=== PATIENT | male | born 1950 | race Caucasian/White ===

== ENCOUNTER 2018-06-12 17:25 | Inpatient (IN) | payer OTHER, BC ==
[2018-06-12] MEDS ORDERED: SODIUM CHLORIDE 0.9% 500 ML 500 ML IV STA (17:55)
--- NOTE | 2018-06-12 18:08 | ED ---
General Adult HPI - General Chief complaint: Dizziness Stated complaint: Abnormal EKG- sent by Time Seen by Provider: 06/12/18 17:42 - History of Present Illness Initial comments: Dictation was produced using [employer] dictation software. please excuse any grammatical, word or spelling errors. Chief Complaint: 67-year-old male sent in by primary care physician for EKG changes and dizziness. History of Present Illness: 7-year-old male. Patient states she's been having worsening dizziness or last 2-3 days. Patient reports that his dizziness is only with exertion. He states that it's worse with walking or doing any sort of exertional activity. Patient states he went to go see his PCP today who performed an EKG. He was thought to have nonspecific EKG changes. He was instructed To the emergency department for further care. PCP had ordered a echocardiogram and ultrasound of the carotids that was supposed be performed outpatient however was instructed to come to the emergency department instead. Patient has no pain complaints. The ROS documented in this emergency department record has been reviewed and confirmed by me. Those systems with pertinent positive or negative responses have been documented in the HPI. All other systems are other negative and/or noncontributory. PHYSICAL EXAM: General Impression: Alert and oriented x3, not in acute distress HEENT: Normocephalic atraumatic, extra-ocular movements intact, pupils equal and reactive to light bilaterally, mucous membranes moist. Cardiovascular: Heart regular rate and rhythm, S1&S2 audible, no murmurs, rubs or gallops Chest: Lungs clear to auscultation bilaterally, no rhonchi, no wheeze, no rales Abdomen: Bowel sounds present, abdomen soft, non-tender, non-distended, no organomegaly Musculoskeletal: Pulses present and equal in all extremities, no peripheral edema Motor: Power 5/5 bilaterally, no focal deficits noted Neurological: CN II-XII grossly intact, no focal motor or sensory deficits noted , no nystagmus Skin: Intact with no visualized rashes Psych: Normal affect and mood ED course: 67-year-old male presents with nonspecific EKG changes and dizziness. Vital signs upon arrival are within acceptable limits. Patient has borderline low blood pressure 99/56. He is however asymptomatic at this time. Laboratory evaluation obtained. Mild leukocytosis of 11.9 likely secondary to stress. Coag panel unremarkable. Metabolic panel shows elevation of renal markers from his baseline. I believe there is a component of dehydration. Patient given intravenous fluids. Troponin is 0.043. Patient has history of elevated troponin however slightly more elevated today than usual. Given elevated troponin and exertional symptoms patient started on heparin. We will plan to have patient admitted for cardiology consultation. No documentation of congestive heart failure seen in our EMR at this time. Patient given aspirin. Patient and family understandable and agreeable to plan. EKG interpretation: Ventricular rate 59, sinus bradycardia, AZ interval to 18, QS 12, QTc 453. No AZ prolongation, no QTC prolongation, no ST or T-wave changes noted. - Related Data Home Medications Medication Instructions Recorded Confirmed Furosemide [Lasix] 40 mg PO BID 12/23/13 06/12/18 Lisinopril [Zestril] 20 mg PO DAILY 12/23/13 06/12/18 Potassium Chloride ER [K-Dur 20] 20 meq PO DAILY 12/23/13 06/12/18 Albuterol Sulfate [Proair Hfa] 2 puff INHALATION RT-Q6H PRN 07/24/15 06/12/18 Clopidogrel [Plavix] 75 mg PO DAILY 07/24/15 06/12/18 Budesonide/Formoterol Fumarate 2 puff INHALATION RT-BID 06/12/18 06/12/18 [Symbicort 160-4.5 Mcg Inhaler] Ergocalciferol (Vitamin D2) 50,000 unit PO Q7D 06/12/18 06/12/18 [Vitamin D2] Insulin Aspart [NovoLOG Flexpen] See Protocol SQ ACHS 06/12/18 06/12/18 Insulin Glargine,Hum.rec.anlog 100 unit SQ HS 06/12/18 06/12/18 [Lantus Solostar] Isosorbide Mononitrate ER [Imdur] 60 mg PO DAILY 06/12/18 06/12/18 Metoprolol Tartrate [Lopressor] 50 mg PO BID 06/12/18 06/12/18 NIFEdipine [NIFEdipine ER] 60 mg PO DAILY 06/12/18 06/12/18 Spironolactone [Aldactone] 50 mg PO DAILY 06/12/18 06/12/18 Tiotropium 18 Mcg/Puff [Spiriva] 1 cap INHALATION RT-DAILY 06/12/18 06/12/18 metFORMIN HCL 1,000 mg PO BID 06/12/18 06/12/18 Previous Rx's Medication Instructions Recorded Aspirin 325 mg PO DAILY #90 tab 12/24/13 Atorvastatin [Lipitor] 80 mg PO HS #90 tab 12/24/13 Nitroglycerin Sl Tabs [Nitrostat] 0.4 mg SUBLINGUAL Q5M PRN #25 tab 12/24/13 Allergies Allergy/AdvReac Type Severity Reaction Status Date / Time No Known Allergies Allergy Verified 06/12/18 18:48 Review of Systems ROS Statement: Those systems with pertinent positive or pertinent negative responses have been documented in the HPI. ROS Other: All systems not noted in ROS Statement are negative. Past Medical History Past Medical History: Coronary Artery Disease (CAD), COPD, Diabetes Mellitus, Hypertension Additional Past Medical History / Comment(s): On ABX at this time for "cold/ bronchitis", IDDM, lower leg edema, 2014 L leg injury and has ACL1 injury. Last Myocardial Infarction Date:: 12/23/13 History of Any Multi-Drug Resistant Organisms: None Reported Past Surgical History: Coronary Bypass/CABG, Heart Catheterization With Stent Additional Past Surgical History / Comment(s): unknown exact number of stents Past Anesthesia/Blood Transfusion Reactions: No Reported Reaction Date of Last Stent Placement:: 2011 Past Psychological History: No Psychological Hx Reported Additional Psychological History / Comment(s): Pt resides with his spouse. He is independent. He has a cane which he uses minimally. He drives. 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 Smoking Status: Current every day smoker Past Alcohol Use History: Occasional Additional Past Alcohol Use History / Comment(s): Pt started smoking in 1969 and is a 1 ppd smoker. Past Drug Use History: None Reported - Past Family History Father Family Medical History: Myocardial Infarction ([place]) Additional Family Medical History / Comment(s): Father had lung cancer and bladder cancer. He is 82 yrs old. He is an exsmoker. Mother Family Medical History: COPD Additional Family Medical History / Comment(s): cardiac Course Vital Signs 06/12/18 06/12/18 18:07 19:08 Temperature 98.6 F Pulse Rate 57 L Pulse Rate [ 63 Sitting] Pulse Rate [ 60 Standing] Pulse Rate [ 50 L Supine] Respiratory 18 Rate Blood Pressure 99/56 Blood Pressure 89/53 [Left Arm Sitting] Blood Pressure 98/45 [Left Arm Standing] Blood Pressure 99/49 [Left Arm Supine] O2 Sat by Pulse 98 Oximetry Medical Decision Making - Lab Data Result diagrams: 06/12/18 17:59 06/12/18 17:59 Lab Results 06/12/18 06/12/18 06/12/18 Range/Units 17:59 17:59 17:59 WBC 11.9 H (3.8-10.6) k/uL RBC 4.47 (4.30-5.90) m/uL Hgb 11.8 L (13.0-17.5) gm/dL Hct 37.7 L (39.0-53.0) % MCV 84.2 (80.0-100.0) fL MCH 26.4 (25.0-35.0) pg MCHC 31.4 (31.0-37.0) g/dL RDW 14.9 (11.5-15.5) % Plt Count 237 (150-450) k/uL Neutrophils % 71 % Lymphocytes % 16 % Monocytes % 7 % Eosinophils % 3 % Basophils % 1 % Neutrophils # 8.5 H (1.3-7.7) k/uL Lymphocytes # 1.9 (1.0-4.8) k/uL Monocytes # 0.8 (0-1.0) k/uL Eosinophils # 0.4 (0-0.7) k/uL Basophils # 0.1 (0-0.2) k/uL Hypochromasia Slight PT 11.6 (9.0-12.0) sec INR 1.1 (<1.2) Sodium 139 (137-145) mmol/L Potassium 5.0 (3.5-5.1) mmol/L Chloride 105 (98-107) mmol/L Carbon Dioxide 25 (22-30) mmol/L Anion Gap 9 mmol/L BUN 29 H (9-20) mg/dL Creatinine 1.63 H (0.66-1.25) mg/dL Est GFR (CKD-EPI)AfAm 50 (>60 ml/min/1.73 sqM) Est GFR (CKD-EPI)NonAf 44 (>60 ml/min/1.73 sqM) Glucose 105 H (74-99) mg/dL Calcium 9.5 (8.4-10.2) mg/dL Troponin I (0.000-0.034) ng/mL Urine Color Urine Appearance (Clear) Urine pH (5.0-8.0) Ur Specific Muse (1.001-1.035) Urine Protein (Negative) Urine Glucose (UA) (Negative) Urine Ketones (Negative) Urine Blood (Negative) Urine Nitrite (Negative) Urine Bilirubin (Negative) Urine Urobilinogen (<2.0) mg/dL Ur Leukocyte Esterase (Negative) Urine RBC (0-5) /hpf Urine WBC (0-5) /hpf Urine Bacteria (None) /hpf Hyaline Casts (0-2) /lpf Urine Mucus (None) /hpf 06/12/18 06/12/18 Range/Units 17:59 18:59 WBC (3.8-10.6) k/uL RBC (4.30-5.90) m/uL Hgb (13.0-17.5) gm/dL Hct (39.0-53.0) % MCV (80.0-100.0) fL MCH (25.0-35.0) pg MCHC (31.0-37.0) g/dL RDW (11.5-15.5) % Plt Count (150-450) k/uL Neutrophils % % Lymphocytes % % Monocytes % % Eosinophils % % Basophils % % Neutrophils # (1.3-7.7) k/uL Lymphocytes # (1.0-4.8) k/uL Monocytes # (0-1.0) k/uL Eosinophils # (0-0.7) k/uL Basophils # (0-0.2) k/uL Hypochromasia PT (9.0-12.0) sec INR (<1.2) Sodium (137-145) mmol/L Potassium (3.5-5.1) mmol/L Chloride (98-107) mmol/L Carbon Dioxide (22-30) mmol/L Anion Gap mmol/L BUN (9-20) mg/dL Creatinine (0.66-1.25) mg/dL Est GFR (CKD-EPI)AfAm (>60 ml/min/1.73 sqM) Est GFR (CKD-EPI)NonAf (>60 ml/min/1.73 sqM) Glucose (74-99) mg/dL Calcium (8.4-10.2) mg/dL Troponin I 0.043 H* (0.000-0.034) ng/mL Urine Color Yellow Urine Appearance Clear (Clear) Urine pH 5.0 (5.0-8.0) Ur Specific Muse 1.012 (1.001-1.035) Urine Protein 1+ H (Negative) Urine Glucose (UA) Negative (Negative) Urine Ketones Negative (Negative) Urine Blood Negative (Negative) Urine Nitrite Negative (Negative) Urine Bilirubin Negative (Negative) Urine Urobilinogen <2.0 (<2.0) mg/dL Ur Leukocyte Esterase Negative (Negative) Urine RBC <1 (0-5) /hpf Urine WBC 1 (0-5) /hpf Urine Bacteria Rare H (None) /hpf Hyaline Casts 15 H (0-2) /lpf Urine Mucus Rare H (None) /hpf Disposition Clinical Impression: NSTEMI (non-ST elevated myocardial infarction) Disposition: ADMITTED IP TO THIS [facility] Condition: Fair Referrals: Gonzalo Do MD [Primary Care Provider] - 1-2 days Decision Time: 19:27
[2018-06-12 18:17] LABS: Basophils # (A) 0.1 k/uL (0-0.2); Basophils % (A) 1 %; Eosinophils # (A) 0.4 k/uL (0-0.7); Eosinophils % (A) 3 %; HCT 37.7 % (39.0-53.0); HGB 11.8 gm/dL (13.0-17.5); Hypochromasia Slight; Lymphocytes # (A) 1.9 k/uL (1.0-4.8); Lymphocytes % (A) 16 %; MCH 26.4 pg (25.0-35.0); MCHC 31.4 g/dL (31.0-37.0); MCV 84.2 fL (80.0-100.0); Mean Platelet Volume 9.2; Monocytes # (A) 0.8 k/uL (0-1.0); Monocytes % (A) 7 %; Neutrophils # (A) 8.5 k/uL (1.3-7.7); Neutrophils % (A) 71 %; Platelet Count 237 k/uL (150-450); RBC 4.47 m/uL (4.30-5.90); RDW 14.9 % (11.5-15.5); WBC 11.9 k/uL (3.8-10.6)
[2018-06-12 18:28] LABS: INR 1.1 (<1.2); Prothrombin Time 11.6 sec (9.0-12.0)
[2018-06-12 18:37] LABS: Calcium 9.5 mg/dL (8.4-10.2)
[2018-06-12] MEDS ORDERED: HEPARIN SODIUM,PORCINE 5,000 UNIT/ML 1 ML VIAL IV PRN (19:07)
[2018-06-12] MEDS ORDERED: HEPARIN SODIUM,PORCINE 5,000 UNIT/ML 1 ML VIAL IV ONE (19:07)
[2018-06-12 19:17] LABS: Appearance,Urine Clear (Clear); Bacteria,Urine Rare /hpf; Bilirubin,Urine Negative (Negative); Blood,Urine Negative (Negative); Color,Urine Yellow; Glucose,Urine (UA) Negative (Negative); Hyaline Casts,Urine 15 /lpf (0-2); Ketones,Urine Negative (Negative); Leukocyte Esterase,Urine Negative (Negative); Mucus,Urine Rare /hpf; Nitrite,Urine Negative (Negative); Protein,Urine 1+ (Negative); RBC,Urine <1 /hpf (0-5); Specific Gravity,Urine 1.012 (1.001-1.035); Urobilinogen,Urine <2.0 mg/dL (<2.0)
[2018-06-12] MEDS: HEPARIN SOD,PORK IN 0.45% NACL 25,000 UNIT in 0.45% NACL 1 250ML.BAG IV SCH (19:23)
[2018-06-12] MEDS ORDERED: ASPIRIN 81 MG PO STA (19:25)
[2018-06-12] MEDS ORDERED: NITROGLYCERIN SL TABS 0.4 MG TAB SUBLINGUAL PRN (19:27)
--- NOTE | 2018-06-12 19:58 | XR ---
EXAMINATION: XR chest 1V portable DATE AND TIME: 06/12/2018 6:58 PM CLINICAL INDICATION: PHH; dizzy TECHNIQUE: AP upright portable COMPARISON: 07/24/2015 FINDINGS: The lungs are clear. The pleural spaces are negative. The cardiac silhouette is moderately enlarged. The remainder of the mediastinal silhouette is not wel l visualized. Sternal sutures and mediastinal clips are noted. EKG leads. The skeletal structures and soft tissues are negative for acute findings. IMPRESSION: NO ACUTE PROCESS.
[2018-06-12 20:58] LABS: Glucose,Whole Blood 131 mg/dL (75-99)
[2018-06-12] MEDS ORDERED: METOPROLOL TARTRATE 50 MG TAB PO SCH (21:00)
[2018-06-12] MEDS ORDERED: ATORVASTATIN 80 MG TAB PO SCH (21:00)
[2018-06-12] MEDS ORDERED: metFORMIN 500 MG TAB PO SCH (21:00)
[2018-06-12 21:11] VITALS: BMI 28.5
[2018-06-12] MEDS: INSULIN DETEMIR (LEVEMIR) 100 UNIT/ML SYR SQ SCH (21:16)
[2018-06-13] MEDS: metFORMIN 500 MG TAB PO SCH (02:10)
[2018-06-13 06:09] LABS: Glucose,Whole Blood 126 mg/dL (75-99)
[2018-06-13] MEDS: INSULIN ASPART (NovoLOG) 100 UNIT/ML VIAL SQ SCH ×4 (06:20→20:48)
[2018-06-13 06:26] LABS: Calcium 9.2 mg/dL (8.4-10.2); Magnesium 1.9 mg/dL (1.6-2.3); Potassium 4.5 mmol/L (3.5-5.1)
--- NOTE | 2018-06-13 07:38 | P.CRDCN ---
History of Present Illness Consult date: 06/13/18 Requesting physician: Yaz Cheatham Reason for Consult (text): Abnormal troponins Chief complaint: Dizziness, lightheadedness, recent heart failure exacerbation History of present illness: This is a pleasant 67-year-old gentleman who used to follow with Dr. Xiong in the office, he now follows with Dr. Elder at [facility]. He has a known history of coronary artery disease, patient underwent coronary artery bypass grafting surgery in 2000, in 2010 he underwent a cardiac catheterization which at that time revealed a totally occluded [place] vessel with patent [place] to the LAD, patent saphenous vein graft to the obtuse marginal branch and patent saphenous vein graft to the right coronary artery had had severe obstructive coronary artery disease, he underwent stenting of the saphenous vein graft to the right coronary artery at that time. In 2012 patient underwent repeat revascularization by Dr. Crowley. In 2013 the patient presented to the hospital again with symptoms of chest discomfort, he was seen in consultation at that time by Dr. geetha lenz and underwent successful angioplasty and stenting of the saphenous vein graft to the right coronary artery. Patient also has history of nicotine dependence, hypertension, hyperlipidemia, diabetes. According to the patient, since March of last year he states that he had been quite short of breath, he went to see Dr. Berry as an outpatient approximately 2 weeks ago, an x-ray was performed at that time which revealed congestive heart failure and the patient was started on IV Lasix. He states he has significant bilateral lower extremity edema at that time which has now almost completely resolved. He presents to the hospital on this occasion with symptoms of dizziness and lightheadedness with associated weakness. He states that he was [place] the shooting range with his , walked outside and became extremely lightheaded and dizzy and felt as though his arms and legs were extremely weak. He denies having any chest discomfort and overall his breathing since he started the Lasix has been fairly stable. Chest x-ray on this admission did not reveal any acute process. Chest x-ray performed on June 04 revealed bilateral consolidation and small bilateral pleural effusions with congestive heart failure and possible pneumonia. EKG on arrival here showed a sinus bradycardia with T wave changes noted in the lateral leads, similar to prior EKGs. Orthostatic blood pressures were obtained, 98/40 lying 99/48 sitting and 89/53 standing, heart rate in the 60s, 96% on room air. Blood pressure this morning 118/60, heart rate in the 70s, 91% on room air. Laboratory data was reviewed, white blood cell count 11.9, hemoglobin 11.8, platelet count 237. Sodium 139, potassium 5.0, BUN 29 and creatinine 1.6 on admission, sodium this morning 139, potassium 4.5, BUN 26 and creatinine 1.2. Troponins 0.04, 0.03, 0.04. At the time of my examination this morning, patient is resting in bed, denies any weakness dizziness or lightheadedness, breathing is stable, denies any chest discomfort. Past Medical History Past Medical History: Coronary Artery Disease (CAD), Heart Failure, COPD, Diabetes Mellitus, Hypertension Additional Past Medical History / Comment(s): On ABX at this time for "cold/bronchitis", IDDM, lower leg edema, 2013 L leg injury and has ACL1 injury, heart murmur Last Myocardial Infarction Date:: 12/23/13 History of Any Multi-Drug Resistant Organisms: None Reported Past Surgical History: Coronary Bypass/CABG, Heart Catheterization With Stent Additional Past Surgical History / Comment(s): stent to SVG-RCA at [facility]', stent to left carotid , stent x 2 (unk) 2013 at [facility], stent to RCA @ [facility] 13', Stent to RCA, SVG to RCA, SVG to RCA at [facility], gaglion cyst removal Past Anesthesia/Blood Transfusion Reactions: No Reported Reaction Date of Last Stent Placement:: 2011 Past Psychological History: No Psychological Hx Reported Additional Psychological History / Comment(s): Pt resides with his spouse. He is independent. He has a cane which he uses minimally. He drives. 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 Smoking Status: Current every day smoker Past Alcohol Use History: Occasional Additional Past Alcohol Use History / Comment(s): Pt started smoking in 1969 and is a 1 ppd smoker. Past Drug Use History: None Reported - Past Family History Father Family Medical History: Myocardial Infarction ([place]) Additional Family Medical History / Comment(s): Father had lung cancer and bladder cancer. He is 82 yrs old. He is an exsmoker. Mother Family Medical History: COPD Additional Family Medical History / Comment(s): cardiac Medications and Allergies Home Medications Medication Instructions Recorded Confirmed Type Furosemide [Lasix] 40 mg PO BID 12/23/13 06/12/18 History Lisinopril [Zestril] 20 mg PO DAILY 12/23/13 06/12/18 History Potassium Chloride ER [K-Dur 20] 20 meq PO DAILY 12/23/13 06/12/18 History Aspirin 325 mg PO DAILY #90 tab 12/24/13 06/12/18 Rx Atorvastatin [Lipitor] 80 mg PO HS #90 tab 12/24/13 06/12/18 Rx Nitroglycerin Sl Tabs [Nitrostat] 0.4 mg SUBLINGUAL Q5M PRN #25 tab 12/24/13 0 06/12/18 Rx Albuterol Sulfate [Proair Hfa] 2 puff INHALATION RT-Q6H PRN 07/24/15 06/12/18 History Clopidogrel [Plavix] 75 mg PO DAILY 07/24/15 06/12/18 History Budesonide/Formoterol Fumarate 2 puff INHALATION RT-BID 06/12/18 06/12/18 History [Symbicort 160-4.5 Mcg Inhaler] Ergocalciferol (Vitamin D2) 50,000 unit PO Q7D 06/12/18 06/12/18 History [Vitamin D2] Ferrous Sulfate [Feosol] 325 mg PO DAILY 06/12/18 06/12/18 History Insulin Aspart [NovoLOG Flexpen] See Protocol SQ ACHS 06/12/18 06/12/18 History Insulin Glargine,Hum.rec.anlog 100 unit SQ HS 06/12/18 06/12/18 History [Lantus Solostar] Isosorbide Mononitrate ER [Imdur] 60 mg PO DAILY 06/12/18 06/12/18 History Metoprolol Tartrate [Lopressor] 50 mg PO DAILY 06/12/18 06/12/18 History NIFEdipine [NIFEdipine ER] 60 mg PO DAILY 06/12/18 06/12/18 History Spironolactone [Aldactone] 50 mg PO DAILY 06/12/18 06/12/18 History Tiotropium 18 Mcg/Puff [Spiriva] 1 cap INHALATION RT-DAILY 06/12/18 06/12/18 History metFORMIN HCL 1,000 mg PO QAM 06/12/18 06/12/18 History Allergies Allergy/AdvReac Type Severity Reaction Status Date / Time No Known Allergies Allergy Verified 06/12/18 18:48 Physical Exam Vitals: Vital Signs Temp Pulse Pulse Pulse Pulse Resp BP 06/13/18 03:38 98.3 F 73 18 06/12/18 23:09 97.6 F 67 18 06/12/18 20:59 62 16 125/85 06/12/18 20:29 97.5 F L 61 18 06/12/18 19:08 63 60 50 L 06/12/18 18:07 98.6 F 57 L 18 99/56 BP BP BP Pulse Ox 06/13/18 03:38 117/59 91 L 06/12/18 23:09 129/57 96 06/12/18 20:59 98 06/12/18 20:29 128/61 96 06/12/18 19:08 89/53 98/45 99/49 06/12/18 18:07 98 Intake and Output 06/12/18 06/13/18 06/13/18 22:59 06:59 14:59 Intake Total 60 307.513 Output Total 1100 Balance 60 -792.487 Intake: IV 60 240 0.9% NS 20mL/HR 40 160 Heparin Sod,Pork in 0.45% 20 80 NaCl 25,000 unit In 0.45 % NaCl 1 250ml.bag @ 12 UNITS/KG/HR 9.88 mls/hr IV .Q24H [facility] Rx#: [id number] Intake, IV Titration 67.513 Amount Heparin Sod,Pork in 0.45% 67.513 NaCl 25,000 unit In 0.45 % NaCl 1 250ml.bag @ 12 UNITS/KG/HR 9.88 mls/hr IV .Q24H [facility] Rx#: [id number] Output: Urine 1100 Other: Weight 82.372 kg 87.5 kg PHYSICAL EXAMINATION: GENERAL: 67-year-old gentleman in no acute distress at the time of my examination HEENT: Head is atraumatic, normocephalic. Pupils equal, round. Sclera anicteric. Conjunctiva are clear. Mucous membranes of the mouth are moist. Neck is supple. There is no elevated jugular venous pressure. No carotid bruit is heard. HEART EXAMINATION: Heart S1 S2 1 systolic murmur is heard CHEST EXAMINATION: Lungs are clear with mild decrease in air entry to the bases. ABDOMEN: Soft, nontender. Bowel sounds are heard. No organomegaly noted. EXTREMITIES: 2+ peripheral pulses with trace edema noted to the right lower extremity, no edema to the left lower extremity no calf tenderness noted, negative Homans. NEUROLOGIC patient is awake, alert and oriented 3 . . Results 06/12/18 17:59 06/13/18 05:42 Cardiac Enzymes 06/12/18 06/13/18 06/13/18 Range/Units 17:59 01:01 05:42 Troponin I 0.043 H* 0.032 0.045 H* (0.000-0.034) ng/mL Coagulation 06/12/18 06/13/18 Range/Units 17:59 01:01 PT 11.6 (9.0-12.0) sec APTT 37.3 H (22.0-30.0) sec Lipids 06/13/18 Range/Units 05:42 Triglycerides 94 (<150) mg/dL Cholesterol 91 (<200) mg/dL HDL Cholesterol 26 L (40-60) mg/dL CBC 06/12/18 Range/Units 17:59 WBC 11.9 H (3.8-10.6) k/uL RBC 4.47 (4.30-5.90) m/uL Hgb 11.8 L (13.0-17.5) gm/dL Hct 37.7 L (39.0-53.0) % Plt Count 237 (150-450) k/uL Comprehensive Metabolic Panel 06/12/18 06/13/18 Range/Units 17:59 05:42 Sodium 139 139 (137-145) mmol/L Potassium 5.0 4.5 (3.5-5.1) mmol/L Chloride 105 109 H (98-107) mmol/L Carbon Dioxide 25 23 (22-30) mmol/L BUN 29 H 26 H (9-20) mg/dL Creatinine 1.63 H 1.21 (0.66-1.25) mg/dL Glucose 105 H 126 H (74-99) mg/dL Calcium 9.5 9.2 (8.4-10.2) mg/dL Current Medications Generic Name Dose Route Start Last Admin Trade Name Freq PRN Reason Stop Dose Admin Aspirin 325 mg 06/13/18 09:00 Aspirin PO DAILY [facility] Atorvastatin Calcium 80 mg 06/13/18 09:00 Lipitor PO QAM [facility] Clopidogrel Bisulfate 75 mg 06/13/18 09:00 Plavix PO DAILY [facility] Heparin Sodium (Porcine) 0 unit 06/12/18 19:07 06/13/18 02:13 Heparin IV 4,000 unit PER PROTOCOL PRN Administration Low PTT Protocol Heparin Sodium/Sodium Chloride 250 mls @ 9.88 mls/hr 06/12/18 19:15 06/13/18 02:13 25,000 unit/ Sodium Chloride IV 15 units/kg/hr .Q24H [facility] 12.35 mls/hr Titration Protocol 12 UNITS/KG/HR Insulin Aspart 0 unit 06/13/18 07:30 06/13/18 06:20 Novolog SQ Not Given ACHS [facility] Protocol Insulin Detemir 100 unit 06/12/18 21:00 06/12/18 21:16 Levemir SQ Not Given HS [facility] Metformin HCl 1,000 mg 06/13/18 07:30 06/13/18 02:10 Glucophage PO Not Given W/BRKFST [facility] Metoprolol Tartrate 50 mg 06/13/18 09:00 Lopressor PO DAILY [facility] Nitroglycerin 0.4 mg 06/12/18 19:27 Nitrostat SUBLINGUAL Q5M PRN Chest Pain Intake and Output 06/12/18 06/13/18 06/13/18 22:59 06:59 14:59 Intake Total 60 307.513 Output Total 1100 Balance 60 -792.487 Intake: IV 60 240 0.9% NS 20mL/HR 40 160 Heparin Sod,Pork in 0.45% 20 80 NaCl 25,000 unit In 0.45 % NaCl 1 250ml.bag @ 12 UNITS/KG/HR 9.88 mls/hr IV .Q24H [facility] Rx#: [id number] Intake, IV Titration 67.513 Amount Heparin Sod,Pork in 0.45% 67.513 NaCl 25,000 unit In 0.45 % NaCl 1 250ml.bag @ 12 UNITS/KG/HR 9.88 mls/hr IV .Q24H [facility] Rx#: [id number] Output: Urine 1100 Other: Weight 82.372 kg 87.5 kg 06/12/18 17:59 06/13/18 05:42 EKG Interpretations (text) EKG on admission here shows a sinus bradycardia with T wave inversion noted in the lateral leads, similar to prior EKGs. Assessment and Plan Plan: Assessment and plan #1 symptoms of dizziness and lightheadedness with associated bilateral arm and leg weakness, rule out cardiac causes. Likely secondary to dehydration and hypotension. #2 abnormality in troponin, no significant rise and fall pattern to suggest acute coronary syndrome, patient denies having any chest discomfort. EKG shows a sinus bradycardia with T wave changes noted in the lateral leads similar to prior EKGs. #3 recent congestive heart failure exacerbation, treated with Lasix as an outpatient #4 known history of coronary artery disease with prior bypass surgery in 2000, subsequent stenting 3 since his bypass, most recent in 2013 #5 hypertension #6 hyperlipidemia #7 diabetes #8 nicotine dependence #9 systolic murmur, suggestive of mitral regurg #10 mild renal insufficiency on admission, could be secondary to dehydration Plan We will obtain orthostatic blood pressure and heart rate every shift. Obtain echocardiogram with Doppler study. Monitor for any significant tachycardia or bradycardia arrhythmias. We will also obtain a d-dimer. Continue IV heparin at this time along with aspirin which we will decrease to 81 mg daily, Lipitor, we will decrease the metoprolol to 25 mg daily. Patient had also been on Ald actone, potassium, nifedipine, Zestril, Imdur, which have all been placed on hold at this time because of hypotension and abnormal renal function on admission. Further recommendations to follow. DNP note has been reviewed, I agree with a documented findings and plan of care. Patient was seen and examined.
[2018-06-13] MEDS ORDERED: METOPROLOL TARTRATE 50 MG TAB PO SCH (09:00)
[2018-06-13] MEDS ORDERED: ASPIRIN 325 MG TAB PO SCH ×2 (09:00)
[2018-06-13] MEDS: NICOTINE 14MG/24HR PATCH TRANSDERM SCH (09:44)
[2018-06-13] MEDS: ATORVASTATIN 80 MG TAB PO SCH (09:44)
[2018-06-13] MEDS: CLOPIDOGREL 75 MG TAB PO SCH (09:44)
[2018-06-13] MEDS: ASPIRIN 81 MG PO SCH (09:44)
[2018-06-13] MEDS: METOPROLOL TARTRATE 25 MG TAB PO SCH (09:45)
[2018-06-13 11:52] LABS: Glucose,Whole Blood 270 mg/dL (75-99)
[2018-06-13 13:00] LABS: Hemoglobin A1C 9.3 % (4.0-6.0)
--- NOTE | 2018-06-13 13:36 | P.HPIM ---
History of Present Illness H&P Date: 06/13/18 Chief Complaint: Lightheadedness dizziness Very pleasant 67-year-old gentleman past medical history significant for CAD status post CABG comes in with lightheadedness and dizziness. He says that he' s been feeling lightheaded and dizzy when at [employer] and trying to do some shooting. He said he was a lightheaded and dizzy that he could not even pickup is gone and was feeling so weak he did not have any chest pain or racing heart, no cough no shortness of breath. He otherwise does not complain any abdominal pain, nausea and vomiting, or diarrhea constipation, no tingling numbness on his extremities, and additional rest. He said that he felt little bit blacked out during the incident but did not lose vision or did not lose consciousness. He does came into the ER for further evaluation and management. ER course-patient's vitals were stable. Labwork was initial WAC 11.9 hemoglobin 11.8 platelets 237 sodium 139 potassium 5.0 B1 29 creatinine 1.6 troponins were 0.04, 0.03 and 0.04 respectively. Patient was thus admitted to the hospitalist service for further evaluation and management with cardiology on board Review of Systems All systems: negative Past Medical History Past Medical History: Coronary Artery Disease (CAD), Heart Failure, COPD, Diabetes Mellitus, Hypertension Additional Past Medical History / Comment(s): On ABX at this time for "cold/ bronchitis", IDDM, lower leg edema, 2014 L leg injury and has ACL1 injury, heart murmur Last Myocardial Infarction Date:: 12/23/13 History of Any Multi-Drug Resistant Organisms: None Reported Past Surgical History: Coronary Bypass/CABG, Heart Catheterization With Stent Additional Past Surgical History / Comment(s): stent to SVG-RCA at [facility] 08', stent to left carotid , stent x 2 (unk) 2013 at [facility], stent to RCA @ [facility] 13', Stent to RCA, SVG to RCA, SVG to RCA at [facility], gaglion cyst removal Past Anesthesia/Blood Transfusion Reactions: No Reported Reaction Date of Last Stent Placement:: 2011 Past Psychological History: No Psychological Hx Reported Additional Psychological History / Comment(s): Pt resides with his spouse. He is independent. He has a cane which he uses minimally. He drives. 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 Smoking Status: Current every day smoker Past Alcohol Use History: Occasional Additional Past Alcohol Use History / Comment(s): Pt started smoking in 1969 and is a 1 ppd smoker. Past Drug Use History: None Reported - Past Family History Father Family Medical History: Myocardial Infarction (MS) Additional Family Medical History / Comment(s): Father had lung cancer and bladder cancer. He is 82 yrs old. He is an exsmoker. Mother Family Medical History: COPD Additional Family Medical History / Comment(s): cardiac Medications and Allergies Home Medications Medication Instructions Recorded Confirmed Type Furosemide [Lasix] 40 mg PO BID 12/23/13 06/12/18 History Lisinopril [Zestril] 20 mg PO DAILY 12/23/13 06/12/18 History Potassium Chloride ER [K-Dur 20] 20 meq PO DAILY 12/23/13 06/12/18 History Aspirin 325 mg PO DAILY #90 tab 12/24/13 06/12/18 Rx Atorvastatin [Lipitor] 80 mg PO HS #90 tab 12/24/13 06/12/18 Rx Nitroglycerin Sl Tabs [Nitrostat] 0.4 mg SUBLINGUAL Q5M PRN #25 tab 12/24/1308/26 Rx Albuterol Sulfate [Proair Hfa] 2 puff INHALATION RT-Q6H PRN 07/24/15 06/12/18 History Clopidogrel [Plavix] 75 mg PO DAILY 07/24/15 06/12/18 History Budesonide/Formoterol Fumarate 2 puff INHALATION RT-BID 06/12/18 06/12/18 History [Symbicort 160-4.5 Mcg Inhaler] Ergocalciferol (Vitamin D2) 50,000 unit PO Q7D 06/12/18 06/12/18 History [Vitamin D2] Ferrous Sulfate [Feosol] 325 mg PO DAILY 06/12/18 06/12/18 History Insulin Aspart [NovoLOG Flexpen] See Protocol SQ ACHS 06/12/18 06/12/18 History Insulin Glargine,Hum.rec.anlog 100 unit SQ HS 06/12/18 06/12/18 History [Lantus Solostar] Isosorbide Mononitrate ER [Imdur] 60 mg PO DAILY 06/12/18 06/12/18 History Metoprolol Tartrate [Lopressor] 50 mg PO DAILY 06/12/18 06/12/18 History NIFEdipine [NIFEdipine ER] 60 mg PO DAILY 06/12/18 06/12/18 History Spironolactone [Aldactone] 50 mg PO DAILY 06/12/18 06/12/18 History Tiotropium 18 Mcg/Puff [Spiriva] 1 cap INHALATION RT-DAILY 06/12/18 06/12/18 History metFORMIN HCL 1,000 mg PO QAM 06/12/18 06/12/18 History Allergies Allergy/AdvReac Type Severity Reaction Status Date / Time No Known Allergies Allergy Verified 06/12/18 18:48 Physical Exam Vitals: Vital Signs Temp Pulse Pulse Pulse Pulse Resp BP 06/13/18 12:00 98.4 F 80 14 06/13/18 08:00 98.4 F 82 60 81 16 06/13/18 03:38 98.3 F 73 18 06/12/18 23:09 97.6 F 67 18 06/12/18 20:59 62 16 125/85 06/12/18 20:29 97.5 F L 61 18 06/12/18 19:08 63 60 50 L 06/12/18 18:07 98.6 F 57 L 18 99/56 BP BP BP Pulse Ox 06/13/18 12:00 126/68 92 L 06/13/18 08:00 142/68 131/63 92 L 06/13/18 03:38 117/59 91 L 06/12/18 23:09 129/57 96 06/12/18 20:59 98 06/12/18 20:29 128/61 96 06/12/18 19:08 89/53 98/45 99/49 06/12/18 18:07 98 Intake and Output 06/12/18 06/13/18 06/13/18 22:59 06:59 14:59 Intake Total 60 307.513 0 Output Total 1100 Balance 60 -792.487 0 Intake: IV 60 240 0.9% NS 20mL/HR 40 160 Heparin Sod,Pork in 0.45% 20 80 NaCl 25,000 unit In 0.45 % NaCl 1 250ml.bag @ 12 UNITS/KG/HR 9.88 mls/hr IV .Q24H [facility] Rx#: [id number] Intake, IV Titration 67.513 Amount Heparin Sod,Pork in 0.45% 67.513 NaCl 25,000 unit In 0.45 % NaCl 1 250ml.bag @ 12 UNITS/KG/HR 9.88 mls/hr IV .Q24H [facility] Rx#: [id number] Oral 0 Output: Urine 1100 Other: Weight 82.372 kg 87.5 kg 87.5 kg On exam, alert and oriented x3. HEENT: Conjunctivae normal. eyes normal. NECK: No JVD. No thyroid enlargement. No LNs CARDIOVASCULAR: S1-S2 positive RESPIRATION: Breath sounds diminished in the bases. No rhonchi or crackles. No bronchial breathing. ABDOMEN: Soft, nontender . No guarding. no masses palpable. No ascites, No hepatosplenomegaly.Bowel sounds heard. LEGS: Trace pedal edema NERVOUS SYSTEM: Cranial N 2-12 grossly normal. Moves all 4 limbs. No focal deficits. No sensory deficit. No signs of cerebellar dysfucntion. Skin: no ulcer no rash Results CBC & Chem 7: 06/12/18 17:59 06/13/18 05:42 Labs: Abnormal Lab Results - Last 24 Hours (Table) 06/12/18 06/12/18 06/12/18 Range/Units 17:59 17:59 17:59 WBC 11.9 H (3.8-10.6) k/uL Hgb 11.8 L (13.0-17.5) gm/dL Hct 37.7 L (39.0-53.0) % Neutrophils # 8.5 H (1.3-7.7) k/uL APTT (22.0-30.0) sec Chloride (98-107) mmol/L BUN 29 H (9-20) mg/dL Creatinine 1.63 H (0.66-1.25) mg/dL Glucose 105 H (74-99) mg/dL POC Glucose (mg/dL) (75-99) mg/dL Hemoglobin A1c (4.0-6.0) % Troponin I 0.043 H* (0.000-0.034) ng/mL HDL Cholesterol (40-60) mg/dL Urine Protein (Negative) Urine Bacteria (None) /hpf Hyaline Casts (0-2) /lpf Urine Mucus (None) /hpf 06/12/18 06/12/18 06/13/18 Range/Units 18:59 20:57 01:01 WBC (3.8-10.6) k/uL Hgb (13.0-17.5) gm/dL Hct (39.0-53.0) % Neutrophils # (1.3-7.7) k/uL APTT 37.3 H (22.0-30.0) sec Chloride (98-107) mmol/L BUN (9-20) mg/dL Creatinine (0.66-1.25) mg/dL Glucose (74-99) mg/dL POC Glucose (mg/dL) 131 H (75-99) mg/dL Hemoglobin A1c (4.0-6.0) % Troponin I (0.000-0.034) ng/mL HDL Cholesterol (40-60) mg/dL Urine Protein 1+ H (Negative) Urine Bacteria Rare H (None) /hpf Hyaline Casts 15 H (0-2) /lpf Urine Mucus Rare H (None) /hpf 06/13/18 06/13/18 06/13/18 Range/Units 05:42 05:42 05:42 WBC (3.8-10.6) k/uL Hgb (13.0-17.5) gm/dL Hct (39.0-53.0) % Neutrophils # (1.3-7.7) k/uL APTT (22.0-30.0) sec Chloride 109 H (98-107) mmol/L BUN 26 H (9-20) mg/dL Creatinine (0.66-1.25) mg/dL Glucose 126 H (74-99) mg/dL POC Glucose (mg/dL) (75-99) mg/dL Hemoglobin A1c 9.3 H (4.0-6.0) % Troponin I 0.045 H* (0.000-0.034) ng/mL HDL Cholesterol 26 L (40-60) mg/dL Urine Protein (Negative) Urine Bacteria (None) /hpf Hyaline Casts (0-2) /lpf Urine Mucus (None) /hpf 06/13/18 06/13/18 06/13/18 Range/Units 06:08 07:59 11:42 WBC (3.8-10.6) k/uL Hgb (13.0-17.5) gm/dL Hct (39.0-53.0) % Neutrophils # (1.3-7.7) k/uL APTT 57.2 H (22.0-30.0) sec Chloride (98-107) mmol/L BUN (9-20) mg/dL Creatinine (0.66-1.25) mg/dL Glucose (74-99) mg/dL POC Glucose (mg/dL) 126 H 270 H (75-99) mg/dL Hemoglobin A1c (4.0-6.0) % Troponin I (0.000-0.034) ng/mL HDL Cholesterol (40-60) mg/dL Urine Protein (Negative) Urine Bacteria (None) /hpf Hyaline Casts (0-2) /lpf Urine Mucus (None) /hpf Thrombosis Risk Factor Assmnt - Choose All That Apply Any of the Below Risk Factors Present?: Yes Each Factor Represents 1 point: Heart failure (<1month), Obesity (BMI >25) Each Risk Factor Represents 2 Points: Age 61-74 years Thrombosis Risk Factor Assessment Total Risk Factor Score: 4 Thrombosis Risk Factor Assessment Level: Moderate Risk Assessment and Plan Assessment: - Lightheadedness or dizziness need to rule out due to dehydration or due to cardiac cause - Intermediate troponin levels - History of CAD status post CABG - History of hypertension - History of hyperlipidemia - Diabetes Plan - - We'll admit the patient to [facility] with telemetry - We'll hold on her cardiac medications as the patient might be dehydrated. - Cardiology on board - We'll continue rest of the medications - DVT and gi prophylaxis - We'll order for lab work in the morning - Expected length of stay is more than 2 midnights - Patient is full code - Time with Patient: Greater than 30
[2018-06-13 16:45] LABS: Glucose,Whole Blood 247 mg/dL (75-99)
[2018-06-13] MEDS: HEPARIN SOD,PORK IN 0.45% NACL 25,000 UNIT in 0.45% NACL 1 250ML.BAG IV SCH (17:40)
--- NOTE | 2018-06-13 18:33 | ECHOF ---
Referral Reason:assess lvf MEASUREMENTS -------- HEIGHT: 175.3 cm WEIGHT: 87.1 kg BP: IVSd: 1.5 cm (0.6 - 1.1) LVIDd: 5.1 cm (3.9 - 5.3) LVPWd: 1.5 cm (0.6 - 1.1) IVSs: 1.7 cm LVIDs: 4.2 cm LVPWs: 2.0 cm LA Diam: 4.9 cm (2.7 - 3.8) LAESV Index (A-L): 39.07 ml/m Ao Diam: 3.1 cm (2.0 - 3.7) AV Cusp: 1.3 cm (1.5 - 2.6) MV EXCURSION: 22.213 mm (> 18.000) MV EF SLOPE: 83 mm/s (70 - 150) EPSS: 1.2 cm AR PHT: 496 ms RAP: 5.00 mmHg RVSP: 48.51 mmHg FINDINGS -------- Sinus rhythm. This was a techncally difficult study with suboptimal views, , Lumason utilized for enhancement of im ages. The left ventricular size is normal. There is moderate concentric left ventricular hypertrophy. O verall left ventricular systolic function is moderate-severely impaired with, an EF between 30 - 35 % . Inferior Hypokinesis The right ventricle is normal in size. The left atrium is markedly dilated. LA is severely dilated >40 ml/m2 The right atrial size is normal. 5.0mg OF Lumason UTLIZED: 2 OR MORE WALL SEGMENTS NOT VISUALIZED. There is mild aortic valve sclerosis. There is mild aortic regurgitation. Mild mitral annular calcification present. Lxyr-ww-uzmqgbmk mitral regurgitation is present. Ghjv-eg-jwakfjny tricuspid regurgitation present. There is mild pulmonary hypertension. The right ventricular systolic pressure, as measured by Doppler, is 48.51mmHg. Trace/mild (physiologic) pulmonic regurgitation. The aortic root size is normal. There is no pericardial effusion. CONCLUSIONS -------- 1. This was a techncally difficult study with suboptimal views, , Lumason utilized for enhancement of images. 2. The left ventricular size is normal. 3. There is moderate concentric left ventricular hypertrophy. 4. Overall left ventricular systolic function is moderate-severely impaired with, an EF between 30 - 35 %. 5. Inferior Hypokinesis 6. The right ventricle is normal in size. 7. The left atrium is markedly dilated. 8. LA is severely dilated >40 ml/m2 9. The right atrial size is normal. 10. 5.0mg OF Lumason UTLIZED: 2 OR MORE WALL SEGMENTS NOT VISUALIZED. 11. There is mild aortic valve sclerosis. 12. There is mild aortic regurgitation. 13. Mild mitral annular calcification present. 14. Tenj-oh-wlnvizay mitral regurgitation is present. 15. Xxhu-uy-xulcixhf tricuspid regurgitation present. 16. There is mild pulmonary hypertension. 17. The right ventricular systolic pressure, as measured by Doppler, is 48.51mmHg. 18. Trace/mild (physiologic) pulmonic regurgitation. 19. The aortic root size is normal. 20. There is no pericardial effusion. DITTO MACHINE OPERATOR: Rossy Aldridge RDCS
[2018-06-13 20:32] LABS: Glucose,Whole Blood 277 mg/dL (75-99)
[2018-06-13] MEDS: INSULIN DETEMIR (LEVEMIR) 100 UNIT/ML SYR SQ SCH (20:50)
[2018-06-13] MEDS: LISINOPRIL 20 MG TAB PO SCH (22:39)
[2018-06-13] MEDS: ISOSORBIDE MONONITRATE ER 60 MG TAB.ER.24H PO SCH (22:39)
[2018-06-14 06:33] LABS: Glucose,Whole Blood 80 mg/dL (75-99)
[2018-06-14] MEDS: INSULIN ASPART (NovoLOG) 100 UNIT/ML VIAL SQ SCH ×4 (06:35→20:38)
[2018-06-14] MEDS: metFORMIN 500 MG TAB PO SCH (06:35)
[2018-06-14 06:50] LABS: Basophils # (A) 0.1 k/uL (0-0.2); Basophils % (A) 1 %; Eosinophils # (A) 0.3 k/uL (0-0.7); Eosinophils % (A) 3 %; HCT 35.1 % (39.0-53.0); HGB 10.9 gm/dL (13.0-17.5); Hypochromasia Slight; Lymphocytes # (A) 1.9 k/uL (1.0-4.8); Lymphocytes % (A) 23 %; MCH 26.1 pg (25.0-35.0); MCHC 31.1 g/dL (31.0-37.0); MCV 84.1 fL (80.0-100.0); Mean Platelet Volume 9.4; Monocytes # (A) 0.6 k/uL (0-1.0); Monocytes % (A) 7 %; Neutrophils # (A) 5.3 k/uL (1.3-7.7); Neutrophils % (A) 64 %; Platelet Count 173 k/uL (150-450); RBC 4.17 m/uL (4.30-5.90); RDW 14.7 % (11.5-15.5); WBC 8.3 k/uL (3.8-10.6)
[2018-06-14 06:59] LABS: Calcium 9.4 mg/dL (8.4-10.2); Potassium 4.3 mmol/L (3.5-5.1)
[2018-06-14] MEDS: ATORVASTATIN 80 MG TAB PO SCH (08:14)
[2018-06-14] MEDS: LISINOPRIL 20 MG TAB PO SCH (08:14)
[2018-06-14] MEDS: ISOSORBIDE MONONITRATE ER 60 MG TAB.ER.24H PO SCH (08:14)
[2018-06-14] MEDS: CLOPIDOGREL 75 MG TAB PO SCH (08:14)
[2018-06-14] MEDS: NICOTINE 14MG/24HR PATCH TRANSDERM SCH (08:15)
[2018-06-14] MEDS: METOPROLOL TARTRATE 25 MG TAB PO SCH (08:15)
[2018-06-14 11:20] LABS: Glucose,Whole Blood 107 mg/dL (75-99)
--- NOTE | 2018-06-14 13:17 | P.PN ---
Subjective Progress Note Date: 06/14/18 This is a pleasant 67-year-old gentleman who used to follow with Dr. Xiong in the office, he now follows with Dr. Elder at [facility]. He has a known history of coronary artery disease, patient underwent coronary artery bypass grafting surgery in 2000, in 2010 he underwent a cardiac catheterization which at that time revealed a totally occluded tangirnaq vessel with patent [place] to the LAD, patent saphenous vein graft to the obtuse marginal branch and patent saphenous vein graft to the right coronary artery had had severe obstructive coronary artery disease, he underwent stenting of the saphenous vein graft to the right coronary artery at that time. In 2012 patient underwent repeat revascularization by Dr. Crowley. In 2013 the patient presented to the hospital again with symptoms of chest discomfort, he was seen in consultation at that time by Dr. Edwards on and underwent successful angioplasty and stenting of the saphenous vein graft to the right coronary artery. Patient also has history of nicotine dependence, hypertension, hyperlipidemia, diabetes. According to the patient, since March of last year he states that he had been quite short of breath, he went to see Dr. Berry as an outpatient approximately 2 weeks ago, an x-ray was performed at that time which revealed congestive heart failure and the patient was started on IV Lasix. He states he has significant bilateral lower extremity edema at that time which has now almost completely resolved. He presents to the hospital on this occasion with symptoms of dizziness and lightheadedness with associated weakness. He states that he was at the shooting range with his , walked outside and became ex tremely lightheaded and dizzy and felt as though his arms and legs were extremely weak. He denies having any chest discomfort and overall his breathing since he started the Lasix has been fairly stable. Chest x-ray on this admission did not reveal any acute process. Chest x-ray performed on June 04 revealed bilateral consolidation and small bilateral pleural effusions with congestive heart failure and possible pneumonia. EKG on arrival here showed a sinus bradycardia with T wave changes noted in the lateral leads, similar to prior EKGs. Orthostatic blood pressures were obtained, 98/40 lying 99/48 sitting and 89/53 standing, heart rate in the 60s, 96% on room air. Blood pressure this morning 118/60, heart rate in the 70s, 91% on room air. Laboratory data was reviewed, white blood cell count 11.9, hemoglobin 11.8, platelet count 237. Sodium 139, potassium 5.0, BUN 29 and creatinine 1.6 on admission, sodium this morning 139, potassium 4.5, BUN 26 and creatinine 1.2. Troponins 0.04, 0.03, 0.04. At the time of my examination this morning, patient is resting in bed, denies any weakness dizziness or lightheadedness, breathing is stable, denies any chest discomfort. 06/14/2018 Patient seen and examined this morning, no further episodes of dizziness or lightheadedness. Blood pressure through the night last night up into the 170 systolic range. At 1120 this morning 168/67, heart rate in the 70s, 97 sent on room air. Blood cell count 8.3, hemoglobin 11.9, platelet count 173. Sodium 141, potassium 4.3, BUN 21 and creatinine 1.1. An echocardiogram with Doppler study was performed which revealed an ejection fraction of 30-35%, evidence of inferior hypokinesia, LA a severely dilated, mild to moderate MR mild to moderate TR. Patient is currently on aspirin 81 mg daily, Lipitor 80 mg daily, Plavix 75 mg daily, we will resume the patient's lisinopril, and Aldactone, hold nifedipine, hold Imdur for now, continue to monitor blood pressure. Objective - Vital Signs Vital signs: Vital Signs Temp 97.6 F 06/14/18 11:21 Pulse 76 06/14/18 11:21 Resp 16 06/14/18 11:21 BP 168/67 06/14/18 11:21 Pulse Ox 97 06/14/18 11:21 Intake & Output 06/13/18 06/14/18 06/14/18 18:59 06:59 18:59 Intake Total 1618.487 480 165.902 Balance 1618.487 480 165.902 Weight 87.5 kg 86.1 kg Intake: IV 276 480 0.9% NS 20mL/HR 140 320 Heparin Sod,Pork in 0.45% 136 160 NaCl 25,000 unit In 0.45 % NaCl 1 250ml.bag @ 12 UNITS/KG/HR 9.88 mls/hr IV .Q24H [facility] Rx#: [id number] Intake, IV Titration 182.487 165.902 Amount Heparin Sod,Pork in 0.45% 182.487 165.902 NaCl 25,000 unit In 0.45 % NaCl 1 250ml.bag @ 12 UNITS/KG/HR 9.88 mls/hr IV .Q24H [facility] Rx#: [id number] Oral 1160 0 - Exam PHYSICAL EXAMINATION: GENERAL: 67-year-old gentleman in no acute distress at the time of my examination HEENT: Head is atraumatic, normocephalic. Pupils equal, round. Sclera anicteric. Conjunctiva are clear. Mucous membranes of the mouth are moist. Neck is supple. There is no elevated jugular venous pressure. No carotid bruit is heard. HEART EXAMINATION: Heart S1 S2 1 systolic murmur is heard CHEST EXAMINATION: Lungs are clear with mild decrease in air entry to the bases. ABDOMEN: Soft, nontender. Bowel sounds are heard. No organomegaly noted. EXTREMITIES: 2+ peripheral pulses with trace edema noted to the right lower extremity, no edema to the left lower extremity no calf tenderness noted, negative Homans. NEUROLOGIC patient is awake, alert and oriented 3 . . - Labs CBC & Chem 7: 06/14/18 06:23 06/14/18 06:23 Labs: Abnormal Lab Results - Last 24 Hours (Table) 06/13/18 06/13/18 06/14/18 Range/Units 16:40 20:30 06:23 RBC 4.17 L (4.30-5.90) m/uL Hgb 10.9 L (13.0-17.5) gm/dL Hct 35.1 L (39.0-53.0) % APTT (22.0-30.0) sec Chloride (98-107) mmol/L BUN (9-20) mg/dL Glucose (74-99) mg/dL POC Glucose (mg/dL) 247 H 277 H (75-99) mg/dL 06/14/18 06/14/18 06/14/18 Range/Units 06:23 06:23 11:19 RBC (4.30-5.90) m/uL Hgb (13.0-17.5) gm/dL Hct (39.0-53.0) % APTT 33.9 H (22.0-30.0) sec Chloride 109 H (98-107) mmol/L BUN 21 H (9-20) mg/dL Glucose 70 L (74-99) mg/dL POC Glucose (mg/dL) 107 H (75-99) mg/dL Assessment and Plan Plan: Assessment and plan #1 symptoms of dizziness and lightheadedness with associated bilateral arm and leg weakness, rule out cardiac causes. Likely secondary to dehydration and hypotension. #2 abnormality in troponin, no significant rise and fall pattern to suggest acute coronary syndrome, patient denies having any chest discomfort. EKG shows a sinus bradycardia with T wave changes noted in the lateral leads similar to prior EKGs. #3 recent congestive heart failure exacerbation, treated with Lasix as an outpatient #4 known history of coronary artery disease with prior bypass surgery in 2000, subsequent stenting 3 since his bypass, most recent in 2013 #5 hypertension #6 hyperlipidemia #7 diabetes #8 nicotine dependence #9 systolic murmur, suggestive of mitral regurg #10 mild renal insufficiency on admission, could be secondary to dehydration Plan Static blood pressure and heart rate were negative. Echocardiogram with Doppler study showed an ejection fraction of 30-35%. We will continue to monitor blood pressure for another 24 hours, resume the lisinopril, and Aldactone, continue beta malbe. It is very likely that the patient's symptoms are secondary to being on a Lasix as an outpatient. Plan for possible discharge home in 24 hours if stable. DNP note has been reviewed, I agree with a documented findings and plan of care. Patient was seen and examined.
[2018-06-14 16:23] LABS: Glucose,Whole Blood 154 mg/dL (75-99)
[2018-06-14] MEDS: SPIRONOLACTONE 25 MG TAB PO SCH (16:28)
[2018-06-14 20:38] LABS: Glucose,Whole Blood 133 mg/dL (75-99)
[2018-06-14] MEDS: INSULIN DETEMIR (LEVEMIR) 100 UNIT/ML SYR SQ SCH (20:43)
[2018-06-15 05:57] LABS: Glucose,Whole Blood 180 mg/dL (75-99)
[2018-06-15] MEDS: INSULIN ASPART (NovoLOG) 100 UNIT/ML VIAL SQ SCH ×2 (06:05→13:07)
[2018-06-15] MEDS: metFORMIN 500 MG TAB PO SCH (06:06)
[2018-06-15] MEDS: METOPROLOL TARTRATE 25 MG TAB PO SCH (08:28)
[2018-06-15] MEDS: LISINOPRIL 20 MG TAB PO SCH (08:28)
[2018-06-15] MEDS: ASPIRIN 81 MG PO SCH (08:28)
[2018-06-15] MEDS: CLOPIDOGREL 75 MG TAB PO SCH (08:28)
[2018-06-15] MEDS: ATORVASTATIN 80 MG TAB PO SCH (08:28)
[2018-06-15] MEDS: NICOTINE 14MG/24HR PATCH TRANSDERM SCH (08:28)
[2018-06-15] MEDS: SPIRONOLACTONE 25 MG TAB PO SCH (08:28)
[2018-06-15] MEDS ORDERED: FAMOTIDINE 20 MG/2 ML VIAL IV SCH (09:26)
--- NOTE | 2018-06-15 09:30 | P.PN ---
Subjective date of service: 06/14/2018 this is a pleasant 67 yo M with pmh of DM, HTN, CAD , heart failure and COPD who presents with dizziness/lightheadedness and hypotension , on presentation his BP iss 99/49,on presentation pt has elevated troponin, he is on heparin drip he is been followed with cardiology team. his Hb A1c is 9.3% , pt also on aspirin , plavix, his metoprolol dose was reduced by cardiology team , his Nefedipine are on hold while his Lisinopril and spironolactone were restarted, it looks like pt is over medicated with antihypertensive medication as per cardiology suggestion , his systolic BP is better now at 130-140s. pt is with no chest pain of dyspnea, his lightheadedness is significantly improved, and he can walk, cr 1.1, sodium and potassium level within normal limites. his insulin dose was lowered from 100 U of levimir down to 40 U , his sugar is better controlled. c/w nicotine patch. we will check S.cortisol level: Pending Objective - Vital Signs Vital signs: Vital Signs Temp 98 F 06/15/18 03:53 Pulse 82 06/15/18 03:53 Resp 18 06/15/18 03:53 BP 150/71 06/15/18 03:53 Pulse Ox 97 06/15/18 03:53 Intake & Output 06/14/18 06/15/18 06/15/18 18:59 06:59 18:59 Intake Total 165.902 480 240 Balance 165.902 480 240 Weight 86 kg Intake: Intake, IV Titration 165.902 Amount Heparin Sod,Pork in 0.45% 165.902 NaCl 25,000 unit In 0.45 % NaCl 1 250ml.bag @ 12 UNITS/KG/HR 9.88 mls/hr IV .Q24H [facility] Rx#: [id number] Oral 0 480 240 Other: # Voids 0 1 - Exam GENERAL: The patient is alert and oriented x3, not in any acute distress. Well developed, well nourished. HEENT: Pupils are round and equally reacting to light. EOMI. No scleral icterus. No conjunctival pallor. Normocephalic, atraumatic. No pharyngeal erythema. No thyromegaly. CARDIOVASCULAR: S1 and S2 present. No murmurs, rubs, or gallops. PULMONARY: Chest is clear to auscultation, no wheezing or crackles. ABDOMEN: Soft, nontender, nondistended, normoactive bowel sounds. No palpable organomegaly. MUSCULOSKELETAL: No joint swelling or deformity. EXTREMITIES: No cyanosis, clubbing, or pedal edema. NEUROLOGICAL: Gross neurological examination did not reveal any focal deficits. SKIN: No rashes. - Labs CBC & Chem 7: 06/14/18 06:23 06/14/18 06:23 Labs: Abnormal Lab Results - Last 24 Hours (Table) 06/14/18 06/14/18 06/14/18 Range/Units 11:19 16:22 20:37 POC Glucose (mg/dL) 107 H 154 H 133 H (75-99) mg/dL 06/15/18 Range/Units 05:55 POC Glucose (mg/dL) 180 H (75-99) mg/dL Assessment and Plan Assessment: hypotension , his BP is stalizied now adjusting his BP medication elevated troponin, possible cardiac cause , on heparin drip and cardiology team are following the pt DM, needing less insulin dose essential hypertension h/o coronary artery disease h/o CHF h/o COPD , no on acute exacerbation Plan: this is as pleasant 67 M who presetns with hypotension and elevated troponin, cardiology team are following the case and he is currently on anticoagulation , aspirin and plavix, i would suggest to continue with anticoagulation , his BP and DM medicine were adjusted , his BP and Glu are better controlled currently , check cortisol level as well Labs and medication were reviewed.. Continue same treatment. Continue with symptomatic treatment. Resume home medication. Monitor lytes and vitals. DVT and GI prophylaxis. Further recommendations of the clinical course of the patient DVT prophylaxis: heparin GI Prophylaxis: Pepcid PT/OT: Pending Prognosis is guarded
[2018-06-15 11:01] LABS: Calcium 9.9 mg/dL (8.4-10.2); Potassium 4.3 mmol/L (3.5-5.1)
[2018-06-15 11:11] VITALS: RESP 16
[2018-06-15 11:28] LABS: Glucose,Whole Blood 129 mg/dL (75-99)
[2018-06-15] MEDS ORDERED: ISOSORBIDE MONONITRATE ER 60 MG TAB.ER.24H PO SCH (12:45)
--- NOTE | 2018-06-15 12:55 | CDI ---
Documentation Clarification Form Date: 06/15/2018 12:42:36 PM From: Kaitlyn LEISA Hutchinson, CCDS Admit Date: 06/12/2018 7:27:00 PM Patient Name: Vaibhav Gonzalez Visit Number: [id number] Discharge Date: ATTENTION: The Clinical Documentation Specialists (CDI) and [facility] Coding Staff appreciate your assistance in clarifying documentation. Please respond to the clarification below the line at the bottom and electronically sign. The CDI & [facility] Coding staff will review the response and follow-up if needed. Please note: Queries are made part of the Legal Health Record. If you have any questions, please contact the author of this message via ITS. Dr. Shay Pradhan: Per the Cardiology Consult: "...approximately 2 weeks ago, an x-ray was performed at that time which revealed congestive heart failure and the patient was started on IV Lasix. Chest x-ray performed on June 04 revealed bilateral consolidation and small bilateral pleural effusions with congestive heart failure and possible pneumonia. Assessment & Plan: Recent congestive heart failure exacerbation, treated with Lasix as an outpatient " History/Risk Factors: CAD, [place] & recent CABG, COPD, Hypertension, Hyperlipidemia, IDDM, Smoker. Clinical Indicators: Presented with lightheadedness & dizziness with intermediate troponin levels. ACS ruled out, no exacerbation of COPD or CHF. VS: P 57*, BP 99/56; Ortho BP: 89/53, 98/45, 99/49; PO 98 RA BNP: 1210. Troponin: 0.043^^, (0.032), ).045^^. Echocardiogram Results 06/13: Moderate LVH, Systolic function moderate-severely impaired w/EF 30-35%. Mild AR, Mild-mod MR/TR, Mild pulmonary hypertension. Chest X Ray: Cardiac silhouette moderately enlarged. No acute process. Treatment: Telemetry, Orthostatic BPs, IV fl bolus, IV Heparin drip, Nitro sl, po Lasix. In your professional opinion, can you please clarify the acuity and type of CHF if known? Systolic Heart Failure: o Other: Chronic o Other: Unable to Determine Other, please specify (Last Revision: July 2017) MTDD
[2018-06-15 13:02] VITALS: BP 162/62; PULSE 78; TEMP 97
--- NOTE | 2018-06-15 13:07 | CDI ---
CKD stage 2 Documentation Clarification Form Date: 06/15/2018 12:55:39 PM From: Kaitlyn LEISA Hutchinson, CCDS Admit Date: 06/12/2018 7:27:00 PM Patient Name: Vaibhav Gonzalez Visit Number: [id number] Discharge Date: ATTENTION: The Clinical Documentation Specialists (CDI) and [facility] Coding Staff appreciate your assistance in clarifying documentation. Please respond to the clarification below the line at the bottom and electronically sign. The CDI & [facility] Coding staff will review the response and follow-up if needed. Please note: Queries are made part of the Legal Health Record. If you have any questions, please contact the author of this message via ITS. Dr. Luzmaria Frederick: Per the Cardiology consult and subsequent progress note: "mild renal insufficiency on admission, could be secondary to dehydration" is documented. "Plan: Patient had also been on Aldactone, potassium, nifedipine, Zestril, Imdur, which have all been placed on hold at this time because of hypotension and abnormal renal function on admission." Per the ED note: "Metabolic panel shows elevation of renal markers from his baseline." History/Risk Factors: CAD, [place] w/recent CABG, IDDM, COPD, CHF, Hypertension and smoker. Clinical Indicators: Presented with lightheadedness & dizziness possibly secondary to hypotension & dehydration. Current BUN 29, Creatinine 1.63^, GFR 44 - 63 Baseline BUN, Cr & GFR not documented or unknown. Treatment: IV fluid bolus, IV Heparin drip, Nitro sl, Insulin sq, po Lasix. Home meds: Aldactone, Potassium, Nifedipine, Zestril, Imdur held. *Nephrology was not consulted. In order to capture the severity of condition, please clarify if the condition signifies: Acute renal failure o Please specify etiology (if known): Acute on chronic renal failure, please stage the CKD if evident and known, if possible: o CKD Stage 1 GFR >90 o CKD Stage 2 GFR 60-89 o CKD Stage 3 GFR 30-59 o CKD Stage 4 GFR 15-29 o CKD Stage 5 GFR <15 Other, please specify: Unable to determine (Last Revision: July 2017) MTDD
--- NOTE | 2018-06-15 13:44 | P.DS ---
Providers Date of admission: 06/12/18 19:27 Expected date of discharge: 06/15/18 Attending physician: Yaz Cheatham Consults: 06/12/18 19:27 Consult Physician Urgent Consulting Provider: Christo Shane Consult Reason/Comments: nstemi Do you want consulting provider notified?: Yes Primary care physician: [facility] Course: 67-year-old gentleman who used to follow with Dr. Xiong in the office, he now follows with Dr. Elder at [facility]. He has a known history of coronary artery disease, patient underwent coronary artery bypass grafting surgery in 2000, in 2010 he underwent a cardiac catheterization which at that time revealed a totally occluded anvik vessel with patent [place] to the LAD, patent saphenous vein graft to the obtuse marginal branch and patent saphenous vein graft to the right coronary artery had had severe obstructive coronary artery disease, he underwent stenting of the saphenous vein graft to the right coronary artery at that time. In 2012 patient underwent repeat revascularization by Dr. Crowley. In 2013 the patient presented to the hospital again with symptoms of chest discomfort, he was seen in consultation at that time by Dr. Edwards on and underwent successful angioplasty and stenting of the saphenous vein graft to the right coronary artery. Patient also has history of nicotine dependence, hypertension, hyperlipidemia, diabetes. According to the patient, since March of last year he states that he had been quite short of breath, he went to see Dr. Berry as an outpatient approximately 2 weeks ago, an x-ray was performed at that time which revealed congestive heart failure and the patient was started on IV Lasix. He states he has significant bilateral lower extremity edema at that time which has now almost completely resolved. He presents to the hospital on this occasion with symptoms of dizziness and lightheadedness with associated weakness. He states that he was [place] the shooting range with his , walked outside and became extremely lightheaded and dizzy and felt as though his arms and legs were extremely weak. He denies having any chest discomfort and overall his breathing since he started the Lasix has been fairly stable. Chest x-ray on this admission did not reveal any acute process. Chest x-ray performed on June 04 revealed bilateral consolidation and small bilateral pleural effusions with congestive heart failure and possible pneumonia. EKG on arrival here showed a sinus bradycardia with T wave changes noted in the lateral leads, similar to prior EKGs. Orthostatic blood pressures were obtained, 98/40 lying 99/48 sitting and 89/53 standing, heart rate in the 60s, 96% on room air. Blood pressure this morning 118/60, heart rate in the 70s, 91% on room air. Laboratory data was reviewed, white blood cell count 11.9, hemoglobin 11.8, platelet count 237. Sodium 139, potassium 5.0, BUN 29 and creatinine 1.6 on admission, sodium this morning 139, potassium 4.5, BUN 26 and creatinine 1.2. Troponins 0.04, 0.03, 0.04. At the time of my examination this morning, patient is resting in bed, denies any weakness dizziness or lightheadedness, breathing is stable, denies any chest discomfort. 06/14/2018 Patient seen and examined this morning, no further episodes of dizziness or lightheadedness. Blood pressure through the night last night up into the 170 systolic range. At 1120 this morning 168/67, heart rate in the 70s, 97 sent on room air. Blood cell count 8.3, hemoglobin 11.9, platelet count 173. Sodium 141, potassium 4.3, BUN 21 and creatinine 1.1. An echocardiogram with Doppler study was performed which revealed an ejection fraction of 30-35%, evidence of inferior hypokinesia, LA a severely dilated, mild to moderate MR mild to mod erate TR. Patient is currently on aspirin 81 mg daily, Lipitor 80 mg daily, Plavix 75 mg daily, we will resume the patient's lisinopril, and Aldactone, hold nifedipine, hold Imdur for now, continue to monitor blood pressure. Patient Condition at Discharge: Fair Plan - Discharge Summary Discharge Rx Participant: No New Discharge Prescriptions: New Spironolactone [Aldactone] 25 mg PO DAILY #30 tab Furosemide [Lasix] 20 mg PO BID@0900,1600 #30 tab Metoprolol Tartrate [Lopressor] 25 mg PO DAILY #60 tab Continue Lisinopril [Zestril] 20 mg PO DAILY Potassium Chloride ER [K-Dur 20] 20 meq PO DAILY Aspirin 325 mg PO DAILY #90 tab Atorvastatin [Lipitor] 80 mg PO HS #90 tab Nitroglycerin Sl Tabs [Nitrostat] 0.4 mg SUBLINGUAL Q5M PRN #25 tab PRN Reason: Chest Pain Clopidogrel [Plavix] 75 mg PO DAILY Albuterol Sulfate [Proair Hfa] 2 puff INHALATION RT-Q6H PRN PRN Reason: Shortness Of Breath Budesonide/Formoterol Fumarate [Symbicort 160-4.5 Mcg Inhaler] 2 puff INHALATION RT-BID metFORMIN HCL 1,000 mg PO QAM Spironolactone [Aldactone] 50 mg PO DAILY Insulin Glargine,Hum.rec.anlog [Lantus Solostar] 100 unit SQ HS Tiotropium 18 Mcg/Puff [Spiriva] 1 cap INHALATION RT-DAILY Ergocalciferol (Vitamin D2) [Vitamin D2] 50,000 unit PO Q7D Insulin Aspart [NovoLOG Flexpen] See Protocol SQ ACHS Ferrous Sulfate [Feosol] 325 mg PO DAILY Discontinued Furosemide [Lasix] 40 mg PO BID NIFEdipine [NIFEdipine ER] 60 mg PO DAILY Isosorbide Mononitrate ER [Imdur] 60 mg PO DAILY Metoprolol Tartrate [Lopressor] 50 mg PO DAILY Discharge Medication List Lisinopril [Zestril] 20 mg PO DAILY 12/23/13 [History] Potassium Chloride ER [K-Dur 20] 20 meq PO DAILY 12/23/13 [History] Aspirin 325 mg PO DAILY #90 tab 12/24/13 [Rx] Atorvastatin [Lipitor] 80 mg PO HS #90 tab 12/24/13 [Rx] Nitroglycerin Sl Tabs [Nitrostat] 0.4 mg SUBLINGUAL Q5M PRN #25 tab 12/24/13 [Rx] Albuterol Sulfate [Proair Hfa] 2 puff INHALATION RT-Q6H PRN 07/24/15 [History] Clopidogrel [Plavix] 75 mg PO DAILY 07/24/15 [History] Budesonide/Formoterol Fumarate [Symbicort 160-4.5 Mcg Inhaler] 2 puff INHALATION RT-BID 06/12/18 [History] Ergocalciferol (Vitamin D2) [Vitamin D2] 50,000 unit PO Q7D 06/12/18 [History] Ferrous Sulfate [Feosol] 325 mg PO DAILY 06/12/18 [History] Insulin Aspart [NovoLOG Flexpen] See Protocol SQ ACHS 06/12/18 [History] Insulin Glargine,Hum.rec.anlog [Lantus Solostar] 100 unit SQ HS 06/12/18 [History] Spironolactone [Aldactone] 50 mg PO DAILY 06/12/18 [History] Tiotropium 18 Mcg/Puff [Spiriva] 1 cap INHALATION RT-DAILY 06/12/18 [History] metFORMIN HCL 1,000 mg PO QAM 06/12/18 [History] Furosemide [Lasix] 20 mg PO BID@0900,1600 #30 tab 06/15/18 [Rx] Metoprolol Tartrate [Lopressor] 25 mg PO DAILY #60 tab 06/15/18 [Rx] Spironolactone [Aldactone] 25 mg PO DAILY #30 tab 06/15/18 [Rx] Follow up Appointment(s)/Referral(s): oGnzalo Do MD [Primary Care Provider] - 06/20/18 10:20 am Javid Elder DO [REFERRING] - 06/28/18 2:00 pm (Optical Fabrication Technician.) Patient Instructions/Handouts: Dehydration (DC), Acute Kidney Injury (DC), Hypotension (DC) Discharge Disposition: HOME SELF-CARE
--- NOTE | 2018-06-15 15:43 | P.PN ---
Subjective Progress Note Date: 06/15/18 This is a 67-year-old gentleman who was admitted to the hospital with symptoms of dizziness and lightheadedness and weakness. Patient was found to be hypovolemic with dehydration. Most of his medications were held and patient was hydrated. Gradually symptoms improved. We will restart his medication ye sterday. He is feeling much better today. We'll send him home on small dose of Lasix of 20 mg by mouth twice a day along with Aldactone another medication. Patient will have follow-up with his own day camp counselor. Prognosis is guarded Objective - Vital Signs Vital signs: Vital Signs Temp 97 F L 06/15/18 12:00 Pulse 78 06/15/18 12:00 Resp 16 06/15/18 12:00 BP 162/62 06/15/18 12:00 Pulse Ox 98 06/15/18 13:08 Intake & Output 06/14/18 06/15/18 06/15/18 18:59 06:59 18:59 Intake Total 165.902 480 600 Balance 165.902 480 600 Weight 86 kg Intake: Intake, IV Titration 165.902 Amount Heparin Sod,Pork in 0.45% 165.902 NaCl 25,000 unit In 0.45 % NaCl 1 250ml.bag @ 12 UNITS/KG/HR 9.88 mls/hr IV .Q24H FREDRICK Rx#: [id number] Oral 0 480 600 Other: # Voids 0 1 - Exam GENERAL EXAM: Patient is alert and oriented and doesn't appear to be in any acute distress HEENT: Normocephalic. Normal reaction of pupils, equal size, normal range of extraocular motion. No erythema or exudates in the throat. NECK: No masses, no nuchal rigidity. CHEST: No chest wall deformity. LUNGS: Equal air entry with no crackles or wheeze. HEART: S1 and S2 normal with no audible mumurs or gallops. Regular rhythm, f emorals equal on both sides.. ABDOMEN: No hepatosplenomegaly, normal bowel sounds, no guarding or rigidity. SKIN: No rashes CENTRAL NERVOUS SYSTEM: No focal deficits. EXTREMITIES: No cyanosis, clubbing or edema. - Labs CBC & Chem 7: 06/14/18 06:23 06/15/18 10:02 Labs: Abnormal Lab Results - Last 24 Hours (Table) 06/14/18 06/14/18 06/15/18 Range/Units 16:22 20:37 05:55 Glucose (74-99) mg/dL POC Glucose (mg/dL) 154 H 133 H 180 H (75-99) mg/dL 06/15/18 06/15/18 Range/Units 10:02 11:25 Glucose 143 H (74-99) mg/dL POC Glucose (mg/dL) 129 H (75-99) mg/dL Assessment and Plan (1) Hypovolemia Status: Acute Code(s): E86.1 - HYPOVOLEMIA SNOMED Code(s): 64561704 (2) Dehydration Status: Acute Code(s): E86.0 - DEHYDRATION SNOMED Code(s): 25615231 (3) Chronic congestive heart failure Status: Acute Code(s): I50.9 - HEART FAILURE, UNSPECIFIED SNOMED Code(s): 29455959 (4) Chronic coronary artery disease Status: Acute Code(s): I25.10 - ATHSCL HEART DISEASE OF [place] CORONARY ARTERY W/O ANG PCTRS SNOMED Code(s): 52431438 Plan: Patient is feeling better and wants to go home. Patient may go home on reduced dose of diuretics. Follow-up with his own day camp counselor.
[2018-06-15] MEDS ORDERED: FUROSEMIDE 20 MG TAB PO SCH (16:00)
[2018-06-15] MEDS ORDERED: INSULIN DETEMIR (LEVEMIR) 100 UNIT/ML SYR SQ SCH (21:00)
--- NOTE | 2018-06-25 08:21 | CDI ---
Ac renal failure; multifactorial Documentation Clarification Form Date: 06/15/2018 12:55:00 PM From: Kaitlyn OspinaHutchinsonLEISA williamson, CCDS Admit Date: 06/12/2018 7:27:00 PM Patient Name: Vaibhav Gonzalez Visit Number: [id number] Discharge Date: 06/15/2018 2:48:00 PM ATTENTION: The Clinical Documentation Specialists (CDI) and [facility] Coding Staff appreciate your assistance in clarifying documentation. Please respond to the clarification below the line at the bottom and electronically sign. The CDI & [facility] Coding staff will review the response and follow-up if needed. Please note: Queries are made part of the Legal Health Record. If you have any questions, please contact the author of this message via ITS. Dr. Luzmaria Frederick: Per the Cardiology consult and subsequent progress note: "mild renal insufficiency on admission, could be secondary to dehydration" is documented. "Plan: Patient had also been on Aldactone, potassium, nifedipine, Zestril, Imdur, which have all been placed on hold at this time because of hypotension and abnormal renal function on admission." Per the ED note: "Metabolic panel shows elevation of renal markers from his baseline." History/Risk Factors: CAD, [place] w/recent CABG, IDDM, COPD, CHF, Hypertension and smoker. Clinical Indicators: Presented with lightheadedness & dizziness possibly secondary to hypotension & dehydration. Current BUN 29, Creatinine 1.63^, GFR 44 - 63 Baseline BUN, Cr & GFR not documented or unknown. Treatment: IV fluid bolus, IV Heparin drip, Nitro sl, Insulin sq, po Lasix. Home meds: Aldactone, Potassium, Nifedipine, Zestril, Imdur held. Nephrology was not consulted. In order to capture the severity of condition, please clarify if the condition signifies: Acute renal failure Please specify etiology (if known): Acute on chronic renal failure, please stage the CKD if evident and known, if possible: CKD Stage 1 GFR >90 CKD Stage 2 GFR 60-89 CKD Stage 3 GFR 30-59 CKD Stage 4 GFR 15-29 CKD Stage 5 GFR <15 Other, please specify: Unable to determine (Last Revision: July 2017) MTDD
== END 2018-06-15 14:48 | disposition home or self-care (01) | DRG 641 ==
LOC: EC 17:25 → 3SCARD 19:27
PROVIDERS: ADMIT Internal Medicine; ATTEND Internal Medicine
DX: E86.0 Dehydration (principal); I50.22 Chronic systolic (congestive) heart failure; I13.0 Hypertensive heart and chronic kidney disease with heart failure and stage 1 through stage 4 chronic kidney disease, or unspecified chronic kidney disease; I95.9 Hypotension, unspecified; E11.22 Type 2 diabetes mellitus with diabetic chronic kidney disease; I08.1 Rheumatic disorders of both mitral and tricuspid valves; J44.9 Chronic obstructive pulmonary disease, unspecified; R00.1 Bradycardia, unspecified; I25.10 Atherosclerotic heart disease of native coronary artery without angina pectoris; D72.829 Elevated white blood cell count, unspecified; E78.5 Hyperlipidemia, unspecified; E86.1 Hypovolemia; F17.210 Nicotine dependence, cigarettes, uncomplicated; E66.9 Obesity, unspecified; N18.2 Chronic kidney disease, stage 2 (mild); R74.8 Abnormal levels of other serum enzymes; I25.2 Old myocardial infarction; Z79.82 Long term (current) use of aspirin; Z79.899 Other long term (current) drug therapy; Z79.02 Long term (current) use of antithrombotics/antiplatelets; Z79.4 Long term (current) use of insulin; Z79.51 Long term (current) use of inhaled steroids; Z68.28 Body mass index [BMI] 28.0-28.9, adult; Z95.1 Presence of aortocoronary bypass graft; Z95.5 Presence of coronary angioplasty implant and graft; Z80.52 Family history of malignant neoplasm of bladder; Z82.49 Family history of ischemic heart disease and other diseases of the circulatory system; Z80.1 Family history of malignant neoplasm of trachea, bronchus and lung; Z82.5 Family history of asthma and other chronic lower respiratory diseases
CPT/HCPCS: 36415; 71045; 80048; 80061; 81001; 82533; 83036; 83735; 83880; 84484; 85025; 85610; 85730; 93005; 93306; 96361; 96365; 96366; 96376; 99285

== ENCOUNTER → 2020-05-22 | Outpatient (CLI) | payer OTHER ==
--- NOTE | 2020-05-22 09:21 | US ---
EXAMINATION TYPE: US duplex aorta DATE OF EXAM: 05/22/2020 COMPARISON: NONE CLINICAL HISTORY: Z87.891 Personal history of nicotine dependence. EXAM MEASUREMENTS: Abdominal Aorta: Proximal: 2.6 x 2.8 cm Mid: 1.8 x 2.0 cm Distal: 1.6 x 2.0 cm Bifurcation: rt, 1.1 cm lt, 1.1 cm Normal caliber aorta. IMPRESSION: No evidence for abdominal aortic aneurysm.
== END | disposition home or self-care (01) ==
LOC: RADUSWWP 08:55
DX: Z13.6 Encounter for screening for cardiovascular disorders (principal); Z87.891 Personal history of nicotine dependence
CPT/HCPCS: 93979

== ENCOUNTER → 2020-06-01 | Outpatient (CLI) | payer OTHER ==
--- NOTE | 2020-06-01 18:32 | CTL ---
EXAMINATION TYPE: CT Low Dose Lung DATE OF EXAM ORDERED: 06/01/2020 HISTORY: 69-year-old male personal history of tobacco use. Lung cancer screening CT DLP: 143.[address] CTDI: 3.8 mGy Automated exposure control for dose reduction was used. SCREENING VISIT: Baseline COMPARISON: None TECHNIQUE: Low dose computed tomography scan was performed through the chest at 1 mm thick sections a nd reconstructed images in the coronal and sagittal plane. CT DIAGNOSTIC QUALITY: Satisfactory FINDINGS: Median sternotomy wires are present with post-CABG changes. Heart normal size without pericardial effusion. Aorta normal caliber with moderate atherosclerotic arch calcifications and conventional arch vessel b ranching anatomy. Scattered nonenlarged and mildly enlarged mediastinal lymph nodes are present measuring up to 1.5 cm in the precarinal region. Subcarinal lymph node measures up to 1 cm. Borderline to mildly enlarged caliber to the main right and left pulmonary arteries measuring up to 2 .6 cm. Findings may reflect underlying pulmonary arterial hypertension. Mild centrilobular emphysema. Mild diffuse bronchial wall thickening. 4 mm calcified granuloma within the right midlung pulmonary nodule, axial image 127. Some strandy posterior basilar atelectasis. Strandy inferior lingular atelectasis. No consolidation or pleural effusion. Visualized upper abdomen shows no gross abnormality. Bones: Mild anterior endplate spondylosis lower thoracic spine. IMPRESSION: 1. LungRADS 2S - benign. Solitary 4 mm calcified granuloma on the right. No suspicious pulmonary nod ules. 2. Nonspecific enlarged 1.5 cm precarinal lymph node. Probably reactive/post inflammatory. 3. COPD with mild emphysema. Possible underlying pulmonary arterial hypertension. RECOMMENDATION: 1. Six-month follow-up CT to reassess the precarinal lymph node, probably reactive/post inflammatory. 2. Subsequently, continue annual low-dose lung cancer screening CT. 3. Smoking cessation.
== END | disposition home or self-care (01) ==
LOC: RADCTMAIN 14:27
PROVIDERS: ATTEND Family Medicine
DX: Z12.2 Encounter for screening for malignant neoplasm of respiratory organs (principal); J84.10 Pulmonary fibrosis, unspecified; R59.9 Enlarged lymph nodes, unspecified; J44.9 Chronic obstructive pulmonary disease, unspecified; F17.210 Nicotine dependence, cigarettes, uncomplicated
CPT/HCPCS: 71271

== ENCOUNTER → 2021-02-01 | Outpatient (CLI) | payer OTHER ==
--- NOTE | 2021-02-01 17:04 | CT ---
EXAMINATION TYPE: CT chest wo con DATE OF EXAM: 02/01/2021 COMPARISON: 06/01/2020 HISTORY: Abnormal findings on diagnostic imaging CT DLP: 406.1 mGycm, Automated exposure control for dose reduction was used. CONTRAST: None TECHNIQUE: Axial images were obtained at 5 mm thick sections. Reconstructed images are reviewed on [employer] computer in the coronal plane. FINDINGS: Portion of the thyroid visualized is normal. No suspicious lung nodules or focal infiltrates are present. There are scattered enlarged lymph nodes within the pretracheal space and the superior mediastinum. This includes a 1.1 cm lymph node in the superior mediastinum. Series 3 image 13. Pretracheal node me asuring 1.3 cm. Series 3 image 22. A subcarinal lymph node measures 1.4 cm which is somewhat more pro minent than the comparison 1.[address] for additional evaluation. Ascending aorta diameter at the level of the main pulmonary artery is 3.3 cm. The main pulmonary art ly diameter at the bifurcation is 2.9 cm. Coronary artery calcifications present. Limited CT sections are obtained through the upper abdomen. Abdomen is essentially unremarkable. IMPRESSIONS: 1. Persistent enlarged mediastinal adenopathy. Consider PET CT for additional evaluation.
== END | disposition home or self-care (01) ==
LOC: RADCTMAIN 10:41
DX: R59.0 Localized enlarged lymph nodes (principal)
CPT/HCPCS: 71250

== ENCOUNTER → 2021-02-19 | Outpatient (CLI) | payer OTHER ==
--- NOTE | 2021-02-22 06:31 | PE ---
EXAMINATION TYPE: PET CT fusion skull to thigh DATE OF EXAM: 02/19/2021 COMPARISON: Chest CT February 01, [address] June 01, 2020 HISTORY: Solitary pulmonary nodule, abnormal CT TECHNIQUE: Following the intravenous administration of 8.58 mCi of F-18 FDG, whole body images are p erformed from the skull base to the midthigh. Images are reviewed on the computer in the coronal, ax ial, and sagittal planes. Reconstructed rotating images are created on independent workstation and r eviewed on the computer. A localization and attenuation correction CT is performed in conjunction w ith the PET scan. Blood glucose level equals 153 SCAN: Initial Scan FINDINGS: SKULL BASE AND NECK: No abnormal hypermetabolic uptake. CHEST, MEDIASTINUM, AND HILAR REGION: Persistent enlarged mediastinal lymph nodes. For reference ther e is 1.8 x 1.5 cm right tracheobronchial lymph node axial image 98 and 1.8 x 1.5 cm AP window lymph n ode axial image 98. Both are ametabolic. There is stable ametabolic 2.7 x 1.5 cm subcarinal lymph nod e axial image 106. Background mild to moderate underlying emphysematous change without hypermetabolic nodules or masses. ABDOMEN AND PELVIS: Nonspecific bowel uptake. No adrenal masses. No abnormal hypermetabolic uptake. OSSEOUS STRUCTURES: No abnormal hypermetabolic uptake. OTHER CT: Post-CABG changes with mediastinal clips and sternal wires is redemonstrated. Cardiomegaly is again seen. Enlarged prostate consistent with BPH. Mild to moderate calcified plaque of the aorta extending into branch vessels again seen. Lower lumbar facet arthropathy redemonstrated. IMPRESSION: Stable nonspecific mediastinal adenopathy. Differential includes granulomatous disease, i nfectious, and inflammatory etiologies. No abnormal hypermetabolic uptake to suggest lymphoma or othe r aggressive malignancy.
== END | disposition home or self-care (01) ==
LOC: RADPETMAIN 12:34
PROVIDERS: ATTEND Internal Medicine
DX: R59.0 Localized enlarged lymph nodes (principal)
CPT/HCPCS: 78815; A9552

== ENCOUNTER → 2021-11-16 | Outpatient (CLI) | payer OTHER ==
--- NOTE | 2021-11-16 15:17 | US ---
EXAMINATION TYPE: US kidneys/renal and bladder DATE OF EXAM: 11/16/2021 COMPARISON: NONE CLINICAL HISTORY: N18.9 CHRONIC KIDNEY DISEASE, UNSPECIFIED. EXAM MEASUREMENTS: Right Kidney: 9.6 x 5.2 x 5.9 cm Left Kidney: 10.1 x 5.4 x 5.0 cm Right Kidney: wnl Left Kidney: wnl Bladder: wnl Bilateral Jets seen: no There is no evidence for hydronephrosis at this point in time. No nephrolithiasis is seen. No philip s are identified. The urinary bladder is anechoic. Bilateral ureteral jets are seen. IMPRESSION: No discrete abnormality seen.
== END | disposition home or self-care (01) ==
LOC: RADUSWWP 14:56
DX: N18.9 Chronic kidney disease, unspecified (principal)
CPT/HCPCS: 76770

== ENCOUNTER 2021-11-20 19:07 | Inpatient (IN) | payer OTHER, MEDICARE ==
--- NOTE | 2021-11-20 19:17 | ED ---
Chest Pain HPI - General Chief Complaint: Chest Pain Stated Complaint: Stemi Time Seen by Provider: 11/20/21 19:07 Source: patient, RN notes reviewed Mode of arrival: EMS Limitations: no limitations - History of Present Illness Initial Comments: 71-year-old male with a history of COPD and coronary artery disease bypass surgery many years ago hypertension who presents by EMS today due to intermittent episodes of chest pain over last couple days he had another onset about 15 minutes prior to EMS arrival and his home he took 3 nitroglycerin without relief and is found to be in a wide-complex tachycardia was later converted to A. fib RVR with Y complex didn't seem to turn into a bradycardia with A. fib and subsequently a sinus rhythm prior to arrival. He currently is chest pain-free not short of breath no fevers chills nausea vomiting sweats. He states he's been getting less and when he takes his medications it resolves he did not take his medications this evening. Patient states he is on a blood thinner but does not known the name is is bringing his medications to the hospital. MD Complaint: chest pain, other - Related Data Home Medications Medication Instructions Recorded Confirmed Potassium Chloride ER [K-Dur 20] 20 meq PO DAILY 12/23/13 06/12/18 lisinopriL [Zestril] 20 mg PO DAILY 12/23/13 06/12/18 Albuterol Sulfate [Proair Hfa] 2 puff INHALATION RT-Q6H PRN 07/24/15 06/12/18 Clopidogrel [Plavix] 75 mg PO DAILY 07/24/15 06/12/18 Budesonide/Formoterol Fumarate 2 puff INHALATION RT-BID 06/12/18 06/12/18 [Symbicort 160-4.5 Mcg Inhaler] Ergocalciferol (Vitamin D2) 50,000 unit PO Q7D 06/12/18 06/12/18 [Vitamin D2] Ferrous Sulfate [Feosol] 325 mg PO DAILY 06/12/18 06/12/18 Insulin Aspart [NovoLOG Flexpen] See Protocol SQ ACHS 06/12/18 06/12/18 Insulin Glargine,Hum.rec.anlog 100 unit SQ HS 06/12/18 06/12/18 [Lantus Solostar Pen] Spironolactone [Aldactone] 50 mg PO DAILY 06/12/18 06/12/18 Tiotropium 18 Mcg/Puff [Spiriva] 1 cap INHALATION RT-DAILY 06/12/18 06/12/18 metFORMIN HCL [Glucophage] 1,000 mg PO QAM 06/12/18 06/12/18 Previous Rx's Medication Instructions Recorded Aspirin 325 mg PO DAILY #90 tab 12/24/13 Atorvastatin [Lipitor] 80 mg PO HS #90 tab 12/24/13 Nitroglycerin Sl Tabs [Nitrostat] 0.4 mg SUBLINGUAL Q5M PRN #25 tab 12/24/13 Furosemide [Lasix] 20 mg PO BID@0900,1600 #30 tab 06/15/18 Metoprolol Tartrate [Lopressor] 25 mg PO DAILY #60 tab 06/15/18 Spironolactone [Aldactone] 25 mg PO DAILY #30 tab 06/15/18 Allergies Allergy/AdvReac Type Severity Reaction Status Date / Time No Known Allergies Allergy Verified 11/20/21 19:12 Review of Systems ROS Statement: Those systems with pertinent positive or pertinent negative responses have been documented in the HPI. ROS Other: All systems not noted in ROS Statement are negative. EKG Findings - EKG Results: EKG: interpreted by ERMD, sinus rhythm (Sinus bradycardia with first-degree AV block rate 55. Interval 250 to QRS 186 QT since QTC 42/471 left exodeviation, interventricular conduction delay) Past Medical History Past Medical History: Coronary Artery Disease (CAD), Heart Failure, COPD, Diabetes Mellitus, Hypertension Additional Past Medical History / Comment(s): On ABX at this time for "cold/bronchitis", IDDM, lower leg edema, 2013 L leg injury and has ACL1 injury, heart murmur Last Myocardial Infarction Date:: 12/23/13 History of Any Multi-Drug Resistant Organisms: None Reported Past Surgical History: Coronary Bypass/CABG, Heart Catheterization With Stent Additional Past Surgical History / Comment(s): stent to SVG-RCA at [facility]', stent to left carotid , stent x 2 (unk) 2013 at [facility], stent to RCA @ [facility] 13', Stent to RCA, SVG to RCA, SVG to RCA at [facility], gaglion cyst removal Past Anesthesia/Blood Transfusion Reactions: No Reported Reaction Date of Last Stent Placement:: 2011 Past Psychological History: No Psychological Hx Reported Smoking Status: Current every day smoker Past Alcohol Use History: Occasional Past Drug Use History: None Reported - Past Family History Father Family Medical History: Myocardial Infarction ([place]) Additional Family Medical History / Comment(s): Father had lung cancer and bladder cancer. He is 82 yrs old. He is an exsmoker. Mother Family Medical History: COPD Additional Family Medical History / Comment(s): cardiac General Exam - General Exam Comments Initial Comments: This is a well-developed well-nourished awake alert oriented 4 male Limitations: no limitations General appearance: alert, in no apparent distress Head exam: Present: atraumatic, normocephalic, normal inspection Eye exam: Present: normal appearance, PERRL, EOMI. Absent: scleral icterus, con junctival injection, periorbital swelling ENT exam: Present: normal exam, mucous membranes moist Neck exam: Present: normal inspection, full ROM, other (Severity severe.). Absent: tenderness, meningismus, lymphadenopathy Respiratory exam: Present: decreased breath sounds. Absent: respiratory distress, wheezes, rales, rhonchi, stridor Cardiovascular Exam: Present: normal rhythm, bradycardia, normal heart sounds. Absent: systolic murmur, diastolic murmur, rubs, gallop, clicks GI/Abdominal exam: Present: soft, normal bowel sounds. Absent: distended, tenderness, guarding, rebound, rigid Extremities exam: Present: normal inspection, full ROM, normal capillary refill. Absent: tenderness, pedal edema, joint swelling, calf tenderness Back exam: Present: normal inspection Neurological exam: Present: alert, oriented X3, CN II-XII intact Psychiatric exam: Present: normal affect, normal mood Skin exam: Present: warm, dry, intact, normal color. Absent: rash Course Vital Signs 11/20/21 11/20/21 11/20/21 19:08 19:21 19:43 Temperature 97.7 F Pulse Rate 54 L 44 L Respiratory 20 24 Rate Blood Pressure 157/63 O2 Sat by Pulse 100 Oximetry 11/20/21 19:53 Temperature Pulse Rate 42 L Respiratory Rate Blood Pressure O2 Sat by Pulse Oximetry - Reevaluation(s) Reevaluation #1: 11/20/21 20:35 Reevaluation patient finds he remains asymptomatic with a sinus rhythm in the mid 50s. No further chest pain no shortness of breath. Lab work did demonstrate evidence of acute renal failure however with potassium of 7.4 in a nonhemolyzed specimen. Chest Pain MDM - MDM Imaging reviewed no acute findings. Patient did demonstrate evolution from a apparent Y complex tachycardia to A. fib RVR the A. fib to sinus rhythm with first-degree AV block. Patient does have a history of cardiac disease with a first-degree block in the past. Patient does have hyperkalemia which was treated in emergency department. I did discuss the case with for nephrology as well as Dr. Edwards from cardiology and Dr. Cueva from the [facility]. Patient be admitted for further inpatient evaluation and treatment. Patient does have elevated troponin is likely secondary to renal failure however the patient has been heparinized. Critical Care Time Critical Care Time: Yes Total Critical Care Time: 39 Critical Care Time: Critical care time includes initial presentation with history physical labs x- rays discussed with paramedics upon arrival multiple re-evaluations patient discussion with multiple physicians admitting orders documentation above her review of old charting that was available. Disposition Clinical Impression: Acute renal failure, Hyperkalemia, Unstable angina, Elevated troponin, Chest pain Disposition: ADMITTED IP TO THIS HOSP Condition: Fair Referrals: [facility]inic [Primary Care Provider] - 1-2 days Decision Date: 11/20/21 Decision Time: 20:38
[2021-11-20 19:21] LABS: Basophils # (A) 0.1 k/uL (0-0.2); Basophils % (A) 1 %; Eosinophils # (A) 0.5 k/uL (0-0.7); Eosinophils % (A) 5 %; HCT 34.1 % (39.0-53.0); HGB 10.7 gm/dL (13.0-17.5); Hypochromasia Slight; Lymphocytes # (A) 1.4 k/uL (1.0-4.8); Lymphocytes % (A) 12 %; MCH 28.6 pg (25.0-35.0); MCHC 31.4 g/dL (31.0-37.0); MCV 91.2 fL (80.0-100.0); Monocytes # (A) 0.6 k/uL (0-1.0); Monocytes % (A) 5 %; Neutrophils # (A) 8.8 k/uL (1.3-7.7); Neutrophils % (A) 76 %; Platelet Count 204 k/uL (150-450); RBC 3.74 m/uL (4.30-5.90); RDW 13.8 % (11.5-15.5); WBC 11.5 k/uL (3.8-10.6)
[2021-11-20] MEDS ORDERED: ALBUTEROL NEBULIZED 2.5 MG/3 ML INHALATION STA (19:25)
[2021-11-20 19:32] LABS: Calcium 8.8 mg/dL (8.4-10.2); Magnesium 2.2 mg/dL (1.6-2.3); Total Bilirubin 0.8 mg/dL (0.2-1.3); Total Protein 6.7 g/dL (6.3-8.2)
[2021-11-20 19:34] LABS: INR 1.1 (<1.2); Partial Thromboplastin Time 22.8 sec (22.0-30.0); Prothrombin Time 12.1 sec (9.0-12.0)
[2021-11-20 19:40] LABS: Potassium 7.4 mmol/L (3.5-5.1)
[2021-11-20] MEDS ORDERED: HEPARIN SODIUM 1,000 UN/ML (10ML VL) IV ONE (19:51)
--- NOTE | 2021-11-20 19:55 | XR ---
EXAMINATION TYPE: XR chest 2V DATE OF EXAM: 11/20/2021 7:33 PM COMPARISON: CT chest 02/01/2021 TECHNIQUE: XR chest 2V . CLINICAL INDICATION:Male, 71 years old with history of Chest Pain; FINDINGS: Cardiac leads are present external to the chest. Lungs/Pleura: There is no evidence of pleural effusion, focal consolidation, or pneumothorax. Pulmonary vascularity: Unremarkable. Heart/mediastinum: Cardiomediastinal silhouette is unremarkable. Postoperative changes are present i n the mediastinum. Musculoskeletal: No acute osseous pathology. Midline sternotomy wires are noted and stable. IMPRESSION: No acute cardiopulmonary disease/process.
[2021-11-20] MEDS ORDERED: SODIUM POLYSTYRENE SULFONATE 15 GM/60 ML BOTTLE PO STA (19:57)
[2021-11-20] MEDS ORDERED: FUROSEMIDE 10 MG/ML 4 ML VIAL IV STA (19:57)
[2021-11-20] MEDS ORDERED: ALBUTEROL NEBULIZED (CONC) 20 MG, SODIUM CHLORIDE 0.9% NEBULIZ 3 ML INHALATION ONE ×2 (19:57)
[2021-11-20] MEDS ORDERED: CALCIUM CHLORIDE 100 MG/ML 10 ML SYRINGE IVP STA ×2 (19:58→22:23)
[2021-11-20] MEDS ORDERED: DEXTROSE 50% SYRINGE 50 ML IVP STA (19:58)
[2021-11-20] MEDS ORDERED: INSULIN REGULAR 100 UNIT/ML VIAL (IV) IV ONE (19:58)
[2021-11-20] MEDS ORDERED: SODIUM CHLORIDE 0.9% 1,000 ML IV STA (20:00)
[2021-11-20] MEDS: HEPARIN SOD,PORK IN 0.45% NACL 25,000 UNIT in 0.45% NACL 1 250ML.BAG IV SCH (20:26)
[2021-11-20] MEDS ORDERED: NITROGLYCERIN SL TABS 0.4 MG TAB SUBLINGUAL PRN (20:39)
[2021-11-20] MEDS ORDERED: ALBUTEROL NEBULIZED 2.5 MG/3 ML INHALATION PRN ×2 (20:42→21:04)
[2021-11-20] MEDS ORDERED: DEXTROSE 50% SYRINGE 50 ML IVP PRN ×2 (20:46)
[2021-11-20] MEDS: ATORVASTATIN 80 MG TAB PO SCH (20:57)
[2021-11-20] MEDS ORDERED: SODIUM BICARB 8.4% 50 ML SYR (1 MEQ/ML) IV STA (22:21)
[2021-11-20] MEDS ORDERED: DEXTROSE 5% IN WATER 1,000 ML with SODIUM BICARB (1 MEQ/ML) 150 ML IV SCH (22:30)
[2021-11-20 23:26] LABS: Glucose,Whole Blood 152 mg/dL (70-110)
[2021-11-20] MEDS: SODIUM CHLORIDE 0.9% 1,000 ML IV SCH (23:45)
--- NOTE | 2021-11-20 23:55 | P.HPIM ---
History of Present Illness H&P Date: 11/20/21 The patient is a 71-year-old male with a PMH of coronary artery disease status post CABG and multiple stents, chronic kidney disease, COPD, type II DM, hypertension who was brought into the emergency room by EMS for complaints of chest pain. Patient reports that over the past few days he has been e xperiencing intermittent chest discomfort lasting for a few minutes at a time. He reports having another episode of substernal chest discomfort at around 6:30 PM tonight, 8 out of 10 on maximal intensity with associated shortness of breath and nausea. Upon arrival of EMS, the patient was noted to be in wide complex tachycardia and subsequently A. fib with RVR and eventually converted to sinus rhythm. At time of evaluation, the patient was noted to be in sinus bradycardia with rate in the mid to high 30s on the monitor car operator. Reports feeling back at his baseline and denied any active complaints. Reports that his chest discomfort had resolved soon after arrival to the emergency room and had not recurred. He was receiving an albuterol treatment during the interview. Denied experiencing fever, chills, cough, abdominal pain, nausea, vomiting. Laboratory evaluation was remarkable for a potassium of 7.4, creatinine 2.33 (previously 1.03 in 2019), troponin 0.227, proBNP 2800. EKG in the emergency room upon arrival revealed sinus bradycardia with first-degree AV block with left axis deviation and intraventricular conduction delay with peaked T wave at 55 bpm. Subsequent EKG revealed sinus bradycardia with prolonged OK interval, intraventricular conduction delay at 39 bpm. Chest x-ray was unremarkable. Repeat potassium was 6.5 at 2100. Review of systems: Pertinent positives and negatives as discussed in HPI, a complete review of systems was performed and all other systems are negative. Physical examination: General: non toxic, no distress, appears older than stated age, obese Derm: no unusual rashes/lesions, warm Head: atraumatic, normocephalic, symmetric Eyes: EOMI, no lid lag, anicteric sclera, pupils equal round reactive to light ENT: Nose and ears atraumatic Neck: No cervical lymphadenopathy, trachea midline, supple Mouth: no lip lesion, mucus membranes moist Cardiovascular: S1S2 reg, bradycardia, no murmur, positive dorsalis pedis pulse bilateral, 1+ bilateral ankle edema Lungs: CTA bilateral, no rhonchi, no rales, no accessory muscle use Abdominal: soft, nontender to palpation, no guarding Ext: muscle strength 5 out of 5 in all 4 extremities grossly, no gross muscle atrophy, no contractures, Neuro: CN II-XI grossly intact, no gross focal neuro deficits Psych: Alert, oriented, appropriate affect Assessment/plan Severe hyperkalemia in setting of CRAIG inhibitor use and acute kidney injury, multiple arrhythmias -Discussed the case in detail with nephrology implementation technician who recommended emergent hemodialysis the order for which was placed, -Vascular surgery was consulted and dialysis catheter was inserted -Patient given 20 mg of albuterol inhaled, calcium chloride, Lasix IV push, insulin IV push in the emergency room -Sodium bicarbonate IV push and infusion ordered -Status post Kayexalate 15 g -Case subsequently discussed with formstone fitter implementation technician and the patient was accepted the medical ICU -Continue cardiac monitoring Elevated troponin, non-ST elevation NE versus secondary to tachyarrhythmias -Continue with heparin infusion, aspirin, statin -Cardiology consult -Cardiac monitoring -Trend troponin Chronic conditions: COPD, type II DM, hypertension -Continue with home meds -Hold CRAIG inhibitor -Insulin sliding scale and blood glucose monitoring DVT prophylaxis -Heparin infusion The patient is admitted with an anticipated greater than 2 midnight stay for evaluation of arrhythmia. CODE STATUS: Full Code Discussed with: Patient, , daughter Anticipated discharge date: 11/[address]: Home Past Medical History Past Medical History: Coronary Artery Disease (CAD), Heart Failure, COPD, Diabetes Mellitus, Hypertension Additional Past Medical History / Comment(s): On ABX at this time for "cold/bronchitis", IDDM, lower leg edema, 2014 L leg injury and has ACL1 injury, heart murmur Last Myocardial Infarction Date:: 12/23/13 History of Any Multi-Drug Resistant Organisms: None Reported Past Surgical History: Coronary Bypass/CABG, Heart Catheterization With Stent Additional Past Surgical History / Comment(s): stent to SVG-RCA at [facility]', stent to left carotid , stent x 2 (unk) 2013 at [facility], stent to RCA @ [facility]', Stent to RCA, SVG to RCA, SVG to RCA at [facility], gaglion cyst removal Past Anesthesia/Blood Transfusion Reactions: No Reported Reaction Date of Last Stent Placement:: 2011 Past Psychological History: No Psychological Hx Reported Smoking Status: Current every day smoker Past Alcohol Use History: Occasional Past Drug Use History: None Reported - Past Family History Father Family Medical History: Myocardial Infarction ([place]) Additional Family Medical History / Comment(s): Father had lung cancer and bladder cancer. He is 82 yrs old. He is an exsmoker. Mother Family Medical History: COPD Additional Family Medical History / Comment(s): cardiac Medications and Allergies Home Medications Medication Instructions Recorded Confirmed Type Potassium Chloride ER [K-Dur 20] 20 meq PO DAILY 12/23/13 11/20/21 History lisinopriL [Zestril] 20 mg PO DAILY 12/23/13 11/20/21 History Aspirin 325 mg PO DAILY #90 tab 12/24/13 11/20/21 Rx Atorvastatin [Lipitor] 80 mg PO HS #90 tab 12/24/13 11/20/21 Rx Nitroglycerin Sl Tabs [Nitrostat] 0.4 mg SUBLINGUAL Q5M PRN #25 tab 12/24/13 11/20/21 Rx Albuterol Sulfate [Proair Hfa] 2 puff INHALATION RT-Q4H PRN 07/24/15 11/20/21 History Clopidogrel [Plavix] 75 mg PO DAILY 07/24/15 11/20/21 History Ferrous Sulfate [Feosol] 325 mg PO DAILY 06/12/18 11/20/21 History Insulin Aspart [NovoLOG Flexpen] 30 units SQ BID 06/12/18 11/20/21 History Insulin Glargine,Hum.rec.anlog 100 unit SQ HS 06/12/18 11/20/21 History [Lantus Solostar Pen] Tiotropium 18 Mcg/Puff [Spiriva] 1 cap INHALATION RT-DAILY 06/12/18 11/20/21 History metFORMIN HCL [Glucophage] 1,000 mg PO BID 06/12/18 11/20/21 History Furosemide [Lasix] 20 mg PO BID@0900,1600 #30 tab 06/15/18 11/20/21 Rx Spironolactone [Aldactone] 25 mg PO DAILY #30 tab 06/15/18 11/20/21 Rx Albuterol Nebulized [Ventolin 2.5 mg INHALATION RT-TID 11/20/21 11/20/21 History Nebulized] Ascorbic Acid [Vitamin C] 500 mg PO DAILY 11/20/21 11/20/21 History Cholecalciferol [Vitamin D3 (25 25 mcg PO DAILY 11/20/21 11/20/21 History Mcg = 1000 Iu)] Fluticasone Propion/Salmeterol 1 puff INHALATION RT-BID 11/20/21 11/20/21 History [Fluticasone-Salmeterol 250-50] buPROPion HCL [buPROPion HCL SR] 150 mg PO BID 11/20/21 11/20/21 History carvediloL [Coreg] 12.5 mg PO BID-W/MEALS 11/20/21 11/20/21 History Allergies Allergy/AdvReac Type Severity Reaction Status Date / Time No Known Allergies Allergy Verified 11/20/21 19:12 Physical Exam Vitals: Vital Signs Temp Pulse Resp BP Pulse Ox 11/20/21 22:00 38 L 20 155/51 11/20/21 21:48 42 L 22 151/57 97 11/20/21 21:46 38 L 11/20/21 21:28 40 L 11/20/21 21:20 38 L 11/20/21 20:12 75 24 153/91 97 11/20/21 19:53 42 L 11/20/21 19:43 44 L 11/20/21 19:21 24 11/20/21 19:08 97.7 F 54 L 20 157/63 100 Intake and Output 11/20/21 11/20/21 11/20/21 06:59 14:59 22:59 Other: Weight 95.254 kg Results CBC & Chem 7: 11/20/21 19:13 11/20/21 21:48 Labs: Abnormal Lab Results - Last 24 Hours (Table) 11/20/21 11/20/21 11/20/21 Range/Units 19:13 19:13 19:13 WBC 11.5 H (3.8-10.6) k/uL RBC 3.74 L (4.30-5.90) m/uL Hgb 10.7 L (13.0-17.5) gm/dL Hct 34.1 L (39.0-53.0) % Neutrophils # 8.8 H (1.3-7.7) k/uL PT 12.1 H (9.0-12.0) sec Sodium 136 L (137-145) mmol/L Potassium 7.4 H* (3.5-5.1) mmol/L Chloride 110 H (98-107) mmol/L Carbon Dioxide 15 L (22-30) mmol/L BUN 64 H (9-20) mg/dL Creatinine 2.33 H (0.66-1.25) mg/dL Glucose 240 H (74-99) mg/dL Troponin I (0.000-0.034) ng/mL Lipase (23-300) U/L 11/20/21 11/20/21 11/20/21 Range/Units 19:13 19:13 20:56 WBC (3.8-10.6) k/uL RBC (4.30-5.90) m/uL Hgb (13.0-17.5) gm/dL Hct (39.0-53.0) % Neutrophils # (1.3-7.7) k/uL PT (9.0-12.0) sec Sodium (137-145) mmol/L Potassium (3.5-5.1) mmol/L Chloride (98-107) mmol/L Carbon Dioxide (22-30) mmol/L BUN (9-20) mg/dL Creatinine (0.66-1.25) mg/dL Glucose (74-99) mg/dL Troponin I 0.227 H* 0.258 H* (0.000-0.034) ng/mL Lipase 359 H (23-300) U/L 11/20/21 Range/Units 21:48 WBC (3.8-10.6) k/uL RBC (4.30-5.90) m/uL Hgb (13.0-17.5) gm/dL Hct (39.0-53.0) % Neutrophils # (1.3-7.7) k/uL PT (9.0-12.0) sec Sodium (137-145) mmol/L Potassium 6.5 H* (3.5-5.1) mmol/L Chloride (98-107) mmol/L Carbon Dioxide (22-30) mmol/L BUN (9-20) mg/dL Creatinine (0.66-1.25) mg/dL Glucose (74-99) mg/dL Troponin I (0.000-0.034) ng/mL Lipase (23-300) U/L
[2021-11-21 00:15] LABS: Glucose,Whole Blood 151 mg/dL (70-110)
[2021-11-21] MEDS: INSULIN ASPART (NovoLOG) 100 UNIT/ML VIAL SQ SCH ×5 (00:19→21:40)
--- NOTE | 2021-11-21 02:32 | OP ---
OPERATIVE REPORT PREOPERATIVE DIAGNOSIS: [id number] renal failure with potassium of 6.5. POSTOPERATIVE DIAGNOSIS: [id number] renal failure with potassium of 6.5. PROCEDURE: Ultrasound-guided dialysis catheter placement with right femoral approach. DESCRIPTION OF PROCEDURE: The patient was seen in the emergency room. Right groin was prepped and draped in the usual sterile manner. 1% lidocaine was infiltrated. Micropuncture introduced into the right femoral vein. Micropuncture guidewire was passed, and a 4-Mexican dilator was advanced on the top of the guidewire. Then, we passed a regular guidewire, and dilator was advanced on top of the guidewire. Then, we placed triple-lumen dialysis catheter, flushed with heparin saline and hep-locked, secured with 3-0 nylon. The patient tolerated the procedure well. MMODL / TAMARAN: [id number] /
--- NOTE | 2021-11-21 02:36 | CONS ---
CONSULTATION HISTORY OF PRESENT ILLNESS: This is a 71-year-old gentleman, came to the emergency room with shortness of breath and chest pain. The patient was found to have a potassium of 6.5. I was consulted for placement of urgent dialysis catheter. MEDICAL HISTORY: History of coronary artery disease. The patient has a history of CABG done in the past. The patient's medical history also includes diabetes, history of COPD. Personal history of smoking. PHYSICAL EXAMINATION: GENERAL: The patient was seen in the emergency room. NECK: Supple. CHEST: Has crackles bilateral. ABDOMEN: Soft, nontender. EXTREMITIES: Femorals are 1+. DATA: His potassium is 6.5. PLAN: Placement of urgent dialysis catheter. Risks and complications discussed. MMODL / IJN: [id number] /
[2021-11-21 03:21] LABS: INR 1.4 (<1.2); Partial Thromboplastin Time 52.6 sec (22.0-30.0); Prothrombin Time 14.5 sec (9.0-12.0)
[2021-11-21 03:29] LABS: Basophils % (A) 0 %; Eosinophils # (A) 0.2 k/uL (0-0.7); Eosinophils % (A) 3 %; Hypochromasia Moderate; Lymphocytes # (A) 0.8 k/uL (1.0-4.8); Lymphocytes % (A) 14 %; MCH 29.1 pg (25.0-35.0); MCHC 31.2 g/dL (31.0-37.0); MCV 93.1 fL (80.0-100.0); Mean Platelet Volume 10.2; Monocytes # (A) 0.9 k/uL (0-1.0); Monocytes % (A) 15 %; Neutrophils % (A) 66 %; Platelet Count 113 k/uL (150-450); RBC 2.15 m/uL (4.30-5.90); RDW 14.1 % (11.5-15.5)
[2021-11-21 03:37] LABS: African American GFR (CKD) 84 (>60 ml/min/1.73 sqM); Anion Gap 8 mmol/L; Blood Urea Nitrogen 32 mg/dL (9-20); Carbon Dioxide 14 mmol/L (22-30); Chloride 120 mmol/L (98-107); Glucose 74 mg/dL (74-99); Magnesium 1.3 mg/dL (1.6-2.3); Non-African American GFR(CKD) 73 (>60 ml/min/1.73 sqM); Potassium 3.4 mmol/L (3.5-5.1); Sodium 142 mmol/L (137-145)
[2021-11-21 03:40] LABS: HGB 6.3 gm/dL (13.0-17.5)
[2021-11-21 04:01] LABS: Large Platelets Present; Poikilocytosis (M) Present
[2021-11-21 05:23] LABS: Basophils # (A) 0.1 k/uL (0-0.2); Basophils % (A) 1 %; Eosinophils # (A) 0.4 k/uL (0-0.7); Eosinophils % (A) 3 %; HCT 31.5 % (39.0-53.0); Lymphocytes # (A) 1.5 k/uL (1.0-4.8); Lymphocytes % (A) 12 %; MCH 29.5 pg (25.0-35.0); MCV 89.4 fL (80.0-100.0); Monocytes # (A) 0.6 k/uL (0-1.0); Monocytes % (A) 5 %; Neutrophils # (A) 10.4 k/uL (1.3-7.7); Neutrophils % (A) 79 %; RBC 3.53 m/uL (4.30-5.90); RDW 14.1 % (11.5-15.5); WBC 13.1 k/uL (3.8-10.6)
[2021-11-21 05:25] LABS: HGB 10.4 gm/dL (13.0-17.5)
[2021-11-21 05:26] LABS: Platelet Count 174 k/uL (150-450)
[2021-11-21 05:28] LABS: Albumin 3.8 g/dL (3.5-5.0); Calcium 8.5 mg/dL (8.4-10.2); Potassium 4.9 mmol/L (3.5-5.1); Total Protein 6.4 g/dL (6.3-8.2)
[2021-11-21 06:58] LABS: Glucose,Whole Blood 134 mg/dL (70-110)
[2021-11-21] MEDS: HEPARIN SODIUM 1,000 UN/ML (10ML VL) IV PRN (07:15)
[2021-11-21] MEDS: SYMBICORT 160-4.5 MCG INHALER INHALATION SCH ×2 (07:31→20:34)
[2021-11-21] MEDS: IPRATROPIUM 0.5 MG/2.5 ML NEBU INHALATION SCH ×4 (07:31→20:34)
[2021-11-21] MEDS ORDERED: ATROPINE SULFATE 0.1 MG/ML 10ML SYRINGE ONE (07:57)
--- NOTE | 2021-11-21 07:58 | XR ---
EXAMINATION TYPE: XR chest 1V DATE OF EXAM: 11/21/2021 COMPARISON: 11/20/2021 HISTORY: 71 year-old male shortness of breath TECHNIQUE: Single frontal view of the chest is obtained. FINDINGS: Median sternotomy wires with post-CABG clips the mediastinum. Heart upper limits of normal in size. T here is hyperinflation. Mild interstitial density. There may be some subtle Jesus B lines at the carolin g bases. No chun consolidation or pleural effusion. IMPRESSION: COPD. Borderline heart size. Correlate to exclude superimposed mild pulmonary vascular congestion.
[2021-11-21] MEDS: CLOPIDOGREL 75 MG TAB PO SCH (08:12)
[2021-11-21] MEDS: SODIUM CHLORIDE 0.9% 1,000 ML IV SCH (08:16)
[2021-11-21] MEDS ORDERED: METOPROLOL TARTRATE 25 MG TAB PO SCH (09:00)
[2021-11-21] MEDS ORDERED: ASPIRIN 325 MG TAB PO SCH ×2 (09:00)
[2021-11-21] MEDS ORDERED: FUROSEMIDE 20 MG TAB PO SCH (09:00)
--- NOTE | 2021-11-21 09:39 | P.CRDCN ---
History of Present Illness Consult date: 11/21/21 History of present illness: History of Present Illness: The patient is a 71-year-old male with a known history of CAD, status post CABG, history of hypertension, hyperlipidemia and diabetes mellitus as well as chronic tobacco use, status post stenting and carotid stenting who for the last week has not been feeling well, feeling dyspneic with episodes of irregular heartbeat as well as chest discomfort radiating to both arms. Yesterday he felt dizzy and short of breath with the discomfort EMS noted that he was tachycardic with what complex tachycardia, crit present ventricular tachycardia although atrial fibrillation with aberrancy cannot be excluded subsequently he converted back to sinus mechanism with left bundle branch block and bradycardia. He had episode of ventricle arrhythmia. He is in sinus mechanism with episode of sinus bradycardia since admission. He has dyspnea at this time that has been chronic but no symptoms of chest discomfort any further. He has chronic peripheral edema. No PND or orthopnea. He has known history of chronic kidney disease according to him but worse on presentation. He has no clear PND or orthopnea. He is limited in his physical activity because of the dyspnea on exertion. In December 2013 he underwent cardiac catheterization by Dr. Shane the [place] to LAD was patent, SVG to circumflex was patent, SVG to the RCA had critical stenosis proximal to the stented segment in 2010, his [place] arteries he had total occlusion of his LAD and RCA and OM. He underwent stenting of the saphenous vein graft to the RCA using 30 by 26 resolute stent. His echocardiogram in 2018 showed an ejection fraction of 30-35%. He underwent placement of a dialysis catheter yesterday. On presentation yesterday his potassium was 7.4 BUN 64 creatinine 2.3, his troponin 0.227 and into proBNP of 2800. His hemoglobin was 10.7 and subsequent hemoglobin down to 6.3. His risk factors are positive for hypertension, hyperlipidemia, diabetes mellitus and chronic tobacco use Medications: Insulin, Lipitor 80 mg daily, Aldactone 25 mg daily, Glucophage 1 g twice a day, Zestril 20 mg daily, Coreg 12-1/2 mg twice a day, iron, Plavix 75 mg daily, aspirin once a day, Spiriva, Ventolin, pro-air Review of Systems: Respiratory: He has history of chronic dyspnea on exertion and chronic obstructive lung disease GI: No nausea or vomiting . No history of peptic ulcer disease. No recent GI bleed. : No hematuria or dysuria. Nervous System: No stroke or seizure. Physical Examination: 71-year-old male alert, mildly dyspneic appears older than stated age,Blood pressure 146/60, Heart rate 55 Head: Normocephalic. Eyes: Sclerae nonicteric. Neck: Good carotid upstroke, bilateral bruit, no jugular venous distention. Lungs: Decreased breath sounds bilaterally with scattered rhonchi Heart: Regular rate and rhythm, S1-S2, no S3, no rub. Systolic ejection murmur, 2/6. Abdomen: Soft nontender, positive bowel sounds no organomegaly. Extremities: 1+ ankle edema, decrease distal pulses. Labs: Hemoglobin this morning 10.4, white blood cell 13.1, BUN 45, creatinine 1.64. His potassium is down to 4.9 EKG: Sinus mechanism rate of 55 first-degree AV block and left bundle branch block and left axis deviation Impression: 1. Atrial arrhythmia was possible runs of nonsustained VT and atrial fibrillation, probable worsening cause is the hyperkalemia 2. Symptoms of chest discomfort consistent with angina pectoris, resolved after controlling the heart rate 3. Troponin elevation most likely secondary to ischemia, tachycardia and the w orsening renal function 4. Acute renal injury with hyperkalemia 5. Prior history of severe ischemic cardiomyopathy 6. Status post CABG and prior PCI 7. History of peripheral vascular disease and carotid stenting 8. History of hypertension 9. History of diabetes 10. History of hyperlipidemia Plan: 1. Hold CRAIG inhibitor, beta mable and Aldactone 2. Obtain an echocardiogram with Doppler 3. And follow renal functions and potassium 4. We'll obtain records from Dr. Crowley, primary demurrage clerk 5. Depending on his progress further recommendations will be made, the prognosis is guarded. Thank you for this consult we will follow with you Past Medical History Past Medical History: Coronary Artery Disease (CAD), Heart Failure (EF 30-35% (echo 2019)), COPD, Diabetes Mellitus, Hypertension, Vascular Disorder Additional Past Medical History / Comment(s): IDDM, lower leg edema, 2014 L leg injury and has ACL1 injury, heart murmur, mediastinal adenopathy, PVOD, Carotid artery disease (left) Last Myocardial Infarction Date:: 12/23/13 History of Any Multi-Drug Resistant Organisms: None Reported Past Surgical History: Coronary Bypass/CABG, Heart Catheterization With Stent Additional Past Surgical History / Comment(s): stent to SVG-RCA at [facility], stent to left carotid , stent x 2 (unk) 2013 at [facility], stent to RCA @ [facility]', Stent to RCA, SVG to RCA, SVG to RCA at [facility], gaglion cyst removal Past Anesthesia/Blood Transfusion Reactions: No Reported Reaction Date of Last Stent Placement:: 2011 Past Psychological History: No Psychological Hx Reported Additional Psychological History / Comment(s): Pt resides with his spouse. He is independent. He has a cane which he uses minimally. He drives. 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 Smoking Status: Current every day smoker Past Alcohol Use History: Occasional Additional Past Alcohol Use History / Comment(s): Pt started smoking in 1969 and is a 1 ppd smoker. Past Drug Use History: None Reported - Past Family History Father Family Medical History: Myocardial Infarction ([place]) Additional Family Medical History / Comment(s): Father had lung cancer and bladder cancer. He is 82 yrs old. He is an exsmoker. Mother Family Medical History: COPD Additional Family Medical History / Comment(s): cardiac Medications and Allergies Home Medications Medication Instructions Recorded Confirmed Type Potassium Chloride ER [K-Dur 20] 20 meq PO DAILY 12/23/13 11/20/21 History lisinopriL [Zestril] 20 mg PO DAILY 12/23/13 11/20/21 History Aspirin 325 mg PO DAILY #90 tab 12/24/13 11/20/21 Rx Atorvastatin [Lipitor] 80 mg PO HS #90 tab 12/24/13 11/20/21 Rx Nitroglycerin Sl Tabs [Nitrostat] 0.4 mg SUBLINGUAL Q5M PRN #25 tab 12/24/13 11/20/21 Rx Albuterol Sulfate [Proair Hfa] 2 puff INHALATION RT-Q4H PRN 07/24/15 11/20/21 History Clopidogrel [Plavix] 75 mg PO DAILY 07/24/15 11/20/21 History Ferrous Sulfate [Feosol] 325 mg PO DAILY 06/12/18 11/20/21 History Insulin Aspart [NovoLOG Flexpen] 30 units SQ BID 06/12/18 11/20/21 History Insulin Glargine,Hum.rec.anlog 100 unit SQ HS 06/12/18 11/20/21 History [Lantus Solostar Pen] Tiotropium 18 Mcg/Puff [Spiriva] 1 cap INHALATION RT-DAILY 06/12/18 11/20/21 History metFORMIN HCL [Glucophage] 1,000 mg PO BID 06/12/18 11/20/21 History Furosemide [Lasix] 20 mg PO BID@0900,1600 #30 tab 06/15/18 11/20/21 Rx Spironolactone [Aldactone] 25 mg PO DAILY #30 tab 06/15/18 11/20/21 Rx Albuterol Nebulized [Ventolin 2.5 mg INHALATION RT-TID 11/20/21 11/20/21 History Nebulized] Ascorbic Acid [Vitamin C] 500 mg PO DAILY 11/20/21 11/20/21 History Cholecalciferol [Vitamin D3 (25 25 mcg PO DAILY 11/20/21 11/20/21 History Mcg = 1000 Iu)] Fluticasone Propion/Salmeterol 1 puff INHALATION RT-BID 11/20/21 11/20/21 History [Fluticasone-Salmeterol 250-50] buPROPion HCL [buPROPion HCL SR] 150 mg PO BID 11/20/21 11/20/21 History carvediloL [Coreg] 12.5 mg PO BID-W/MEALS 11/20/21 11/20/21 History Allergies Allergy/AdvReac Type Severity Reaction Status Date / Time No Known Allergies Allergy Verified 11/20/21 19:12 Physical Exam Vitals: Vital Signs Temp Pulse Pulse Pulse Resp BP BP 11/21/21 07:41 63 11/21/21 07:34 11/21/21 07:31 60 11/21/21 06:00 110 H 22 144/85 11/21/21 05:30 75 20 163/60 11/21/21 05:00 66 19 162/64 11/21/21 04:30 73 22 148/62 11/21/21 04:00 97.7 F 69 23 154/70 11/21/21 03:30 71 18 161/71 11/21/21 03:00 78 28 H 161/71 11/21/21 02:30 89 28 H 165/86 11/21/21 02:20 97.6 F 91 91 21 178/96 11/21/21 02:00 73 20 158/57 11/21/21 01:57 78 11/21/21 01:51 73 11/21/21 01:30 82 18 159/61 11/21/21 01:00 71 18 132/85 11/21/21 00:30 56 L 21 160/68 11/21/21 00:20 69 25 H 160/68 11/21/21 00:10 40 L 22 154/49 11/21/21 00:00 98.1 F 43 L 22 159/56 11/20/21 23:50 42 L 21 158/50 11/20/21 23:40 37 L 26 H 167/60 11/20/21 23:30 37 L 16 167/60 11/20/21 23:22 17 11/20/21 23:15 39 L 24 155/59 11/20/21 22:00 38 L 20 155/51 11/20/21 21:48 42 L 22 151/57 11/20/21 21:46 38 L 11/20/21 21:28 40 L 11/20/21 21:20 38 L 11/20/21 20:12 75 24 153/91 11/20/21 19:53 42 L 11/20/21 19:43 44 L 11/20/21 19:21 24 11/20/21 19:08 97.7 F 54 L 20 157/63 Pulse Ox 11/21/21 07:41 11/21/21 07:34 96 11/21/21 07:31 11/21/21 06:00 98 11/21/21 05:30 96 11/21/21 05:00 97 11/21/21 04:30 96 11/21/21 04:00 96 11/21/21 03:30 97 11/21/21 03:00 97 11/21/21 02:30 97 11/21/21 02:20 98 11/21/21 02:00 99 11/21/21 01:57 11/21/21 01:51 11/21/21 01:30 97 11/21/21 01:00 96 11/21/21 00:30 99 11/21/21 00:20 96 11/21/21 00:10 99 11/21/21 00:00 98 11/20/21 23:50 99 11/20/21 23:40 98 11/20/21 23:30 97 11/20/21 23:22 11/20/21 23:15 97 11/20/21 22:00 11/20/21 21:48 97 11/20/21 21:46 11/20/21 21:28 11/20/21 21:20 11/20/21 20:12 97 11/20/21 19:53 11/20/21 19:43 11/20/21 19:21 11/20/21 19:08 100 Intake and Output 11/20/21 11/21/21 11/21/21 22:59 06:59 14:59 Intake Total 1503.167 168.167 Output Total 2350 500 Balance -846.833 -331.833 Intake: IV 750 150 Sodium Chloride 0.9% 1, 700 150 000 ml @ 50 mls/hr IV . Q20H [facility] Rx#:[id number] Sodium bicarb 50mEq/50mL 50 Intake, IV Titration 73.167 18.167 Amount Heparin Sod,Pork in 0.45% 73.167 18.167 NaCl 25,000 unit In 0.45 % NaCl 1 250ml.bag @ 10. 498 UNITS/KG/HR 10 mls/hr IV .Q24H [facility] Rx#: [id number] Oral 380 Hemodialysis 300 Output: Urine 2050 500 Hemodialysis 300 Other: Weight 95.254 kg 85.2 kg Results 11/21/21 04:39 11/21/21 04:39 Cardiac Enzymes 11/20/21 11/20/21 11/20/21 Range/Units 19:13 19:13 20:56 AST 22 (17-59) U/L Troponin I 0.227 H* 0.258 H* (0.000-0.034) ng/mL 11/21/21 11/21/21 Range/Units 02:41 04:39 AST 20 (17-59) U/L Troponin I 0.264 H* (0.000-0.034) ng/mL Coagulation 11/20/21 11/21/21 11/21/21 Range/Units 19:13 02:41 06:06 PT 12.1 H 14.5 H (9.0-12.0) sec APTT 22.8 52.6 H 31.4 H (22.0-30.0) sec CBC 11/20/21 11/21/21 11/21/21 Range/Units 19:13 02:41 04:39 WBC 11.5 H 6.0 13.1 H (3.8-10.6) k/uL RBC 3.74 L 2.15 L 3.53 L (4.30-5.90) m/uL Hgb 10.7 L 6.3 L* D 10.4 L D (13.0-17.5) gm/dL Hct 34.1 L 20.0 L 31.5 L (39.0-53.0) % Plt Count 204 113 L 174 D (150-450) k/uL Comprehensive Metabolic Panel 11/20/21 11/20/21 11/21/21 Range/Units 19:13 21:48 02:41 Sodium 136 L 142 (137-145) mmol/L Potassium 7.4 H* 6.5 H* 3.4 L (3.5-5.1) mmol/L Chloride 110 H 120 H (98-107) mmol/L Carbon Dioxide 15 L 14 L (22-30) mmol/L BUN 64 H 32 H (9-20) mg/dL Creatinine 2.33 H 1.05 (0.66-1.25) mg/dL Glucose 240 H 74 (74-99) mg/dL Calcium 8.8 6.0 L* (8.4-10.2) mg/dL AST 22 (17-59) U/L ALT 24 (4-49) U/L Alkaline Phosphatase 114 (38-126) U/L Total Protein 6.7 (6.3-8.2) g/dL Albumin 4.0 (3.5-5.0) g/dL 11/21/21 Range/Units 04:39 Sodium 140 (137-145) mmol/L Potassium 4.9 (3.5-5.1) mmol/L Chloride 108 H (98-107) mmol/L Carbon Dioxide 21 L (22-30) mmol/L BUN 45 H (9-20) mg/dL Creatinine 1.64 H (0.66-1.25) mg/dL Glucose 115 H (74-99) mg/dL Calcium 8.5 (8.4-10.2) mg/dL AST 20 (17-59) U/L ALT 22 (4-49) U/L Alkaline Phosphatase 117 (38-126) U/L Total Protein 6.4 (6.3-8.2) g/dL Albumin 3.8 (3.5-5.0) g/dL Current Medications Generic Name Dose Route Start Last Admin Trade Name Freq PRN Reason Stop Dose Admin Albuterol Sulfate 2.5 mg 11/20/21 21:04 11/21/21 01:49 Albuterol Nebulized 2.5 Mg/3 Ml INHALATION 2.5 mg RT-Q6H PRN Administration Shortness Of Breath Aspirin 325 mg 11/21/21 09:00 11/21/21 08:12 Aspirin 325 Mg Tab PO 325 mg DAILY FREDRICK Administration Atorvastatin Calcium 80 mg 11/20/21 21:00 11/20/21 20:57 Atorvastatin 80 Mg Tab PO 80 mg HS FREDRICK Administration Budesonide/Formoterol Fumarate 2 puff 11/21/21 08:00 11/21/21 07:31 Symbicort 160-4.5 Mcg Inhaler INHALATION 2 puff RT-BID FREDRICK Administration Clopidogrel Bisulfate 75 mg 11/21/21 09:00 11/21/21 08:12 Clopidogrel 75 Mg Tab PO 75 mg DAILY FREDRICK Administration Dextrose/Water 25 ml 11/20/21 20:46 Dextrose 50% Syringe 50 Ml IVP PER PROTOCOL PRN Hypoglycemia Protocol Dextrose/Water 50 ml 11/20/21 20:46 Dextrose 50% Syringe 50 Ml IVP PER PROTOCOL PRN Hypoglycemia Protocol Heparin Sodium (Porcine) 0 unit 11/20/21 19:51 11/21/21 07:15 Heparin Sodium 1,000 Un/Ml (10ml Vl) IV 4,260 unit PER PROTOCOL PRN Administration Low PTT Protocol Heparin Sodium/Sodium Chloride 250 mls @ 10 mls/hr 11/20/21 20:00 11/21/21 07:17 25,000 unit/ Sodium Chloride IV 13.5 units/kg/hr .Q24H FREDRICK 12.859 mls/hr Titration Protocol 10.498 UNITS/KG/HR Sodium Chloride 1,000 mls @ 50 mls/hr 11/20/21 20:45 11/21/21 08:16 Saline 0.9% IV 100 mls/hr .Q20H FREDRICK Administration Insulin Aspart 0 unit 11/20/21 21:00 11/21/21 07:02 Insulin Aspart (Novolog) 100 Unit/Ml Vial SQ Not Given ACHS [facility] Protocol Ipratropium [place] 0.5 mg 11/21/21 08:00 11/21/21 07:31 Ipratropium 0.5 Mg/2.5 Ml Nebu INHALATION 0.5 mg RT-QID [facility] Administration Nitroglycerin 0.4 mg 11/20/21 20:39 Nitroglycerin Sl Tabs 0.4 Mg Tab SUBLINGUAL Q5M PRN Chest Pain Intake and Output 11/20/21 11/21/21 11/21/21 22:59 06:59 14:59 Intake Total 1503.167 168.167 Output Total 2350 500 Balance -846.833 -331.833 Intake: IV 750 150 Sodium Chloride 0.9% 1, 700 150 000 ml @ 50 mls/hr IV . Q20H [facility] Rx#:[id number] Sodium bicarb 50mEq/50mL 50 Intake, IV Titration 73.167 18.167 Amount Heparin Sod,Pork in 0.45% 73.167 18.167 NaCl 25,000 unit In 0.45 % NaCl 1 250ml.bag @ 10. 498 UNITS/KG/HR 10 mls/hr IV .Q24H [facility] Rx#: [id number] Oral 380 Hemodialysis 300 Output: Urine 2050 500 Hemodialysis 300 Other: Weight 95.254 kg 85.2 kg 11/21/21 04:39 11/21/21 04:39
[2021-11-21] MEDS: NITROGLYCERIN OINT 1 INCH/GM PACKET TOPICAL SCH ×2 (10:58→16:57)
[2021-11-21 11:03] LABS: Chol/HDL Ratio 3.69 Ratio; LDL Cholesterol,Calculated 31.4 mg/dL (0.0-131.0)
--- NOTE | 2021-11-21 11:04 | P.CNPUL ---
History of Present Illness Consult date: 11/21/21 Chief complaint: Chest pain History of present illness: 71-year-old male patient, known history of COPD maintained on a combination of Symbicort and Spiriva, history of nonspecific mediastinal lymphadenopathy being followed up through our office, coronary artery disease, previous bypass surgery, previous history of multiple coronary stents and a carotid artery stent in addition to chronic stage II kidney disease, diabetes mellitus, and hype rtension, CHF with chronic systolic heart failure and ejection fraction of 30- 35%. The patient has been having episodes of chest pain for the past few weeks. These are intermittent chest pains, not exacerbated with any activity and the patient has been having radiation to his arms, typically the pain would last for 5 minutes. Yesterday, he was having more pain and he end up coming into the hospital and the intensity of the pain was worse. He was also having some shortness of breath and nausea. EKG showed a wide-complex tachycardia and subsequently went into an A. fib rhythm. He was noted to be in acute kidney injury and the patient was also found to be hypokalemic and potassium level was elevated. Based on that, the patient was given calcium, he was given bicarb pushes, Kayexalate 15 g and ultimately a dialysis catheter was to proceed and the patient was given association of hemodialysis with subsequent improvement in his potassium level. The CRAIG inhibitor was also discontinued. The troponins were mildly elevated and the levels were 0.25 and 0.6 respectively. The rest of the blood work essentially within normal limits. The serum bicarb is up to 21. Creatinine this morning is down to 1.6 with a BUN of 45. The patient is awake and oriented. He is on IV heparin. History of any chest pain. The current cardiac rhythm is bradycardic, still wide-complex with first-degree AV block. The rhythm is sinus for now. The patient has been taken Coreg on outpatient basis. No syncope. No loss of consciousness. Review of Systems Constitutional: Reports fatigue, Reports weakness Eyes: denies as per HPI, denies blurred vision, denies bulging eye, denies decreased vision, denies diplopia, denies discharge, denies dry eye, denies irritation, denies itching, denies pain, denies photophobia, denies loss of pe ripheral vision, denies loss of vision, denies tunnel vision/blind spots Ears: deny: decreased hearing, ear discharge, earache, tinnitus Ears, nose, mouth and throat: Reports as per HPI Breasts: absent: as per HPI, gynecomastia Cardiovascular: Reports chest pain, Reports decreased exercise tolerance, Reports dyspnea on exertion, Reports shortness of breath Respiratory: Reports as per HPI, Reports cough, Reports dyspnea Gastrointestinal: Reports as per HPI Genitourinary: Reports as per HPI Musculoskeletal: Reports as per HPI, Reports arm numbness/tingling Musculoskeletal: bilateral: ankle swelling, absent: ankle pain, ankle stiffness Integumentary: Reports as per HPI Neurological: Reports as per HPI Psychiatric: Reports as per HPI Endocrine: Reports as per HPI, Reports high blood sugars Hematologic/Lymphatic: Reports as per HPI Allergic/Immunologic: Reports as per HPI Past Medical History Past Medical History: Coronary Artery Disease (CAD), Heart Failure (EF 30-35% (echo 2019)), COPD, Diabetes Mellitus, Hypertension, Vascular Disorder Additional Past Medical History / Comment(s): IDDM, lower leg edema, 2013 L leg injury and has ACL1 injury, heart murmur, mediastinal adenopathy, PVOD, Carotid artery disease (left) Last Myocardial Infarction Date:: 12/23/13 History of Any Multi-Drug Resistant Organisms: None Reported Past Surgical History: Coronary Bypass/CABG, Heart Catheterization With Stent Additional Past Surgical History / Comment(s): stent to SVG-RCA at [facility] 08', stent to left carotid , stent x 2 (unk) 2013 at [facility], stent to RCA @ 13', Stent to RCA, SVG to RCA, SVG to RCA at [facility], gaglion cyst removal Past Anesthesia/Blood Transfusion Reactions: No Reported Reaction Date of Last Stent Placement:: 2011 Past Psychological History: No Psychological Hx Reported Additional Psychological History / Comment(s): Pt resides with his spouse. He is independent. He has a cane which he uses minimally. He drives. 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 Smoking Status: Current every day smoker Past Alcohol Use History: Occasional Additional Past Alcohol Use History / Comment(s): Pt started smoking in 1969 and is a 1 ppd smoker. Past Drug Use History: None Reported - Past Family History Father Family Medical History: Myocardial Infarction (MS) Additional Family Medical History / Comment(s): Father had lung cancer and bladder cancer. He is 82 yrs old. He is an exsmoker. Mother Family Medical History: COPD Additional Family Medical History / Comment(s): cardiac Medications and Allergies Home Medications Medication Instructions Recorded Confirmed Type Potassium Chloride ER [K-Dur 20] 20 meq PO DAILY 12/23/13 11/20/21 History lisinopriL [Zestril] 20 mg PO DAILY 12/23/13 11/20/21 History Aspirin 325 mg PO DAILY #90 tab 12/24/13 11/20/21 Rx Atorvastatin [Lipitor] 80 mg PO HS #90 tab 12/24/13 11/20/21 Rx Nitroglycerin Sl Tabs [Nitrostat] 0.4 mg SUBLINGUAL Q5M PRN #25 tab 12/24/13 11/20/21 Rx Albuterol Sulfate [Proair Hfa] 2 puff INHALATION RT-Q4H PRN 07/24/15 11/20/21 History Clopidogrel [Plavix] 75 mg PO DAILY 07/24/15 11/20/21 History Ferrous Sulfate [Feosol] 325 mg PO DAILY 06/12/18 11/20/21 History Insulin Aspart [NovoLOG Flexpen] 30 units SQ BID 06/12/18 11/20/21 History Insulin Glargine,Hum.rec.anlog 100 unit SQ HS 06/12/18 11/20/21 History [Lantus Solostar Pen] Tiotropium 18 Mcg/Puff [Spiriva] 1 cap INHALATION RT-DAILY 06/12/18 11/20/21 History metFORMIN HCL [Glucophage] 1,000 mg PO BID 06/12/18 11/20/21 History Furosemide [Lasix] 20 mg PO BID@0900,1600 #30 tab 06/15/18 11/20/21 Rx Spironolactone [Aldactone] 25 mg PO DAILY #30 tab 06/15/18 11/20/21 Rx Albuterol Nebulized [Ventolin 2.5 mg INHALATION RT-TID 11/20/21 11/20/21 History Nebulized] Ascorbic Acid [Vitamin C] 500 mg PO DAILY 11/20/21 11/20/21 History Cholecalciferol [Vitamin D3 (25 25 mcg PO DAILY 11/20/21 11/20/21 History Mcg = 1000 Iu)] Fluticasone Propion/Salmeterol 1 puff INHALATION RT-BID 11/20/21 11/20/21 History [Fluticasone-Salmeterol 250-50] buPROPion HCL [buPROPion HCL SR] 150 mg PO BID 11/20/21 11/20/21 History carvediloL [Coreg] 12.5 mg PO BID-W/MEALS 11/20/21 11/20/21 History Allergies Allergy/AdvReac Type Severity Reaction Status Date / Time No Known Allergies Allergy Verified 11/20/21 19:12 Physical Exam Vitals: Vital Signs Temp Pulse Pulse Pulse Resp BP BP 11/21/21 07:41 63 11/21/21 07:34 11/21/21 07:31 60 11/21/21 06:00 110 H 22 144/85 11/21/21 05:30 75 20 163/60 11/21/21 05:00 66 19 162/64 11/21/21 04:30 73 22 148/62 11/21/21 04:00 97.7 F 69 23 154/70 11/21/21 03:30 71 18 161/71 11/21/21 03:00 78 28 H 161/71 11/21/21 02:30 89 28 H 165/86 11/21/21 02:20 97.6 F 91 91 21 178/96 11/21/21 02:00 73 20 158/57 11/21/21 01:57 78 11/21/21 01:51 73 11/21/21 01:30 82 18 159/61 11/21/21 01:00 71 18 132/85 11/21/21 00:30 56 L 21 160/68 11/21/21 00:20 69 25 H 160/68 11/21/21 00:10 40 L 22 154/49 11/21/21 00:00 98.1 F 43 L 22 159/56 11/20/21 23:50 42 L 21 158/50 11/20/21 23:40 37 L 26 H 167/60 11/20/21 23:30 37 L 16 167/60 11/20/21 23:22 17 11/20/21 23:15 39 L 24 155/59 11/20/21 22:00 38 L 20 155/51 11/20/21 21:48 42 L 22 151/57 11/20/21 21:46 38 L 11/20/21 21:28 40 L 11/20/21 21:20 38 L 11/20/21 20:12 75 24 153/91 11/20/21 19:53 42 L 11/20/21 19:43 44 L 11/20/21 19:21 24 11/20/21 19:08 97.7 F 54 L 20 157/63 Pulse Ox 11/21/21 07:41 11/21/21 07:34 96 11/21/21 07:31 11/21/21 06:00 98 11/21/21 05:30 96 11/21/21 05:00 97 11/21/21 04:30 96 11/21/21 04:00 96 11/21/21 03:30 97 11/21/21 03:00 97 11/21/21 02:30 97 11/21/21 02:20 98 11/21/21 02:00 99 11/21/21 01:57 11/21/21 01:51 11/21/21 01:30 97 11/21/21 01:00 96 11/21/21 00:30 99 11/21/21 00:20 96 11/21/21 00:10 99 11/21/21 00:00 98 11/20/21 23:50 99 11/20/21 23:40 98 11/20/21 23:30 97 11/20/21 23:22 11/20/21 23:15 97 11/20/21 22:00 11/20/21 21:48 97 11/20/21 21:46 11/20/21 21:28 11/20/21 21:20 11/20/21 20:12 97 11/20/21 19:53 11/20/21 19:43 11/20/21 19:21 11/20/21 19:08 100 Intake and Output 11/20/21 11/21/21 11/21/21 22:59 06:59 14:59 Intake Total 1503.167 18.167 Output Total 2350 Balance -846.833 18.167 Intake: IV 750 Sodium Chloride 0.9% 1, 700 000 ml @ 100 mls/hr IV . Q10H [facility] Rx#:[id number] Sodium bicarb 50mEq/50mL 50 Intake, IV Titration 73.167 18.167 Amount Heparin Sod,Pork in 0.45% 73.167 18.167 NaCl 25,000 unit In 0.45 % NaCl 1 250ml.bag @ 10. 498 UNITS/KG/HR 10 mls/hr IV .Q24H [facility] Rx#: [id number] Oral 380 Hemodialysis 300 Output: Urine 2050 Hemodialysis 300 Other: Weight 95.254 kg 85.2 kg Calm and comfortable no acute distress Head exam was generally normal. There was no scleral icterus or corneal arcus. Mucous membranes were moist. Neck was supple and without jugular venous distension, thyromegaly, or carotid bruits. Carotids were easily palpable bilaterally. There was no adenopathy. Lungs sounds are diminished bilaterally. She is getting expiratory wheezes. Otherwise clear Heart sounds are bradycardic, positive S1-S2, no cervical murmurs appreciated.Cardiac exam revealed the PMI to be normally situated and sized. The rhythm was regular and no extrasystoles were noted during several minutes of auscultation. The first and second heart sounds were normal and physiologic splitting of the second heart sound was noted. There were no murmurs, rubs, clicks, or gallops. Abdominal exam revealed normal bowel sounds. The abdomen was soft, non-tender, and without masses, organomegaly, or appreciable enlargement of the abdominal aorta. Examination of the extremities revealed easily palpable radial, femoral and pedal pulses. There was no cyanosis, clubbing . The patient has edema in the right lower extremity and the right lower extremity is more swollen compared to the left fourth diminished in lower extremity is bilaterally Examination of the skin revealed no evidence of significant rashes, suspicious appearing nevi or other concerning lesions. Neurologically, the patient is awake and alert and the patient does not have any focal neurological deficit. Cranial nerves are essentially intact. Results - Laboratory Findings CBC and BMP: 11/21/21 04:39 11/21/21 04:39 PT/INR, D-dimer PT 14.5 sec (9.0-12.0) H 11/21/21 02:41 INR 1.4 (<1.2) H 11/21/21 02:41 D-Dimer 0.51 mg/L FEU (<0.60) 11/20/21 19:13 Abnormal lab findings: Abnormal Labs 11/20/21 11/20/21 11/20/21 19:13 19:13 19:13 WBC 11.5 H RBC 3.74 L Hgb 10.7 L Hct 34.1 L Plt Count Neutrophils # 8.8 H Lymphocytes # PT 12.1 H INR APTT Sodium 136 L Potassium 7.4 H* Chloride 110 H Carbon Dioxide 15 L BUN 64 H Creatinine 2.33 H Glucose 240 H POC Glucose (mg/dL) Calcium Magnesium Troponin I Lipase 11/20/21 11/20/21 11/20/21 19:13 19:13 20:56 WBC RBC Hgb Hct Plt Count Neutrophils # Lymphocytes # PT INR APTT Sodium Potassium Chloride Carbon Dioxide BUN Creatinine Glucose POC Glucose (mg/dL) Calcium Magnesium Troponin I 0.227 H* 0.258 H* Lipase 359 H 11/20/21 11/20/21 11/21/21 21:48 23:23 00:13 WBC RBC Hgb Hct Plt Count Neutrophils # Lymphocytes # PT INR APTT Sodium Potassium 6.5 H* Chloride Carbon Dioxide BUN Creatinine Glucose POC Glucose (mg/dL) 152 H 151 H Calcium Magnesium Troponin I Lipase 11/21/21 11/21/21 11/21/21 02:41 02:41 02:41 WBC RBC 2.15 L Hgb 6.3 L* D Hct 20.0 L Plt Count 113 L Neutrophils # Lymphocytes # 0.8 L PT 14.5 H INR 1.4 H APTT 52.6 H Sodium Potassium Chloride Carbon Dioxide BUN Creatinine Glucose POC Glucose (mg/dL) Calcium Magnesium Troponin I 0.264 H* Lipase 11/21/21 11/21/21 11/21/21 02:41 04:39 04:39 WBC 13.1 H RBC 3.53 L Hgb 10.4 L D Hct 31.5 L Plt Count Neutrophils # 10.4 H Lymphocytes # PT INR APTT Sodium Potassium 3.4 L Chloride 120 H 108 H Carbon Dioxide 14 L 21 L BUN 32 H 45 H Creatinine 1.64 H Glucose 115 H POC Glucose (mg/dL) Calcium 6.0 L* Magnesium 1.3 L Troponin I Lipase 11/21/21 11/21/21 06:06 06:56 WBC RBC Hgb Hct Plt Count Neutrophils # Lymphocytes # PT INR APTT 31.4 H Sodium Potassium Chloride Carbon Dioxide BUN Creatinine Glucose POC Glucose (mg/dL) 134 H Calcium Magnesium Troponin I Lipase - Diagnostic Findings Chest x-ray: image reviewed Assessment and Plan Plan: Chest pain, workup is in progress, possible an acute non-ST segment elevation myocardial infarction. Troponins were elevated and the patient is known to have coronary artery disease with previous bypass surgery and previous coronary interventions Cardiac arrhythmias in the form of sinus bradycardia, wide-complex probably related to underlying hyperkalemia. Current cardiac rhythm is a bundle-branch block/intraventricular conduction delay along with a first-degree AV block, sinus. Nevertheless the patient is bradycardic on no pressors. Coronary artery disease with previous coronary artery bypass surgery and multiple coronary interventions stenting Chronic systolic heart failure with an ejection fraction of 30-35% based on echocardiogram from 2019 Acute on top of chronic kidney injury. The patient is known to have stage II chronic kidney disease and the patient became acutely hypokalemic, treated accordingly. Urine output is adequate for now and nephrology consultations been obtained with a creatinine is also improved and the potassium is improved Peripheral vascular disease Carotid artery disease with a previous endarterectomy on the left Hypertension Diabetes mellitus, maintained on Lantus insulin 100 units daily at bedtime in addition to Glucophage Hyperlipidemia COPD maintain a combination of Symbicort and Spiriva on outpatient basis Nonspecific mediastinal lymphadenopathy, please refer to the most recent PET scan report from 2020 Plan Keep the patient intensive care unit Continue IV heparin Hold CRAIG inhibitor Hold the beta mable Hold Aldactone Urine output is adequate Stop Lasix and put the patient on normal saline at the rate of 50 mL an hour Obtain echocardiogram Obtain lower extremity Dopplers of the patient has some increased swelling left lower extremity Hold metformin Monitor blood sugar Continue aspirin and Plavix Cardiology consultation Consult nephrology No need for hemodialysis for now We'll continue to follow
--- NOTE | 2021-11-21 11:25 | P.PN ---
Subjective Progress Note Date: 11/21/21 Patient is much improved after his dialysis session yesterday. His only complaint is orthopnea. He does continue to have swelling of his lower extremities as well as JVD. Gen: awake, alert HEENT: normocephalic, atraumatic, good hearing acuity, moist mucous membranes Resp: good air exchange, breathing comfortably with no accessory muscle use, bilateral crackles CVS: good distal perfusion x 4, regular rate and rhythm, positive JVD with hepato- jugular reflex GI: soft, NTTP, ND : no SPT, no CVAT, gonzalez catheter not present MSK: Positive pitting edema, no clubbing Neuro: non-focal, moving all extremities Psych: cooperative, euthymic mood Assessment/plan: Severe hyperkalemia in setting of CRAIG inhibitor use and acute kidney injury, multiple arrhythmias -Discussed the case in detail with nephrology cardiology nurse practitioner who recommended emergent hemodialysis the order for which was placed, -Vascular surgery was consulted and dialysis catheter was inserted -Patient given 20 mg of albuterol inhaled, calcium chloride, Lasix IV push, insulin IV push in the emergency room -Sodium bicarbonate IV push and infusion ordered -Status post Kayexalate 15 g -Case subsequently discussed with real estate internship cardiology nurse practitioner and the patient was accepted the medical ICU -Continue cardiac monitoring Congestive heart failure exacerbation, previous echo shows an EF of 30-35% from 2019 History of Ischemic cardiomyopathy Elevated troponin, non-ST elevation NH versus secondary to tachyarrhythmias -Continue with heparin infusion, aspirin, statin -Cardiology consult -Cardiac monitoring -Trend troponin -Strict ins and outs, daily weights -Echocardiogram -Defer fluid management to cardiology/nephrology Chronic conditions: COPD, type II DM, hypertension -Continue with home meds -Hold CRAIG inhibitor -Insulin sliding scale and blood glucose monitoring DVT prophylaxis -Heparin infusion The patient is admitted with an anticipated greater than 2 midnight stay for evaluation of arrhythmia. CODE STATUS: Full Code Discussed with: Patient, , daughter Anticipated discharge date: 11/[address]: Home Objective - Vital Signs Vital signs: Vital Signs Temp 97.9 F 11/21/21 08:00 Pulse 46 L 11/21/21 11:16 Resp 24 11/21/21 10:00 BP 126/55 11/21/21 10:00 Pulse Ox 97 11/21/21 10:00 FiO2 Intake & Output 11/20/21 11/21/21 11/21/21 18:59 06:59 18:59 Intake Total 1503.167 218.167 Output Total 2350 710 Balance -846.833 -491.833 Weight 85.2 kg Intake: IV 750 200 Sodium Chloride 0.9% 1, 700 200 000 ml @ 50 mls/hr IV . Q20H [facility] Rx#:[id number] Sodium bicarb 50mEq/50mL 50 Intake, IV Titration 73.167 18.167 Amount Heparin Sod,Pork in 0.45% 73.167 18.167 NaCl 25,000 unit In 0.45 % NaCl 1 250ml.bag @ 10. 498 UNITS/KG/HR 10 mls/hr IV .Q24H [facility] Rx#: [id number] Oral 380 Hemodialysis 300 Output: Urine 2050 710 Hemodialysis 300 - Labs CBC & Chem 7: 11/21/21 04:39 11/21/21 04:39 Labs: Abnormal Lab Results - Last 24 Hours (Table) 11/20/21 11/20/21 11/20/21 Range/Units 19:13 19:13 19:13 WBC 11.5 H (3.8-10.6) k/uL RBC 3.74 L (4.30-5.90) m/uL Hgb 10.7 L (13.0-17.5) gm/dL Hct 34.1 L (39.0-53.0) % Plt Count (150-450) k/uL Neutrophils # 8.8 H (1.3-7.7) k/uL Lymphocytes # (1.0-4.8) k/uL PT 12.1 H (9.0-12.0) sec INR (<1.2) APTT (22.0-30.0) sec Sodium 136 L (137-145) mmol/L Potassium 7.4 H* (3.5-5.1) mmol/L Chloride 110 H (98-107) mmol/L Carbon Dioxide 15 L (22-30) mmol/L BUN 64 H (9-20) mg/dL Creatinine 2.33 H (0.66-1.25) mg/dL Glucose 240 H (74-99) mg/dL POC Glucose (mg/dL) (70-110) mg/dL Hemoglobin A1c (0.0-6.0) % Calcium (8.4-10.2) mg/dL Magnesium (1.6-2.3) mg/dL Troponin I (0.000-0.034) ng/mL HDL Cholesterol (40.00-60.00) mg/dL Lipase (23-300) U/L 11/20/21 11/20/21 11/20/21 Range/Units 19:13 19:13 20:56 WBC (3.8-10.6) k/uL RBC (4.30-5.90) m/uL Hgb (13.0-17.5) gm/dL Hct (39.0-53.0) % Plt Count (150-450) k/uL Neutrophils # (1.3-7.7) k/uL Lymphocytes # (1.0-4.8) k/uL PT (9.0-12.0) sec INR (<1.2) APTT (22.0-30.0) sec Sodium (137-145) mmol/L Potassium (3.5-5.1) mmol/L Chloride (98-107) mmol/L Carbon Dioxide (22-30) mmol/L BUN (9-20) mg/dL Creatinine (0.66-1.25) mg/dL Glucose (74-99) mg/dL POC Glucose (mg/dL) (70-110) mg/dL Hemoglobin A1c (0.0-6.0) % Calcium (8.4-10.2) mg/dL Magnesium (1.6-2.3) mg/dL Troponin I 0.227 H* 0.258 H* (0.000-0.034) ng/mL HDL Cholesterol (40.00-60.00) mg/dL Lipase 359 H (23-300) U/L 11/20/21 11/20/21 11/20/21 Range/Units 20:56 21:48 23:23 WBC (3.8-10.6) k/uL RBC (4.30-5.90) m/uL Hgb (13.0-17.5) gm/dL Hct (39.0-53.0) % Plt Count (150-450) k/uL Neutrophils # (1.3-7.7) k/uL Lymphocytes # (1.0-4.8) k/uL PT (9.0-12.0) sec INR (<1.2) APTT (22.0-30.0) sec Sodium (137-145) mmol/L Potassium 6.5 H* (3.5-5.1) mmol/L Chloride (98-107) mmol/L Carbon Dioxide (22-30) mmol/L BUN (9-20) mg/dL Creatinine (0.66-1.25) mg/dL Glucose (74-99) mg/dL POC Glucose (mg/dL) 152 H (70-110) mg/dL Hemoglobin A1c 9.1 H (0.0-6.0) % Calcium (8.4-10.2) mg/dL Magnesium (1.6-2.3) mg/dL Troponin I (0.000-0.034) ng/mL HDL Cholesterol (40.00-60.00) mg/dL Lipase (23-300) U/L 11/21/21 11/21/21 11/21/21 Range/Units 00:13 02:41 02:41 WBC (3.8-10.6) k/uL RBC (4.30-5.90) m/uL Hgb (13.0-17.5) gm/dL Hct (39.0-53.0) % Plt Count (150-450) k/uL Neutrophils # (1.3-7.7) k/uL Lymphocytes # (1.0-4.8) k/uL PT 14.5 H (9.0-12.0) sec INR 1.4 H (<1.2) APTT 52.6 H (22.0-30.0) sec Sodium (137-145) mmol/L Potassium (3.5-5.1) mmol/L Chloride (98-107) mmol/L Carbon Dioxide (22-30) mmol/L BUN (9-20) mg/dL Creatinine (0.66-1.25) mg/dL Glucose (74-99) mg/dL POC Glucose (mg/dL) 151 H (70-110) mg/dL Hemoglobin A1c (0.0-6.0) % Calcium (8.4-10.2) mg/dL Magnesium (1.6-2.3) mg/dL Troponin I 0.264 H* (0.000-0.034) ng/mL HDL Cholesterol (40.00-60.00) mg/dL Lipase (23-300) U/L 11/21/21 11/21/21 11/21/21 Range/Units 02:41 02:41 04:39 WBC 13.1 H (3.8-10.6) k/uL RBC 2.15 L 3.53 L (4.30-5.90) m/uL Hgb 6.3 L* D 10.4 L D (13.0-17.5) gm/dL Hct 20.0 L 31.5 L (39.0-53.0) % Plt Count 113 L (150-450) k/uL Neutrophils # 10.4 H (1.3-7.7) k/uL Lymphocytes # 0.8 L (1.0-4.8) k/uL PT (9.0-12.0) sec INR (<1.2) APTT (22.0-30.0) sec Sodium (137-145) mmol/L Potassium 3.4 L (3.5-5.1) mmol/L Chloride 120 H (98-107) mmol/L Carbon Dioxide 14 L (22-30) mmol/L BUN 32 H (9-20) mg/dL Creatinine (0.66-1.25) mg/dL Glucose (74-99) mg/dL POC Glucose (mg/dL) (70-110) mg/dL Hemoglobin A1c (0.0-6.0) % Calcium 6.0 L* (8.4-10.2) mg/dL Magnesium 1.3 L (1.6-2.3) mg/dL Troponin I (0.000-0.034) ng/mL HDL Cholesterol 17.80 L (40.00-60.00) mg/dL Lipase (23-300) U/L 11/21/21 11/21/21 11/21/21 Range/Units 04:39 06:06 06:56 WBC (3.8-10.6) k/uL RBC (4.30-5.90) m/uL Hgb (13.0-17.5) gm/dL Hct (39.0-53.0) % Plt Count (150-450) k/uL Neutrophils # (1.3-7.7) k/uL Lymphocytes # (1.0-4.8) k/uL PT (9.0-12.0) sec INR (<1.2) APTT 31.4 H (22.0-30.0) sec Sodium (137-145) mmol/L Potassium (3.5-5.1) mmol/L Chloride 108 H (98-107) mmol/L Carbon Dioxide 21 L (22-30) mmol/L BUN 45 H (9-20) mg/dL Creatinine 1.64 H (0.66-1.25) mg/dL Glucose 115 H (74-99) mg/dL POC Glucose (mg/dL) 134 H (70-110) mg/dL Hemoglobin A1c (0.0-6.0) % Calcium (8.4-10.2) mg/dL Magnesium (1.6-2.3) mg/dL Troponin I (0.000-0.034) ng/mL HDL Cholesterol (40.00-60.00) mg/dL Lipase (23-300) U/L
[2021-11-21 11:55] LABS: Glucose,Whole Blood 156 mg/dL (70-110)
--- NOTE | 2021-11-21 13:41 | P.NPCON ---
History of Present Illness - Reason for Consult Consult date: 11/21/21 acute renal failure, hyperkalemia - Chief Complaint Chest pain - History of Present Illness 71-year-old gentleman coming to the hospital with intermittent chest pains for a few days. As per him he does have chronic kidney disease and supposed to see a composite worker soon. Last Monday had a renal ultrasound, 10 cm kidneys bilaterally no hydronephrosis. Baseline creatinine 1.1-1.3 MG per DL in 2019. More than 10 years history of diabetes and hypertension. History of coronary artery disease status post CABG. Home medications includes lisinopril and Aldactone. On presentation to the ER serum creatinine 2.3 MG per DL, potassium of 7.4, with medical management improved to 6.5. He was symptomatic with a heart rate in 30s, hemodialysis emergently was done last night. Potassium improved to 4.5 today. Currently in ICU on heparin drip. Denies any nausea vomiting diarrhea, decreased oral intake for the past few days. No documented hypotensive episodes. Review of Systems Constitutional: Reports as per HPI Past Medical History Past Medical History: Coronary Artery Disease (CAD), Heart Failure (EF 30-35% (echo 2019)), COPD, Diabetes Mellitus, Hypertension, Vascular Disorder Additional Past Medical History / Comment(s): IDDM, lower leg edema, 2013 L leg injury and has ACL1 injury, heart murmur, mediastinal adenopathy, PVOD, Carotid artery disease (left) Last Myocardial Infarction Date:: 12/23/13 History of Any Multi-Drug Resistant Organisms: None Reported Past Surgical History: Coronary Bypass/CABG, Heart Catheterization With Stent Additional Past Surgical History / Comment(s): stent to SVG-RCA at [facility] 08', stent to left carotid , stent x 2 (unk) 2013 at [facility], stent to RCA @ [facility] 13', Stent to RCA, SVG to RCA, SVG to RCA at [facility], gaglion cyst removal Past Anesthesia/Blood Transfusion Reactions: No Reported Reaction Date of Last Stent Placement:: 2011 Past Psychological History: No Psychological Hx Reported Additional Psychological History / Comment(s): Pt resides with his spouse. He is independent. He has a cane which he uses minimally. He drives. 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 Smoking Status: Current every day smoker Past Alcohol Use History: Occasional Additional Past Alcohol Use History / Comment(s): Pt started smoking in 1969 and is a 1 ppd smoker. Past Drug Use History: None Reported - Past Family History Father Family Medical History: Myocardial Infarction (ME) Additional Family Medical History / Comment(s): Father had lung cancer and bladder cancer. He is 82 yrs old. He is an exsmoker. Mother Family Medical History: COPD Additional Family Medical History / Comment(s): cardiac Medications and Allergies Home Medications Medication Instructions Recorded Confirmed Type Potassium Chloride ER [K-Dur 20] 20 meq PO DAILY 12/23/13 11/20/21 History lisinopriL [Zestril] 20 mg PO DAILY 12/23/13 11/20/21 History Aspirin 325 mg PO DAILY #90 tab 12/24/13 11/20/21 Rx Atorvastatin [Lipitor] 80 mg PO HS #90 tab 12/24/13 11/20/21 Rx Nitroglycerin Sl Tabs [Nitrostat] 0.4 mg SUBLINGUAL Q5M PRN #25 tab 12/24/13 11/20/21 Rx Albuterol Sulfate [Proair Hfa] 2 puff INHALATION RT-Q4H PRN 07/24/15 11/20/21 History Clopidogrel [Plavix] 75 mg PO DAILY 07/24/15 11/20/21 History Ferrous Sulfate [Feosol] 325 mg PO DAILY 06/12/18 11/20/21 History Insulin Aspart [NovoLOG Flexpen] 30 units SQ BID 06/12/18 11/20/21 History Insulin Glargine,Hum.rec.anlog 100 unit SQ HS 06/12/18 11/20/21 History [Lantus Solostar Pen] Tiotropium 18 Mcg/Puff [Spiriva] 1 cap INHALATION RT-DAILY 06/12/18 11/20/21 History metFORMIN HCL [Glucophage] 1,000 mg PO BID 06/12/18 11/20/21 History Furosemide [Lasix] 20 mg PO BID@0900,1600 #30 tab 06/15/18 11/20/21 Rx Spironolactone [Aldactone] 25 mg PO DAILY #30 tab 06/15/18 11/20/21 Rx Albuterol Nebulized [Ventolin 2.5 mg INHALATION RT-TID 11/20/21 11/20/21 History Nebulized] Ascorbic Acid [Vitamin C] 500 mg PO DAILY 11/20/21 11/20/21 History Cholecalciferol [Vitamin D3 (25 25 mcg PO DAILY 11/20/21 11/20/21 History Mcg = 1000 Iu)] Fluticasone Propion/Salmeterol 1 puff INHALATION RT-BID 11/20/21 11/20/21 History [Fluticasone-Salmeterol 250-50] buPROPion HCL [buPROPion HCL SR] 150 mg PO BID 11/20/21 11/20/21 History carvediloL [Coreg] 12.5 mg PO BID-W/MEALS 11/20/21 11/20/21 History Allergies Allergy/AdvReac Type Severity Reaction Status Date / Time No Known Allergies Allergy Verified 11/20/21 19:12 Physical Exam Vitals: Vital Signs Temp Pulse Pulse Pulse Resp BP BP 11/21/21 11:27 61 11/21/21 11:16 46 L 11/21/21 10:00 57 L 24 126/55 11/21/21 09:30 53 L 24 126/55 11/21/21 09:00 58 L 25 H 146/56 11/21/21 08:30 64 22 146/56 11/21/21 08:00 97.9 F 66 29 H 162/94 11/21/21 07:41 63 11/21/21 07:34 11/21/21 07:31 60 11/21/21 06:00 110 H 22 144/85 11/21/21 05:30 75 20 163/60 11/21/21 05:00 66 19 162/64 11/21/21 04:30 73 22 148/62 11/21/21 04:00 97.7 F 69 23 154/70 11/21/21 03:30 71 18 161/71 11/21/21 03:00 78 28 H 161/71 11/21/21 02:30 89 28 H 165/86 11/21/21 02:20 97.6 F 91 91 21 178/96 11/21/21 02:00 73 20 158/57 11/21/21 01:57 78 11/21/21 01:51 73 11/21/21 01:30 82 18 159/61 11/21/21 01:00 71 18 132/85 11/21/21 00:30 56 L 21 160/68 11/21/21 00:20 69 25 H 160/68 11/21/21 00:10 40 L 22 154/49 11/21/21 00:00 98.1 F 43 L 22 159/56 11/20/21 23:50 42 L 21 158/50 11/20/21 23:40 37 L 26 H 167/60 11/20/21 23:30 37 L 16 167/60 11/20/21 23:22 17 11/20/21 23:15 39 L 24 155/59 11/20/21 22:00 38 L 20 155/51 11/20/21 21:48 42 L 22 151/57 11/20/21 21:46 38 L 11/20/21 21:28 40 L 11/20/21 21:20 38 L 11/20/21 20:12 75 24 153/91 11/20/21 19:53 42 L 11/20/21 19:43 44 L 11/20/21 19:21 24 11/20/21 19:08 97.7 F 54 L 20 157/63 Pulse Ox 11/21/21 11:27 11/21/21 11:16 11/21/21 10:00 97 11/21/21 09:30 97 11/21/21 09:00 97 11/21/21 08:30 98 11/21/21 08:00 98 11/21/21 07:41 11/21/21 07:34 96 11/21/21 07:31 11/21/21 06:00 98 11/21/21 05:30 96 11/21/21 05:00 97 11/21/21 04:30 96 11/21/21 04:00 96 11/21/21 03:30 97 11/21/21 03:00 97 11/21/21 02:30 97 11/21/21 02:20 98 11/21/21 02:00 99 11/21/21 01:57 11/21/21 01:51 11/21/21 01:30 97 11/21/21 01:00 96 11/21/21 00:30 99 11/21/21 00:20 96 11/21/21 00:10 99 11/21/21 00:00 98 11/20/21 23:50 99 11/20/21 23:40 98 11/20/21 23:30 97 11/20/21 23:22 11/20/21 23:15 97 11/20/21 22:00 11/20/21 21:48 97 11/20/21 21:46 11/20/21 21:28 11/20/21 21:20 11/20/21 20:12 97 11/20/21 19:53 11/20/21 19:43 11/20/21 19:21 11/20/21 19:08 100 Intake and Output 11/20/21 11/21/21 11/21/21 22:59 06:59 14:59 Intake Total 1503.167 218.167 Output Total 2350 710 Balance -846.833 -491.833 Intake: IV 750 200 Sodium Chloride 0.9% 1, 700 200 000 ml @ 50 mls/hr IV . Q20H [facility] Rx#:[id number] Sodium bicarb 50mEq/50mL 50 Intake, IV Titration 73.167 18.167 Amount Heparin Sod,Pork in 0.45% 73.167 18.167 NaCl 25,000 unit In 0.45 % NaCl 1 250ml.bag @ 10. 498 UNITS/KG/HR 10 mls/hr IV .Q24H [facility] Rx#: [id number] Oral 380 Hemodialysis 300 Output: Urine 2050 710 Hemodialysis 300 Other: Weight 95.254 kg 85.2 kg No acute distress S1-S2 heard Lungs clear No edema Right groin Raji Results - Lab Results Most recent lab results Calcium 8.5 mg/dL (8.4-10.2) 11/21/21 04:39 Magnesium 1.8 mg/dL (1.6-2.3) 11/21/21 06:06 11/21/21 04:39 11/21/21 04:39 Assessment and Plan Assessment: #1 acute symptomatic hyperkalemia status post hemodialysis suspect secondary to AK I and combination of lisinopril and Aldactone. #2 suspected CKD IIIB, recent baseline creatinine unknown. 1.1-1.3 in 2019 #3 hypertension with chronic kidney disease #4 acute coronary syndrome with underlying CAD #5 metabolic acidosis secondary to chronic kidney disease Plan: #1 emergent hemodialysis last night, potassium better. Agree with holding lisinopril and Aldactone for now #2 if renal function and potassium stable by tomorrow discontinue Raji catheter. #3 sodium bicarbonate for metabolic acidosis #4 check phosphorus, iron studies in the morning #5 avoid nephrotoxic agents and hypotensive episodes
--- NOTE | 2021-11-21 14:00 | US ---
EXAMINATION TYPE: US venous doppler duplex LE DATE OF EXAM: 11/21/2021 12:29 PM COMPARISON: NONE CLINICAL HISTORY: 71-year-old male swelling, left. Left leg swelling, patient on blood thinners SIDE PERFORMED: Bilateral TECHNIQUE: The lower extremity deep venous system is examined utilizing real time linear array sonog tashia with graded compression, doppler sonography and color-flow sonography. FINDINGS: VESSELS IMAGED: Common Femoral Vein Deep Femoral Vein Greater Saphenous Vein * Femoral Vein Popliteal Vein Small Saphenous Vein * Proximal Calf Veins (* superficial vessels) Right Leg: Visualized portions appear negative for DVT. However, note that the EIV, GSV and CFV cou ld not be adequately visualized due to catheter tubing and bandage covering groin area Left Leg: Appears negative for DVT IMPRESSION: 1. Limited assessment of the upper portion of the right lower extremity. Unable to adequately assess the right external iliac vein, greater saphenous vein, or common femoral vein due to overlying dressi ng. Otherwise, no DVT within the remaining visualized right lower extremity down to the upper calf. 2. No evidence for DVT left lower extremity from the groin to the upper calf.
--- NOTE | 2021-11-21 15:50 | CA ---
Transthoracic Echo Report Name: Vaibhav Yu Age: 71 Gender: M : 1950 Exam Date: 11/21/2021 09:37 Exam Location: [facility] Ht (in): 69 Wt (lb): 187 Ordering Physician: Ben Mccall MD Attending/Referring Phys: Tool Design Draftsperson Kymberly Rodriguez RDCS Procedure CPT: Indications: chf, chest pain Cardiac Hx: Technical Quality: Fair Contrast 1: Total Dose (mL): Contrast 2: Total Dose (mL): MEASUREMENTS (Male / Female) Normal Values 2D ECHO LV Diastolic Diameter PLAX 5.5 cm 4.2 - 5.9 / 3.9 - 5.3 cm LV Systolic Diameter PLAX 4.9 cm IVS Diastolic Thickness 1.9 cm 0.6 - 1.0 / 0.6 - 0.9 cm LVPW Diastolic Thickness 1.8 cm 0.6 - 1.0 / 0.6 - 0.9 cm LV Relative Wall Thickness 0.7 RV Internal Dim ED PLAX 3.5 cm LA Volume 83.0 cm??? 18 - 58 / 22 - 52 cm??? M-MODE Aortic Root Diameter MM 3.4 cm LA Systolic Diameter MM 5.1 cm LA Ao Ratio MM 1.5 AV Cusp Separation MM 1.3 cm DOPPLER AV Peak Velocity 170.9 cm/s AV Peak Gradient 11.7 mmHg LVOT Peak Velocity 108.0 cm/s LVOT Peak Gradient 4.7 mmHg MV Area PHT 4.1 cm??? Mitral E Point Velocity 94.8 cm/s Mitral A Point Velocity 66.7 cm/s Mitral E to A Ratio 1.4 MV Deceleration Time 187.1 ms TR Peak Velocity 262.6 cm/s TR Peak Gradient 27.6 mmHg Right Ventricular Systolic Press 32.6 mmHg PV Peak Velocity 174.0 cm/s PV Peak Gradient 12.1 mmHg FINDINGS Left Ventricle Severely increased left ventricular wall thickness. Moderately reduced global left ventricular systolic function. Left ventricular ejection fraction is estimated at 25-30 %. Anteroapical and anteroseptal severe hypokinesis Right Ventricle Mild right ventricular dilatation. Right ventricular systolic pressure within normal limits. Right Atrium Right atrium not well visualized. Left Atrium Severely increased left atrial volume. Mitral Valve Mitral valve thickened. Mild mitral annular calcification. [id number] mitral regurgitation. Posteriorly directed mitral regurgitation jet. Aortic Valve Trileaflet aortic valve. Aortic valve sclerosis. No aortic stenosis. Trace aortic regurgitation. Tricuspid Valve Mild tricuspid regurgitation.structurally normal tricuspid valve. Pulmonic Valve Trace pulmonic regurgitation.pulmonic valve not well visualized. Pericardium No pericardial effusion. Aorta Normal size aortic root and proximal ascending aorta. CONCLUSIONS 1. Severely impaired left ventricle systolic function with segmental wall motion abnormality 2. Moderate severe eccentric mitral regurgitation 3. Mild tricuspid regurgitation with no pulmonary hypertension Previewed by: Dr. Sherlyn Edwards MD (Electronically Signed) Final Date: 21 November 2021 15:50
[2021-11-21 16:37] LABS: Glucose,Whole Blood 218 mg/dL (70-110)
[2021-11-21 18:29] LABS: Chol/HDL Ratio 3.93 Ratio; LDL Cholesterol,Calculated 52.8 mg/dL (0.0-131.0)
[2021-11-21] MEDS: HEPARIN SOD,PORK IN 0.45% NACL 25,000 UNIT in 0.45% NACL 1 250ML.BAG IV SCH (19:48)
[2021-11-21 21:37] LABS: Glucose,Whole Blood 203 mg/dL (70-110)
[2021-11-21] MEDS: ATORVASTATIN 80 MG TAB PO SCH (21:40)
[2021-11-21] MEDS: SODIUM BICARBONATE TAB 650 MG TAB PO SCH (21:40)
[2021-11-22] MEDS: NITROGLYCERIN OINT 1 INCH/GM PACKET TOPICAL SCH ×4 (00:07→23:42)
[2021-11-22] MEDS: SODIUM CHLORIDE 0.9% 1,000 ML IV SCH ×2 (03:00→21:39)
[2021-11-22 06:48] LABS: Calcium 8.5 mg/dL (8.4-10.2); Potassium 4.3 mmol/L (3.5-5.1)
[2021-11-22 06:49] LABS: HCT 29.6 % (39.0-53.0); HGB 9.3 gm/dL (13.0-17.5); Hypochromasia Slight; MCH 28.5 pg (25.0-35.0); MCHC 31.4 g/dL (31.0-37.0); MCV 90.8 fL (80.0-100.0); Mean Platelet Volume 9.5; Platelet Count 171 k/uL (150-450); RBC 3.26 m/uL (4.30-5.90); RDW 13.6 % (11.5-15.5); WBC 11.6 k/uL (3.8-10.6)
[2021-11-22 07:00] LABS: Glucose,Whole Blood 207 mg/dL (70-110)
[2021-11-22] MEDS: INSULIN ASPART (NovoLOG) 100 UNIT/ML VIAL SQ SCH ×4 (07:01→21:38)
[2021-11-22] MEDS: HEPARIN SODIUM 1,000 UN/ML (10ML VL) IV PRN (07:12)
[2021-11-22] MEDS: SYMBICORT 160-4.5 MCG INHALER INHALATION SCH ×2 (07:38→19:30)
[2021-11-22] MEDS: IPRATROPIUM 0.5 MG/2.5 ML NEBU INHALATION SCH ×4 (07:38→19:30)
--- NOTE | 2021-11-22 07:55 | XR ---
EXAMINATION TYPE: XR chest 1V portable DATE OF EXAM: 11/22/2021 Comparison: 11/21/2021 Clinical History: 71-year-old male SOB Findings: Median sternotomy wires are present with post-CABG clips. Heart upper limits of normal in size. Hyper inflation. Mild interstitial prominence. Impression: Borderline cardiomegaly and COPD. Mild interstitial change is similar; correlate to exclude residual mild pulmonary vascular congestion.
--- NOTE | 2021-11-22 07:56 | P.PN ---
Subjective History of Present Illness: The patient is a 71-year-old male with a known history of CAD, status post CABG, history of hypertension, hyperlipidemia and diabetes mellitus as well as chronic tobacco use, status post stenting and carotid stenting who for the last week has not been feeling well, feeling dyspneic with episodes of irregular heartbeat as well as chest discomfort radiating to both arms. Yesterday he felt dizzy and short of breath with the discomfort EMS noted that he was tachycardic with what complex tachycardia, crit present ventricular tachycardia although atrial fibrillation with aberrancy cannot be excluded subsequently he converted back to sinus mechanism with left bundle branch block and bradycardia. He had episode of ventricle arrhythmia. He is in sinus mechanism with episode of sinus bradycardia since admission. He has dyspnea at this time that has been chronic but no symptoms of chest discomfort any further. He has chronic peripheral edema. No PND or orthopnea. He has known history of chronic kidney disease according to him but worse on presentation. He has no clear PND or orthopnea. He is limited in his physical activity because of the dyspnea on exertion. In December 2013 he underwent cardiac catheterization by Dr. Shane the [place] to LAD was patent, SVG to circumflex was patent, SVG to the RCA had critical stenosis proximal to the stented segment in 2010, his [place] arteries he had total occlus ion of his LAD and RCA and OM. He underwent stenting of the saphenous vein graft to the RCA using 30 by 26 resolute stent. His echocardiogram in 2018 showed an ejection fraction of 30-35%. He underwent placement of a dialysis catheter yesterday. On presentation yesterday his potassium was 7.4 BUN 64 creatinine 2.3, his troponin 0.227 and into proBNP of 2800. His hemoglobin was 10.7 and subsequent hemoglobin down to 6.3. His risk factors are positive for hypertension, hyperlipidemia, diabetes mellitus and chronic tobacco use Medications: Insulin, Lipitor 80 mg daily, Aldactone 25 mg daily, Glucophage 1 g twice a day, Zestril 20 mg daily, Coreg 12-1/2 mg twice a day, iron, Plavix 75 mg daily, aspirin once a day, Spiriva, Ventolin, pro-air 11/22 Pt seen and examined. Decreased hemoglobin noted to be lab error and repeats appears stable. He has been on heparin drip. His home lisinopril, Aldactone, carvedilol were discontinued and held secondary to hyperkalemia and bradycardia. No further significant bradycardia and we will restart carvedilol. Denies any further chest pressure or pain. Heart rates in the 90s to low 100 in sinus rhythm. He underwent dialysis yesterday with improvement in hyperkalemia. He is sitting upright in bed however denies any significant worsening dyspnea. No lower extremity edema. Remains on normal saline at 50 mL per hour. Echocardiogram performed yesterday shows ejection fraction 30% with moderate to severe mitral regurgitation. PHYSICAL EXAMINATION Vital signs reviewed. CONSTITUTIONAL: No apparent distress. HEENT: Head is normocephalic. Pupils are equal, round. Sclerae anicteric. Mucous membranes of the mouth are moist. No JVD. No carotid bruit. CHEST EXAMINATION: Lungs are clear to auscultation. No chest wall tenderness is noted on palpation or with deep breathing. HEART EXAMINATION: Regular rate and rhythm. S1, S2 heard. +3/6 systolic murmur, no gallops or rub. ABDOMEN: Soft, nontender. Positive bowel sounds. EXTREMITIES: 2+ peripheral pulses, no lower extremity edema and no calf tenderness. NEUROLOGIC EXAMINATION: Patient is awake, alert and oriented x3. Impression: 1. Atrial arrhythmia was possible runs of nonsustained VT and atrial fibrillation, probable worsening cause is the hyperkalemia 2. Symptoms of chest discomfort consistent with angina pectoris, resolved after controlling the heart rate 3. Non-STEMI secondary to ischemia, tachycardia and the worsening renal function, suspect type II mechanism 4. Acute renal injury with hyperkalemia 5. Prior history of severe ischemic cardiomyopathy 6. Status post CABG and prior PCI 7. History of peripheral vascular disease and carotid stenting 8. History of hypertension 9. History of diabetes 10. History of hyperlipidemia 11. Chronic systolic heart failure 12. Moderate to severe mitral regurgitation Plan: Add back carvedilol however at lower dose 6.25 mg twice a day. Monitor heart rates however bradycardia likely related to severe hyperkalemia. Continue with heparin drip for now. May consider medical therapy given risk of heart catheterization would place patient on dialysis likely. Obtain records from primary chief hydroelectric station operator. Monitor kidney function. Further recommendations follow. Objective - Vital Signs Vital signs: Vital Signs Temp 97.8 F 11/22/21 04:00 Pulse 115 H 11/22/21 07:38 Resp 18 11/22/21 07:00 BP 151/60 08/15/22 07:00 Pulse Ox 95 11/22/21 07:00 FiO2 Intake & Output 11/21/21 11/22/21 11/22/21 18:59 06:59 18:59 Intake Total 767.610 602.397 175.058 Output Total 1745 1200 200 Balance -977.390 -597.603 -24.942 Weight 85.6 kg Intake: IV 650 550 50 Sodium Chloride 0.9% 1, 650 550 50 000 ml @ 50 mls/hr IV . Q20H [facility] Rx#:[id number] Intake, IV Titration 117.610 52.397 125.058 Amount Heparin Sod,Pork in 0.45% 117.610 52.397 125.058 NaCl 25,000 unit In 0.45 % NaCl 1 250ml.bag @ 10. 498 UNITS/KG/HR 10 mls/hr IV .Q24H [facility] Rx#: [id number] Output: Urine 1745 1200 200 - Labs CBC & Chem 7: 11/22/21 06:08 11/22/21 06:08 Labs: Abnormal Lab Results - Last 24 Hours (Table) 11/20/21 11/21/21 11/21/21 Range/Units 20:56 02:41 06:06 WBC (3.8-10.6) k/uL RBC (4.30-5.90) m/uL Hgb (13.0-17.5) gm/dL Hct (39.0-53.0) % APTT (22.0-30.0) sec Chloride (98-107) mmol/L Carbon Dioxide (22-30) mmol/L BUN (9-20) mg/dL Creatinine (0.66-1.25) mg/dL Glucose (74-99) mg/dL POC Glucose (mg/dL) (70-110) mg/dL Hemoglobin A1c 9.1 H (0.0-6.0) % HDL Cholesterol 17.80 L 26.20 L (40.00-60.00) mg/dL 11/21/21 11/21/21 11/21/21 Range/Units 11:53 13:53 16:36 WBC (3.8-10.6) k/uL RBC (4.30-5.90) m/uL Hgb (13.0-17.5) gm/dL Hct (39.0-53.0) % APTT 86.5 H (22.0-30.0) sec Chloride (98-107) mmol/L Carbon Dioxide (22-30) mmol/L BUN (9-20) mg/dL Creatinine (0.66-1.25) mg/dL Glucose (74-99) mg/dL POC Glucose (mg/dL) 156 H 218 H (70-110) mg/dL Hemoglobin A1c (0.0-6.0) % HDL Cholesterol (40.00-60.00) mg/dL 11/21/21 11/21/21 11/22/21 Range/Units 21:00 21:36 06:08 WBC (3.8-10.6) k/uL RBC (4.30-5.90) m/uL Hgb (13.0-17.5) gm/dL Hct (39.0-53.0) % APTT 46.5 H (22.0-30.0) sec Chloride 109 H (98-107) mmol/L Carbon Dioxide 21 L (22-30) mmol/L BUN 39 H (9-20) mg/dL Creatinine 1.45 H (0.66-1.25) mg/dL Glucose 171 H (74-99) mg/dL POC Glucose (mg/dL) 203 H (70-110) mg/dL Hemoglobin A1c (0.0-6.0) % HDL Cholesterol (40.00-60.00) mg/dL 11/22/21 11/22/21 11/22/21 Range/Units 06:08 06:08 06:59 WBC 11.6 H (3.8-10.6) k/uL RBC 3.26 L (4.30-5.90) m/uL Hgb 9.3 L (13.0-17.5) gm/dL Hct 29.6 L (39.0-53.0) % APTT 40.8 H (22.0-30.0) sec Chloride (98-107) mmol/L Carbon Dioxide (22-30) mmol/L BUN (9-20) mg/dL Creatinine (0.66-1.25) mg/dL Glucose (74-99) mg/dL POC Glucose (mg/dL) 207 H (70-110) mg/dL Hemoglobin A1c (0.0-6.0) % HDL Cholesterol (40.00-60.00) mg/dL
[2021-11-22] MEDS: carvediloL 6.25 MG TAB PO SCH ×2 (09:01→16:33)
[2021-11-22] MEDS: CLOPIDOGREL 75 MG TAB PO SCH (09:02)
[2021-11-22] MEDS: SODIUM BICARBONATE TAB 650 MG TAB PO SCH ×2 (09:02→21:38)
[2021-11-22] MEDS: ASPIRIN 81 MG PO SCH (09:02)
[2021-11-22 11:25] LABS: Glucose,Whole Blood 161 mg/dL (70-110)
[2021-11-22] MEDS: FUROSEMIDE 10 MG/ML 4 ML VIAL IV SCH (11:37)
--- NOTE | 2021-11-22 11:46 | P.PN ---
Subjective Patient is seen for follow-up for acute kidney injury and hyperkalemia. Patient was admitted with bradycardia and a serum potassium of 7.4. He received one treatment of hemodialysis yesterday. Patient has good urine output. Serum potassium at 4.3. Serum creatinine 1.45 24 hour urine output at 2.9 L. Patient was on JOHNATHON inhibitor's potassium supplementation and Aldactone at home prior to admission. Objective - Vital Signs Vital signs: Vital Signs Temp 98.3 F 11/22/21 08:00 Pulse 55 L 11/22/21 11:03 Resp 17 11/22/21 11:00 BP 131/45 11/22/21 11:00 Pulse Ox 99 11/22/21 11:00 FiO2 Intake & Output 11/21/21 11/22/21 11/22/21 18:59 06:59 18:59 Intake Total 767.610 602.397 375.058 Output Total 1745 1200 450 Balance -977.390 -597.603 -74.942 Weight 85.6 kg Intake: IV 650 550 250 Sodium Chloride 0.9% 1, 650 550 250 000 ml @ 50 mls/hr IV . Q20H [facility] Rx#:[id number] Intake, IV Titration 117.610 52.397 125.058 Amount Heparin Sod,Pork in 0.45% 117.610 52.397 125.058 NaCl 25,000 unit In 0.45 % NaCl 1 250ml.bag @ 10. 498 UNITS/KG/HR 10 mls/hr IV .Q24H [facility] Rx#: [id number] Output: Urine 1745 1200 450 Other: Voiding Method Urinal - Exam Awake, comfortable, not in any acute distress Examination of the heart S1 and S2 Examination lungs bilateral breath sounds are heard Abdomen is soft nontender Examination of the lower extremities shows edema 1+ bilaterally MANAGER CLIENT exam grossly intact - Labs CBC & Chem 7: 11/22/21 06:08 11/22/21 06:08 Labs: Abnormal Lab Results - Last 24 Hours (Table) 11/21/21 11/21/21 11/21/21 Range/Units 06:06 11:53 13:53 WBC (3.8-10.6) k/uL RBC (4.30-5.90) m/uL Hgb (13.0-17.5) gm/dL Hct (39.0-53.0) % APTT 86.5 H (22.0-30.0) sec Chloride (98-107) mmol/L Carbon Dioxide (22-30) mmol/L BUN (9-20) mg/dL Creatinine (0.66-1.25) mg/dL Glucose (74-99) mg/dL POC Glucose (mg/dL) 156 H (70-110) mg/dL HDL Cholesterol 26.20 L (40.00-60.00) mg/dL 11/21/21 11/21/21 11/21/21 Range/Units 16:36 21:00 21:36 WBC (3.8-10.6) k/uL RBC (4.30-5.90) m/uL Hgb (13.0-17.5) gm/dL Hct (39.0-53.0) % APTT 46.5 H (22.0-30.0) sec Chloride (98-107) mmol/L Carbon Dioxide (22-30) mmol/L BUN (9-20) mg/dL Creatinine (0.66-1.25) mg/dL Glucose (74-99) mg/dL POC Glucose (mg/dL) 218 H 203 H (70-110) mg/dL HDL Cholesterol (40.00-60.00) mg/dL 11/22/21 11/22/21 11/22/21 Range/Units 06:08 06:08 06:08 WBC 11.6 H (3.8-10.6) k/uL RBC 3.26 L (4.30-5.90) m/uL Hgb 9.3 L (13.0-17.5) gm/dL Hct 29.6 L (39.0-53.0) % APTT 40.8 H (22.0-30.0) sec Chloride 109 H (98-107) mmol/L Carbon Dioxide 21 L (22-30) mmol/L BUN 39 H (9-20) mg/dL Creatinine 1.45 H (0.66-1.25) mg/dL Glucose 171 H (74-99) mg/dL POC Glucose (mg/dL) (70-110) mg/dL HDL Cholesterol (40.00-60.00) mg/dL 08/15/22 08/15/22 Range/Units 06:59 11:24 WBC (3.8-10.6) k/uL RBC (4.30-5.90) m/uL Hgb (13.0-17.5) gm/dL Hct (39.0-53.0) % APTT (22.0-30.0) sec Chloride (98-107) mmol/L Carbon Dioxide (22-30) mmol/L BUN (9-20) mg/dL Creatinine (0.66-1.25) mg/dL Glucose (74-99) mg/dL POC Glucose (mg/dL) 207 H 161 H (70-110) mg/dL HDL Cholesterol (40.00-60.00) mg/dL Assessment and Plan Assessment: 1. Hyperkalemia associated with acute kidney injury Johnathon inhibitors and Aldactone along with potassium supplementation. Currently improved. Status post one treatment of hemodialysis. 2. Possible underlying CK D stage III B previous creatinine 1.1-1.3 mg/dL in 2019. Etiology likely nephrosclerosis. Check UA 3. Hypertension with CK D 4. Acute coronary syndrome with underlying CAD maintained on IV heparin 5. Metabolic acidosis associated with acute kidney injury 6. Volume overload 7. Cardiomyopathy with ejection fraction 25-30% with severe hypokinesis and severely dilated left atrium Plan: Check UA DC IV fluids Maintain IV Lasix daily for now Repeat labs in a.m. Possibly DC dialysis catheter tomorrow Avoid nephrotoxic agents. However if cardiac catheterization is needed we can likely proceed in the next 3-4 days as long as renal function continues to improve.
--- NOTE | 2021-11-22 12:31 | P.PN ---
Subjective Progress Note Date: 11/22/21 Patient is doing well but still c/o orthopnea. UOP is good. Lasix started for volume overload. Gen: awake, alert HEENT: normocephalic, atraumatic, good hearing acuity, moist mucous membranes Resp: good air exchange, breathing comfortably with no accessory muscle use, bilateral crackles CVS: good distal perfusion x 4, regular rate and rhythm, positive JVD with hepato- jugular reflex GI: soft, NTTP, ND : no SPT, no CVAT, gonzalez catheter not present MSK: Positive pitting edema, no clubbing Neuro: non-focal, moving all extremities Psych: cooperative, euthymic mood Assessment/plan: Severe hyperkalemia in setting of CRAIG inhibitor use and acute kidney injury, multiple arrhythmias -s/p GREEN INSPECTOR x 1 on 11/20 -Sodium bicarbonate Tabs TID -Continue cardiac monitoring -Hold ACEi, spironolactone Congestive heart failure exacerbation, previous echo shows an EF of 30-35% from 2019 History of Ischemic cardiomyopathy Elevated troponin, non-ST elevation MT versus secondary to tachyarrhythmias -Continue with heparin infusion, aspirin, statin -Cardiology consult -Cardiac monitoring -Trend troponin -Strict ins and outs, daily weights -Echocardiogram = EF 25-30% with severely dilated LA -lasix IV 40mg daily COPD without exacerbation Type II DM Hypertension -Continue with home meds, except as above -Insulin sliding scale and blood glucose monitoring DVT prophylaxis -Heparin infusion CODE STATUS: Full Code Objective - Vital Signs Vital signs: Vital Signs Temp 99.0 F 11/22/21 12:00 Pulse 67 11/22/21 12:00 Resp 19 11/22/21 12:00 BP 135/43 11/22/21 12:00 Pulse Ox 92 L 11/22/21 12:00 FiO2 Intake & Output 11/21/21 11/22/21 11/22/21 18:59 06:59 18:59 Intake Total 767.610 602.397 425.058 Output Total 1745 1200 450 Balance -977.390 -597.603 -24.942 Weight 85.6 kg 85.6 kg Intake: IV 650 550 300 Sodium Chloride 0.9% 1, 650 550 300 000 ml @ 50 mls/hr IV . Q20H [facility] Rx#:[id number] Intake, IV Titration 117.610 52.397 125.058 Amount Heparin Sod,Pork in 0.45% 117.610 52.397 125.058 NaCl 25,000 unit In 0.45 % NaCl 1 250ml.bag @ 10. 498 UNITS/KG/HR 10 mls/hr IV .Q24H [facility] Rx#: [id number] Output: Urine 1745 1200 450 Other: Voiding Method Urinal - Labs CBC & Chem 7: 11/22/21 06:08 11/22/21 06:08 Labs: Abnormal Lab Results - Last 24 Hours (Table) 11/21/21 11/21/21 11/21/21 Range/Units 06:06 13:53 16:36 WBC (3.8-10.6) k/uL RBC (4.30-5.90) m/uL Hgb (13.0-17.5) gm/dL Hct (39.0-53.0) % APTT 86.5 H (22.0-30.0) sec Chloride (98-107) mmol/L Carbon Dioxide (22-30) mmol/L BUN (9-20) mg/dL Creatinine (0.66-1.25) mg/dL Glucose (74-99) mg/dL POC Glucose (mg/dL) 218 H (70-110) mg/dL HDL Cholesterol 26.20 L (40.00-60.00) mg/dL 11/21/21 11/21/21 11/22/21 Range/Units 21:00 21:36 06:08 WBC (3.8-10.6) k/uL RBC (4.30-5.90) m/uL Hgb (13.0-17.5) gm/dL Hct (39.0-53.0) % APTT 46.5 H (22.0-30.0) sec Chloride 109 H (98-107) mmol/L Carbon Dioxide 21 L (22-30) mmol/L BUN 39 H (9-20) mg/dL Creatinine 1.45 H (0.66-1.25) mg/dL Glucose 171 H (74-99) mg/dL POC Glucose (mg/dL) 203 H (70-110) mg/dL HDL Cholesterol (40.00-60.00) mg/dL 11/22/21 11/22/21 11/22/21 Range/Units 06:08 06:08 06:59 WBC 11.6 H (3.8-10.6) k/uL RBC 3.26 L (4.30-5.90) m/uL Hgb 9.3 L (13.0-17.5) gm/dL Hct 29.6 L (39.0-53.0) % APTT 40.8 H (22.0-30.0) sec Chloride (98-107) mmol/L Carbon Dioxide (22-30) mmol/L BUN (9-20) mg/dL Creatinine (0.66-1.25) mg/dL Glucose (74-99) mg/dL POC Glucose (mg/dL) 207 H (70-110) mg/dL HDL Cholesterol (40.00-60.00) mg/dL 11/22/21 Range/Units 11:24 WBC (3.8-10.6) k/uL RBC (4.30-5.90) m/uL Hgb (13.0-17.5) gm/dL Hct (39.0-53.0) % APTT (22.0-30.0) sec Chloride (98-107) mmol/L Carbon Dioxide (22-30) mmol/L BUN (9-20) mg/dL Creatinine (0.66-1.25) mg/dL Glucose (74-99) mg/dL POC Glucose (mg/dL) 161 H (70-110) mg/dL HDL Cholesterol (40.00-60.00) mg/dL
--- NOTE | 2021-11-22 12:42 | P.PN ---
Subjective Progress Note Date: 11/22/21 Principal diagnosis: Chest pain, acute non-ST elevation myocardial infarction 71-year-old male patient, known history of COPD maintained on a combination of Symbicort and Spiriva, history of nonspecific mediastinal lymphadenopathy being followed up through our office, coronary artery disease, previous bypass surgery, previous history of multiple coronary stents and a carotid artery stent in addition to chronic stage II kidney disease, diabetes mellitus, and hypertension, CHF with chronic systolic heart failure and ejection fraction of 30-35%. The patient has been having episodes of chest pain for the past few weeks. These are intermittent chest pains, not exacerbated with any activity and the patient has been having radiation to his arms, typically the pain would last for 5 minutes. Yesterday, he was having more pain and he end up coming into the hospital and the intensity of the pain was worse. He was also having some shortness of breath and nausea. EKG showed a wide-complex tachycardia and subsequently went into an A. fib rhythm. He was noted to be in acute kidney injury and the patient was also found to be hypokalemic and potassium level was elevated. Based on that, the patient was given calcium, he was given bicarb pushes, Kayexalate 15 g and ultimately a dialysis catheter was to proceed and the patient was given association of hemodialysis with subsequent improvement in his potassium level. The CRAIG inhibitor was also discontinued. The troponins were mildly elevated and the levels were 0.25 and 0.6 respectively. The rest of the blood work essentially within normal limits. The serum bicarb is up to 21. Creatinine this morning is down to 1.6 with a BUN of 45. The patient is awake and oriented. He is on IV heparin. History of any chest pain. The current cardiac rhythm is bradycardic, still wide-complex with first-degree AV block. The rhythm is sinus for now. The patient has been taken Coreg on outpatient basis. No syncope. No loss of consciousness. Reevaluated today on 11/22/21, patient remains in the ICU, remains on heparin, he is asymptomatic, no further episodes of angina or chest pain. Patient received hemodialysis on 11/20 and hemodialysis on 11/21, his potassium level came down from 7.4 to normal level today. Patient remains on heparin, his echocardiogram showed ejection fraction of 25-50%. Obviously the patient presented with hyperkalemia, atrial fibrillation, nonsustained ventricular tachycardia, acute kidney injury, and has made a significant amount in the last 24 hours. Clinically the patient is feeling much better today, breathing quite easily, not in any distress. His arrhythmia was felt to be related to his hyperkalemia. Patient is known to have history of severe ischemic cardiomyopathy and LV dysfunction. He also has history of moderate to severe mitral regurgitation. WBC count today is 11.6 hemoglobin is 9.3. Electrolytes are normal potassium 4.3 BUN is 39 and creatinine 1.45. Chest x-ray today showed borderline cardiomegaly, mild interstitial changes, mild pulmonary vascular congestion Objective - Vital Signs Vital signs: Vital Signs Temp 99.0 F 11/22/21 12:00 Pulse 67 11/22/21 12:00 Resp 19 11/22/21 12:00 BP 135/43 11/22/21 12:00 Pulse Ox 92 L 11/22/21 12:00 FiO2 Intake & Output 11/21/21 11/22/21 11/22/21 18:59 06:59 18:59 Intake Total 767.610 602.397 425.058 Output Total 1745 1200 450 Balance -977.390 -597.603 -24.942 Weight 85.6 kg 85.6 kg Intake: IV 650 550 300 Sodium Chloride 0.9% 1, 650 550 300 000 ml @ 50 mls/hr IV . Q20H [facility] Rx#:[id number] Intake, IV Titration 117.610 52.397 125.058 Amount Heparin Sod,Pork in 0.45% 117.610 52.397 125.058 NaCl 25,000 unit In 0.45 % NaCl 1 250ml.bag @ 10. 498 UNITS/KG/HR 10 mls/hr IV .Q24H [facility] Rx#: [id number] Output: Urine 1745 1200 450 Other: Voiding Method Urinal - Exam Physical Exam: Revealed a 71-year-old white male in no distress. Patient is on room air Head: Atraumatic, normocephalic HEENT:[Neck is supple.] [No neck masses.] [No thyromegaly.] [No JVD.] Chest: [Minimal fine crackles at the bases. Cardiac Exam: [Normal S1 and S2, no S3 gallop, 3/6 systolic murmur thought the precordium. Abdomen: [Soft, nontender, no megaly, no rebound, no guarding, normal bowel sounds.] Extremities: [No clubbing, no edema, no cyanosis.] Neurological Exam: [No focal neurologic deficit.] Alert oriented 3. Psychiatric: Normal mood affect and normal mental status examination. Skin: No rashes. - Labs CBC & Chem 7: 11/22/21 06:08 11/22/21 06:08 Labs: Abnormal Lab Results - Last 24 Hours (Table) 11/21/21 11/21/21 11/21/21 Range/Units 06:06 13:53 16:36 WBC (3.8-10.6) k/uL RBC (4.30-5.90) m/uL Hgb (13.0-17.5) gm/dL Hct (39.0-53.0) % APTT 86.5 H (22.0-30.0) sec Chloride (98-107) mmol/L Carbon Dioxide (22-30) mmol/L BUN (9-20) mg/dL Creatinine (0.66-1.25) mg/dL Glucose (74-99) mg/dL POC Glucose (mg/dL) 218 H (70-110) mg/dL HDL Cholesterol 26.20 L (40.00-60.00) mg/dL 11/21/21 11/21/21 11/22/21 Range/Units 21:00 21:36 06:08 WBC (3.8-10.6) k/uL RBC (4.30-5.90) m/uL Hgb (13.0-17.5) gm/dL Hct (39.0-53.0) % APTT 46.5 H (22.0-30.0) sec Chloride 109 H (98-107) mmol/L Carbon Dioxide 21 L (22-30) mmol/L BUN 39 H (9-20) mg/dL Creatinine 1.45 H (0.66-1.25) mg/dL Glucose 171 H (74-99) mg/dL POC Glucose (mg/dL) 203 H (70-110) mg/dL HDL Cholesterol (40.00-60.00) mg/dL 11/22/21 11/22/21 11/22/21 Range/Units 06:08 06:08 06:59 WBC 11.6 H (3.8-10.6) k/uL RBC 3.26 L (4.30-5.90) m/uL Hgb 9.3 L (13.0-17.5) gm/dL Hct 29.6 L (39.0-53.0) % APTT 40.8 H (22.0-30.0) sec Chloride (98-107) mmol/L Carbon Dioxide (22-30) mmol/L BUN (9-20) mg/dL Creatinine (0.66-1.25) mg/dL Glucose (74-99) mg/dL POC Glucose (mg/dL) 207 H (70-110) mg/dL HDL Cholesterol (40.00-60.00) mg/dL 11/22/21 Range/Units 11:24 WBC (3.8-10.6) k/uL RBC (4.30-5.90) m/uL Hgb (13.0-17.5) gm/dL Hct (39.0-53.0) % APTT (22.0-30.0) sec Chloride (98-107) mmol/L Carbon Dioxide (22-30) mmol/L BUN (9-20) mg/dL Creatinine (0.66-1.25) mg/dL Glucose (74-99) mg/dL POC Glucose (mg/dL) 161 H (70-110) mg/dL HDL Cholesterol (40.00-60.00) mg/dL Assessment and Plan Assessment: Impression: Atrial fibrillation with nonsustained ventricular tachycardia, and associated with hyperkalemia. Acute chest pain consistent with angina pectoris related to above. Severe ischemic cardiomyopathy Non-ST elevation myocardial infarction Acute hyperkalemia Acute on chronic kidney disease History of CABG and previous PCI. History of underlying COPD, maintained on Symbicort and Spiriva on outpatient basis. History of nonspecific mediastinal adenopathy Moderate to severe mitral regurgitation Chronic systolic congestive heart failure Type 2 diabetes Dyslipidemia History of peripheral vessel occlusive disease and carotid stenting Recommendation: Continue heparin Continue to hold diuretics Hold metformin Continue aspirin and Plavix Resume cardiac meds as ordered by cardiology Nephrology to decide whether the patient may need any further hemodialysis, likely not, Consider transferring the patient out of the ICU to a director nurses' registry bed. Will continue to follow. Resume home bronchodilators. Time with Patient: Less than 30
[2021-11-22 15:07] LABS: Appearance,Urine Clear (Clear); Bilirubin,Urine Negative (Negative); Blood,Urine Negative (Negative); Color,Urine Colorless; Glucose,Urine (UA) Negative (Negative); Ketones,Urine Negative (Negative); Leukocyte Esterase,Urine Negative (Negative); Nitrite,Urine Negative (Negative); Protein,Urine Negative (Negative); Specific Gravity,Urine 1.008 (1.001-1.035); Urobilinogen,Urine <2.0 mg/dL (<2.0)
[2021-11-22 16:18] LABS: Glucose,Whole Blood 251 mg/dL (70-110)
[2021-11-22] MEDS: HEPARIN SOD,PORK IN 0.45% NACL 25,000 UNIT in 0.45% NACL 1 250ML.BAG IV SCH (16:34)
[2021-11-22 20:30] LABS: Glucose,Whole Blood 212 mg/dL (70-110)
[2021-11-22] MEDS: ATORVASTATIN 80 MG TAB PO SCH (21:38)
[2021-11-22] MEDS: buPROPion SR 150 MG TABLET.ER PO SCH (21:41)
[2021-11-23 05:41] LABS: Basophils # (A) 0.1 k/uL (0-0.2); Basophils % (A) 1 %; Eosinophils # (A) 0.5 k/uL (0-0.7); Eosinophils % (A) 4 %; HCT 26.2 % (39.0-53.0); HGB 8.6 gm/dL (13.0-17.5); Lymphocytes # (A) 2.1 k/uL (1.0-4.8); Lymphocytes % (A) 17 %; MCH 29.6 pg (25.0-35.0); MCV 89.8 fL (80.0-100.0); Mean Platelet Volume 9.8; Monocytes # (A) 0.6 k/uL (0-1.0); Monocytes % (A) 5 %; Neutrophils # (A) 8.8 k/uL (1.3-7.7); Neutrophils % (A) 71 %; Platelet Count 163 k/uL (150-450); RBC 2.92 m/uL (4.30-5.90); RDW 14.3 % (11.5-15.5); WBC 12.3 k/uL (3.8-10.6)
[2021-11-23 05:54] LABS: Calcium 8.8 mg/dL (8.4-10.2); Magnesium 1.5 mg/dL (1.6-2.3)
[2021-11-23] MEDS: INSULIN ASPART (NovoLOG) 100 UNIT/ML VIAL SQ SCH ×4 (07:01→21:34)
[2021-11-23 07:02] LABS: Glucose,Whole Blood 150 mg/dL (70-110)
[2021-11-23] MEDS: carvediloL 6.25 MG TAB PO SCH ×2 (07:07→17:34)
[2021-11-23] MEDS: SYMBICORT 160-4.5 MCG INHALER INHALATION SCH ×2 (08:13→19:25)
[2021-11-23] MEDS: IPRATROPIUM 0.5 MG/2.5 ML NEBU INHALATION SCH ×4 (08:13→19:25)
--- NOTE | 2021-11-23 08:13 | P.PN ---
Subjective History of Present Illness: The patient is a 71-year-old male with a known history of CAD, status post CABG, history of hypertension, hyperlipidemia and diabetes mellitus as well as chronic tobacco use, status post stenting and carotid stenting who for the last week has not been feeling well, feeling dyspneic with episodes of irregular heartbeat as well as chest discomfort radiating to both arms. Yesterday he felt dizzy and short of breath with the discomfort EMS noted that he was tachycardic with what complex tachycardia, crit present ventricular tachycardia although atrial fibrillation with aberrancy cannot be excluded subsequently he converted back to sinus mechanism with left bundle branch block and bradycardia. He had episode of ventricle arrhythmia. He is in sinus mechanism with episode of sinus bradycardia since admission. He has dyspnea at this time that has been chronic but no symptoms of chest discomfort any further. He has chronic peripheral edema. No PND or orthopnea. He has known history of chronic kidney disease according to him but worse on presentation. He has no clear PND or orthopnea. He is limited in his physical activity because of the dyspnea on exertion. In December 2013 he underwent cardiac catheterization by Dr. Shane the [place] to LAD was patent, SVG to circumflex was patent, SVG to the RCA had critical stenosis proximal to the stented segment in 2010, his [place] arteries he had total occlus ion of his LAD and RCA and OM. He underwent stenting of the saphenous vein graft to the RCA using 30 by 26 resolute stent. His echocardiogram in 2018 showed an ejection fraction of 30-35%. He underwent placement of a dialysis catheter yesterday. On presentation yesterday his potassium was 7.4 BUN 64 creatinine 2.3, his troponin 0.227 and into proBNP of 2800. His hemoglobin was 10.7 and subsequent hemoglobin down to 6.3. His risk factors are positive for hypertension, hyperlipidemia, diabetes mellitus and chronic tobacco use Medications: Insulin, Lipitor 80 mg daily, Aldactone 25 mg daily, Glucophage 1 g twice a day, Zestril 20 mg daily, Coreg 12-1/2 mg twice a day, iron, Plavix 75 mg daily, aspirin once a day, Spiriva, Ventolin, pro-air 11/22 Pt seen and examined. Decreased hemoglobin noted to be lab error and repeats appears stable. He has been on heparin drip. His home lisinopril, Aldactone, carvedilol were discontinued and held secondary to hyperkalemia and bradycardia. No further significant bradycardia and we will restart carvedilol. Denies any further chest pressure or pain. Heart rates in the 90s to low 100 in sinus rhythm. He underwent dialysis yesterday with improvement in hyperkalemia. He is sitting upright in bed however denies any significant worsening dyspnea. No lower extremity edema. Remains on normal saline at 50 mL per hour. Echocardiogram performed yesterday shows ejection fraction 30% with moderate to severe mitral regurgitation. 11/23 Patient seen and examined. Patient states overall he is feeling fairly well however does have some nasal congestion. Denies any chun shortness breath. He admits he has not had much of an appetite over the last 1-2 weeks and still does not have much of an appetite. No chest pain or pressure. Still has Nitropatch on however no significant dyspnea. In stable at 1.46. PHYSICAL EXAMINATION Vital signs reviewed. CONSTITUTIONAL: No apparent distress. HEENT: Head is normocephalic. Pupils are equal, round. Sclerae anicteric. Mucous membranes of the mouth are moist. No JVD. No carotid bruit. CHEST EXAMINATION: Lungs are clear to auscultation. No chest wall tenderness is noted on palpation or with deep breathing. HEART EXAMINATION: Regular rate and rhythm. S1, S2 heard. +3/6 systolic murmur, no gallops or rub. ABDOMEN: Soft, nontender. Positive bowel sounds. EXTREMITIES: 2+ peripheral pulses, no lower extremity edema and no calf tenderness. NEUROLOGIC EXAMINATION: Patient is awake, alert and oriented x3. Impression: 1. Atrial arrhythmia was possible runs of nonsustained VT and atrial fibrillation, probable worsening cause is the hyperkalemia 2. Symptoms of chest discomfort consistent with angina pectoris, resolved after controlling the heart rate 3. Non-STEMI secondary to ischemia, tachycardia and the worsening renal function, suspect type II mechanism 4. Acute renal injury with hyperkalemia 5. Prior history of severe ischemic cardiomyopathy 6. Status post CABG and prior PCI 7. History of peripheral vascular disease and carotid stenting 8. History of hypertension 9. History of diabetes 10. History of hyperlipidemia 11. Chronic systolic heart failure 12. Moderate to severe mitral regurgitation 13. Decreased appetite over the last 1-2 weeks unclear etiology Plan: Patient tolerating lower dose of carvedilol and no significant bradycardia. Elevated troponin related to acute kidney injury and no significant angina currently. Suspect cardiomyopathy however awaiting medical records from prior intelligent systems engineer. Arrhythmias likely related to severe hyperkalemia. Continue with medical therapy given heart catheterization with likely place patient on dialysis. Hopefully discharge home in the next 24-48 hours. Continue to hold lisinopril however may consider addition of hydralazine/Isordil if blood pressures tolerate. Objective - Vital Signs Vital signs: Vital Signs Temp 98.3 F 11/23/21 04:00 Pulse 98 11/23/21 05:00 Resp 28 H 11/23/21 05:00 BP 153/63 11/23/21 05:00 Pulse Ox 94 L 11/23/21 05:00 FiO2 Intake & Output 11/22/21 11/23/21 11/23/21 18:59 06:59 18:59 Intake Total 824.628 686.331 Output Total 1200 675 Balance -375.372 11.331 Weight 85.6 kg 82.9 kg Intake: IV 600 150 Sodium Chloride 0.9% 1, 600 150 000 ml @ 50 mls/hr IV . Q20H [facility] Rx#:[id number] Intake, IV Titration 224.628 36.331 Amount Heparin Sod,Pork in 0.45% 224.628 36.331 NaCl 25,000 unit In 0.45 % NaCl 1 250ml.bag @ 10. 498 UNITS/KG/HR 10 mls/hr IV .Q24H [facility] Rx#: [id number] Oral 500 Output: Urine 1200 675 Other: Voiding Method Urinal Urinal Urinal # Voids 1 - Labs CBC & Chem 7: 11/23/21 05:27 11/23/21 05:27 Labs: Abnormal Lab Results - Last 24 Hours (Table) 11/22/21 11/22/21 11/22/21 Range/Units 11:24 12:23 16:16 WBC (3.8-10.6) k/uL RBC (4.30-5.90) m/uL Hgb (13.0-17.5) gm/dL Hct (39.0-53.0) % Neutrophils # (1.3-7.7) k/uL APTT 69.1 H (22.0-30.0) sec Carbon Dioxide (22-30) mmol/L BUN (9-20) mg/dL Creatinine (0.66-1.25) mg/dL Glucose (74-99) mg/dL POC Glucose (mg/dL) 161 H 251 H (70-110) mg/dL Magnesium (1.6-2.3) mg/dL 11/22/21 11/22/21 11/23/21 Range/Units 18:53 20:29 05:27 WBC (3.8-10.6) k/uL RBC (4.30-5.90) m/uL Hgb (13.0-17.5) gm/dL Hct (39.0-53.0) % Neutrophils # (1.3-7.7) k/uL APTT 38.3 H 55.9 H (22.0-30.0) sec Carbon Dioxide (22-30) mmol/L BUN (9-20) mg/dL Creatinine (0.66-1.25) mg/dL Glucose (74-99) mg/dL POC Glucose (mg/dL) 212 H (70-110) mg/dL Magnesium (1.6-2.3) mg/dL 11/23/21 11/23/21 11/23/21 Range/Units 05:27 05:27 07:00 WBC 12.3 H (3.8-10.6) k/uL RBC 2.92 L (4.30-5.90) m/uL Hgb 8.6 L (13.0-17.5) gm/dL Hct 26.2 L (39.0-53.0) % Neutrophils # 8.8 H (1.3-7.7) k/uL APTT (22.0-30.0) sec Carbon Dioxide 21 L (22-30) mmol/L BUN 36 H (9-20) mg/dL Creatinine 1.46 H (0.66-1.25) mg/dL Glucose 147 H (74-99) mg/dL POC Glucose (mg/dL) 150 H (70-110) mg/dL Magnesium 1.5 L (1.6-2.3) mg/dL
[2021-11-23] MEDS: FUROSEMIDE 10 MG/ML 4 ML VIAL IV SCH (08:23)
[2021-11-23] MEDS: SODIUM BICARBONATE TAB 650 MG TAB PO SCH ×2 (08:23→21:32)
[2021-11-23] MEDS: buPROPion SR 150 MG TABLET.ER PO SCH ×2 (08:23→21:32)
[2021-11-23] MEDS: NITROGLYCERIN OINT 1 INCH/GM PACKET TOPICAL SCH (08:24)
[2021-11-23] MEDS: ASPIRIN 81 MG PO SCH (08:24)
[2021-11-23] MEDS: CLOPIDOGREL 75 MG TAB PO SCH (08:24)
--- NOTE | 2021-11-23 09:39 | P.PN ---
Subjective Patient is seen in follow-up for acute kidney injury on chronic kidney disease. Renal function stable. Good urine output. On IV Lasix. Oral intake fair. Denies chest pain or shortness of breath. Vital signs are stable. General: Awake. No acute distress. HEENT: Head exam is unremarkable. LUNGS: Breath sounds decreased. HEART: Rate and Rhythm are regular. ABDOMEN: Soft, no distention. EXTREMITITES: Trace edema. Objective - Vital Signs Vital signs: Vital Signs Temp 98.5 F 11/23/21 08:00 Pulse 82 11/23/21 08:25 Resp 19 11/23/21 08:00 BP 129/54 11/23/21 08:00 Pulse Ox 93 L 11/23/21 08:00 FiO2 Intake & Output 11/22/21 11/23/21 11/23/21 18:59 06:59 18:59 Intake Total 824.628 686.331 Output Total 1200 675 Balance -375.372 11.331 Weight 85.6 kg 82.9 kg Intake: IV 600 150 Sodium Chloride 0.9% 1, 600 150 000 ml @ 50 mls/hr IV . Q20H [facility] Rx#:[id number] Intake, IV Titration 224.628 36.331 Amount Heparin Sod,Pork in 0.45% 224.628 36.331 NaCl 25,000 unit In 0.45 % NaCl 1 250ml.bag @ 10. 498 UNITS/KG/HR 10 mls/hr IV .Q24H [facility] Rx#: [id number] Oral 500 Output: Urine 1200 675 Other: Voiding Method Urinal Urinal Urinal # Voids 1 - Labs CBC & Chem 7: 11/23/21 05:27 11/23/21 05:27 Labs: Abnormal Lab Results - Last 24 Hours (Table) 11/22/21 11/22/21 11/22/21 Range/Units 11:24 12:23 16:16 WBC (3.8-10.6) k/uL RBC (4.30-5.90) m/uL Hgb (13.0-17.5) gm/dL Hct (39.0-53.0) % Neutrophils # (1.3-7.7) k/uL APTT 69.1 H (22.0-30.0) sec Carbon Dioxide (22-30) mmol/L BUN (9-20) mg/dL Creatinine (0.66-1.25) mg/dL Glucose (74-99) mg/dL POC Glucose (mg/dL) 161 H 251 H (70-110) mg/dL Magnesium (1.6-2.3) mg/dL 11/22/21 11/22/21 11/23/21 Range/Units 18:53 20:29 05:27 WBC (3.8-10.6) k/uL RBC (4.30-5.90) m/uL Hgb (13.0-17.5) gm/dL Hct (39.0-53.0) % Neutrophils # (1.3-7.7) k/uL APTT 38.3 H 55.9 H (22.0-30.0) sec Carbon Dioxide (22-30) mmol/L BUN (9-20) mg/dL Creatinine (0.66-1.25) mg/dL Glucose (74-99) mg/dL POC Glucose (mg/dL) 212 H (70-110) mg/dL Magnesium (1.6-2.3) mg/dL 11/23/21 11/23/21 11/23/21 Range/Units 05:27 05:27 07:00 WBC 12.3 H (3.8-10.6) k/uL RBC 2.92 L (4.30-5.90) m/uL Hgb 8.6 L (13.0-17.5) gm/dL Hct 26.2 L (39.0-53.0) % Neutrophils # 8.8 H (1.3-7.7) k/uL APTT (22.0-30.0) sec Carbon Dioxide 21 L (22-30) mmol/L BUN 36 H (9-20) mg/dL Creatinine 1.46 H (0.66-1.25) mg/dL Glucose 147 H (74-99) mg/dL POC Glucose (mg/dL) 150 H (70-110) mg/dL Magnesium 1.5 L (1.6-2.3) mg/dL Assessment and Plan Plan: Assessment: 1. Acute kidney injury secondary to ATN. Status post one treatment of hemodialysis this admission. Renal function improved. Creatinine stable at 1.46 today. 2. Chronic kidney disease stage III with baseline creatinine in the range of 1.1-1.2 secondary to nephrosclerosis. UA benign. 3. Hyperkalemia secondary to acute kidney injury, metabolic acidosis, potassium supplementation, spironolactone and lisinopril. Improved postdialysis. 4. Metabolic acidosis secondary to acute kidney injury and metformin. Improved. 5. Diabetes mellitus. 6. Hypomagnesemia from diuresis and poor intake. 7. Acute on chronic systolic CHF with ejection fraction of 25-30% with moderate to severe mitral regurgitation. 8. Volume overload. Improved with diuresis. Plan: Maintain IV Lasix. Transition to oral diuretics in the next 24-48 hours. Encouraged oral intake. Replace magnesium. 2 g IV magnesium sulfate today. Discontinue dialysis catheter. Avoid nephrotoxins. Continue to monitor renal function and urine output. Check renal ultrasound.
--- NOTE | 2021-11-23 10:55 | P.PN ---
Subjective Progress Note Date: 11/23/21 Principal diagnosis: Chest pain, acute non-ST elevation myocardial infarction 71-year-old male patient, known history of COPD maintained on a combination of Symbicort and Spiriva, history of nonspecific mediastinal lymphadenopathy being followed up through our office, coronary artery disease, previous bypass surgery, previous history of multiple coronary stents and a carotid artery stent in addition to chronic stage II kidney disease, diabetes mellitus, and hypertension, CHF with chronic systolic heart failure and ejection fraction of 30-35%. The patient has been having episodes of chest pain for the past few weeks. These are intermittent chest pains, not exacerbated with any activity and the patient has been having radiation to his arms, typically the pain would last for 5 minutes. Yesterday, he was having more pain and he end up coming into the hospital and the intensity of the pain was worse. He was also having some shortness of breath and nausea. EKG showed a wide-complex tachycardia and subsequently went into an A. fib rhythm. He was noted to be in acute kidney injury and the patient was also found to be hypokalemic and potassium level was elevated. Based on that, the patient was given calcium, he was given bicarb pushes, Kayexalate 15 g and ultimately a dialysis catheter was to proceed and the patient was given association of hemodialysis with subsequent improvement in his potassium level. The CRAIG inhibitor was also discontinued. The troponins were mildly elevated and the levels were 0.25 and 0.6 respectively. The rest of the blood work essentially within normal limits. The serum bicarb is up to 21. Creatinine this morning is down to 1.6 with a BUN of 45. The patient is awake and oriented. He is on IV heparin. History of any chest pain. The current cardiac rhythm is bradycardic, still wide-complex with first-degree AV block. The rhythm is sinus for now. The patient has been taken Coreg on outpatient basis. No syncope. No loss of consciousness. Reevaluated today on 11/22/21, patient remains in the ICU, remains on heparin, he is asymptomatic, no further episodes of angina or chest pain. Patient received hemodialysis on 11/20 and hemodialysis on 11/21, his potassium level came down from 7.4 to normal level today. Patient remains on heparin, his echocardiogram showed ejection fraction of 25-50%. Obviously the patient presented with hyperkalemia, atrial fibrillation, nonsustained ventricular tachycardia, acute kidney injury, and has made a significant amount in the last 24 hours. Clinically the patient is feeling much better today, breathing quite easily, not in any distress. His arrhythmia was felt to be related to his hyperkalemia. Patient is known to have history of severe ischemic cardiomyopathy and LV dysfunction. He also has history of moderate to severe mitral regurgitation. WBC count today is 11.6 hemoglobin is 9.3. Electrolytes are normal potassium 4.3 BUN is 39 and creatinine 1.45. Chest x-ray today showed borderline cardiomegaly, mild interstitial changes, mild pulmonary vascular congestion Reevaluated today on 11/23/2021, patient is doing well, he is now on overflow in the ICU from [facility]. Patient is relatively asymptomatic, on room air, he feels fine except for some minimal nasal congestion. He also has a poor appetite. Denies any shortness of breath or cough or wheezing denies any chest pain. CBC is relatively normal hemoglobin is 8.6 PTT is 55.9 electrolytes are normal BUN is 36 creatinine 1.40 Objective - Vital Signs Vital signs: Vital Signs Temp 98.5 F 11/23/21 08:00 Pulse 82 11/23/21 08:25 Resp 19 11/23/21 08:00 BP 129/54 11/23/21 08:00 Pulse Ox 93 L 11/23/21 08:00 FiO2 Intake & Output 11/22/21 11/23/21 11/23/21 18:59 06:59 18:59 Intake Total 824.628 686.331 250 Output Total 1200 675 250 Balance -375.372 11.331 0 Weight 85.6 kg 82.9 kg Intake: IV 600 150 50 Sodium Chloride 0.9% 1, 600 150 50 000 ml @ 50 mls/hr IV . Q20H [facility] Rx#:[id number] Intake, IV Titration 224.628 36.331 200 Amount Heparin Sod,Pork in 0.45% 224.628 36.331 NaCl 25,000 unit In 0.45 % NaCl 1 250ml.bag @ 10. 498 UNITS/KG/HR 10 mls/hr IV .Q24H [facility] Rx#: [id number] Magnesium Sulfate-D5w Pmx 200 1 gm In Dextrose/Water 1 100ml.bag @ 100 mls/hr IVPB Q1H [facility] Rx#: [id number] Oral 500 Output: Urine 1200 675 250 Other: Voiding Method Urinal Urinal Urinal # Voids 1 - Exam Physical Exam: Revealed a 71-year-old white male in no distress. Patient is on room air Head: Atraumatic, normocephalic HEENT:[Neck is supple.] [No neck masses.] [No thyromegaly.] [No JVD.] Chest: [Minimal fine crackles at the bases. Cardiac Exam: [Normal S1 and S2, no S3 gallop, 3/6 systolic murmur thought the precordium. Abdomen: [Soft, nontender, no megaly, no rebound, no guarding, normal bowel sounds.] Extremities: [No clubbing, no edema, no cyanosis.] Neurological Exam: [No focal neurologic deficit.] Alert oriented 3. Psychiatric: Normal mood affect and normal mental status examination. Skin: No rashes. - Labs CBC & Chem 7: 11/23/21 05:27 11/23/21 05:27 Labs: Abnormal Lab Results - Last 24 Hours (Table) 11/22/21 11/22/21 11/22/21 Range/Units 11:24 12:23 16:16 WBC (3.8-10.6) k/uL RBC (4.30-5.90) m/uL Hgb (13.0-17.5) gm/dL Hct (39.0-53.0) % Neutrophils # (1.3-7.7) k/uL APTT 69.1 H (22.0-30.0) sec Carbon Dioxide (22-30) mmol/L BUN (9-20) mg/dL Creatinine (0.66-1.25) mg/dL Glucose (74-99) mg/dL POC Glucose (mg/dL) 161 H 251 H (70-110) mg/dL Magnesium (1.6-2.3) mg/dL 11/22/21 11/22/21 11/23/21 Range/Units 18:53 20:29 05:27 WBC (3.8-10.6) k/uL RBC (4.30-5.90) m/uL Hgb (13.0-17.5) gm/dL Hct (39.0-53.0) % Neutrophils # (1.3-7.7) k/uL APTT 38.3 H 55.9 H (22.0-30.0) sec Carbon Dioxide (22-30) mmol/L BUN (9-20) mg/dL Creatinine (0.66-1.25) mg/dL Glucose (74-99) mg/dL POC Glucose (mg/dL) 212 H (70-110) mg/dL Magnesium (1.6-2.3) mg/dL 11/23/21 11/23/21 11/23/21 Range/Units 05:27 05:27 07:00 WBC 12.3 H (3.8-10.6) k/uL RBC 2.92 L (4.30-5.90) m/uL Hgb 8.6 L (13.0-17.5) gm/dL Hct 26.2 L (39.0-53.0) % Neutrophils # 8.8 H (1.3-7.7) k/uL APTT (22.0-30.0) sec Carbon Dioxide 21 L (22-30) mmol/L BUN 36 H (9-20) mg/dL Creatinine 1.46 H (0.66-1.25) mg/dL Glucose 147 H (74-99) mg/dL POC Glucose (mg/dL) 150 H (70-110) mg/dL Magnesium 1.5 L (1.6-2.3) mg/dL Assessment and Plan Assessment: Impression: Atrial fibrillation with nonsustained ventricular tachycardia, and associated with hyperkalemia. Acute chest pain consistent with angina pectoris related to above. Severe ischemic cardiomyopathy Non-ST elevation myocardial infarction Acute hyperkalemia Acute on chronic kidney disease History of CABG and previous PCI. History of underlying COPD, maintained on Symbicort and Spiriva on outpatient basis. History of nonspecific mediastinal adenopathy Moderate to severe mitral regurgitation Chronic systolic congestive heart failure Type 2 diabetes Dyslipidemia History of peripheral vessel occlusive disease and carotid stenting Recommendation: Resume cardiac meds Transfer out of the ICU to a cardiac floor once a bed is available Continue bronchodilators Will follow. Time with Patient: Less than 30
[2021-11-23 11:38] LABS: Glucose,Whole Blood 241 mg/dL (70-110)
[2021-11-23] MEDS: MAGNESIUM SULFATE-D5W PMX 1 GM in DEXTROSE/WATER 1 100ML.BAG IVPB SCH ×2 (11:47→11:49)
--- NOTE | 2021-11-23 12:45 | P.PN ---
Subjective Progress Note Date: 11/23/21 Patient is doing well but still c/o orthopnea. UOP is good. Ongoing IV lasix. Plan for dc in the next 24-48 hours. 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 -Sodium bicarbonate Tabs TID -Continue cardiac monitoring -Hold ACEi, spironolactone Congestive heart failure exacerbation, previous echo shows an EF of 30-35% from 2019 History of Ischemic cardiomyopathy Elevated troponin, non-ST elevation MT versus secondary to tachyarrhythmias -Continue with heparin infusion, aspirin, statin -Cardiology consult -Cardiac monitoring -Trend troponin -Strict ins and outs, daily weights -Echocardiogram = EF 25-30% with severely dilated LA -lasix IV 40mg daily COPD without exacerbation Type II DM Hypertension -Continue with home meds, except as above -Insulin sliding scale and blood glucose monitoring DVT prophylaxis -Heparin infusion CODE STATUS: Full Code Objective - Vital Signs Vital signs: Vital Signs Temp 97.9 F 11/23/21 12:00 Pulse 61 11/23/21 12:00 Resp 16 11/23/21 12:00 BP 129/54 11/23/21 12:00 Pulse Ox 98 11/23/21 12:00 FiO2 Intake & Output 11/22/21 11/23/21 11/23/21 18:59 06:59 18:59 Intake Total 824.628 686.331 250 Output Total 1200 675 250 Balance -375.372 11.331 0 Weight 85.6 kg 82.9 kg Intake: IV 600 150 50 Sodium Chloride 0.9% 1, 600 150 50 000 ml @ 50 mls/hr IV . Q20H [facility] Rx#:[id number] Intake, IV Titration 224.628 36.331 200 Amount Heparin Sod,Pork in 0.45% 224.628 36.331 NaCl 25,000 unit In 0.45 % NaCl 1 250ml.bag @ 10. 498 UNITS/KG/HR 10 mls/hr IV .Q24H [facility] Rx#: [id number] Magnesium Sulfate-D5w Pmx 200 1 gm In Dextrose/Water 1 100ml.bag @ 100 mls/hr IVPB Q1H [facility] Rx#: [id number] Oral 500 Output: Urine 1200 675 250 Other: Voiding Method Urinal Urinal Urinal # Voids 1 - Labs CBC & Chem 7: 11/23/21 05:27 11/23/21 05:27 Labs: Abnormal Lab Results - Last 24 Hours (Table) 11/22/21 11/22/21 11/22/21 Range/Units 12:23 16:16 18:53 WBC (3.8-10.6) k/uL RBC (4.30-5.90) m/uL Hgb (13.0-17.5) gm/dL Hct (39.0-53.0) % Neutrophils # (1.3-7.7) k/uL APTT 69.1 H 38.3 H (22.0-30.0) sec Carbon Dioxide (22-30) mmol/L BUN (9-20) mg/dL Creatinine (0.66-1.25) mg/dL Glucose (74-99) mg/dL POC Glucose (mg/dL) 251 H (70-110) mg/dL Magnesium (1.6-2.3) mg/dL 11/22/21 11/23/21 11/23/21 Range/Units 20:29 05:27 05:27 WBC (3.8-10.6) k/uL RBC (4.30-5.90) m/uL Hgb (13.0-17.5) gm/dL Hct (39.0-53.0) % Neutrophils # (1.3-7.7) k/uL APTT 55.9 H (22.0-30.0) sec Carbon Dioxide 21 L (22-30) mmol/L BUN 36 H (9-20) mg/dL Creatinine 1.46 H (0.66-1.25) mg/dL Glucose 147 H (74-99) mg/dL POC Glucose (mg/dL) 212 H (70-110) mg/dL Magnesium 1.5 L (1.6-2.3) mg/dL 11/23/21 11/23/21 11/23/21 Range/Units 05:27 07:00 11:37 WBC 12.3 H (3.8-10.6) k/uL RBC 2.92 L (4.30-5.90) m/uL Hgb 8.6 L (13.0-17.5) gm/dL Hct 26.2 L (39.0-53.0) % Neutrophils # 8.8 H (1.3-7.7) k/uL APTT (22.0-30.0) sec Carbon Dioxide (22-30) mmol/L BUN (9-20) mg/dL Creatinine (0.66-1.25) mg/dL Glucose (74-99) mg/dL POC Glucose (mg/dL) 150 H 241 H (70-110) mg/dL Magnesium (1.6-2.3) mg/dL
[2021-11-23] MEDS: HEPARIN SOD,PORK IN 0.45% NACL 25,000 UNIT in 0.45% NACL 1 250ML.BAG IV SCH (15:47)
[2021-11-23 16:23] LABS: Glucose,Whole Blood 221 mg/dL (70-110)
[2021-11-23 20:46] LABS: Glucose,Whole Blood 243 mg/dL (70-110)
[2021-11-23] MEDS: ATORVASTATIN 80 MG TAB PO SCH (21:32)
[2021-11-24 06:26] LABS: Glucose,Whole Blood 202 mg/dL (70-110)
[2021-11-24] MEDS: carvediloL 6.25 MG TAB PO SCH ×2 (06:56→18:24)
[2021-11-24] MEDS: INSULIN ASPART (NovoLOG) 100 UNIT/ML VIAL SQ SCH ×4 (06:57→20:27)
[2021-11-24] MEDS: IPRATROPIUM 0.5 MG/2.5 ML NEBU INHALATION SCH ×4 (07:19→20:26)
[2021-11-24] MEDS: SYMBICORT 160-4.5 MCG INHALER INHALATION SCH ×2 (07:19→20:26)
[2021-11-24 07:57] LABS: Calcium 8.6 mg/dL (8.4-10.2); Potassium 4.3 mmol/L (3.5-5.1)
[2021-11-24] MEDS: SODIUM BICARBONATE TAB 650 MG TAB PO SCH ×2 (08:48→20:27)
[2021-11-24] MEDS: CLOPIDOGREL 75 MG TAB PO SCH (08:48)
[2021-11-24] MEDS: FUROSEMIDE 10 MG/ML 4 ML VIAL IV SCH (08:49)
[2021-11-24] MEDS: ASPIRIN 81 MG PO SCH (08:49)
[2021-11-24] MEDS: buPROPion SR 150 MG TABLET.ER PO SCH ×2 (08:53→20:27)
--- NOTE | 2021-11-24 09:56 | P.PN ---
Subjective Patient is seen in follow-up for acute kidney injury on chronic kidney disease. Renal function a little worse today. On IV Lasix. Good urine output. Oral intake fair. Denies chest pain or shortness of breath. Vital signs are stable. General: Awake. No acute distress. HEENT: Head exam is unremarkable. LUNGS: Breath sounds decreased. HEART: Rate and Rhythm are regular. ABDOMEN: Soft, no distention. EXTREMITITES: 1+ edema. Objective - Vital Signs Vital signs: Vital Signs Temp 98.0 F 11/24/21 03:21 Pulse 65 11/24/21 07:30 Resp 16 11/24/21 03:21 BP 113/52 11/24/21 03:21 Pulse Ox 98 11/24/21 03:21 FiO2 Intake & Output 11/23/21 11/24/21 11/24/21 18:59 06:59 18:59 Intake Total 993.669 70 Output Total 600 425 Balance 393.669 -355 Weight 84 kg Intake: IV 100 70 Sodium Chloride 0.9% 1, 100 70 000 ml @ 50 mls/hr IV . Q20H [facility] Rx#:[id number] Intake, IV Titration 413.669 Amount Heparin Sod,Pork in 0.45% 213.669 NaCl 25,000 unit In 0.45 % NaCl 1 250ml.bag @ 10. 498 UNITS/KG/HR 10 mls/hr IV .Q24H [facility] Rx#: [id number] Magnesium Sulfate-D5w Pmx 200 1 gm In Dextrose/Water 1 100ml.bag @ 100 mls/hr IVPB Q1H [facility] Rx#: [id number] Oral 480 Output: Urine 600 425 Other: Voiding Method Urinal Urinal # Voids 2 # Bowel Movements 1 - Labs CBC & Chem 7: 11/23/21 05:27 11/24/21 06:12 Labs: Abnormal Lab Results - Last 24 Hours (Table) 11/23/21 11/23/21 11/23/21 Range/Units 11:37 16:21 20:45 APTT (22.0-30.0) sec Sodium (137-145) mmol/L BUN (9-20) mg/dL Creatinine (0.66-1.25) mg/dL Glucose (74-99) mg/dL POC Glucose (mg/dL) 241 H 221 H 243 H (70-110) mg/dL 11/24/21 11/24/21 11/24/21 Range/Units 06:12 06:12 06:25 APTT 31.0 H (22.0-30.0) sec Sodium 135 L (137-145) mmol/L BUN 44 H (9-20) mg/dL Creatinine 1.62 H (0.66-1.25) mg/dL Glucose 170 H (74-99) mg/dL POC Glucose (mg/dL) 202 H (70-110) mg/dL Assessment and Plan Plan: Assessment: 1. Acute kidney injury secondary to ATN. Status post one treatment of hemodialysis this admission. Renal function improved from admission. Creatinine 1.62 today. No hydronephrosis noted on kidney ultrasound on 11/16/2021. 2. Chronic kidney disease stage III with baseline creatinine in the range of 1.1-1.2 secondary to nephrosclerosis. UA benign. 3. Hyperkalemia secondary to acute kidney injury, metabolic acidosis, potassium supplementation, spironolactone and lisinopril. Improved postdialysis. 4. Metabolic acidosis secondary to acute kidney injury and metformin. Improved. 5. Diabetes mellitus. 6. Hypomagnesemia from diuresis and poor intake. Replace. Better. 7. Acute on chronic systolic CHF with ejection fraction of 25-30% with moderate to severe mitral regurgitation. 8. Volume overload. Improved with diuresis. Plan: Maintain IV Lasix for now. Transition to oral diuretics starting tomorrow. Encouraged oral intake. Discontinue dialysis catheter. Avoid nephrotoxins. Continue to monitor renal function and urine output.
--- NOTE | 2021-11-24 11:12 | P.GSCN ---
History of Present Illness Consult date: 11/24/21 Reason for Consult: HD catheter removal Requesting physician: Foster Ruvalcaba History of present illness: This is 64-year-old male with a past medical history of COPD and coronary artery disease status post bypass surgery and hypertension who presented to the emergency department on 813 with episodes of chest pain. The patient was admitted with severe hyperkalemia and acute kidney injury, having arrhythmia. Vascular surgery Dr. Moise was consulted at the time to place an emergent temporary HD catheter. That was placed on 11/20/2021 in the right femoral vein. Patient has been followed by nephrology, potassium has improved as well as overall kidney function after hemodialysis. Patient is urinating on his own. Vascular surgery was consulted to remove HD catheter. Patient overall states he is doing well. He states that he is just tired he has difficult time sleeping at night. He denies chest pain, shortness of breath, abdominal pain, nausea or vomiting at this time. He is afebrile. Potassium 4.3 , BUN 44 creatinine 1.62. Review of Systems A 14 point review systems was completed all pertinent positives and negatives as stated in the HPI. Past Medical History Past Medical History: Coronary Artery Disease (CAD), Heart Failure (EF 30-35% (echo 2019)), COPD, Diabetes Mellitus, Hypertension, Vascular Disorder Additional Past Medical History / Comment(s): IDDM, lower leg edema, 2014 L leg injury and has ACL1 injury, heart murmur, mediastinal adenopathy, PVOD, Carotid artery disease (left) Last Myocardial Infarction Date:: 12/23/13 History of Any Multi-Drug Resistant Organisms: None Reported Past Surgical History: Coronary Bypass/CABG, Heart Catheterization With Stent Additional Past Surgical History / Comment(s): stent to SVG-RCA at [facility]', stent to left carotid , stent x 2 (unk) 2013 at [facility], stent to RCA @ [facility] 13', Stent to RCA, SVG to RCA, SVG to RCA at [facility], gaglion cyst removal Past Anesthesia/Blood Transfusion Reactions: No Reported Reaction Date of Last Stent Placement:: 2011 Past Psychological History: No Psychological Hx Reported Additional Psychological History / Comment(s): Pt resides with his spouse. He is independent. He has a cane which he uses minimally. He drives. 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 Smoking Status: Current every day smoker Past Alcohol Use History: Occasional Additional Past Alcohol Use History / Comment(s): Pt started smoking in 1969 and is a 1 ppd smoker. Past Drug Use History: None Reported - Past Family History Father Family Medical History: Myocardial Infarction (LA) Additional Family Medical History / Comment(s): Father had lung cancer and bladder cancer. He is 82 yrs old. He is an exsmoker. Mother Family Medical History: COPD Additional Family Medical History / Comment(s): cardiac Medications and Allergies Home Medications Medication Instructions Recorded Confirmed Type Potassium Chloride ER [K-Dur 20] 20 meq PO DAILY 12/23/13 11/20/21 History lisinopriL [Zestril] 20 mg PO DAILY 12/23/13 11/20/21 History Aspirin 325 mg PO DAILY #90 tab 12/24/13 11/20/21 Rx Atorvastatin [Lipitor] 80 mg PO HS #90 tab 12/24/13 11/20/21 Rx Nitroglycerin Sl Tabs [Nitrostat] 0.4 mg SUBLINGUAL Q5M PRN #25 tab 12/24/13 11/20/21 Rx Albuterol Sulfate [Proair Hfa] 2 puff INHALATION RT-Q4H PRN 07/24/15 11/20/21 H istory Clopidogrel [Plavix] 75 mg PO DAILY 07/24/15 11/20/21 History Ferrous Sulfate [Feosol] 325 mg PO DAILY 06/12/18 11/20/21 History Insulin Aspart [NovoLOG Flexpen] 30 units SQ BID 06/12/18 11/20/21 History Insulin Glargine,Hum.rec.anlog 100 unit SQ HS 06/12/18 11/20/21 History [Lantus Solostar Pen] Tiotropium 18 Mcg/Puff [Spiriva] 1 cap INHALATION RT-DAILY 06/12/18 11/20/21 His tory metFORMIN HCL [Glucophage] 1,000 mg PO BID 06/12/18 11/20/21 History Furosemide [Lasix] 20 mg PO BID@0900,1600 #30 tab 06/15/18 11/20/21 Rx Spironolactone [Aldactone] 25 mg PO DAILY #30 tab 06/15/18 11/20/21 Rx Albuterol Nebulized [Ventolin 2.5 mg INHALATION RT-TID 11/20/21 11/20/21 History Nebulized] Ascorbic Acid [Vitamin C] 500 mg PO DAILY 11/20/21 11/20/21 History Cholecalciferol [Vitamin D3 (25 25 mcg PO DAILY 11/20/21 11/20/21 History Mcg = 1000 Iu)] Fluticasone Propion/Salmeterol 1 puff INHALATION RT-BID 11/20/21 11/20/21 History [Fluticasone-Salmeterol 250-50] buPROPion HCL [buPROPion HCL SR] 150 mg PO BID 11/20/21 11/20/21 History carvediloL [Coreg] 12.5 mg PO BID-W/MEALS 11/20/21 11/20/21 History Allergies Allergy/AdvReac Type Severity Reaction Status Date / Time No Known Allergies Allergy Verified 11/20/21 19:12 Surgical - Exam Vital Signs Temp Pulse Resp BP Pulse Ox 97.7 F 54 L 20 157/63 100 11/20/21 19:08 11/20/21 19:08 11/20/21 19:08 11/20/21 19:08 11/20/21 19:08 General appearance: The patient is alert, oriented, appears in no acute distress. HET: Head is normocephalic and atraumatic. Pupils are equal and reactive. Neck: Supple without lymphadenopathy. Trachea midline. No audible carotid bruit. Heart: S1 S2. Regular rate and rhythm. Lungs: Clear to auscultation bilaterally. Abdomen: Soft, nontender, nondistended. Extremities: Normal skin color and turgor. No cyanosis, rash, ulceration, clubbing, or edema. Radial and pedal pulses are 2/4 bilaterally. Neurological: No focal deficits. Strength and sensation are grossly intact. Results - Labs 11/23/21 05:27 11/24/21 06:12 Abnormal Lab Results - Last 24 Hours (Table) 11/23/21 11/23/21 11/23/21 Range/Units 11:37 16:21 20:45 APTT (22.0-30.0) sec Sodium (137-145) mmol/L BUN (9-20) mg/dL Creatinine (0.66-1.25) mg/dL Glucose (74-99) mg/dL POC Glucose (mg/dL) 241 H 221 H 243 H (70-110) mg/dL 11/24/21 11/24/21 11/24/21 Range/Units 06:12 06:12 06:25 APTT 31.0 H (22.0-30.0) sec Sodium 135 L (137-145) mmol/L BUN 44 H (9-20) mg/dL Creatinine 1.62 H (0.66-1.25) mg/dL Glucose 170 H (74-99) mg/dL POC Glucose (mg/dL) 202 H (70-110) mg/dL Diabetes panel 11/24/21 Range/Units 06:12 Sodium 135 L (137-145) mmol/L Potassium 4.3 (3.5-5.1) mmol/L Chloride 102 (98-107) mmol/L Carbon Dioxide 22 (22-30) mmol/L BUN 44 H (9-20) mg/dL Creatinine 1.62 H (0.66-1.25) mg/dL Glucose 170 H (74-99) mg/dL Calcium 8.6 (8.4-10.2) mg/dL Calcium panel 11/24/21 Range/Units 06:12 Calcium 8.6 (8.4-10.2) mg/dL Pituitary panel 11/24/21 Range/Units 06:12 Sodium 135 L (137-145) mmol/L Potassium 4.3 (3.5-5.1) mmol/L Chloride 102 (98-107) mmol/L Carbon Dioxide 22 (22-30) mmol/L BUN 44 H (9-20) mg/dL Creatinine 1.62 H (0.66-1.25) mg/dL Glucose 170 H (74-99) mg/dL Calcium 8.6 (8.4-10.2) mg/dL Adrenal panel 11/24/21 Range/Units 06:12 Sodium 135 L (137-145) mmol/L Potassium 4.3 (3.5-5.1) mmol/L Chloride 102 (98-107) mmol/L Carbon Dioxide 22 (22-30) mmol/L BUN 44 H (9-20) mg/dL Creatinine 1.62 H (0.66-1.25) mg/dL Glucose 170 H (74-99) mg/dL Calcium 8.6 (8.4-10.2) mg/dL Assessment and Plan Assessment: 1. Hyperkalemia resolved 2. Acute kidney injury, improving with no further need for hemodialysis Plan: Discussed with patient Dr. Ruvalcaba with nephrology has stated patient no longer needs hemodialysis and requesting temporary HD catheter to be removed. Patient verbalized understanding and is agreeable. Right femoral vein temporary HD catheter removed without difficulty. Manual pressure was applied with good hemostasis. 4 x 4 dressing applied. Nursing aware to reevaluate and assess patient for bleeding and notify vascular surgery with any concerns. Thank you for this consultation, we will sign off at this time. The impression and plan of care has been dictated as directed. Dr. Paula I performed a history and examination of this patient, discussed the same with the dictator. I agree with the dictator's note ,documented as a scribe. Any additional findings or plans will be noted.
[2021-11-24 11:49] LABS: Glucose,Whole Blood 234 mg/dL (70-110)
--- NOTE | 2021-11-24 12:11 | P.PN ---
Subjective Progress Note Date: 11/24/21 HISTORY OF PRESENT ILLNESS: The patient is a 71-year-old male with a known history of CAD, status post CABG, history of hypertension, hyperlipidemia and diabetes mellitus as well as chronic tobacco use, status post stenting and carotid stenting who for the last week has not been feeling well, feeling dyspneic with episodes of irregular heartbeat as well as chest discomfort radiating to both arms. Yesterday he felt dizzy and short of breath with the discomfort EMS noted that he was tachycardic with what complex tachycardia, crit present ventricular tachycardia although atrial fibrillation with aberrancy cannot be excluded subsequently he converted back to sinus mechanism with left bundle branch block and bradycardia. He had episode of ventricle arrhythmia. He is in sinus mechanism with episode of sinus bradycardia since admission. He has dyspnea at this time that has been chronic but no symptoms of chest discomfort any further. He has chronic peripheral edema. No PND or orthopnea. He has known history of chronic kidney disease according to him but worse on presentation. He has no clear PND or orthopnea. He is limited in his physical activity because of the dyspnea on exertion. In December 2013 he underwent cardiac catheterization by Dr. Shane the [place] to LAD was patent, SVG to circumflex was patent, SVG to the RCA had critical stenosis proximal to the stented segment in 2010, his [place] arteries he had total occlusion of his LAD and RCA and OM. He underwent stenting of the saphenous vein graft to the RCA using 30 by 26 resolute stent. His echocardiogram in 2018 showed an ejection fraction of 30-35%. He underwent placement of a dialysis catheter yesterday. On presentation yesterday his potassium was 7.4 BUN 64 creatinine 2.3, his troponin 0.227 and into proBNP of 2800. His hemoglobin was 10.7 and subsequent hemoglobin down to 6.3. His risk factors are positive for hypertension, hyperlipidemia, diabetes mellitus and chronic tobacco use Medications: Insulin, Lipitor 80 mg daily, Aldactone 25 mg daily, Glucophage 1 g twice a day, Zestril 20 mg daily, Coreg 12-1/2 mg twice a day, iron, Plavix 75 mg daily, aspirin once a day, Spiriva, Ventolin, pro-air 11/22 Pt seen and examined. Decreased hemoglobin noted to be lab error and repeats appears stable. He has been on heparin drip. His home lisinopril, Aldactone, carvedilol were discontinued and held secondary to hyperkalemia and bradycardia. No further significant bradycardia and we will restart carvedilol. Denies any further chest pressure or pain. Heart rates in the 90s to low 100 in sinus rhythm. He underwent dialysis yesterday with improvement in hyperkalemia. He i s sitting upright in bed however denies any significant worsening dyspnea. No lower extremity edema. Remains on normal saline at 50 mL per hour. Echocardiogram performed yesterday shows ejection fraction 30% with moderate to severe mitral regurgitation. 11/23 Patient seen and examined. Patient states overall he is feeling fairly well however does have some nasal congestion. Denies any chun shortness breath. He admits he has not had much of an appetite over the last 1-2 weeks and still does not have much of an appetite. No chest pain or pressure. Still has Nitropatch on however no significant dyspnea. In stable at 1.46. Addendum entered and electronically signed by Harry Reeves DO 11/23/21 08:40: [facility] records from primary supervisor marble Dr. Elder. Prior stress test from 10/25/2018 showed EF 39%, echocardiogram 07/19/2018 EF 30-35%, echo 10/25/2018 EF 20-25% however most recent echo 08/10/2021 mention EF 55-60%. There is drop in ejection fraction however main presentation appears related to decreased appetite, acute kidney injury and would treat cardiomyopathy, heart failure medically. Consider stress test/heart catheterization outpatient if kidney function improves. 11/24/2021 Patient examined this morning at the bedside. Patient denies chest pain or pressure. Denies SOB. He remains on IV heparin. Vital signs are stable. HD catheter was removed this morning by vascular surgery. PHYSICAL EXAM: VITAL SIGNS: Reviewed. GENERAL: Well-developed in no acute distress. NECK: Supple. No JVD or thyromegaly LUNGS: Respirations even and unlabored. Lungs essentially clear to auscultation bilaterally. HEART: Regular rate and rhythm. S1 and S2 heard. + systolic murmur. EXTREMITIES: Normal range of motion. No clubbing or cyanosis. Peripheral pulses intact. No lower extremity edema ASSESSMENT: 1. Atrial arrhythmia was possible runs of nonsustained VT and atrial fibrilla tion, probable worsening cause is the hyperkalemia 2. Symptoms of chest discomfort consistent with angina pectoris, resolved after controlling the heart rate 3. Non-STEMI secondary to ischemia, tachycardia and the worsening renal function, suspect type II mechanism 4. Acute renal injury with hyperkalemia 5. Prior history of severe ischemic cardiomyopathy 6. Status post CABG and prior PCI 7. History of peripheral vascular disease and carotid stenting 8. History of hypertension 9. History of diabetes 10. History of hyperlipidemia 11. Chronic systolic heart failure 12. Moderate to severe mitral regurgitation 13. Decreased appetite over the last 1-2 weeks unclear etiology PLAN: Continue current cardiac medications Discontinue IV heparin No prolonged episodes of atrial fibrillation and therefore no anticoagulation at this time. Continue to optimize heart failure regimen is able. Continue with carvedilol. Ideally losartan/lisinopril however patient with acute kidney injury. Borderline blood pressures as well. Continue supportive care and hopeful disch arge home in the next 24-48 hours. Nurse practitioner note has been reviewed by physician. Signing provider agrees with the documented findings, assessment, and plan of care. Objective - Vital Signs Vital signs: Vital Signs Temp 98.0 F 11/24/21 03:21 Pulse 85 11/24/21 11:25 Resp 16 11/24/21 03:21 BP 113/52 11/24/21 03:21 Pulse Ox 98 11/24/21 03:21 FiO2 Intake & Output 11/23/21 11/24/21 11/24/21 18:59 06:59 18:59 Intake Total 993.669 70 240 Output Total 600 425 Balance 393.669 -355 240 Weight 84 kg Intake: IV 100 70 Sodium Chloride 0.9% 1, 100 70 000 ml @ 50 mls/hr IV . Q20H [facility] Rx#:[id number] Intake, IV Titration 413.669 Amount Heparin Sod,Pork in 0.45% 213.669 NaCl 25,000 unit In 0.45 % NaCl 1 250ml.bag @ 10. 498 UNITS/KG/HR 10 mls/hr IV .Q24H [facility] Rx#: [id number] Magnesium Sulfate-D5w Pmx 200 1 gm In Dextrose/Water 1 100ml.bag @ 100 mls/hr IVPB Q1H [facility] Rx#: [id number] Oral 480 240 Output: Urine 600 425 Other: Voiding Method Urinal Urinal # Voids 2 # Bowel Movements 1 - Labs CBC & Chem 7: 11/23/21 05:27 11/24/21 06:12 Labs: Abnormal Lab Results - Last 24 Hours (Table) 11/23/21 11/23/21 11/24/21 Range/Units 16:21 20:45 06:12 APTT (22.0-30.0) sec Sodium 135 L (137-145) mmol/L BUN 44 H (9-20) mg/dL Creatinine 1.62 H (0.66-1.25) mg/dL Glucose 170 H (74-99) mg/dL POC Glucose (mg/dL) 221 H 243 H (70-110) mg/dL 11/24/21 11/24/21 11/24/21 Range/Units 06:12 06:25 11:47 APTT 31.0 H (22.0-30.0) sec Sodium (137-145) mmol/L BUN (9-20) mg/dL Creatinine (0.66-1.25) mg/dL Glucose (74-99) mg/dL POC Glucose (mg/dL) 202 H 234 H (70-110) mg/dL
[2021-11-24] MEDS ORDERED: ACETAMINOPHEN TAB 325 MG TAB PO PRN (12:21)
--- NOTE | 2021-11-24 12:44 | P.PN ---
Subjective Progress Note Date: 11/24/21 Patient is doing well, orthopnea has improved. UOP is good. Ongoing IV lasix. Plan for dc in the next 24-48 hours. C/o back pain, starting tylenol PRN. Gen: awake, alert HEENT: normocephalic, atraumatic, good hearing acuity, moist mucous membranes Resp: good air exchange, breathing comfortably with no accessory muscle use, bilateral crackles CVS: good distal perfusion x 4, regular rate and rhythm, positive JVD with hepato- jugular reflex GI: soft, NTTP, ND : no SPT, no CVAT, gonzalez catheter not present MSK: Positive pitting edema, no clubbing Neuro: non-focal, moving all extremities Psych: cooperative, euthymic mood Assessment/plan: Severe hyperkalemia in setting of CRAIG inhibitor use and acute kidney injury, multiple arrhythmias -s/p SAP PP CONSULTANT x 1 on 11/20 -Sodium bicarbonate Tabs TID -Continue cardiac monitoring -Hold ACEi, spironolactone Congestive heart failure exacerbation, previous echo shows an EF of 30-35% from 2019 History of Ischemic cardiomyopathy Elevated troponin, non-ST elevation CT versus secondary to tachyarrhythmias -Continue with heparin infusion, aspirin, statin -Cardiology consult -Cardiac monitoring -Trend troponin -Strict ins and outs, daily weights -Echocardiogram = EF 20-25% with severely dilated LA -lasix IV 40mg daily COPD without exacerbation Type II DM Hypertension -Continue with home meds, except as above -Insulin sliding scale and blood glucose monitoring DVT prophylaxis -Heparin infusion CODE STATUS: Full Code Objective - Vital Signs Vital signs: Vital Signs Temp 98.0 F 11/24/21 03:21 Pulse 85 11/24/21 11:25 Resp 16 11/24/21 03:21 BP 113/52 11/24/21 03:21 Pulse Ox 98 11/24/21 03:21 FiO2 Intake & Output 11/23/21 11/24/21 11/24/21 18:59 06:59 18:59 Intake Total 993.669 70 240 Output Total 600 425 Balance 393.669 -355 240 Weight 84 kg Intake: IV 100 70 Sodium Chloride 0.9% 1, 100 70 000 ml @ 50 mls/hr IV . Q20H [facility] Rx#:[id number] Intake, IV Titration 413.669 Amount Heparin Sod,Pork in 0.45% 213.669 NaCl 25,000 unit In 0.45 % NaCl 1 250ml.bag @ 10. 498 UNITS/KG/HR 10 mls/hr IV .Q24H [facility] Rx#: [id number] Magnesium Sulfate-D5w Pmx 200 1 gm In Dextrose/Water 1 100ml.bag @ 100 mls/hr IVPB Q1H [facility] Rx#: [id number] Oral 480 240 Output: Urine 600 425 Other: Voiding Method Urinal Urinal # Voids 2 # Bowel Movements 1 - Labs CBC & Chem 7: 11/23/21 05:27 11/24/21 06:12 Labs: Abnormal Lab Results - Last 24 Hours (Table) 11/23/21 11/23/21 11/24/21 Range/Units 16:21 20:45 06:12 APTT (22.0-30.0) sec Sodium 135 L (137-145) mmol/L BUN 44 H (9-20) mg/dL Creatinine 1.62 H (0.66-1.25) mg/dL Glucose 170 H (74-99) mg/dL POC Glucose (mg/dL) 221 H 243 H (70-110) mg/dL 11/24/21 11/24/21 11/24/21 Range/Units 06:12 06:25 11:47 APTT 31.0 H (22.0-30.0) sec Sodium (137-145) mmol/L BUN (9-20) mg/dL Creatinine (0.66-1.25) mg/dL Glucose (74-99) mg/dL POC Glucose (mg/dL) 202 H 234 H (70-110) mg/dL
[2021-11-24 17:02] LABS: Glucose,Whole Blood 237 mg/dL (70-110)
[2021-11-24 20:16] LABS: Glucose,Whole Blood 257 mg/dL (70-110)
[2021-11-24] MEDS: ATORVASTATIN 80 MG TAB PO SCH (20:27)
[2021-11-24 22:17] LABS: Glucose,Whole Blood 225 mg/dL (70-110)
[2021-11-25 06:13] LABS: Glucose,Whole Blood 181 mg/dL (70-110)
[2021-11-25] MEDS: carvediloL 6.25 MG TAB PO SCH (06:45)
[2021-11-25] MEDS: INSULIN ASPART (NovoLOG) 100 UNIT/ML VIAL SQ SCH ×4 (06:46→20:40)
[2021-11-25] MEDS: SYMBICORT 160-4.5 MCG INHALER INHALATION SCH ×3 (07:49→19:56)
[2021-11-25] MEDS: IPRATROPIUM 0.5 MG/2.5 ML NEBU INHALATION SCH ×5 (07:49→19:56)
[2021-11-25 08:47] LABS: Calcium 8.9 mg/dL (8.4-10.2); Potassium 4.2 mmol/L (3.5-5.1)
--- NOTE | 2021-11-25 09:49 | P.PN ---
Subjective Patient is seen in follow-up for acute kidney injury on chronic kidney disease. Renal function stable. On IV Lasix. Good urine output. Oral intake fair. Denies chest pain or shortness of breath. Vital signs are stable. General: Awake. No acute distress. HEENT: Head exam is unremarkable. LUNGS: Breath sounds decreased. HEART: Rate and Rhythm are regular. ABDOMEN: Soft, no distention. EXTREMITITES: Trace edema in ankles. Objective - Vital Signs Vital signs: Vital Signs Temp 97.8 F 11/25/21 08:00 Pulse 60 11/25/21 08:11 Resp 17 11/25/21 08:00 BP 102/48 11/25/21 08:00 Pulse Ox 100 11/25/21 08:00 FiO2 Intake & Output 11/24/21 11/25/21 11/25/21 18:59 06:59 18:59 Intake Total 1280 118 Output Total 800 1380 210 Balance 480 -1380 -92 Weight 83.4 kg Intake: IV 80 Sodium Chloride 0.9% 1, 80 000 ml @ 50 mls/hr IV . Q20H [facility] Rx#:[id number] Oral 1200 118 Output: Urine 800 1380 210 Other: Voiding Method Urinal Urinal - Labs CBC & Chem 7: 11/23/21 05:27 11/25/21 07:06 Labs: Abnormal Lab Results - Last 24 Hours (Table) 11/24/21 11/24/21 11/24/21 Range/Units 11:47 17:00 20:15 Sodium (137-145) mmol/L BUN (9-20) mg/dL Creatinine (0.66-1.25) mg/dL Glucose (74-99) mg/dL POC Glucose (mg/dL) 234 H 237 H 257 H (70-110) mg/dL 11/24/21 11/25/21 11/25/21 Range/Units 22:16 06:12 07:06 Sodium 136 L (137-145) mmol/L BUN 41 H (9-20) mg/dL Creatinine 1.65 H (0.66-1.25) mg/dL Glucose 145 H (74-99) mg/dL POC Glucose (mg/dL) 225 H 181 H (70-110) mg/dL Assessment and Plan Plan: Assessment: 1. Acute kidney injury secondary to ATN. Status post one treatment of hem odialysis this admission. Renal function improved from admission. Creatinine stable at 1.65 today. No hydronephrosis noted on kidney ultrasound on 11/16/2021. 2. Chronic kidney disease stage III with baseline creatinine in the range of 1.1-1.2 secondary to nephrosclerosis. UA benign. 3. Hyperkalemia secondary to acute kidney injury, metabolic acidosis, potassium supplementation, spironolactone and lisinopril. Improved postdialysis. 4. Metabolic acidosis secondary to acute kidney injury and metformin. Improved. 5. Diabetes mellitus. 6. Hypomagnesemia from diuresis and poor intake. Replaced. Better. 7. Acute on chronic systolic CHF with ejection fraction of 25-30% with moderate to severe mitral regurgitation. 8. Volume overload. Improved with diuresis. Plan: IV Lasix stopped. Now on oral Lasix 40 mg twice a day per cardiology. Encouraged oral intake. Dialysis catheter removed 11/24/2021. Avoid nephrotoxins. Continue to monitor renal function and urine output. Follow up outpatient 1 week post discharge. Advised patient to maintain a low-salt diet and of 40-45 pounds fluid restriction per day upon discharge. He was also advised to monitor his weight closely and to notify physician if develops edema or weight gain of more than 3 pounds in 1 week duration. Repeat BMP and magnesium level 2-3 days postdischarge.
[2021-11-25] MEDS: FUROSEMIDE 40 MG TAB PO SCH ×2 (10:01→17:23)
[2021-11-25] MEDS: SODIUM BICARBONATE TAB 650 MG TAB PO SCH ×2 (10:01→20:39)
[2021-11-25] MEDS: ASPIRIN 81 MG PO SCH (10:01)
[2021-11-25] MEDS: buPROPion SR 150 MG TABLET.ER PO SCH ×2 (10:01→20:39)
[2021-11-25] MEDS: CLOPIDOGREL 75 MG TAB PO SCH (10:05)
[2021-11-25] MEDS: FUROSEMIDE 10 MG/ML 4 ML VIAL IV SCH (10:08)
[2021-11-25 11:47] LABS: Glucose,Whole Blood 267 mg/dL (70-110)
--- NOTE | 2021-11-25 11:57 | P.PN ---
Subjective Progress Note Date: 11/25/21 HISTORY OF PRESENT ILLNESS: The patient is a 71-year-old male with a known history of CAD, status post CABG, history of hypertension, hyperlipidemia and diabetes mellitus as well as chronic tobacco use, status post stenting and carotid stenting who for the last week has not been feeling well, feeling dyspneic with episodes of irregular heartbeat as well as chest discomfort radiating to both arms. Yesterday he felt dizzy and short of breath with the discomfort EMS noted that he was tachycardic with what complex tachycardia, crit present ventricular tachycardia although atrial fibrillation with aberrancy cannot be excluded subsequently he converted back to sinus mechanism with left bundle branch block and bradycardia. He had episode of ventricle arrhythmia. He is in sinus mechanism with episode of sinus bradycardia since admission. He has dyspnea at this time that has been chronic but no symptoms of chest discomfort any further. He has chronic peripheral edema. No PND or orthopnea. He has known history of chronic kidney disease according to him but worse on presentation. He has no clear PND or orthopnea. He is limited in his physical activity because of the dyspnea on exertion. In December 2013 he underwent cardiac catheterization by Dr. Shane the [place] to LAD was patent, SVG to circumflex was patent, SVG to the RCA had critical stenosis proximal to the stented segment in 2010, his [place] arteries he had total occlusion of his LAD and RCA and OM. He underwent stenting of the saphenous vein graft to the RCA using 30 by 26 resolute stent. His echocardiogram in 2018 showed an ejection fraction of 30-35%. He underwent placement of a dialysis catheter yesterday. On presentation yesterday his potassium was 7.4 BUN 64 creatinine 2.3, his troponin 0.227 and into proBNP of 2800. His hemoglobin was 10.7 and subsequent hemoglobin down to 6.3. His risk factors are positive for hypertension, hyperlipidemia, diabetes mellitus and chronic tobacco use Medications: Insulin, Lipitor 80 mg daily, Aldactone 25 mg daily, Glucophage 1 g twice a day, Zestril 20 mg daily, Coreg 12-1/2 mg twice a day, iron, Plavix 75 mg daily, aspirin once a day, Spiriva, Ventolin, pro-air 11/22 Pt seen and examined. Decreased hemoglobin noted to be lab error and repeats appears stable. He has been on heparin drip. His home lisinopril, Aldactone, carvedilol were discontinued and held secondary to hyperkalemia and bradycardia. No further significant bradycardia and we will restart carvedilol. Denies any further chest pressure or pain. Heart rates in the 90s to low 100 in sinus rhythm. He underwent dialysis yesterday with improvement in hyperkalemia. He i s sitting upright in bed however denies any significant worsening dyspnea. No lower extremity edema. Remains on normal saline at 50 mL per hour. Echocardiogram performed yesterday shows ejection fraction 30% with moderate to severe mitral regurgitation. 11/23 Patient seen and examined. Patient states overall he is feeling fairly well however does have some nasal congestion. Denies any chun shortness breath. He admits he has not had much of an appetite over the last 1-2 weeks and still does not have much of an appetite. No chest pain or pressure. Still has Nitropatch on however no significant dyspnea. In stable at 1.46. Addendum entered and electronically signed by Harry Reeves DO 11/23/21 08:40: [facility] records from primary measurement coordinator Dr. Elder. Prior stress test from 10/25/2018 showed EF 39%, echocardiogram 07/19/2018 EF 30-35%, echo 10/25/2018 EF 20-25% however most recent echo 08/10/2021 mention EF 55-60%. There is drop in ejection fraction however main presentation appears related to decreased appetite, acute kidney injury and would treat cardiomyopathy, heart failure medically. Consider stress test/heart catheterization outpatient if kidney function improves. 11/24/2021 Patient examined this morning at the bedside. Patient denies chest pain or pressure. Denies SOB. He remains on IV heparin. Vital signs are stable. HD catheter was removed this morning by vascular surgery. 11/25/2021 Patient examined this morning. Patient is sitting up in the chair. Patient denies chest pain or pressure. He denies shortness of breath. The patient reports having some mild dizziness this morning while he was sitting in the chair which has since resolved. Patient's vital signs are stable. Blood pressure this morning 102/48. Repeat blood pressure 131/58. Telemetry reveals sinus mechanism. PHYSICAL EXAM: VITAL SIGNS: Reviewed. GENERAL: Well-developed in no acute distress. NECK: Supple. No JVD or thyromegaly LUNGS: Respirations even and unlabored. Lungs essentially clear to auscultation bilaterally. HEART: Regular rate and rhythm. S1 and S2 heard. + systolic murmur. EXTREMITIES: Normal range of motion. No clubbing or cyanosis. Peripheral pulses intact. No lower extremity edema ASSESSMENT: 1. Atrial arrhythmia was possible runs of nonsustained VT and atrial fibrillation, probable worsening cause is the hyperkalemia 2. Symptoms of chest discomfort consistent with angina pectoris, resolved after controlling the heart rate 3. Non-STEMI secondary to ischemia, tachycardia and the worsening renal function, suspect type II mechanism 4. Acute renal injury with hyperkalemia 5. Prior history of severe ischemic cardiomyopathy 6. Status post CABG and prior PCI 7. History of peripheral vascular disease and carotid stenting 8. History of hypertension 9. History of diabetes 10. History of hyperlipidemia 11. Chronic systolic heart failure 12. Moderate to severe mitral regurgitation 13. Decreased appetite over the last 1-2 weeks unclear etiology PLAN: Continue current cardiac medications Discontinue IV Lasix. Begin oral Lasix 40 mg twice a day Patient will benefit from CRAIG/ARB when kidney function normalizes Continue to monitor blood pressure Further recommendations pending patient course Nurse practitioner note has been reviewed by physician. Signing provider agrees with the documented findings, assessment, and plan of care. Objective - Vital Signs Vital signs: Vital Signs Temp 97.5 F L 11/25/21 11:46 Pulse 56 L 11/25/21 11:54 Resp 19 11/25/21 11:46 BP 131/58 11/25/21 11:46 Pulse Ox 100 11/25/21 11:46 FiO2 Intake & Output 11/24/21 11/25/21 11/25/21 18:59 06:59 18:59 Intake Total 1280 118 Output Total 800 1380 210 Balance 480 -1380 -92 Weight 83.4 kg Intake: IV 80 Sodium Chloride 0.9% 1, 80 000 ml @ 50 mls/hr IV . Q20H [facility] Rx#:[id number] Oral 1200 118 Output: Urine 800 1380 210 Other: Voiding Method Urinal Urinal - Labs CBC & Chem 7: 11/23/21 05:27 11/25/21 07:06 Labs: Abnormal Lab Results - Last 24 Hours (Table) 11/24/21 11/24/21 11/24/21 Range/Units 17:00 20:15 22:16 Sodium (137-145) mmol/L BUN (9-20) mg/dL Creatinine (0.66-1.25) mg/dL Glucose (74-99) mg/dL POC Glucose (mg/dL) 237 H 257 H 225 H (70-110) mg/dL 11/25/21 11/25/21 11/25/21 Range/Units 06:12 07:06 11:45 Sodium 136 L (137-145) mmol/L BUN 41 H (9-20) mg/dL Creatinine 1.65 H (0.66-1.25) mg/dL Glucose 145 H (74-99) mg/dL POC Glucose (mg/dL) 181 H 267 H (70-110) mg/dL
[2021-11-25 12:48] VITALS: BMI 27.1
[2021-11-25] MEDS: carvediloL 12.5 MG TAB PO SCH ×2 (12:59→16:55)
--- NOTE | 2021-11-25 14:52 | P.PN ---
Subjective Progress Note Date: 11/25/21 Hospital course: Patient is a very pleasant 71-year-old male with a past medical history of CAD status post CABG and multiple stents, ischemic cardiomyopathy hypertension, hyperlipidemia, insulin-dependent diabetes mellitus, and COPD with continued nicotine dependence. Patient presented to the emergency department on 11/20/21 with a chief complaint of chest pain accompanied by shortness of breath and nausea. Patient was found by EMS to be in A. fib with RVR and brought to the emergency department for evaluation. Upon arrival to the emergency department, patient underwent full evaluation. An EKG was completed which revealed sinus bradycardia at 55 bpm with peaked T waves and a repeat EKG was completed revealing sinus bradycardia at 39 bpm with occasional PACs. Chest x-ray negative for acute cardiopulmonary process. Labs were drawn. CBC revealed mild leukocytosis with WBC count of 11.5 and normocytic normochromic anemia with hemoglobin of 10.7. CMP revealing critical potassium of 7.4, acute kidney injury with BUN of 64, creatinine of 2.33, and GFR of 28 with baseline creatinine of 1 and non-anion gap metabolic acidosis with chloride 110, carbon dioxide 15, and anion gap of 11. Troponin elevated at 0.258 and pro-BMP of 2800. Patient was admitted under our services for severe hyperkalemia and acute kidney injury with atrial arrhythmias. An emergent dialysis catheter was placed to right groin and consults were placed to cardiology and nephrology. Hyperkalemia treated through emergent dialysis. Troponins trended and remained elevated at 0.227, 0.258, 0.264, and 0.296. Echocardiogram revealed severely impaired EF 25-30% with anteroapical and anteroseptal severe hypokinesis, moderate to severe mitral regurgitation, and mild tricuspid regurgitation. Bilateral lower extremity Dopplers completed negative for DVT. Patient undergo ing diuresis with Lasix, dialysis catheter removed 11/24/21, and patient started on sodium bicarb tablets 650 mg twice daily. Physical exam: Patient seen and fully evaluated at bedside this morning. He appears to be doing well. Urinary output over the past 24 hours was 2180 mL and IV Lasix changed over to oral Lasix. Patient currently denies having any chest pain, palpitations, shortness of breath, or any other complaints at this time. Patient to continue with sodium bicarb 650 mg twice daily. Morning labs revealed continued flat elevation of troponin at 0.296. Vital signs reviewed and stable. General: Nontoxic, no distress and appears stated age. Derm: Skin warm and dry, normal coloration for ethnicity. Head: Atraumatic, normocephalic and symmetric. Eyes: EOMs intact, no lid lag, and anicteric sclera Mouth: no lip lesions, mucus membranes moist Cardiovascular: Bradycardic rate and rhythm with normal S1S2, systolic murmur, positive posterior tibial pulses bilaterally, and cap refill < 2 seconds. Lungs: Respirations even, regular, and unlabored on room air. Lungs CTA bilaterally, no rhonchi, no rales, no wheezing, and no accessory muscle usage. Abdominal: soft, nontender to palpation, no guarding, no appreciable organomegal y Ext: ROM intact. No gross muscle atrophy, 1+ bilateral lower extremity edema to ankles, no contractures Neuro: Speech clear, face symmetrical and CN II-XII grossly intact with no noted focal neuro deficits Psych: Alert and oriented to person, place, time, and situation. Appropriate and pleasant affect. Assessment and Plan of Care: Severe hyperkalemia in setting of CRAIG inhibitor and Aldactone use Acute kidney injury, improving Atrial arrhythmias likely secondary to hyperkalemia NSTEMI, likely demand ischemia resulting from type II ID Bradycardia Ischemic cardiomyopathy with EF of 25-30% History of CAD status post CABG and multiple stents Hypertension Hyperlipidemia -Continuous Telemetry monitoring -Cardiology following, appreciate further recommendations -Nephrology following, appreciate further recommendations -Patient underwent emergent dialysis on 11/21/21 treating severe hyperkalemia. -Dialysis catheter placed on 11/20/21 and removed from right groin on 11/24/21. -Patient to continue Lasix 40 mg twice daily and sodium bicarb 650 mg twice daily -Aldactone and lisinopril discontinued -Continue cardiac medication regimen with aspirin, atorvastatin, and Plavix. -Continue strict I's and O's and daily weights. Insulin-dependent diabetes mellitus with a hemoglobin A1c of 9.1% -Continue long-acting Levemir nightly and place patient on glycemic protocol NovoLog sliding scale. CODE STATUS: Full code DVT prophylaxis: Heparin Discussed with: Patient and RN Anticipated discharge date: Clinical course to determine Anticipated discharge place: Home A total of 39 minutes was spent on the care of this complex patient more than 50% of the time was spent in counseling and care coordination. I reviewed the documentation as provided by the BRANDO above, who is the original author of this note. I agree with the documented assessment and plan, with the following changes: none Objective - Vital Signs Vital signs: Vital Signs Temp 97.9 F 11/25/21 04:00 Pulse 62 11/25/21 07:49 Resp 18 11/25/21 04:00 BP 132/75 11/25/21 04:00 Pulse Ox 92 L 11/25/21 07:49 FiO2 Intake & Output 11/24/21 11/25/21 11/25/21 18:59 06:59 18:59 Intake Total 1280 Output Total 800 1380 Balance 480 -1380 Weight 83.4 kg Intake: IV 80 Sodium Chloride 0.9% 1, 80 000 ml @ 50 mls/hr IV . Q20H [facility] Rx#:[id number] Oral 1200 Output: Urine 800 1380 Other: Voiding Method Urinal Urinal - Labs CBC & Chem 7: 11/26/21 13:31 11/26/21 07:00 Labs: Abnormal Lab Results - Last 24 Hours (Table) 11/24/21 11/24/21 11/24/21 Range/Units 06:12 11:47 17:00 APTT 31.0 H (22.0-30.0) sec POC Glucose (mg/dL) 234 H 237 H (70-110) mg/dL 11/24/21 11/24/21 11/25/21 Range/Units 20:15 22:16 06:12 APTT (22.0-30.0) sec POC Glucose (mg/dL) 257 H 225 H 181 H (70-110) mg/dL
[2021-11-25 17:01] LABS: Glucose,Whole Blood 247 mg/dL (70-110)
[2021-11-25] MEDS: HEPARIN SODIUM,PORCINE/PF 5,000 UNIT/0.5 ML SYRINGE SQ SCH (17:23)
[2021-11-25 20:19] LABS: Glucose,Whole Blood 225 mg/dL (70-110)
[2021-11-25] MEDS: ATORVASTATIN 80 MG TAB PO SCH (20:39)
[2021-11-25] MEDS ORDERED: INSULIN DETEMIR (LEVEMIR) 100 UNIT/ML SYR SQ SCH (21:00)
[2021-11-26] MEDS: HEPARIN SODIUM,PORCINE/PF 5,000 UNIT/0.5 ML SYRINGE SQ SCH ×2 (00:17→08:36)
[2021-11-26 06:10] LABS: Glucose,Whole Blood 153 mg/dL (70-110)
[2021-11-26] MEDS: carvediloL 12.5 MG TAB PO SCH (06:48)
[2021-11-26] MEDS: INSULIN ASPART (NovoLOG) 100 UNIT/ML VIAL SQ SCH ×4 (06:48→20:47)
[2021-11-26 07:59] LABS: Calcium 8.6 mg/dL (8.4-10.2); Potassium 4.4 mmol/L (3.5-5.1)
[2021-11-26] MEDS: SYMBICORT 160-4.5 MCG INHALER INHALATION SCH ×2 (08:20→20:36)
[2021-11-26] MEDS: IPRATROPIUM 0.5 MG/2.5 ML NEBU INHALATION SCH ×4 (08:20→20:36)
[2021-11-26 08:27] LABS: HCT 21.9 % (39.0-53.0); Hypochromasia Slight; MCH 29.7 pg (25.0-35.0); MCHC 32.3 g/dL (31.0-37.0); MCV 92.1 fL (80.0-100.0); Mean Platelet Volume 11.2; Platelet Count 175 k/uL (150-450); RBC 2.38 m/uL (4.30-5.90); RDW 15.2 % (11.5-15.5); WBC 16.8 k/uL (3.8-10.6)
--- NOTE | 2021-11-26 08:29 | P.PN ---
Subjective HISTORY OF PRESENT ILLNESS: The patient is a 71-year-old male with a known history of CAD, status post CABG, history of hypertension, hyperlipidemia and diabetes mellitus as well as chronic tobacco use, status post stenting and carotid stenting who for the last week has not been feeling well, feeling dyspneic with episodes of irregular heartbeat as well as chest discomfort radiating to both arms. Yesterday he felt dizzy and short of breath with the discomfort EMS noted that he was tachycardic with what complex tachycardia, crit present ventricular tachycardia although atrial fibrillation with aberrancy cannot be excluded subsequently he converted back to sinus mechanism with left bundle branch block and bradycardia. He had episode of ventricle arrhythmia. He is in sinus mechanism with episode of sinus bradycardia since admission. He has dyspnea at this time that has been chronic but no symptoms of chest discomfort any further. He has chronic peripheral edema. No PND or orthopnea. He has known history of chronic kidney disease according to him but worse on presentation. He has no clear PND or orthopnea. He is limited in his physical activity because of the dyspnea on exertion. In December 2013 he underwent cardiac catheterization by Dr. Shane the [place] to LAD was patent, SVG to circumflex was patent, SVG to the RCA had critical stenosis proximal to the stented segment in 2010, his [place] arteries he had total occl usion of his LAD and RCA and OM. He underwent stenting of the saphenous vein graft to the RCA using 30 by 26 resolute stent. His echocardiogram in 2018 showed an ejection fraction of 30-35%. He underwent placement of a dialysis catheter yesterday. On presentation yesterday his potassium was 7.4 BUN 64 creatinine 2.3, his troponin 0.227 and into proBNP of 2800. His hemoglobin was 10.7 and subsequent hemoglobin down to 6.3. His risk factors are positive for hypertension, hyperlipidemia, diabetes mellitus and chronic tobacco use Medications: Insulin, Lipitor 80 mg daily, Aldactone 25 mg daily, Glucophage 1 g twice a day, Zestril 20 mg daily, Coreg 12-1/2 mg twice a day, iron, Plavix 75 mg daily, aspirin once a day, Spiriva, Ventolin, pro-air 11/22 Pt seen and examined. Decreased hemoglobin noted to be lab error and repeats appears stable. He has been on heparin drip. His home lisinopril, Aldactone, carvedilol were discontinued and held secondary to hyperkalemia and bradycardia. No further significant bradycardia and we will restart carvedilol. Denies any further chest pressure or pain. Heart rates in the 90s to low 100 in sinus rhythm. He underwent dialysis yesterday with improvement in hyperkalemia. He is sitting upright in bed however denies any significant worsening dyspnea. No lower extremity edema. Remains on normal saline at 50 mL per hour. Echocardiogram performed yesterday shows ejection fraction 30% with moderate to severe mitral regurgitation. 11/23 Patient seen and examined. Patient states overall he is feeling fairly well however does have some nasal congestion. Denies any chun shortness breath. He admits he has not had much of an appetite over the last 1-2 weeks and still does not have much of an appetite. No chest pain or pressure. Still has Nitropatch on however no significant dyspnea. In stable at 1.46. Addendum entered and electronically signed by Harry Reeves DO 11/23/21 08:40: [facility] records from primary orthopedic mechanic Dr. Elder. Prior stress test from 10/25/2018 showed EF 39%, echocardiogram 07/19/2018 EF 30-35%, echo 10/25/2018 EF 20-25% however most recent echo 08/10/2021 mention EF 55-60%. There is drop in ejection fraction however main presentation appears related to decreased appetite, acute kidney injury and would treat cardiomyopathy, heart failure medically. Consider stress test/heart catheterization outpatient if kidney function improves. 11/24/2021 Patient examined this morning at the bedside. Patient denies chest pain or pressure. Denies SOB. He remains on IV heparin. Vital signs are stable. HD catheter was removed this morning by vascular surgery. 11/25/2021 Patient examined this morning. Patient is sitting up in the chair. Patient denies chest pain or pressure. He denies shortness of breath. The patient reports having some mild dizziness this morning while he was sitting in the chair which has since resolved. Patient's vital signs are stable. Blood pressure this morning 102/48. Repeat blood pressure 131/58. Telemetry reveals sinus mechanism. 11/26 Patient seen and examined. Patient's creatinine increased to 2.6 today. We had increased his carvedilol from 6.25-12.5 yesterday secondary to some chest pain and possible angina. Blood pressures somewhat borderline however no significant hypotensive episodes noted. Denies any further chest pain or pressure. PHYSICAL EXAM: VITAL SIGNS: Reviewed. GENERAL: Well-developed in no acute distress. NECK: Supple. No JVD or thyromegaly LUNGS: Respirations even and unlabored. Lungs essentially clear to auscultation bilaterally. HEART: Regular rate and rhythm. S1 and S2 heard. + systolic murmur. EXTREMITIES: Normal range of motion. No clubbing or cyanosis. Peripheral pulses intact. No lower extremity edema ASSESSMENT: 1. Atrial arrhythmia was possible runs of nonsustained VT and atrial fibrillation, probable worsening cause is the hyperkalemia 2. Symptoms of chest discomfort consistent with angina pectoris, resolved after controlling the heart rate 3. Non-STEMI secondary to ischemia, tachycardia and the worsening renal function, suspect type II mechanism 4. Acute renal injury with hyperkalemia 5. Prior history of severe ischemic cardiomyopathy 6. Status post CABG and prior PCI 7. History of peripheral vascular disease and carotid stenting 8. History of hypertension 9. History of diabetes 10. History of hyperlipidemia 11. Chronic systolic heart failure 12. Moderate to severe mitral regurgitation 13. Decreased appetite over the last 1-2 weeks unclear etiology PLAN: Patient with some chest pain not clearly angina however we had increased the carvedilol from 6.25 back up to the 12.5 twice a day which was his home dose. Blood pressure is borderline however given increase in creatinine may be some ATN and therefore we will decrease carvedilol back down of the 6.25 twice a day. Further recommendations per nephrology for acute kidney injury. Objective - Vital Signs Vital signs: Vital Signs Temp 98.1 F 11/26/21 04:00 Pulse 57 L 11/26/21 08:20 Resp 19 11/26/21 04:00 BP 116/57 11/26/21 04:00 Pulse Ox 99 11/26/21 08:20 FiO2 Intake & Output 11/25/21 11/26/21 11/26/21 18:59 06:59 18:59 Intake Total 416 Output Total 210 320 Balance 206 -320 Weight 83.4 kg 93.4 kg Intake: Oral 416 Output: Urine 210 320 Other: Voiding Method Urinal Urinal - Labs CBC & Chem 7: 11/23/21 05:27 11/26/21 07:00 Labs: Abnormal Lab Results - Last 24 Hours (Table) 11/25/21 11/25/21 11/25/21 Range/Units 07:06 07:06 11:45 Sodium 136 L (137-145) mmol/L BUN 41 H (9-20) mg/dL Creatinine 1.65 H (0.66-1.25) mg/dL Glucose 145 H (74-99) mg/dL POC Glucose (mg/dL) 267 H (70-110) mg/dL Troponin I 0.296 H* (0.000-0.034) ng/mL 11/25/21 11/25/21 11/26/21 Range/Units 16:56 20:17 06:09 Sodium (137-145) mmol/L BUN (9-20) mg/dL Creatinine (0.66-1.25) mg/dL Glucose (74-99) mg/dL POC Glucose (mg/dL) 247 H 225 H 153 H (70-110) mg/dL Troponin I (0.000-0.034) ng/mL 11/26/21 Range/Units 07:00 Sodium 135 L (137-145) mmol/L BUN 51 H (9-20) mg/dL Creatinine 2.65 H (0.66-1.25) mg/dL Glucose 114 H (74-99) mg/dL POC Glucose (mg/dL) (70-110) mg/dL Troponin I (0.000-0.034) ng/mL
[2021-11-26 08:31] LABS: HGB 7.1 gm/dL (13.0-17.5)
[2021-11-26] MEDS: buPROPion SR 150 MG TABLET.ER PO SCH ×2 (08:36→20:56)
[2021-11-26] MEDS: CLOPIDOGREL 75 MG TAB PO SCH (08:36)
[2021-11-26] MEDS: ASPIRIN 81 MG PO SCH (08:36)
[2021-11-26] MEDS: SODIUM BICARBONATE TAB 650 MG TAB PO SCH ×2 (08:36→20:46)
[2021-11-26] MEDS: FUROSEMIDE 40 MG TAB PO SCH (08:36)
--- NOTE | 2021-11-26 09:22 | P.PN ---
Subjective Progress Note Date: 11/26/21 Hospital course: Patient is a very pleasant 71-year-old male with a past medical history of CAD status post CABG and multiple stents, ischemic cardiomyopathy hypertension, hyperlipidemia, insulin-dependent diabetes mellitus, and COPD with continued nicotine dependence. Patient presented to the emergency department on 11/20/21 with a chief complaint of chest pain accompanied by shortness of breath and nausea. Patient was found by EMS to be in A. fib with RVR and brought to the emergency department for evaluation. Upon arrival to the emergency department, patient underwent full evaluation. An EKG was completed which revealed sinus bradycardia at 55 bpm with peaked T waves and a repeat EKG was completed revealing sinus bradycardia at 39 bpm with occasional PACs. Chest x-ray negative for acute cardiopulmonary process. Labs were drawn. CBC revealed mild leukocytosis with WBC count of 11.5 and normocytic normochromic anemia with hemoglobin of 10.7. CMP revealing critical potassium of 7.4, acute kidney injury with BUN of 64, creatinine of 2.33, and GFR of 28 with baseline creatinine of 1 and non-anion gap metabolic acidosis with chloride 110, carbon dioxide 15, and anion gap of 11. Troponin elevated at 0.258 and pro-BMP of 2800. Patient was admitted under our services for severe hyperkalemia and acute kidney injury with atrial arrhythmias. An emergent dialysis catheter was placed to right groin and consults were placed to cardiology and nephrology. Hyperkalemia treated through emergent dialysis. Troponins trended and remained elevated at 0.227, 0.258, 0.264, and 0.296. Echocardiogram revealed severely impaired EF 25-30% with anteroapical and anteroseptal severe hypokinesis, moderate to severe mitral regurgitation, and mild tricuspid regurgitation. Bilateral lower extremity Dopplers completed negative for DVT. Patient undergo ing diuresis with Lasix, dialysis catheter removed 11/24/21, and patient started on sodium bicarb tablets 650 mg twice daily. Physical exam: Patient seen and fully evaluated at bedside this morning. He reports experiencing increased shortness of breath at rest along with significant exertional dyspnea this morning. Patient denies currently experiencing any chest pain or discomfort. Morning labs reviewed revealing worsening leukocytosis with WBC count of 16.8, hemoglobin is 7.1, and worsening renal function with BUN of 51 and creatinine of 2.65. Discussed with RN as patient has also had significant decrease in urine output over the past 24 hours as patient has been averaging approximately 2000 mL of urinary output per day and over the past 24 hours patient has only had 530 mL. Patient was bladder scanned to monitor for retention however bladder scan reporting only 200 mL's. Patient denies having any abdominal pain or discomfort. He denies having any hematuria, melena, or hematochezia. We will repeat CBC as hemoglobin has been down ralph nding with a 4 g drop in 4 days. Cardiology also evaluated and decreased Coreg dose back down to 6.25 mg twice daily. Vital signs reviewed and stable. General: Nontoxic, no distress and appears stated age. Derm: Skin warm and dry, normal coloration for ethnicity. Head: Atraumatic, normocephalic and symmetric. Eyes: EOMs intact, no lid lag, and anicteric sclera Mouth: no lip lesions, mucus membranes moist Cardiovascular: Bradycardic rate and rhythm with normal S1S2, systolic murmur, positive posterior tibial pulses bilaterally, and cap refill < 2 seconds. Lungs: Respirations even, regular, and unlabored on room air. Lungs CTA bilaterally, no rhonchi, no rales, no wheezing, and no accessory muscle usage. Abdominal: soft, nontender to palpation, no guarding, no appreciable organome jose Ext: ROM intact. No gross muscle atrophy, 1+ bilateral lower extremity edema to ankles, no contractures Neuro: Speech clear, face symmetrical and CN II-XII grossly intact with no noted focal neuro deficits Psych: Alert and oriented to person, place, time, and situation. Appropriate and pleasant affect. Assessment and Plan of Care: Severe hyperkalemia in setting of CRAIG inhibitor and Aldactone use Acute kidney injury Atrial arrhythmias likely secondary to hyperkalemia NSTEMI, likely demand ischemia resulting from type II MT Bradycardia Ischemic cardiomyopathy with EF of 25-30% History of CAD status post CABG and multiple stents Hypertension Hyperlipidemia -Continuous Telemetry monitoring -Cardiology following, appreciate further recommendations -Nephrology following, appreciate further recommendations -Patient underwent emergent dialysis on 11/21/21 treating severe hyperkalemia. -Dialysis catheter placed on 11/20/21 and removed from right groin on 11/24/21. -Patient to continue Lasix 40 mg twice daily and sodium bicarb 650 mg twice daily -Aldactone and lisinopril discontinued -Continue cardiac medication regimen with aspirin, atorvastatin, and Plavix. -Continue strict I's and O's and daily weights. Acute on chronic anemia -Repeat CBC to ensure accuracy of findings, possibly diluted specimen -Fecal occult -Protonix 40 mg IVP twice daily -Additional orders will be placed pending findings. Insulin-dependent diabetes mellitus with a hemoglobin A1c of 9.1% -Continue long-acting Levemir nightly and place patient on glycemic protocol with NovoLog sliding scale. CODE STATUS: Full code DVT prophylaxis: Heparin Discussed with: Patient and RN Anticipated discharge date: Clinical course to determine Anticipated discharge place: Home A total of 39 minutes was spent on the care of this complex patient more than 50% of the time was spent in counseling and care coordination. Objective - Vital Signs Vital signs: Vital Signs Temp 97.6 F 11/26/21 08:32 Pulse 42 L 11/26/21 08:32 Resp 20 11/26/21 08:32 BP 96/57 11/26/21 08:32 Pulse Ox 100 11/26/21 08:32 FiO2 Intake & Output 11/25/21 11/26/21 11/26/21 18:59 06:59 18:59 Intake Total 416 Output Total 210 320 150 Balance 206 -320 -150 Weight 83.4 kg 93.4 kg Intake: Oral 416 Output: Urine 210 320 150 Other: Voiding Method Urinal Urinal Urinal - Labs CBC & Chem 7: 11/26/21 07:00 11/26/21 07:00 Labs: Abnormal Lab Results - Last 24 Hours (Table) 11/25/21 11/25/21 11/25/21 Range/Units 07:06 11:45 16:56 WBC (3.8-10.6) k/uL RBC (4.30-5.90) m/uL Hgb (13.0-17.5) gm/dL Hct (39.0-53.0) % Sodium (137-145) mmol/L BUN (9-20) mg/dL Creatinine (0.66-1.25) mg/dL Glucose (74-99) mg/dL POC Glucose (mg/dL) 267 H 247 H (70-110) mg/dL Troponin I 0.296 H* (0.000-0.034) ng/mL 11/25/21 11/26/21 11/26/21 Range/Units 20:17 06:09 07:00 WBC (3.8-10.6) k/uL RBC (4.30-5.90) m/uL Hgb (13.0-17.5) gm/dL Hct (39.0-53.0) % Sodium 135 L (137-145) mmol/L BUN 51 H (9-20) mg/dL Creatinine 2.65 H (0.66-1.25) mg/dL Glucose 114 H (74-99) mg/dL POC Glucose (mg/dL) 225 H 153 H (70-110) mg/dL Troponin I (0.000-0.034) ng/mL 11/26/21 Range/Units 07:00 WBC 16.8 H (3.8-10.6) k/uL RBC 2.38 L (4.30-5.90) m/uL Hgb 7.1 L D (13.0-17.5) gm/dL Hct 21.9 L (39.0-53.0) % Sodium (137-145) mmol/L BUN (9-20) mg/dL Creatinine (0.66-1.25) mg/dL Glucose (74-99) mg/dL POC Glucose (mg/dL) (70-110) mg/dL Troponin I (0.000-0.034) ng/mL
[2021-11-26] MEDS ORDERED: MORPHINE SULFATE 4 MG/ML SYRINGE IV PRN (09:58)
[2021-11-26] MEDS: PANTOPRAZOLE 40 MG/10 ML VIAL IVP SCH ×2 (10:14→20:46)
--- NOTE | 2021-11-26 10:19 | P.PN ---
Subjective Patient is seen in follow-up for acute kidney injury on chronic kidney disease. Renal function worse today. Creatinine 2.65. On IV Lasix. Per nurse, urine output also lower. Oral intake fair. Denies chest pain or shortness of breath. Blood pressure 96/57 this morning. White count is higher. Hemoglobin is also dropped. Bladder scan revealed 200 mL of urine. Vital signs are stable. Blood pressure on the lower side. General: Awake. No acute distress. HEENT: Head exam is unremarkable. LUNGS: Breath sounds decreased. HEART: Rate and Rhythm are regular. ABDOMEN: Soft, no distention. EXTREMITITES: Trace edema in ankles. Objective - Vital Signs Vital signs: Vital Signs Temp 97.6 F 11/26/21 08:32 Pulse 42 L 11/26/21 08:32 Resp 20 11/26/21 08:32 BP 96/57 11/26/21 08:32 Pulse Ox 100 11/26/21 08:32 FiO2 Intake & Output 11/25/21 11/26/21 11/26/21 18:59 06:59 18:59 Intake Total 416 Output Total 210 320 150 Balance 206 -320 -150 Weight 83.4 kg 93.4 kg Intake: Oral 416 Output: Urine 210 320 150 Other: Voiding Method Urinal Urinal Urinal - Labs CBC & Chem 7: 11/26/21 07:00 11/26/21 07:00 Labs: Abnormal Lab Results - Last 24 Hours (Table) 11/25/21 11/25/21 11/25/21 Range/Units 07:06 11:45 16:56 WBC (3.8-10.6) k/uL RBC (4.30-5.90) m/uL Hgb (13.0-17.5) gm/dL Hct (39.0-53.0) % Sodium (137-145) mmol/L BUN (9-20) mg/dL Creatinine (0.66-1.25) mg/dL Glucose (74-99) mg/dL POC Glucose (mg/dL) 267 H 247 H (70-110) mg/dL Troponin I 0.296 H* (0.000-0.034) ng/mL 11/25/21 11/26/21 11/26/21 Range/Units 20:17 06:09 07:00 WBC (3.8-10.6) k/uL RBC (4.30-5.90) m/uL Hgb (13.0-17.5) gm/dL Hct (39.0-53.0) % Sodium 135 L (137-145) mmol/L BUN 51 H (9-20) mg/dL Creatinine 2.65 H (0.66-1.25) mg/dL Glucose 114 H (74-99) mg/dL POC Glucose (mg/dL) 225 H 153 H (70-110) mg/dL Troponin I (0.000-0.034) ng/mL 11/26/21 Range/Units 07:00 WBC 16.8 H (3.8-10.6) k/uL RBC 2.38 L (4.30-5.90) m/uL Hgb 7.1 L D (13.0-17.5) gm/dL Hct 21.9 L (39.0-53.0) % Sodium (137-145) mmol/L BUN (9-20) mg/dL Creatinine (0.66-1.25) mg/dL Glucose (74-99) mg/dL POC Glucose (mg/dL) (70-110) mg/dL Troponin I (0.000-0.034) ng/mL Assessment and Plan Plan: Assessment: 1. Acute kidney injury secondary to ATN. Status post one treatment of hemodialysis this admission. Renal function worse from diuresis and hypotension - dose of Coreg decreased by cardiology. Creatinine 2.65 today. Urine output lower. No evidence of urinary retention. No hydronephrosis noted on kidney ultrasound on 11/16/2021. UA benign. 2. Chronic kidney disease stage IIIa with baseline creatinine in the range of 1.1-1.2 secondary to nephrosclerosis. UA benign. 3. Hyperkalemia secondary to acute kidney injury, metabolic acidosis, potassium supplementation, spironolactone and lisinopril. Improved postdialysis. 4. Metabolic acidosis secondary to acute kidney injury and metformin. Improved. On oral bicarb. 5. Diabetes mellitus. 6. Hypomagnesemia from diuresis and poor intake. Replaced. Better. 7. Acute on chronic systolic CHF with ejection fraction of 25-30% with moderate to severe mitral regurgitation. 8. Volume overload. Improved with diuresis. 9. Anemia. Rule out iron deficiency. Plan: Hold Lasix. Repeat chest x-ray. Encouraged oral intake. Dialysis catheter removed 11/24/2021. Avoid nephrotoxins. Continue to monitor renal function and urine output. Check a.m. cortisol level. Add midodrine. Hold for systolic blood pressure greater than 110. Check iron studies. Monitor hemoglobin and transfuse as needed. Follow-up stool for occult blood. Repeat UA and check blood cultures as well.
--- NOTE | 2021-11-26 10:38 | XR ---
EXAMINATION TYPE: XR chest 1V DATE OF EXAM: 11/26/2021 CLINICAL HISTORY: Difficulty breathing progress study. TECHNIQUE: Single AP portable upright view of the chest is obtained. COMPARISON: Chest x-ray from 4 days earlier FINDINGS: Overlying sternal wires and mediastinal clips are redemonstrated. Cardiomegaly is again se en. Lungs remain clear. Osseous structures are intact. IMPRESSION: Cardiomegaly without suspicious new acute pulmonary process.
[2021-11-26 10:46] LABS: Basophils # (A) 0.1 k/uL (0-0.2); Basophils % (A) 1 %; Eosinophils # (A) 0.5 k/uL (0-0.7); Eosinophils % (A) 3 %; HCT 22.2 % (39.0-53.0); Hypochromasia Slight; Lymphocytes # (A) 3.1 k/uL (1.0-4.8); Lymphocytes % (A) 18 %; MCH 29.1 pg (25.0-35.0); MCHC 31.2 g/dL (31.0-37.0); MCV 93.2 fL (80.0-100.0); Mean Platelet Volume 11.8; Monocytes # (A) 1.1 k/uL (0-1.0); Monocytes % (A) 6 %; Neutrophils # (A) 11.8 k/uL (1.3-7.7); Neutrophils % (A) 70 %; Platelet Count 181 k/uL (150-450); RBC 2.38 m/uL (4.30-5.90)
[2021-11-26] MEDS ORDERED: ONDANSETRON 4 MG/2 ML VIAL IVP STA (10:52)
[2021-11-26 10:54] LABS: Glucose,Whole Blood 267 mg/dL (70-110)
[2021-11-26 10:54] LABS: HGB 6.9 gm/dL (13.0-17.5)
[2021-11-26] MEDS ORDERED: CALCIUM GLUCONATE IN NACL 2 GM in SALINE 1 100ML.BAG IVPB ONE (11:15)
--- NOTE | 2021-11-26 11:41 | P.PN ---
Progress Note - Text Progress Note Date: 11/26/21 A- team: Indication: Symptomatic bradycardia Arrived on Scene to find: Received a page reporting that patient was having moderate to severe pain to mid and lower back radiating down bilateral legs and he was up sitting in chair. Order placed for morphine 4 mg IVP. Received a second page reporting that patient is now dizzy, lightheaded, and nauseous. Order placed for Zofran and patient was assisted into bed. RN then reported heart rate decreasing from mid 50s dropping to 40s and then 30 bpm and an A-team was called. Upon arrival to room patient's heart rate 32 bpm on monitor and blood pressure was stable at 109/57 he was lying in bed and appeared to be in acute distress with pallor and mild diaphoresis. He reported feeling short of breath, nauseous, dizzy and lightheaded and then had a witnessed episode of vomiting of clear fluids. Patient continues to report mid and lower back pain radiating into bilateral legs. Repeat CBC resulting is 6.9. Blood glucose 267. Order placed for transfusion 1 unit PRBCs, STAT EKG, CTA chest/abd/pelv with run off to rule out aortic dissection vs retroperitoneal bleeding as it is unclear where 4.5 g drop in hemoglobin has occurred over past 4 days. Right groin with previous dialysis catheter was placed showing no signs of hematoma or bleeding only minimal bruising noted. Upon examination patient had no noted bruising to back, buttocks, or flanks. EKG completed revealing sinus bradycardia at 34 bpm with new onset inferiolateral T-wave inversion and ST depression in leads I, II, aVL, V4, V5, and V6. Dr. Reeves, campaign marketing manager notified of these changes and ordered for 2 g calcium gluconate to be given at this time. Repeat troponin showing further elevation of 0.413. Patient was taken down for CT and CTA chest/abd/pelv with run off revealed no evidence for aortic aneurysm and no evidence for retroperitoneal hemorrhage. Patient's condition further deteriorated and he became hypotensive with blood pressure 80 systolic and heart rate of 30, order was placed for atropine 0.5 mg IVP 1 dose. Cardiology to bedside and started patient on dopamine at this time. Dr. Tuttle, Engineering Drawings Checker was also notified and accepted patient for transfer back to ICU at this time. taking over care of patient at this time as pt requiring intensive care management. Physical exam: General: appears in moderate to acute distress with noted pallor and diaphoresis. Derm: Pallor, diaphoresis Head: Atraumatic, normocephalic and symmetric. Eyes: EOMs intact, no lid lag, and anicteric sclera Mouth: no lip lesions, mucus membranes dry Cardiovascular: Bradycardic rate with regular rhythm, systolic murmur, positive posterior tibial pulses bilaterally, and cap refill < 2 seconds. Lungs: Respirations even, regular, and unlabored on room air. Lungs CTA bilaterally, no rhonchi, no rales, no wheezing, and no accessory muscle usage. GI/: Obese abdomen soft, nontender to palpation, no guarding, no appreciable organomegaly. Previous dialysis catheter access site right groin showing no signs of hematoma, drainage or bleeding only minimal bruising noted. Ext: ROM intact. No gross muscle atrophy, scant bilateral lower extremity edema to ankles, no contractures Neuro: Speech clear, face symmetrical and CN II-XII grossly intact with no noted focal neuro deficits Psych: Alert and oriented to person, place, time, and situation. Appropriate and pleasant affect. Assessment: Symptomatic bradycardia Acute blood loss anemia NSTEMI EKG changes concerning for inferiolateral ischemia Severe Hypotension requiring vasopressors Plan: -A-team was activated -EKG completed revealing sinus bradycardia at 34 bpm with inferiolateral T-wave inversion and ST depression in leads I, II, aVL, V4, V5, and V6 -Troponin 0.413 -CBC resulting is 6.9. Order placed for transfusion 1 unit PRBCs. Protonix 40 mg twice a day. -CTA chest/abd/pelv with run off completed, showing no evidence for aortic aneurysm and no evidence for retroperitoneal hemorrhage. -Patient received atropine 0.5 mg IVP 1 dose -Patient was started on dopamine infusion at 5 mcg/kg/m. -Patient transferred to ICU Disposition: Patient was started on dopamine infusion and being transferred to ICU, care of the patient being taken over by Dr. Rosales at this time. Notified: Power Screwdriver Operator, Dr. Reeves. Trolley Cleaner, Dr. Ruvalcaba, and Engineering Drawings Checker/Rayon Tester Dr. Tuttle. A Total of 49 minutes of critical care time was spent on the complex care of this patient. Agree with above charting, for additional information see my progress note where I assumed care of this patient. Enrique Sifuentes NP critical care time was independent of my critical care time. Enrique Sifuentes was not involved in the dosing of atropine, ordering dopamine, and ordering transfer to ICU that was completed under my critical care management.
[2021-11-26] MEDS ORDERED: ATROPINE SULFATE 0.1 MG/ML 10ML SYRINGE IV STA (11:57)
--- NOTE | 2021-11-26 11:57 | CT ---
EXAMINATION TYPE: CT angio thor/abd pel aorta DATE OF EXAM: 11/26/2021 COMPARISON: None HISTORY: dissection vs retroperitoneal bleed CT DLP: 1878.5 mGycm CONTRAST: CTA thoracic and abdominal aorta with 3-D reconstruction is performed and without and with IV Contras t, patient injected with 100 mL of Isovue 370. Contrast CTA of the thoracic and abdominal aorta was performed from the lung apex through the base of the pelvis. 3-D reconstruction imaging obtained at a separate workstation. CT Chest: THORACIC AORTA: There is no evidence for aneurysm. No dissection or mediastinal hematoma. Moderate atheromatous changes are seen. LUNGS: The lungs are clear and free of infiltrate or atelectasis. No pulmonary nodule or mass is det ected. No pleural effusion or CT evidence of interstitial lung disease. MEDIASTINUM: The heart is enlarged. No evidence for mediastinal mass or adenopathy. HILAR STRUCTURES: No evidence for mass. No hilar adenopathy is appreciated. OTHER: No significant abnormality. CONTRAST CT ABDOMEN AND PELVIS ABDOMINAL AORTA: Moderate atheromatous change throughout the abdominal aorta. No evidence for abdomin al aortic aneurysm. No dissection. Iliac vessels are symmetric and patent. LIVER/GB- No significant abnormality is seen. PANCREAS- No significant abnormality is seen. SPLEEN- No significant abnormality is seen. ADRENALS- No significant abnormality is seen. KIDNEYS/BLADDER- No significant abnormality is seen. BOWEL- No Significant abnormality GENITAL ORGANS: No gross abnormality seen. LYMPH NODES- No greater than 1cm abdominal or pelvic lymph nodes areappreciated. OSSEOUS STRUCTURES- No significant abnormality is seen. OTHER- No significant abnormality is seen. IMPRESSION- 1. No evidence for thoracic aortic aneurysm or dissection. No evidence for retroperitoneal hemorrhage . 2. No acute intrathoracic or intra-abdominal process appreciated at this time.
[2021-11-26] MEDS ORDERED: SODIUM CHLORIDE 0.9% 1,000 ML IV ONE (11:58)
[2021-11-26 12:26] LABS: Glucose,Whole Blood 286 mg/dL (70-110)
[2021-11-26] MEDS ORDERED: MIDODRINE 5 MG TAB PO SCH (12:30)
[2021-11-26] MEDS: DOPamine DRIP 800 MG in DEXTROSE/WATER 1 250ML.BAG IV SCH (13:11)
[2021-11-26 13:39] LABS: Glucose,Whole Blood 278 mg/dL (70-110)
[2021-11-26 13:58] LABS: HCT 21.1 % (39.0-53.0); Hypochromasia Moderate; MCH 29.8 pg (25.0-35.0); MCHC 31.5 g/dL (31.0-37.0); MCV 94.4 fL (80.0-100.0); Mean Platelet Volume 11.9; Platelet Count 176 k/uL (150-450); RBC 2.23 m/uL (4.30-5.90); RDW 15.6 % (11.5-15.5); Reticulocyte % 4.8 % (0.5-2.0)
[2021-11-26 14:02] LABS: Total Bilirubin 1.1 mg/dL (0.2-1.3)
[2021-11-26 14:06] LABS: HGB 6.7 gm/dL (13.0-17.5)
--- NOTE | 2021-11-26 14:20 | P.PN ---
Progress Note - Text Assumed care of this patient for hospitalist service at approx 11am. Patient seen and examined at bedside. He was complaining of feeling very lightheaded and dizzy, he felt as though he may pass out. He denies any chest pain or shortness of breath. He was complaining of back pain in the small of his back. He also is complaining of numbness and tingling down his legs and difficulty moving his legs. He states he just feels "unwell". During my exam showed up at bedside was updated. General: nontoxic, no distress, appears at stated age Derm: warm, dry- fll skin assesment without significant hematoma. Head: atraumatic, normocephalic, symmetric Eyes: EOMI, no lid lag, anicteric sclera Mouth: no lip lesion, mucus membranes moist Cardiovascular: S1S2 mark, no murmur, + posterior tibial pulse bilateral, + b/l radial pulse equal, cap refila > 2 seconds. Lungs: Coarse breath sounds bilateral, no rhonchi, no rales , no accessory muscle use Abdominal: soft, +tender to palpation diffusely, no guarding, no appreciable organomegaly Ext: no gross muscle atrophy, 1+ edema b/l , no contractures Neuro: CN II-XI grossly intact, moving all 4 extremities independently. Light touch intact bilateral lower extremities Psych: Fall asleep easily about being stimulated but awakes and answers questions appropriately,, oriented, appropriate affect Symptomatic Bradycardia Hypotension Cardiomyopathy with EF 25-30% REcent NSTEMI - Patient continue with bardycardia and BP 90/32. Given atropine 0.5 X 1 with HR 42 and BP 96/50. 0.9 NS 1L bolus started. - CXR without effusion or widened medistinum - D/W Dr. Tuttle who agress with transfer back to ICU - Paged to discuss dopamine gtt, he agrees with plan. Will also follow troponin. Anemia - 1 unit pRBC - follow CBC - Check LDH, haptoglobin, total bilirubin, reticulocyte count. Await iron studies - Serial CBC - CT aorta reviewed without dissection or retroperitoneal bleed - check US LE to rule out hematoma MILAD - wrosening - nehrology following, has been off HD and temporary cath has been removed. PT re-eval in the ICU - HR 65 and Map 63 on dopamine at 5. Patient still lethargic but awakes to voice. A total of 35 minutes of cirtical care time was spent with this complex patient
[2021-11-26 14:23] LABS: Appearance,Urine Clear (Clear); Bilirubin,Urine Negative (Negative); Blood,Urine Negative (Negative); Color,Urine Light Yellow; Glucose,Urine (UA) Negative (Negative); Ketones,Urine Negative (Negative); Leukocyte Esterase,Urine Negative (Negative); Nitrite,Urine Negative (Negative); Protein,Urine Negative (Negative); Specific Gravity,Urine 1.008 (1.001-1.035); Urobilinogen,Urine <2.0 mg/dL (<2.0)
[2021-11-26] MEDS ORDERED: SODIUM CHLORIDE 0.9% 1,000 ML IV SCH (14:30)
[2021-11-26] MEDS ORDERED: ACETAMINOPHEN IV (For NPO) 1,000 MG in EMPTY BAG 1 BAG IVPB STA (14:49)
[2021-11-26] MEDS ORDERED: NALOXONE 0.4 MG/ML 1 ML VIAL IV PRN (14:51)
[2021-11-26 15:09] LABS: % Iron Saturation 9.63 (15.00-50.00)
--- NOTE | 2021-11-26 15:21 | P.PN ---
Subjective Progress Note Date: 11/26/21 Principal diagnosis: Chest pain, acute non-ST elevation myocardial infarction 71-year-old male patient, known history of COPD maintained on a combination of Symbicort and Spiriva, history of nonspecific mediastinal lymphadenopathy being followed up through our office, coronary artery disease, previous bypass surgery, previous history of multiple coronary stents and a carotid artery stent in addition to chronic stage II kidney disease, diabetes mellitus, and hypertension, CHF with chronic systolic heart failure and ejection fraction of 30-35%. The patient has been having episodes of chest pain for the past few weeks. These are intermittent chest pains, not exacerbated with any activity and the patient has been having radiation to his arms, typically the pain would last for 5 minutes. Yesterday, he was having more pain and he end up coming into the hospital and the intensity of the pain was worse. He was also having some shortness of breath and nausea. EKG showed a wide-complex tachycardia and subsequently went into an A. fib rhythm. He was noted to be in acute kidney injury and the patient was also found to be hypokalemic and potassium level was elevated. Based on that, the patient was given calcium, he was given bicarb pushes, Kayexalate 15 g and ultimately a dialysis catheter was to proceed and the patient was given association of hemodialysis with subsequent improvement in his potassium level. The CRAIG inhibitor was also discontinued. The troponins were mildly elevated and the levels were 0.25 and 0.6 respectively. The rest of the blood work essentially within normal limits. The serum bicarb is up to 21. Creatinine this morning is down to 1.6 with a BUN of 45. The patient is awake and oriented. He is on IV heparin. History of any chest pain. The current cardiac rhythm is bradycardic, still wide-complex with first-degree AV block. The rhythm is sinus for now. The patient has been taken Coreg on outpatient basis. No syncope. No loss of consciousness. Reevaluated today on 11/22/21, patient remains in the ICU, remains on heparin, he is asymptomatic, no further episodes of angina or chest pain. Patient received hemodialysis on 11/20 and hemodialysis on 11/21, his potassium level came down from 7.4 to normal level today. Patient remains on heparin, his echocardiogram showed ejection fraction of 25-50%. Obviously the patient presented with hyperkalemia, atrial fibrillation, nonsustained ventricular tachycardia, acute kidney injury, and has made a significant amount in the last 24 hours. Clinically the patient is feeling much better today, breathing quite easily, not in any distress. His arrhythmia was felt to be related to his hyperkalemia. Patient is known to have history of severe ischemic cardiomyopathy and LV dysfunction. He also has history of moderate to severe mitral regurgitation. WBC count today is 11.6 hemoglobin is 9.3. Electrolytes are normal potassium 4.3 BUN is 39 and creatinine 1.45. Chest x-ray today showed borderline cardiomegaly, mild interstitial changes, mild pulmonary vascular congestion Reevaluated today on 11/23/2021, patient is doing well, he is now on overflow in the ICU from [facility] [place]. Patient is relatively asymptomatic, on room air, he feels fine except for some minimal nasal congestion. He also has a poor appetite. Denies any shortness of breath or cough or wheezing denies any chest pain. CBC is relatively normal hemoglobin is 8.6 PTT is 55.9 electrolytes are normal BUN is 36 creatinine 1.40 Patient was reevaluated today on 11/26/2021, patient had to be transferred back to the ICU this morning. Earlier today, the patient has been complaining of chest pain, lightheadedness, dizziness, and he felt like he was going to pass out. Patient also complained of numbness and tingling down his legs, and difficulty moving his legs. Obviously the patient wasn't doing well, and he was noted to have low hemoglobin he was also noted to have profound bradycardia and junctional rhythm. Arrangements were made for the patient to have thoracic aortic angiogram, it was basically unremarkable, no evidence of thoracic aortic aneurysm dissection and there was no evidence of intrathoracic or intra- abdominal process appreciated. Chest x-ray showed cardiomegaly without any significant suspicious pulmonary process. Hemoglobin this morning is 6.7 with a WBC count of 19.0. Hemoglobin was 9.3 and 8.62 days ago. Patient will be receiving a unit of packed RBCs, he was seen by cardiology and he was placed on dopamine for bradycardia and hypotension, and cardiology may consider taking the patient down for cardiac catheterization later today. Considering his worsening clinical picture, patient was transferred to the ICU, and I was asked to see him again Objective - Vital Signs Vital signs: Vital Signs Temp 94.8 F L 11/26/21 14:51 Pulse 60 11/26/21 14:51 Resp 18 11/26/21 14:51 BP 107/51 11/26/21 14:51 Pulse Ox 95 11/26/21 14:51 FiO2 Intake & Output 11/25/21 11/26/21 11/26/21 18:59 06:59 18:59 Intake Total 416 0 Output Total 210 320 150 Balance 206 -320 -150 Weight 83.4 kg 93.4 kg 89 kg Intake: Oral 416 Blood Product 0 Rc As-1 Unit 0 [id number] Output: Urine 210 320 150 Other: Voiding Method Urinal Urinal Urinal - Exam Physical Exam: Revealed a 71-year-old white male in no distress. On 2 L nasal cannula, O2 sats is 98%. Head: Pale looking Atraumatic, normocephalic HEENT: Pale looking. [Neck is supple.] [No neck masses.] [No thyromegaly.] [No JVD.] Dry mucous membranes. Chest: Symmetrical chest expansion, diminished breath sounds at the bases no crackles or rhonchi or wheezes Cardiac Exam: [Normal S1 and S2, no S3 gallop, 3/6 systolic murmur thought the precordium. Abdomen: [Soft, nontender, no megaly, no rebound, no guarding, normal bowel sounds.] Extremities: [No clubbing, no edema, no cyanosis.] Neurological Exam: [No focal neurologic deficit.] Alert oriented 3. Patient is generally weak. Psychiatric: Depressed mood flat affect and normal mental status examination. Skin: No rashes. - Labs CBC & Chem 7: 11/26/21 13:31 11/26/21 07:00 Labs: Abnormal Lab Results - Last 24 Hours (Table) 11/25/21 11/25/21 11/26/21 Range/Units 16:56 20:17 06:09 WBC (3.8-10.6) k/uL RBC (4.30-5.90) m/uL Hgb (13.0-17.5) gm/dL Hct (39.0-53.0) % RDW (11.5-15.5) % Neutrophils # (1.3-7.7) k/uL Monocytes # (0-1.0) k/uL Retic Count (0.5-2.0) % D-Dimer (<0.60) mg/L FEU Sodium (137-145) mmol/L BUN (9-20) mg/dL Creatinine (0.66-1.25) mg/dL Glucose (74-99) mg/dL POC Glucose (mg/dL) 247 H 225 H 153 H (70-110) mg/dL Plasma Lactic Acid Teddy (0.7-2.0) mmol/L Iron (65-175) ug/dL % Saturation (15.00-50.00) Ferritin (22.0-322.0) ng/mL Lactate Dehydrogenase (313-618) U/L Troponin I (0.000-0.034) ng/mL Crossmatch 11/26/21 11/26/21 11/26/21 Range/Units 07:00 07:00 07:00 WBC 16.8 H (3.8-10.6) k/uL RBC 2.38 L (4.30-5.90) m/uL Hgb 7.1 L D (13.0-17.5) gm/dL Hct 21.9 L (39.0-53.0) % RDW (11.5-15.5) % Neutrophils # (1.3-7.7) k/uL Monocytes # (0-1.0) k/uL Retic Count (0.5-2.0) % D-Dimer (<0.60) mg/L FEU Sodium 135 L (137-145) mmol/L BUN 51 H (9-20) mg/dL Creatinine 2.65 H (0.66-1.25) mg/dL Glucose 114 H (74-99) mg/dL POC Glucose (mg/dL) (70-110) mg/dL Plasma Lactic Acid Teddy (0.7-2.0) mmol/L Iron 38 L (65-175) ug/dL % Saturation 9.63 L (15.00-50.00) Ferritin 642.0 H (22.0-322.0) ng/mL Lactate Dehydrogenase (313-618) U/L Troponin I (0.000-0.034) ng/mL Crossmatch 11/26/21 11/26/21 11/26/21 Range/Units 09:42 10:51 11:44 WBC 17.0 H (3.8-10.6) k/uL RBC 2.38 L (4.30-5.90) m/uL Hgb 6.9 L* (13.0-17.5) gm/dL Hct 22.2 L (39.0-53.0) % RDW (11.5-15.5) % Neutrophils # 11.8 H (1.3-7.7) k/uL Monocytes # 1.1 H (0-1.0) k/uL Retic Count (0.5-2.0) % D-Dimer (<0.60) mg/L FEU Sodium (137-145) mmol/L BUN (9-20) mg/dL Creatinine (0.66-1.25) mg/dL Glucose (74-99) mg/dL POC Glucose (mg/dL) 267 H (70-110) mg/dL Plasma Lactic Acid Teddy (0.7-2.0) mmol/L Iron (65-175) ug/dL % Saturation (15.00-50.00) Ferritin (22.0-322.0) ng/mL Lactate Dehydrogenase (313-618) U/L Troponin I (0.000-0.034) ng/mL Crossmatch See Detail 11/26/21 11/26/21 11/26/21 Range/Units 11:44 12:25 13:31 WBC 19.0 H (3.8-10.6) k/uL RBC 2.23 L (4.30-5.90) m/uL Hgb 6.7 L* (13.0-17.5) gm/dL Hct 21.1 L (39.0-53.0) % RDW 15.6 H (11.5-15.5) % Neutrophils # (1.3-7.7) k/uL Monocytes # (0-1.0) k/uL Retic Count 4.8 H (0.5-2.0) % D-Dimer (<0.60) mg/L FEU Sodium (137-145) mmol/L BUN (9-20) mg/dL Creatinine (0.66-1.25) mg/dL Glucose (74-99) mg/dL POC Glucose (mg/dL) 286 H (70-110) mg/dL Plasma Lactic Acid Teddy (0.7-2.0) mmol/L Iron (65-175) ug/dL % Saturation (15.00-50.00) Ferritin (22.0-322.0) ng/mL Lactate Dehydrogenase (313-618) U/L Troponin I 0.413 H* (0.000-0.034) ng/mL Crossmatch 11/26/21 11/26/21 11/26/21 Range/Units 13:31 13:31 13:38 WBC (3.8-10.6) k/uL RBC (4.30-5.90) m/uL Hgb (13.0-17.5) gm/dL Hct (39.0-53.0) % RDW (11.5-15.5) % Neutrophils # (1.3-7.7) k/uL Monocytes # (0-1.0) k/uL Retic Count (0.5-2.0) % D-Dimer 2.80 H (<0.60) mg/L FEU Sodium (137-145) mmol/L BUN (9-20) mg/dL Creatinine (0.66-1.25) mg/dL Glucose (74-99) mg/dL POC Glucose (mg/dL) 278 H (70-110) mg/dL Plasma Lactic Acid Teddy (0.7-2.0) mmol/L Iron (65-175) ug/dL % Saturation (15.00-50.00) Ferritin (22.0-322.0) ng/mL Lactate Dehydrogenase 678 H (313-618) U/L Troponin I (0.000-0.034) ng/mL Crossmatch 11/26/21 Range/Units 14:30 WBC (3.8-10.6) k/uL RBC (4.30-5.90) m/uL Hgb (13.0-17.5) gm/dL Hct (39.0-53.0) % RDW (11.5-15.5) % Neutrophils # (1.3-7.7) k/uL Monocytes # (0-1.0) k/uL Retic Count (0.5-2.0) % D-Dimer (<0.60) mg/L FEU Sodium (137-145) mmol/L BUN (9-20) mg/dL Creatinine (0.66-1.25) mg/dL Glucose (74-99) mg/dL POC Glucose (mg/dL) (70-110) mg/dL Plasma Lactic Acid Teddy 2.3 H* (0.7-2.0) mmol/L Iron (65-175) ug/dL % Saturation (15.00-50.00) Ferritin (22.0-322.0) ng/mL Lactate Dehydrogenase (313-618) U/L Troponin I (0.000-0.034) ng/mL Crossmatch Assessment and Plan Assessment: Impression: Symptomatic bradycardia Severe cardiomyopathy/ischemic cardiomyopathy and LV dysfunction with ejection fraction of 25-30%. Recent non-ST elevation myocardial infarction Atrial fibrillation with nonsustained ventricular tachycardia, and associated with hyperkalemia. Recurrent unstable angina is strongly suspected. Severe ischemic cardiomyopathy Acute on chronic kidney disease History of CABG and previous PCI. History of underlying COPD, maintained on Symbicort and Spiriva on outpatient basis. History of nonspecific mediastinal adenopathy Moderate to severe mitral regurgitation Chronic systolic congestive heart failure Type 2 diabetes Dyslipidemia History of peripheral vessel occlusive disease and carotid stenting Recommendation: Patient was transferred and evaluated in the ICU Agree with dopamine Resume cardiac meds. Patient to be seen by cardiology and possibly consider cardiac catheterization this afternoon. Transfused to hemoglobin of above 7. Diagnostic studies ordered and done today were reviewed. We'll continue to follow in the ICU. Resume cardiac meds Continue bronchodilators Will follow. Time with Patient: Less than 30
[2021-11-26 16:45] LABS: Glucose,Whole Blood 239 mg/dL (70-110)
--- NOTE | 2021-11-26 17:01 | US ---
EXAMINATION TYPE: US Right Groin DATE OF EXAM: 11/26/2021 COMPARISON: NONE CLINICAL HISTORY: ?hematoma had a femoral TLC. pain rt groin had dialysis done. Scanned area of concern no abnormalities seen. IMPRESSION: There is flow in the femoral vein. No evidence of a hernia. No pathologic fluid collection identified. MTDD
[2021-11-26] MEDS ORDERED: carvediloL 6.25 MG TAB PO SCH (17:30)
[2021-11-26 17:42] LABS: HCT 26.5 % (39.0-53.0); Hypochromasia Slight; MCH 29.9 pg (25.0-35.0); MCV 93.2 fL (80.0-100.0); Mean Platelet Volume 10.8; Platelet Count 181 k/uL (150-450); RBC 2.85 m/uL (4.30-5.90); RDW 15.1 % (11.5-15.5); WBC 21.2 k/uL (3.8-10.6)
[2021-11-26 17:48] LABS: HGB 8.5 gm/dL (13.0-17.5)
[2021-11-26 20:21] LABS: Glucose,Whole Blood 180 mg/dL (70-110)
[2021-11-26] MEDS: ATORVASTATIN 80 MG TAB PO SCH (20:46)
[2021-11-26] MEDS: INSULIN DETEMIR (LEVEMIR) 100 UNIT/ML SYR SQ SCH (20:46)
[2021-11-27] LABS: Hypochromasia Slight; MCH 30.8 pg (25.0-35.0); MCHC 33.3 g/dL (31.0-37.0); MCV 92.5 fL (80.0-100.0); Mean Platelet Volume 11.2; Platelet Count 165 k/uL (150-450); RBC 2.92 m/uL (4.30-5.90); RDW 15.3 % (11.5-15.5); WBC 19.8 k/uL (3.8-10.6)
[2021-11-27 05:46] LABS: Anisocytosis Slight; HCT 25.3 % (39.0-53.0); HGB 8.3 gm/dL (13.0-17.5); MCH 30.5 pg (25.0-35.0); MCHC 32.8 g/dL (31.0-37.0); MCV 92.9 fL (80.0-100.0); Mean Platelet Volume 10.8; Platelet Count 198 k/uL (150-450); Poikilocytosis Slight; RBC 2.72 m/uL (4.30-5.90); RDW 16.1 % (11.5-15.5); WBC 19.8 k/uL (3.8-10.6)
[2021-11-27 05:57] LABS: INR 1.3 (<1.2); Prothrombin Time 13.1 sec (9.0-12.0)
[2021-11-27 06:18] LABS: Albumin 3.5 g/dL (3.5-5.0); Calcium 8.6 mg/dL (8.4-10.2); Magnesium 2.1 mg/dL (1.6-2.3); Phosphorus 4.7 mg/dL (2.5-4.5); Potassium 4.7 mmol/L (3.5-5.1); Total Bilirubin 2.1 mg/dL (0.2-1.3)
[2021-11-27 06:32] LABS: Glucose,Whole Blood 71 mg/dL (70-110)
[2021-11-27] MEDS: INSULIN ASPART (NovoLOG) 100 UNIT/ML VIAL SQ SCH ×4 (06:41→21:07)
[2021-11-27] MEDS: SYMBICORT 160-4.5 MCG INHALER INHALATION SCH ×2 (07:50→20:27)
[2021-11-27] MEDS: IPRATROPIUM 0.5 MG/2.5 ML NEBU INHALATION SCH ×4 (07:50→20:27)
[2021-11-27] MEDS: buPROPion SR 150 MG TABLET.ER PO SCH ×2 (10:18→21:15)
[2021-11-27] MEDS: ASPIRIN 81 MG PO SCH (10:18)
[2021-11-27] MEDS: SODIUM BICARBONATE TAB 650 MG TAB PO SCH ×2 (10:18→21:07)
[2021-11-27] MEDS: PANTOPRAZOLE 40 MG/10 ML VIAL IVP SCH ×2 (10:18→21:07)
[2021-11-27] MEDS: CLOPIDOGREL 75 MG TAB PO SCH (10:18)
--- NOTE | 2021-11-27 10:23 | P.PN ---
Subjective Progress Note Date: 11/27/21 Principal diagnosis: Chest pain, acute non-ST elevation myocardial infarction 71-year-old male patient, known history of COPD maintained on a combination of Symbicort and Spiriva, history of nonspecific mediastinal lymphadenopathy being followed up through our office, coronary artery disease, previous bypass surgery, previous history of multiple coronary stents and a carotid artery stent in addition to chronic stage II kidney disease, diabetes mellitus, and hypertension, CHF with chronic systolic heart failure and ejection fraction of 30-35%. The patient has been having episodes of chest pain for the past few weeks. These are intermittent chest pains, not exacerbated with any activity and the patient has been having radiation to his arms, typically the pain would last for 5 minutes. Yesterday, he was having more pain and he end up coming into the hospital and the intensity of the pain was worse. He was also having some shortness of breath and nausea. EKG showed a wide-complex tachycardia and subsequently went into an A. fib rhythm. He was noted to be in acute kidney injury and the patient was also found to be hypokalemic and potassium level was elevated. Based on that, the patient was given calcium, he was given bicarb pushes, Kayexalate 15 g and ultimately a dialysis catheter was to proceed and the patient was given association of hemodialysis with subsequent improvement in his potassium level. The CRAIG inhibitor was also discontinued. The troponins were mildly elevated and the levels were 0.25 and 0.6 respectively. The rest of the blood work essentially within normal limits. The serum bicarb is up to 21. Creatinine this morning is down to 1.6 with a BUN of 45. The patient is awake and oriented. He is on IV heparin. History of any chest pain. The current cardiac rhythm is bradycardic, still wide-complex with first-degree AV block. The rhythm is sinus for now. The patient has been taken Coreg on outpatient basis. No syncope. No loss of consciousness. Reevaluated today on 11/22/21, patient remains in the ICU, remains on heparin, he is asymptomatic, no further episodes of angina or chest pain. Patient received hemodialysis on 11/20 and hemodialysis on 11/21, his potassium level came down from 7.4 to normal level today. Patient remains on heparin, his echocardiogram showed ejection fraction of 25-50%. Obviously the patient presented with hyperkalemia, atrial fibrillation, nonsustained ventricular tachycardia, acute kidney injury, and has made a significant amount in the last 24 hours. Clinically the patient is feeling much better today, breathing quite easily, not in any distress. His arrhythmia was felt to be related to his hyperkalemia. Patient is known to have history of severe ischemic cardiomyopathy and LV dysfunction. He also has history of moderate to severe mitral regurgitation. WBC count today is 11.6 hemoglobin is 9.3. Electrolytes are normal potassium 4.3 BUN is 39 and creatinine 1.45. Chest x-ray today showed borderline cardiomegaly, mild interstitial changes, mild pulmonary vascular congestion Reevaluated today on 11/23/2021, patient is doing well, he is now on overflow in the ICU from [facility]. Patient is relatively asymptomatic, on room air, he feels fine except for some minimal nasal congestion. He also has a poor appetite. Denies any shortness of breath or cough or wheezing denies any chest pain. CBC is relatively normal hemoglobin is 8.6 PTT is 55.9 electrolytes are normal BUN is 36 creatinine 1.40 Patient was reevaluated today on 11/26/2021, patient had to be transferred back to the ICU this morning. Earlier today, the patient has been complaining of chest pain, lightheadedness, dizziness, and he felt like he was going to pass out. Patient also complained of numbness and tingling down his legs, and difficulty moving his legs. Obviously the patient wasn't doing well, and he was noted to have low hemoglobin he was also noted to have profound bradycardia and junctional rhythm. Arrangements were made for the patient to have thoracic aortic angiogram, it was basically unremarkable, no evidence of thoracic aortic aneurysm dissection and there was no evidence of intrathoracic or intra- abdominal process appreciated. Chest x-ray showed cardiomegaly without any significant suspicious pulmonary process. Hemoglobin this morning is 6.7 with a WBC count of 19.0. Hemoglobin was 9.3 and 8.62 days ago. Patient will be receiving a unit of packed RBCs, he was seen by cardiology and he was placed on dopamine for bradycardia and hypotension, and cardiology may consider taking the patient down for cardiac catheterization later today. Considering his worsening clinical picture, patient was transferred to the ICU, and I was asked to see him again Reevaluated today on , patient remains in the ICU, feeling much better today compared to yesterday. He is on 2 L nasal cannula remains on dopamine at 2 mcg/kg/m she is also on IV fluid at 50 mL per hour. Remains in a junctional rhythm with rate in the low 60s. His chest pain has resolved. Patient is relatively asymptomatic and feels much better today compared to yesterday. His hemoglobin today is 8.3 WBC count is 19.8 electrolytes are normal renal profile showed a BUN of 51 creatinine 2.50, slightly improved compared to yesterday. Objective - Vital Signs Vital signs: Vital Signs Temp 98.2 F 11/27/21 04:00 Pulse 60 11/27/21 08:10 Resp 16 11/27/21 07:00 BP 131/56 11/27/21 07:00 Pulse Ox 97 11/27/21 07:00 FiO2 Intake & Output 11/26/21 11/27/21 11/27/21 18:59 06:59 18:59 Intake Total 847.282 930 50 Output Total 670 1650 75 Balance 177.282 -720 -25 Weight 89 kg 89 kg Intake: IV 490 550 50 Sodium Chloride 0.9% 1, 490 550 50 000 ml @ 50 mls/hr IV . Q20H FR[facility]RICK Rx#:[id number] Intake, IV Titration 47.282 Amount DOPamine DRIP 800 mg In 47.282 Dextrose/Water 1 250ml. bag @ 5 MCG/KG/MIN 8.756 mls/hr IV .Q24H FREDRICK Rx#: [id number] Oral 380 Blood Product 310 Rc As-1 Unit 310 [id number] Output: Urine 670 1650 75 Other: Voiding Method Indwelling Catheter Indwelling Catheter - Exam Physical Exam: Revealed a 71-year-old white male in no distress. Remains on 2 L nasal cannula Head: Atraumatic, normocephalic. HEENT: [Neck is supple.] [No neck masses.] [No thyromegaly.] [No JVD.] Dry mucous membranes. Chest: Symmetrical chest expansion, diminished breath sounds at the bases no crackles or rhonchi or wheezes Cardiac Exam: [Normal S1 and S2, no S3 gallop, 3/6 systolic murmur thought the precordium. Abdomen: [Soft, nontender, no megaly, no rebound, no guarding, normal bowel sounds.] Extremities: [No clubbing, no edema, no cyanosis.] Neurological Exam: [No focal neurologic deficit.] Alert oriented 3. Remain generally weak Psychiatric: Depressed mood flat affect and normal mental status examination. Skin: No rashes. - Labs CBC & Chem 7: 11/27/21 05:27 11/27/21 05:27 Labs: Abnormal Lab Results - Last 24 Hours (Table) 11/26/21 11/26/21 11/26/21 Range/Units 07:00 09:42 10:51 WBC 17.0 H (3.8-10.6) k/uL RBC 2.38 L (4.30-5.90) m/uL Hgb 6.9 L* (13.0-17.5) gm/dL Hct 22.2 L (39.0-53.0) % RDW (11.5-15.5) % Neutrophils # 11.8 H (1.3-7.7) k/uL Monocytes # 1.1 H (0-1.0) k/uL Retic Count (0.5-2.0) % PT (9.0-12.0) sec INR (<1.2) D-Dimer (<0.60) mg/L FEU Sodium (137-145) mmol/L Carbon Dioxide (22-30) mmol/L BUN (9-20) mg/dL Creatinine (0.66-1.25) mg/dL Glucose (74-99) mg/dL POC Glucose (mg/dL) 267 H (70-110) mg/dL Plasma Lactic Acid Teddy (0.7-2.0) mmol/L Phosphorus (2.5-4.5) mg/dL Iron 38 L (65-175) ug/dL % Saturation 9.63 L (15.00-50.00) Ferritin 642.0 H (22.0-322.0) ng/mL Total Bilirubin (0.2-1.3) mg/dL AST (17-59) U/L ALT (4-49) U/L Lactate Dehydrogenase (313-618) U/L Troponin I (0.000-0.034) ng/mL Total Protein (6.3-8.2) g/dL Crossmatch 11/26/21 11/26/21 11/26/21 Range/Units 11:44 11:44 12:25 WBC (3.8-10.6) k/uL RBC (4.30-5.90) m/uL Hgb (13.0-17.5) gm/dL Hct (39.0-53.0) % RDW (11.5-15.5) % Neutrophils # (1.3-7.7) k/uL Monocytes # (0-1.0) k/uL Retic Count (0.5-2.0) % PT (9.0-12.0) sec INR (<1.2) D-Dimer (<0.60) mg/L FEU Sodium (137-145) mmol/L Carbon Dioxide (22-30) mmol/L BUN (9-20) mg/dL Creatinine (0.66-1.25) mg/dL Glucose (74-99) mg/dL POC Glucose (mg/dL) 286 H (70-110) mg/dL Plasma Lactic Acid Teddy (0.7-2.0) mmol/L Phosphorus (2.5-4.5) mg/dL Iron (65-175) ug/dL % Saturation (15.00-50.00) Ferritin (22.0-322.0) ng/mL Total Bilirubin (0.2-1.3) mg/dL AST (17-59) U/L ALT (4-49) U/L Lactate Dehydrogenase (313-618) U/L Troponin I 0.413 H* (0.000-0.034) ng/mL Total Protein (6.3-8.2) g/dL Crossmatch See Detail 11/26/21 11/26/21 11/26/21 Range/Units 13:31 13:31 13:31 WBC 19.0 H (3.8-10.6) k/uL RBC 2.23 L (4.30-5.90) m/uL Hgb 6.7 L* (13.0-17.5) gm/dL Hct 21.1 L (39.0-53.0) % RDW 15.6 H (11.5-15.5) % Neutrophils # (1.3-7.7) k/uL Monocytes # (0-1.0) k/uL Retic Count 4.8 H (0.5-2.0) % PT (9.0-12.0) sec INR (<1.2) D-Dimer 2.80 H (<0.60) mg/L FEU Sodium (137-145) mmol/L Carbon Dioxide (22-30) mmol/L BUN (9-20) mg/dL Creatinine (0.66-1.25) mg/dL Glucose (74-99) mg/dL POC Glucose (mg/dL) (70-110) mg/dL Plasma Lactic Acid Teddy (0.7-2.0) mmol/L Phosphorus (2.5-4.5) mg/dL Iron (65-175) ug/dL % Saturation (15.00-50.00) Ferritin (22.0-322.0) ng/mL Total Bilirubin (0.2-1.3) mg/dL AST (17-59) U/L ALT (4-49) U/L Lactate Dehydrogenase 678 H (313-618) U/L Troponin I (0.000-0.034) ng/mL Total Protein (6.3-8.2) g/dL Crossmatch 11/26/21 11/26/21 11/26/21 Range/Units 13:38 14:30 16:44 WBC (3.8-10.6) k/uL RBC (4.30-5.90) m/uL Hgb (13.0-17.5) gm/dL Hct (39.0-53.0) % RDW (11.5-15.5) % Neutrophils # (1.3-7.7) k/uL Monocytes # (0-1.0) k/uL Retic Count (0.5-2.0) % PT (9.0-12.0) sec INR (<1.2) D-Dimer (<0.60) mg/L FEU Sodium (137-145) mmol/L Carbon Dioxide (22-30) mmol/L BUN (9-20) mg/dL Creatinine (0.66-1.25) mg/dL Glucose (74-99) mg/dL POC Glucose (mg/dL) 278 H 239 H (70-110) mg/dL Plasma Lactic Acid Teddy 2.3 H* (0.7-2.0) mmol/L Phosphorus (2.5-4.5) mg/dL Iron (65-175) ug/dL % Saturation (15.00-50.00) Ferritin (22.0-322.0) ng/mL Total Bilirubin (0.2-1.3) mg/dL AST (17-59) U/L ALT (4-49) U/L Lactate Dehydrogenase (313-618) U/L Troponin I (0.000-0.034) ng/mL Total Protein (6.3-8.2) g/dL Crossmatch 11/26/21 11/26/21 11/26/21 Range/Units 17:10 17:10 18:39 WBC 21.2 H (3.8-10.6) k/uL RBC 2.85 L (4.30-5.90) m/uL Hgb 8.5 L D (13.0-17.5) gm/dL Hct 26.5 L (39.0-53.0) % RDW (11.5-15.5) % Neutrophils # (1.3-7.7) k/uL Monocytes # (0-1.0) k/uL Retic Count (0.5-2.0) % PT (9.0-12.0) sec INR (<1.2) D-Dimer (<0.60) mg/L FEU Sodium (137-145) mmol/L Carbon Dioxide (22-30) mmol/L BUN (9-20) mg/dL Creatinine (0.66-1.25) mg/dL Glucose (74-99) mg/dL POC Glucose (mg/dL) (70-110) mg/dL Plasma Lactic Acid Teddy (0.7-2.0) mmol/L Phosphorus (2.5-4.5) mg/dL Iron (65-175) ug/dL % Saturation (15.00-50.00) Ferritin (22.0-322.0) ng/mL Total Bilirubin (0.2-1.3) mg/dL AST (17-59) U/L ALT (4-49) U/L Lactate Dehydrogenase (313-618) U/L Troponin I 0.318 H* 0.368 H* (0.000-0.034) ng/mL Total Protein (6.3-8.2) g/dL Crossmatch 11/26/21 11/26/21 11/27/21 Range/Units 20:20 23:35 05:27 WBC 19.8 H 19.8 H (3.8-10.6) k/uL RBC 2.92 L 2.72 L (4.30-5.90) m/uL Hgb 9.0 L 8.3 L (13.0-17.5) gm/dL Hct 27.0 L 25.3 L (39.0-53.0) % RDW 16.1 H (11.5-15.5) % Neutrophils # (1.3-7.7) k/uL Monocytes # (0-1.0) k/uL Retic Count (0.5-2.0) % PT (9.0-12.0) sec INR (<1.2) D-Dimer (<0.60) mg/L FEU Sodium (137-145) mmol/L Carbon Dioxide (22-30) mmol/L BUN (9-20) mg/dL Creatinine (0.66-1.25) mg/dL Glucose (74-99) mg/dL POC Glucose (mg/dL) 180 H (70-110) mg/dL Plasma Lactic Acid Teddy (0.7-2.0) mmol/L Phosphorus (2.5-4.5) mg/dL Iron (65-175) ug/dL % Saturation (15.00-50.00) Ferritin (22.0-322.0) ng/mL Total Bilirubin (0.2-1.3) mg/dL AST (17-59) U/L ALT (4-49) U/L Lactate Dehydrogenase (313-618) U/L Troponin I (0.000-0.034) ng/mL Total Protein (6.3-8.2) g/dL Crossmatch 11/27/21 11/27/21 Range/Units 05:27 05:27 WBC (3.8-10.6) k/uL RBC (4.30-5.90) m/uL Hgb (13.0-17.5) gm/dL Hct (39.0-53.0) % RDW (11.5-15.5) % Neutrophils # (1.3-7.7) k/uL Monocytes # (0-1.0) k/uL Retic Count (0.5-2.0) % PT 13.1 H (9.0-12.0) sec INR 1.3 H (<1.2) D-Dimer (<0.60) mg/L FEU Sodium 135 L (137-145) mmol/L Carbon Dioxide 21 L (22-30) mmol/L BUN 51 H (9-20) mg/dL Creatinine 2.50 H (0.66-1.25) mg/dL Glucose 60 L (74-99) mg/dL POC Glucose (mg/dL) (70-110) mg/dL Plasma Lactic Acid Teddy (0.7-2.0) mmol/L Phosphorus 4.7 H (2.5-4.5) mg/dL Iron (65-175) ug/dL % Saturation (15.00-50.00) Ferritin (22.0-322.0) ng/mL Total Bilirubin 2.1 H (0.2-1.3) mg/dL AST 272 H (17-59) U/L ALT 224 H (4-49) U/L Lactate Dehydrogenase (313-618) U/L Troponin I (0.000-0.034) ng/mL Total Protein 6.0 L (6.3-8.2) g/dL Crossmatch Assessment and Plan Assessment: Impression: Symptomatic bradycardia Severe cardiomyopathy/ischemic cardiomyopathy and LV dysfunction with ejection fraction of 25-30%. Recent non-ST elevation myocardial infarction Atrial fibrillation with nonsustained ventricular tachycardia, and associated with hyperkalemia. Recurrent unstable angina is strongly suspected. Severe ischemic cardiomyopathy Acute on chronic kidney disease History of CABG and previous PCI. History of underlying COPD, maintained on Symbicort and Spiriva on outpatient basis. History of nonspecific mediastinal adenopathy Moderate to severe mitral regurgitation Chronic systolic congestive heart failure Type 2 diabetes Dyslipidemia History of peripheral vessel occlusive disease and carotid stenting Recommendation: Continue to monitor in the ICU Continue dopamine but possibly patient will need a lower dose that is to be decided upon by cardiology when they're round on the patient Resume cardiac meds. May require cardiac catheterization however this is to be decided upon by cardiology Resume cardiac meds Continue bronchodilators Will follow. Time with Patient: Less than 30
[2021-11-27 10:25] LABS: Glucose,Whole Blood 60 mg/dL (70-110)
[2021-11-27] MEDS: INSULIN DETEMIR (LEVEMIR) 100 UNIT/ML SYR SQ SCH ×2 (10:26→21:06)
[2021-11-27 11:24] LABS: Glucose,Whole Blood 84 mg/dL (70-110)
--- NOTE | 2021-11-27 13:36 | P.PN ---
Subjective HISTORY OF PRESENT ILLNESS: The patient is a 71-year-old male with a known history of CAD, status post CABG, history of hypertension, hyperlipidemia and diabetes mellitus as well as chronic tobacco use, status post stenting and carotid stenting who for the last week has not been feeling well, feeling dyspneic with episodes of irregular heartbeat as well as chest discomfort radiating to both arms. Yesterday he felt dizzy and short of breath with the discomfort EMS noted that he was tachycardic with what complex tachycardia, crit present ventricular tachycardia although atrial fibrillation with aberrancy cannot be excluded subsequently he converted back to sinus mechanism with left bundle branch block and bradycardia. He had episode of ventricle arrhythmia. He is in sinus mechanism with episode of sinus bradycardia since admission. He has dyspnea at this time that has been chronic but no symptoms of chest discomfort any further. He has chronic peripheral edema. No PND or orthopnea. He has known history of chronic kidney disease according to him but worse on presentation. He has no clear PND or orthopnea. He is limited in his physical activity because of the dyspnea on exertion. In December 2013 he underwent cardiac catheterization by Dr. Shane the [place] to LAD was patent, SVG to circumflex was patent, SVG to the RCA had critical stenosis proximal to the stented segment in 2010, his [place] arteries he had total occl usion of his LAD and RCA and OM. He underwent stenting of the saphenous vein graft to the RCA using 30 by 26 resolute stent. His echocardiogram in 2018 showed an ejection fraction of 30-35%. He underwent placement of a dialysis catheter yesterday. On presentation yesterday his potassium was 7.4 BUN 64 creatinine 2.3, his troponin 0.227 and into proBNP of 2800. His hemoglobin was 10.7 and subsequent hemoglobin down to 6.3. His risk factors are positive for hypertension, hyperlipidemia, diabetes mellitus and chronic tobacco use Medications: Insulin, Lipitor 80 mg daily, Aldactone 25 mg daily, Glucophage 1 g twice a day, Zestril 20 mg daily, Coreg 12-1/2 mg twice a day, iron, Plavix 75 mg daily, aspirin once a day, Spiriva, Ventolin, pro-air 11/22 Pt seen and examined. Decreased hemoglobin noted to be lab error and repeats appears stable. He has been on heparin drip. His home lisinopril, Aldactone, carvedilol were discontinued and held secondary to hyperkalemia and bradycardia. No further significant bradycardia and we will restart carvedilol. Denies any further chest pressure or pain. Heart rates in the 90s to low 100 in sinus rhythm. He underwent dialysis yesterday with improvement in hyperkalemia. He is sitting upright in bed however denies any significant worsening dyspnea. No lower extremity edema. Remains on normal saline at 50 mL per hour. Echocardiogram performed yesterday shows ejection fraction 30% with moderate to severe mitral regurgitation. 11/23 Patient seen and examined. Patient states overall he is feeling fairly well however does have some nasal congestion. Denies any chun shortness breath. He admits he has not had much of an appetite over the last 1-2 weeks and still does not have much of an appetite. No chest pain or pressure. Still has Nitropatch on however no significant dyspnea. In stable at 1.46. Addendum entered and electronically signed by Harry Reeves DO 11/23/21 08:40: [facility] records from primary [facility] drier tender Dr. Elder. Prior stress test from 10/25/2018 showed EF 39%, echocardiogram 07/19/2018 EF 30-35%, echo 10/25/2018 EF 20-25% however most recent echo 08/10/2021 mention EF 55-60%. There is drop in ejection fraction however main presentation appears related to decreased appetite, acute kidney injury and would treat cardiomyopathy, heart failure medically. Consider stress test/heart catheterization outpatient if kidney function improves. 11/24/2021 Patient examined this morning at the bedside. Patient denies chest pain or pressure. Denies SOB. He remains on IV heparin. Vital signs are stable. HD catheter was removed this morning by vascular surgery. 11/25/2021 Patient examined this morning. Patient is sitting up in the chair. Patient denies chest pain or pressure. He denies shortness of breath. The patient reports having some mild dizziness this morning while he was sitting in the chair which has since resolved. Patient's vital signs are stable. Blood pressure this morning 102/48. Repeat blood pressure 131/58. Telemetry reveals sinus mechanism. 11/26 Patient seen and examined. Patient's creatinine increased to 2.6 today. We had increased his carvedilol from 6.25-12.5 yesterday secondary to some chest pain and possible angina. Blood pressures somewhat borderline however no significant hypotensive episodes noted. Denies any further chest pain or pressure. 11/27 Patient seen and examined. Patient had episode of becoming bradycardiac, less responsive, hypotensive yesterday. Hemoglobin noted to be lower and received blood transfusion however appeared to be slow decrease in hemoglobin level and no source of bleed identified. He did undergo CTA to rule out dissection and retroperitoneal bleed. There does appear to be some correlation with after he got his morphine much of this occurred and may be somewhat of a vagal episode. On further questioning regarding possible heart catheterization and contrast use, he states he is artery made up his mind he would rather than be on dialysis. He was bradycardic with heart rates in the 40s yesterday and placed on dopamine drip at 5 and then decreased down to 2 and has been doing somewhat better. Today he feels better and denies any chest pain or pressure. He did have a Paula catheter placed and anxious to get Paula out. PHYSICAL EXAM: VITAL SIGNS: Reviewed. GENERAL: Well-developed in no acute distress. NECK: Supple. No JVD or thyromegaly LUNGS: Respirations even and unlabored. Lungs essentially clear to auscultation bilaterally. HEART: Regular rate and rhythm. S1 and S2 heard. + systolic murmur. EXTREMITIES: Normal range of motion. No clubbing or cyanosis. Peripheral pulses intact. No lower extremity edema ASSESSMENT: 1. Atrial arrhythmia was possible runs of nonsustained VT and atrial fib rillation, probable worsening cause is the hyperkalemia 2. Symptoms of chest discomfort consistent with angina pectoris, resolved after controlling the heart rate 3. Non-STEMI secondary to ischemia, tachycardia and the worsening renal function, suspect type II mechanism 4. Acute renal injury with hyperkalemia 5. Prior history of severe ischemic cardiomyopathy 6. Status post CABG and prior PCI 7. History of peripheral vascular disease and carotid stenting 8. History of hypertension 9. History of diabetes 10. History of hyperlipidemia 11. Chronic systolic heart failure 12. Moderate to severe mitral regurgitation 13. Decreased appetite over the last 1-2 weeks unclear etiology 14. Leukocytosis rule out infection 15. Bradycardic episode with hypotension. Possible vagal reaction secondary to morphine PLAN: Patient initially had presented with chest discomfort however has not had any and troponins have been stable. He had episode yesterday with bradycardia, worsened ST depressions and hypotension however appears related to receiving morphine and may have been vagal component. Troponins have remained stable. He also had significant anemia requiring blood transfusion. No signs of hemolysis and no signs of blood loss. Unfortunately patient not a great interventional c andidate given anemia and extreme risk of contrast-induced nephropathy with patient stating he would rather than be on dialysis. Hold carvedilol and monitor heart rates. Stop dopamine. Further recommendations to follow. Prognosis guarded. Rule out infectious component with leukocytosis. Objective - Vital Signs Vital signs: Vital Signs Temp 97.5 F L 11/27/21 12:08 Pulse 62 11/27/21 12:45 Resp 16 11/27/21 12:45 BP 135/58 11/27/21 12:45 Pulse Ox 98 11/27/21 12:45 FiO2 Intake & Output 11/26/21 11/27/21 11/27/21 18:59 06:59 18:59 Intake Total 847.282 930 350 Output Total 670 1650 440 Balance 177.282 -720 -90 Weight 89 kg 89 kg Intake: IV 490 550 350 Sodium Chloride 0.9% 1, 490 550 350 000 ml @ 50 mls/hr IV . Q20H [facility] Rx#:[id number] Intake, IV Titration 47.282 Amount DOPamine DRIP 800 mg In 47.282 Dextrose/Water 1 250ml. bag @ 5 MCG/KG/MIN 8.756 mls/hr IV .Q24H [facility] Rx#: [id number] Oral 380 Blood Product 310 Rc As-1 Unit 310 [id number] Output: Urine 670 1650 440 Other: Voiding Method Indwelling Catheter Indwelling Catheter - Labs CBC & Chem 7: 11/27/21 05:27 11/27/21 05:27 Labs: Abnormal Lab Results - Last 24 Hours (Table) 11/26/21 11/26/21 11/26/21 Range/Units 07:00 11:44 13:31 WBC 19.0 H (3.8-10.6) k/uL RBC 2.23 L (4.30-5.90) m/uL Hgb 6.7 L* (13.0-17.5) gm/dL Hct 21.1 L (39.0-53.0) % RDW 15.6 H (11.5-15.5) % Retic Count 4.8 H (0.5-2.0) % PT (9.0-12.0) sec INR (<1.2) D-Dimer (<0.60) mg/L FEU Sodium (137-145) mmol/L Carbon Dioxide (22-30) mmol/L BUN (9-20) mg/dL Creatinine (0.66-1.25) mg/dL Glucose (74-99) mg/dL POC Glucose (mg/dL) (70-110) mg/dL Plasma Lactic Acid Teddy (0.7-2.0) mmol/L Phosphorus (2.5-4.5) mg/dL Iron 38 L (65-175) ug/dL % Saturation 9.63 L (15.00-50.00) Ferritin 642.0 H (22.0-322.0) ng/mL Total Bilirubin (0.2-1.3) mg/dL AST (17-59) U/L ALT (4-49) U/L Lactate Dehydrogenase (313-618) U/L Troponin I (0.000-0.034) ng/mL Total Protein (6.3-8.2) g/dL Crossmatch See Detail 11/26/21 11/26/21 11/26/21 Range/Units 13:31 13:31 13:38 WBC (3.8-10.6) k/uL RBC (4.30-5.90) m/uL Hgb (13.0-17.5) gm/dL Hct (39.0-53.0) % RDW (11.5-15.5) % Retic Count (0.5-2.0) % PT (9.0-12.0) sec INR (<1.2) D-Dimer 2.80 H (<0.60) mg/L FEU Sodium (137-145) mmol/L Carbon Dioxide (22-30) mmol/L BUN (9-20) mg/dL Creatinine (0.66-1.25) mg/dL Glucose (74-99) mg/dL POC Glucose (mg/dL) 278 H (70-110) mg/dL Plasma Lactic Acid Teddy (0.7-2.0) mmol/L Phosphorus (2.5-4.5) mg/dL Iron (65-175) ug/dL % Saturation (15.00-50.00) Ferritin (22.0-322.0) ng/mL Total Bilirubin (0.2-1.3) mg/dL AST (17-59) U/L ALT (4-49) U/L Lactate Dehydrogenase 678 H (313-618) U/L Troponin I (0.000-0.034) ng/mL Total Protein (6.3-8.2) g/dL Crossmatch 11/26/21 11/26/21 11/26/21 Range/Units 14:30 16:44 17:10 WBC (3.8-10.6) k/uL RBC (4.30-5.90) m/uL Hgb (13.0-17.5) gm/dL Hct (39.0-53.0) % RDW (11.5-15.5) % Retic Count (0.5-2.0) % PT (9.0-12.0) sec INR (<1.2) D-Dimer (<0.60) mg/L FEU Sodium (137-145) mmol/L Carbon Dioxide (22-30) mmol/L BUN (9-20) mg/dL Creatinine (0.66-1.25) mg/dL Glucose (74-99) mg/dL POC Glucose (mg/dL) 239 H (70-110) mg/dL Plasma Lactic Acid Teddy 2.3 H* (0.7-2.0) mmol/L Phosphorus (2.5-4.5) mg/dL Iron (65-175) ug/dL % Saturation (15.00-50.00) Ferritin (22.0-322.0) ng/mL Total Bilirubin (0.2-1.3) mg/dL AST (17-59) U/L ALT (4-49) U/L Lactate Dehydrogenase (313-618) U/L Troponin I 0.318 H* (0.000-0.034) ng/mL Total Protein (6.3-8.2) g/dL Crossmatch 11/26/21 11/26/21 11/26/21 Range/Units 17:10 18:39 20:20 WBC 21.2 H (3.8-10.6) k/uL RBC 2.85 L (4.30-5.90) m/uL Hgb 8.5 L D (13.0-17.5) gm/dL Hct 26.5 L (39.0-53.0) % RDW (11.5-15.5) % Retic Count (0.5-2.0) % PT (9.0-12.0) sec INR (<1.2) D-Dimer (<0.60) mg/L FEU Sodium (137-145) mmol/L Carbon Dioxide (22-30) mmol/L BUN (9-20) mg/dL Creatinine (0.66-1.25) mg/dL Glucose (74-99) mg/dL POC Glucose (mg/dL) 180 H (70-110) mg/dL Plasma Lactic Acid Teddy (0.7-2.0) mmol/L Phosphorus (2.5-4.5) mg/dL Iron (65-175) ug/dL % Saturation (15.00-50.00) Ferritin (22.0-322.0) ng/mL Total Bilirubin (0.2-1.3) mg/dL AST (17-59) U/L ALT (4-49) U/L Lactate Dehydrogenase (313-618) U/L Troponin I 0.368 H* (0.000-0.034) ng/mL Total Protein (6.3-8.2) g/dL Crossmatch 11/26/21 11/27/21 11/27/21 Range/Units 23:35 05:27 05:27 WBC 19.8 H 19.8 H (3.8-10.6) k/uL RBC 2.92 L 2.72 L (4.30-5.90) m/uL Hgb 9.0 L 8.3 L (13.0-17.5) gm/dL Hct 27.0 L 25.3 L (39.0-53.0) % RDW 16.1 H (11.5-15.5) % Retic Count (0.5-2.0) % PT 13.1 H (9.0-12.0) sec INR 1.3 H (<1.2) D-Dimer (<0.60) mg/L FEU Sodium (137-145) mmol/L Carbon Dioxide (22-30) mmol/L BUN (9-20) mg/dL Creatinine (0.66-1.25) mg/dL Glucose (74-99) mg/dL POC Glucose (mg/dL) (70-110) mg/dL Plasma Lactic Acid Teddy (0.7-2.0) mmol/L Phosphorus (2.5-4.5) mg/dL Iron (65-175) ug/dL % Saturation (15.00-50.00) Ferritin (22.0-322.0) ng/mL Total Bilirubin (0.2-1.3) mg/dL AST (17-59) U/L ALT (4-49) U/L Lactate Dehydrogenase (313-618) U/L Troponin I (0.000-0.034) ng/mL Total Protein (6.3-8.2) g/dL Crossmatch 11/27/21 11/27/21 Range/Units 05:27 10:22 WBC (3.8-10.6) k/uL RBC (4.30-5.90) m/uL Hgb (13.0-17.5) gm/dL Hct (39.0-53.0) % RDW (11.5-15.5) % Retic Count (0.5-2.0) % PT (9.0-12.0) sec INR (<1.2) D-Dimer (<0.60) mg/L FEU Sodium 135 L (137-145) mmol/L Carbon Dioxide 21 L (22-30) mmol/L BUN 51 H (9-20) mg/dL Creatinine 2.50 H (0.66-1.25) mg/dL Glucose 60 L (74-99) mg/dL POC Glucose (mg/dL) 60 L (70-110) mg/dL Plasma Lactic Acid Teddy (0.7-2.0) mmol/L Phosphorus 4.7 H (2.5-4.5) mg/dL Iron (65-175) ug/dL % Saturation (15.00-50.00) Ferritin (22.0-322.0) ng/mL Total Bilirubin 2.1 H (0.2-1.3) mg/dL AST 272 H (17-59) U/L ALT 224 H (4-49) U/L Lactate Dehydrogenase (313-618) U/L Troponin I (0.000-0.034) ng/mL Total Protein 6.0 L (6.3-8.2) g/dL Crossmatch Microbiology - Last 24 Hours (Table) 11/26/21 10:29 Blood Culture - Preliminary Blood No Growth after 24 hours
[2021-11-27] MEDS: DOPamine DRIP 800 MG in DEXTROSE/WATER 1 250ML.BAG IV SCH (14:57)
--- NOTE | 2021-11-27 15:05 | P.PN ---
Subjective Progress Note Date: 11/27/21 Principal diagnosis: Bradycardia renal failure The patient is a 71-year-old male with a history of cardiomyopathy EF 25-30% recent non-ST elevation VT. Patient was initially transferred out of the ICU but on 81 he became lightheaded and dizzy he was transferred back to the ICU and started on a dopamine drip. Cardiology was reconsulted the patient was kept nothing by mouth for possible cardiac catheterization. At time of my evaluation he denied any chest pain or shortness of breath Objective - Vital Signs Vital signs: Vital Signs Temp 97.5 F L 11/27/21 12:08 Pulse 62 11/27/21 12:45 Resp 16 11/27/21 12:45 BP 135/58 11/27/21 12:45 Pulse Ox 98 11/27/21 12:45 FiO2 Intake & Output 11/26/21 11/27/21 11/27/21 18:59 06:59 18:59 Intake Total 847.282 930 350 Output Total 670 1650 440 Balance 177.282 -720 -90 Weight 89 kg 89 kg Intake: IV 490 550 350 Sodium Chloride 0.9% 1, 490 550 350 000 ml @ 50 mls/hr IV . Q20H [facility] Rx#:[id number] Intake, IV Titration 47.282 Amount DOPamine DRIP 800 mg In 47.282 Dextrose/Water 1 250ml. bag @ 5 MCG/KG/MIN 8.756 mls/hr IV .Q24H [facility] Rx#: [id number] Oral 380 Blood Product 310 Rc As-1 Unit 310 [id number] Output: Urine 670 1650 440 Other: Voiding Method Indwelling Catheter Indwelling Catheter - Constitutional General appearance: Present: no acute distress - Respiratory Respiratory: bilateral: CTA - Cardiovascular Rhythm: regular - Gastrointestinal General gastrointestinal: Present: normal bowel sounds - Musculoskeletal Musculoskeletal: Present: strength equal bilaterally - Psychiatric Psychiatric: Present: appropriate affect - Labs CBC & Chem 7: 11/27/21 05:27 11/27/21 05:27 Labs: Abnormal Lab Results - Last 24 Hours (Table) 11/26/21 11/26/21 11/26/21 Range/Units 07:00 11:44 14:30 WBC (3.8-10.6) k/uL RBC (4.30-5.90) m/uL Hgb (13.0-17.5) gm/dL Hct (39.0-53.0) % RDW (11.5-15.5) % PT (9.0-12.0) sec INR (<1.2) Sodium (137-145) mmol/L Carbon Dioxide (22-30) mmol/L BUN (9-20) mg/dL Creatinine (0.66-1.25) mg/dL Glucose (74-99) mg/dL POC Glucose (mg/dL) (70-110) mg/dL Plasma Lactic Acid Teddy 2.3 H* (0.7-2.0) mmol/L Phosphorus (2.5-4.5) mg/dL Iron 38 L (65-175) ug/dL % Saturation 9.63 L (15.00-50.00) Ferritin 642.0 H (22.0-322.0) ng/mL Total Bilirubin (0.2-1.3) mg/dL AST (17-59) U/L ALT (4-49) U/L Troponin I (0.000-0.034) ng/mL Total Protein (6.3-8.2) g/dL Crossmatch See Detail 11/26/21 11/26/21 11/26/21 Range/Units 16:44 17:10 17:10 WBC 21.2 H (3.8-10.6) k/uL RBC 2.85 L (4.30-5.90) m/uL Hgb 8.5 L D (13.0-17.5) gm/dL Hct 26.5 L (39.0-53.0) % RDW (11.5-15.5) % PT (9.0-12.0) sec INR (<1.2) Sodium (137-145) mmol/L Carbon Dioxide (22-30) mmol/L BUN (9-20) mg/dL Creatinine (0.66-1.25) mg/dL Glucose (74-99) mg/dL POC Glucose (mg/dL) 239 H (70-110) mg/dL Plasma Lactic Acid Teddy (0.7-2.0) mmol/L Phosphorus (2.5-4.5) mg/dL Iron (65-175) ug/dL % Saturation (15.00-50.00) Ferritin (22.0-322.0) ng/mL Total Bilirubin (0.2-1.3) mg/dL AST (17-59) U/L ALT (4-49) U/L Troponin I 0.318 H* (0.000-0.034) ng/mL Total Protein (6.3-8.2) g/dL Crossmatch 11/26/21 11/26/21 11/26/21 Range/Units 18:39 20:20 23:35 WBC 19.8 H (3.8-10.6) k/uL RBC 2.92 L (4.30-5.90) m/uL Hgb 9.0 L (13.0-17.5) gm/dL Hct 27.0 L (39.0-53.0) % RDW (11.5-15.5) % PT (9.0-12.0) sec INR (<1.2) Sodium (137-145) mmol/L Carbon Dioxide (22-30) mmol/L BUN (9-20) mg/dL Creatinine (0.66-1.25) mg/dL Glucose (74-99) mg/dL POC Glucose (mg/dL) 180 H (70-110) mg/dL Plasma Lactic Acid Teddy (0.7-2.0) mmol/L Phosphorus (2.5-4.5) mg/dL Iron (65-175) ug/dL % Saturation (15.00-50.00) Ferritin (22.0-322.0) ng/mL Total Bilirubin (0.2-1.3) mg/dL AST (17-59) U/L ALT (4-49) U/L Troponin I 0.368 H* (0.000-0.034) ng/mL Total Protein (6.3-8.2) g/dL Crossmatch 11/27/21 11/27/21 11/27/21 Range/Units 05:27 05:27 05:27 WBC 19.8 H (3.8-10.6) k/uL RBC 2.72 L (4.30-5.90) m/uL Hgb 8.3 L (13.0-17.5) gm/dL Hct 25.3 L (39.0-53.0) % RDW 16.1 H (11.5-15.5) % PT 13.1 H (9.0-12.0) sec INR 1.3 H (<1.2) Sodium 135 L (137-145) mmol/L Carbon Dioxide 21 L (22-30) mmol/L BUN 51 H (9-20) mg/dL Creatinine 2.50 H (0.66-1.25) mg/dL Glucose 60 L (74-99) mg/dL POC Glucose (mg/dL) (70-110) mg/dL Plasma Lactic Acid Teddy (0.7-2.0) mmol/L Phosphorus 4.7 H (2.5-4.5) mg/dL Iron (65-175) ug/dL % Saturation (15.00-50.00) Ferritin (22.0-322.0) ng/mL Total Bilirubin 2.1 H (0.2-1.3) mg/dL AST 272 H (17-59) U/L ALT 224 H (4-49) U/L Troponin I (0.000-0.034) ng/mL Total Protein 6.0 L (6.3-8.2) g/dL Crossmatch 11/27/21 Range/Units 10:22 WBC (3.8-10.6) k/uL RBC (4.30-5.90) m/uL Hgb (13.0-17.5) gm/dL Hct (39.0-53.0) % RDW (11.5-15.5) % PT (9.0-12.0) sec INR (<1.2) Sodium (137-145) mmol/L Carbon Dioxide (22-30) mmol/L BUN (9-20) mg/dL Creatinine (0.66-1.25) mg/dL Glucose (74-99) mg/dL POC Glucose (mg/dL) 60 L (70-110) mg/dL Plasma Lactic Acid Teddy (0.7-2.0) mmol/L Phosphorus (2.5-4.5) mg/dL Iron (65-175) ug/dL % Saturation (15.00-50.00) Ferritin (22.0-322.0) ng/mL Total Bilirubin (0.2-1.3) mg/dL AST (17-59) U/L ALT (4-49) U/L Troponin I (0.000-0.034) ng/mL Total Protein (6.3-8.2) g/dL Crossmatch Microbiology - Last 24 Hours (Table) 11/26/21 10:29 Blood Culture - Preliminary Blood No Growth after 24 hours Assessment and Plan (1) Acute renal failure Narrative/Plan: On presentation patient had a creatinine 2.3 and potassium 7.4. Today creatinine 2.51 potassium 4.5. Appreciate nephrology input continue to monitor/lites Current Visit: Yes Status: Acute Code(s): N17.9 - ACUTE KIDNEY FAILURE, UNSPECIFIED SNOMED Code(s): 58849422 (2) Diabetes Narrative/Plan: Control patient was nothing by mouth and this morning hypoglycemia. He was receiving Levemir 50 mg twice a day I told insulin Lantus 100 units at at bedtime. Since patient is resuming his diet to monitor Current Visit: Yes Status: Acute Code(s): E11.9 - TYPE 2 DIABETES MELLITUS WITHOUT COMPLICATIONS SNOMED Code(s): 44087130 (3) Chest pain Narrative/Plan: Patient with dizziness, EKG with ST changes yesterday appreciate cardiology input symptoms likely secondary to vagal response. Dopamine drip to be weaned off given the risk of contrast nephropathy and his symptoms appear to have resolved. Per cardiology no plans for cardiac catherization at this time Current Visit: Yes Status: Acute Code(s): R07.9 - CHEST PAIN, UNSPECIFIED SNOMED Code(s): 53500365
[2021-11-27 17:01] LABS: Glucose,Whole Blood 141 mg/dL (70-110)
[2021-11-27 20:10] LABS: Glucose,Whole Blood 161 mg/dL (70-110)
[2021-11-27 21:04] LABS: Glucose,Whole Blood 154 mg/dL (70-110)
[2021-11-27] MEDS: ATORVASTATIN 80 MG TAB PO SCH (21:07)
[2021-11-28 06:17] LABS: HCT 24.5 % (39.0-53.0); HGB 7.9 gm/dL (13.0-17.5); Hypochromasia Slight; MCH 30.4 pg (25.0-35.0); MCHC 32.2 g/dL (31.0-37.0); MCV 94.5 fL (80.0-100.0); Mean Platelet Volume 10.1; Platelet Count 172 k/uL (150-450); RDW 15.6 % (11.5-15.5); WBC 16.4 k/uL (3.8-10.6)
[2021-11-28 06:25] LABS: Calcium 7.9 mg/dL (8.4-10.2); Potassium 4.4 mmol/L (3.5-5.1)
[2021-11-28 06:45] LABS: Glucose,Whole Blood 169 mg/dL (70-110)
[2021-11-28] MEDS: INSULIN ASPART (NovoLOG) 100 UNIT/ML VIAL SQ SCH ×4 (06:54→20:16)
[2021-11-28] MEDS: PANTOPRAZOLE 40 MG/10 ML VIAL IVP SCH ×2 (08:02→20:16)
[2021-11-28] MEDS: ASPIRIN 81 MG PO SCH (08:02)
[2021-11-28] MEDS: INSULIN DETEMIR (LEVEMIR) 100 UNIT/ML SYR SQ SCH ×2 (08:02→20:16)
[2021-11-28] MEDS: SODIUM BICARBONATE TAB 650 MG TAB PO SCH ×2 (08:02→20:15)
[2021-11-28] MEDS: buPROPion SR 150 MG TABLET.ER PO SCH ×2 (08:02→20:43)
[2021-11-28] MEDS: IPRATROPIUM 0.5 MG/2.5 ML NEBU INHALATION SCH ×5 (08:09→19:46)
[2021-11-28] MEDS: SYMBICORT 160-4.5 MCG INHALER INHALATION SCH ×2 (08:09→19:46)
--- NOTE | 2021-11-28 10:23 | P.PN ---
Subjective Progress Note Date: 11/28/21 Principal diagnosis: Acute renal failurem Bradycardia The patient is a 71-year-old male with a history of cardiomyopathy EF 25-30% type 2 non-ST elevation AR. The patient was admitted for hyperkalemia secondary to renal failure. The patient required emergent hemodialysis on the hyperkalemia resolved. Patient was initially transferred out of the ICU but on 11/26 he became lightheaded and dizzy he was transferred back to the ICU and started on a dopamine drip. Cardiology was reconsulted the patient was kept nothing by mouth for possible cardiac catheterization. At time of my evaluation he denied any chest pain or shortness of breath. Patient's symptoms were improving so plan was for no cardiac catheterization planned at this time. Objective - Vital Signs Vital signs: Vital Signs Temp 97.6 F 11/28/21 08:00 Pulse 78 11/28/21 08:24 Resp 20 11/28/21 08:00 BP 129/59 11/28/21 08:00 Pulse Ox 97 11/28/21 08:00 FiO2 Intake & Output 11/27/21 11/28/21 11/28/21 18:59 06:59 18:59 Intake Total 1016.265 740 20 Output Total 570 1475 100 Balance 446.265 -735 -80 Intake: IV 450 240 20 0.9 Normal Saline @ KVO 100 240 20 Sodium Chloride 0.9% 1, 350 000 ml @ 50 mls/hr IV . Q20H [facility] Rx#:[id number] Intake, IV Titration 66.265 Amount DOPamine DRIP 800 mg In 66.265 Dextrose/Water 1 250ml. bag @ 5 MCG/KG/MIN 8.756 mls/hr IV .Q24H [facility] Rx#: [id number] Oral 500 500 Output: Urine 570 1475 100 Straight 700 Other: Voiding Method Indwelling Catheter Urinal - Constitutional General appearance: Present: no acute distress - Respiratory Respiratory: bilateral: CTA - Cardiovascular Rhythm: regular - Gastrointestinal General gastrointestinal: Present: normal bowel sounds - Integumentary Integumentary: Present: normal - Psychiatric Psychiatric: Present: appropriate affect - Labs CBC & Chem 7: 11/28/21 05:44 11/28/21 05:44 Labs: Abnormal Lab Results - Last 24 Hours (Table) 11/27/21 11/27/21 11/27/21 Range/Units 10:22 16:59 20:08 WBC (3.8-10.6) k/uL RBC (4.30-5.90) m/uL Hgb (13.0-17.5) gm/dL Hct (39.0-53.0) % RDW (11.5-15.5) % Sodium (137-145) mmol/L Carbon Dioxide (22-30) mmol/L BUN (9-20) mg/dL Creatinine (0.66-1.25) mg/dL Glucose (74-99) mg/dL POC Glucose (mg/dL) 60 L 141 H 161 H (70-110) mg/dL Calcium (8.4-10.2) mg/dL 11/27/21 11/28/21 11/28/21 Range/Units 21:02 05:44 05:44 WBC 16.4 H (3.8-10.6) k/uL RBC 2.60 L (4.30-5.90) m/uL Hgb 7.9 L (13.0-17.5) gm/dL Hct 24.5 L (39.0-53.0) % RDW 15.6 H (11.5-15.5) % Sodium 132 L (137-145) mmol/L Carbon Dioxide 21 L (22-30) mmol/L BUN 42 H (9-20) mg/dL Creatinine 2.03 H (0.66-1.25) mg/dL Glucose 147 H (74-99) mg/dL POC Glucose (mg/dL) 154 H (70-110) mg/dL Calcium 7.9 L (8.4-10.2) mg/dL 11/28/21 Range/Units 06:43 WBC (3.8-10.6) k/uL RBC (4.30-5.90) m/uL Hgb (13.0-17.5) gm/dL Hct (39.0-53.0) % RDW (11.5-15.5) % Sodium (137-145) mmol/L Carbon Dioxide (22-30) mmol/L BUN (9-20) mg/dL Creatinine (0.66-1.25) mg/dL Glucose (74-99) mg/dL POC Glucose (mg/dL) 169 H (70-110) mg/dL Calcium (8.4-10.2) mg/dL Microbiology - Last 24 Hours (Table) 11/26/21 10:29 Blood Culture - Preliminary Blood No Growth after 24 hours Assessment and Plan (1) Acute renal failure Narrative/Plan: On presentation patient had a creatinine 2.3 and potassium 7.4. He required HD for management of his hyperkalemia. His renal failure continues to improve today Cr 2.05 Appreciate nephrology input continue to monitor/lites Current Visit: Yes Status: Acute Code(s): N17.9 - ACUTE KIDNEY FAILURE, UNSPECIFIED SNOMED Code(s): 36388899 (2) Diabetes Narrative/Plan: He is receiving Levemir 50 mg twice a day at home on insulin Lantus 100 units at at bedtime. His a.m glucose 169 and he has not had any episodes of hypoglycemia, continue current regimen Current Visit: Yes Status: Acute Code(s): E11.9 - TYPE 2 DIABETES MELLITUS WITHOUT COMPLICATIONS SNOMED Code(s): 46302292 (3) Chest pain Narrative/Plan: Patient with dizziness, EKG with ST changes yesterday appreciate cardiology input symptoms likely secondary to vagal response. Dopamine drip weaned off g iven the risk of contrast nephropathy and his symptoms appear to have resolved. cardiology do not plan for cardiac catherization at this time Current Visit: Yes Status: Acute Code(s): R07.9 - CHEST PAIN, UNSPECIFIED SNOMED Code(s): 16494497 (4) Anemia Narrative/Plan: The patient hemoglobin initially trended down 4 units and when he became hypotensive on 11/26 he received 2 units of pack red cells. He initially had good response and his Plavix assistance been on hold need to keep close monitoring. There was no evidence of GI bleed. The patient's Plavix s been on hold Current Visit: Yes Status: Acute Code(s): D64.9 - ANEMIA, UNSPECIFIED SNOMED Code(s): 793830569 (5) Leukocytosis Narrative/Plan: The patient's leukocytosis trended up with no clear evidence of infection Current Visit: Yes Status: Acute Code(s): D72.829 - ELEVATED WHITE BLOOD CELL COUNT, UNSPECIFIED SNOMED Code(s): 757070510 Plan: Continue current care, monitor for evidence of infection, monitor hemoglobin
[2021-11-28] MEDS ORDERED: SODIUM FERRIC GLUCONAT-SUCROSE 125 MG in SODIUM CHLORIDE 0.9% 100 ML IVPB ONE (10:58)
[2021-11-28] MEDS ORDERED: TAMSULOSIN 0.4 MG CAP.ER.24H PO STA (10:58)
--- NOTE | 2021-11-28 10:58 | P.PN ---
Subjective Progress Note Date: 11/28/21 Principal diagnosis: This is 71-year-old male seen in consultation because of acute kidney injury. He was admitted with chest pain. He needed dialysis initially but his been off of dialysis. Is known with coronary artery disease status post CABG, diabetes and hypertension. Ejection fraction is 30-35% based on echo also known with COPD. He is having difficulty with urination after a Paula cath was discontinued yesterday He was bladder scan and about 500-600 mL were in the bladder and he had straight catheter. He does admit to having nocturia every 2 hours prior to his admission but otherwise no other symptoms of prostatism Creatinine went down from 2.6, 2.5-2.03 this morning Objective - Vital Signs Vital signs: Vital Signs Temp 97.6 F 11/28/21 08:00 Pulse 70 11/28/21 10:00 Resp 23 11/28/21 10:00 BP 131/53 11/28/21 10:00 Pulse Ox 98 11/28/21 10:00 FiO2 Intake & Output 11/27/21 11/28/21 11/28/21 18:59 06:59 18:59 Intake Total 1016.265 740 20 Output Total 570 1475 100 Balance 446.265 -735 -80 Intake: IV 450 240 20 0.9 Normal Saline @ KVO 100 240 20 Sodium Chloride 0.9% 1, 350 000 ml @ 50 mls/hr IV . Q20H [facility] Rx#:[id number] Intake, IV Titration 66.265 Amount DOPamine DRIP 800 mg In 66.265 Dextrose/Water 1 250ml. bag @ 5 MCG/KG/MIN 8.756 mls/hr IV .Q24H [facility] Rx#: [id number] Oral 500 500 Output: Urine 570 1475 100 Straight 700 Other: Voiding Method Indwelling Catheter Urinal On exam awake alert oriented comfortable on room air HEENT exam no JVP neck is supple no facial asymmetry Lungs clear to auscultation good air entry bilaterally Heart sounds unremarkable for any murmur rub gallop Abdomen soft nontender no suprapubic discomfort Extreme exam was mild to moderate edema Neurologically awake alert oriented - Labs CBC & Chem 7: 11/28/21 05:44 11/28/21 05:44 Labs: Abnormal Lab Results - Last 24 Hours (Table) 11/27/21 11/27/21 11/27/21 Range/Units 16:59 20:08 21:02 WBC (3.8-10.6) k/uL RBC (4.30-5.90) m/uL Hgb (13.0-17.5) gm/dL Hct (39.0-53.0) % RDW (11.5-15.5) % Sodium (137-145) mmol/L Carbon Dioxide (22-30) mmol/L BUN (9-20) mg/dL Creatinine (0.66-1.25) mg/dL Glucose (74-99) mg/dL POC Glucose (mg/dL) 141 H 161 H 154 H (70-110) mg/dL Calcium (8.4-10.2) mg/dL 11/28/21 11/28/21 11/28/21 Range/Units 05:44 05:44 06:43 WBC 16.4 H (3.8-10.6) k/uL RBC 2.60 L (4.30-5.90) m/uL Hgb 7.9 L (13.0-17.5) gm/dL Hct 24.5 L (39.0-53.0) % RDW 15.6 H (11.5-15.5) % Sodium 132 L (137-145) mmol/L Carbon Dioxide 21 L (22-30) mmol/L BUN 42 H (9-20) mg/dL Creatinine 2.03 H (0.66-1.25) mg/dL Glucose 147 H (74-99) mg/dL POC Glucose (mg/dL) 169 H (70-110) mg/dL Calcium 7.9 L (8.4-10.2) mg/dL Microbiology - Last 24 Hours (Table) 11/26/21 10:29 Blood Culture - Preliminary Blood No Growth after 24 hours Assessment and Plan Plan: Impression 1. Acute kidney injury dialysis dependent. Off off dialysis now. Etiology was medications including lisinopril and Aldactone. 2. History of chronic kidney disease Baseline creatinine. 3. History of coronary artery bypass graft cardiomyopathy. 4. Prostatism with nocturia in the past and currently difficulty voiding once his Paula catheter was discontinued with bladder scan showing 500-600 mL of urinary retention 5. History of diabetes. 6. Metabolic acidosis on sodium bicarbonate bicarb is up to 21. 7. Mild degree of hyponatremia sodium is 132, secondary acute kidney injury. 8. Anemia hemoglobin 7.9, slowly going down. Iron deficiency saturation is 9% as of 11/27/2019 Recommendation. 1. Start Flomax 0.4 mg daily 2. Straight cath for right now. 3. Continue to check bladder scans. Try to avoid straight catheter hoping that the Flomax would be effective within the next 1 or 2 days 4. IV Ferrlecit 125 mg 1 dose today
--- NOTE | 2021-11-28 11:06 | P.PN ---
Subjective Progress Note Date: 11/28/21 Principal diagnosis: Chest pain, acute non-ST elevation myocardial infarction 71-year-old male patient, known history of COPD maintained on a combination of Symbicort and Spiriva, history of nonspecific mediastinal lymphadenopathy being followed up through our office, coronary artery disease, previous bypass surgery, previous history of multiple coronary stents and a carotid artery stent in addition to chronic stage II kidney disease, diabetes mellitus, and hypertension, CHF with chronic systolic heart failure and ejection fraction of 30-35%. The patient has been having episodes of chest pain for the past few weeks. These are intermittent chest pains, not exacerbated with any activity and the patient has been having radiation to his arms, typically the pain would last for 5 minutes. Yesterday, he was having more pain and he end up coming into the hospital and the intensity of the pain was worse. He was also having some shortness of breath and nausea. EKG showed a wide-complex tachycardia and subsequently went into an A. fib rhythm. He was noted to be in acute kidney injury and the patient was also found to be hypokalemic and potassium level was elevated. Based on that, the patient was given calcium, he was given bicarb pushes, Kayexalate 15 g and ultimately a dialysis catheter was to proceed and the patient was given association of hemodialysis with subsequent improvement in his potassium level. The CRAIG inhibitor was also discontinued. The troponins were mildly elevated and the levels were 0.25 and 0.6 respectively. The rest of the blood work essentially within normal limits. The serum bicarb is up to 21. Creatinine this morning is down to 1.6 with a BUN of 45. The patient is awake and oriented. He is on IV heparin. History of any chest pain. The current cardiac rhythm is bradycardic, still wide-complex with first-degree AV block. The rhythm is sinus for now. The patient has been taken Coreg on outpatient basis. No syncope. No loss of consciousness. Reevaluated today on 11/22/21, patient remains in the ICU, remains on heparin, he is asymptomatic, no further episodes of angina or chest pain. Patient received hemodialysis on 11/20 and hemodialysis on 11/21, his potassium level came down from 7.4 to normal level today. Patient remains on heparin, his echocardiogram showed ejection fraction of 25-50%. Obviously the patient presented with hyperkalemia, atrial fibrillation, nonsustained ventricular tachycardia, acute kidney injury, and has made a significant amount in the last 24 hours. Clinically the patient is feeling much better today, breathing quite easily, not in any distress. His arrhythmia was felt to be related to his hyperkalemia. Patient is known to have history of severe ischemic cardiomyopathy and LV dysfunction. He also has history of moderate to severe mitral regurgitation. WBC count today is 11.6 hemoglobin is 9.3. Electrolytes are normal potassium 4.3 BUN is 39 and creatinine 1.45. Chest x-ray today showed borderline cardiomegaly, mild interstitial changes, mild pulmonary vascular congestion Reevaluated today on 11/23/2021, patient is doing well, he is now on overflow in the ICU from [facility]. Patient is relatively asymptomatic, on room air, he feels fine except for some minimal nasal congestion. He also has a poor appetite. Denies any shortness of breath or cough or wheezing denies any chest pain. CBC is relatively normal hemoglobin is 8.6 PTT is 55.9 electrolytes are normal BUN is 36 creatinine 1.40 Patient was reevaluated today on 11/26/2021, patient had to be transferred back to the ICU this morning. Earlier today, the patient has been complaining of chest pain, lightheadedness, dizziness, and he felt like he was going to pass out. Patient also complained of numbness and tingling down his legs, and difficulty moving his legs. Obviously the patient wasn't doing well, and he was noted to have low hemoglobin he was also noted to have profound bradycardia and junctional rhythm. Arrangements were made for the patient to have thoracic aortic angiogram, it was basically unremarkable, no evidence of thoracic aortic aneurysm dissection and there was no evidence of intrathoracic or intra- abdominal process appreciated. Chest x-ray showed cardiomegaly without any significant suspicious pulmonary process. Hemoglobin this morning is 6.7 with a WBC count of 19.0. Hemoglobin was 9.3 and 8.62 days ago. Patient will be receiving a unit of packed RBCs, he was seen by cardiology and he was placed on dopamine for bradycardia and hypotension, and cardiology may consider taking the patient down for cardiac catheterization later today. Considering his worsening clinical picture, patient was transferred to the ICU, and I was asked to see him again Reevaluated today on , patient remains in the ICU, feeling much better today compared to yesterday. He is on 2 L nasal cannula remains on dopamine at 2 mcg/kg/m she is also on IV fluid at 50 mL per hour. Remains in a junctional rhythm with rate in the low 60s. His chest pain has resolved. Patient is relatively asymptomatic and feels much better today compared to yesterday. His hemoglobin today is 8.3 WBC count is 19.8 electrolytes are normal renal profile showed a BUN of 51 creatinine 2.50, slightly improved compared to yesterday. Reevaluated today on 11/28/21, remains in the ICU, patient has no further episodes of chest pain. He is off dopamine, does not seem to be in any distress, hemodynamically stable. On room air with O2 saturation 98%. Blood pressure is 131/54 and his heart rate is 70. WBC count is 16.4 hemoglobin is 7.9. Normal BUN remains elevated at 42 creatinine 2.03. Being followed by nephrology. Patient remains off dialysis for now. He does have history of chronic kidney disease with abnormal baseline creatinine. And not to mention the patient has ischemic cardiomyopathy and LV dysfunction. Patient was started on Flomax earlier today by nephrology. Objective - Vital Signs Vital signs: Vital Signs Temp 97.6 F 11/28/21 08:00 Pulse 70 11/28/21 10:00 Resp 23 11/28/21 10:00 BP 131/53 11/28/21 10:00 Pulse Ox 98 11/28/21 10:00 FiO2 Intake & Output 11/27/21 11/28/21 11/28/21 18:59 06:59 18:59 Intake Total 1016.265 740 20 Output Total 570 1475 100 Balance 446.265 -735 -80 Intake: IV 450 240 20 0.9 Normal Saline @ KVO 100 240 20 Sodium Chloride 0.9% 1, 350 000 ml @ 50 mls/hr IV . Q20H [facility] Rx#:[id number] Intake, IV Titration 66.265 Amount DOPamine DRIP 800 mg In 66.265 Dextrose/Water 1 250ml. bag @ 5 MCG/KG/MIN 8.756 mls/hr IV .Q24H [facility] Rx#: [id number] Oral 500 500 Output: Urine 570 1475 100 Straight 700 Other: Voiding Method Indwelling Catheter Urinal - Exam Physical Exam: Revealed a 71-year-old white male in no distress. On room air. Head: Atraumatic, normocephalic. HEENT: [Neck is supple.] [No neck masses.] [No thyromegaly.] [No JVD.] Dry mucous membranes. Chest: Symmetrical chest expansion, diminished breath sounds at the bases no crackles or rhonchi or wheezes Cardiac Exam: [Normal S1 and S2, no S3 gallop, 3/6 systolic murmur thought the precordium. Abdomen: [Soft, nontender, no megaly, no rebound, no guarding, normal bowel sounds.] Extremities: [No clubbing, no edema, no cyanosis.] Neurological Exam: [No focal neurologic deficit.] Alert oriented 3. Remain generally weak Psychiatric: Depressed mood flat affect and normal mental status examination. Skin: No rashes. - Labs CBC & Chem 7: 11/28/21 05:44 11/28/21 05:44 Labs: Abnormal Lab Results - Last 24 Hours (Table) 11/27/21 11/27/21 11/27/21 Range/Units 16:59 20:08 21:02 WBC (3.8-10.6) k/uL RBC (4.30-5.90) m/uL Hgb (13.0-17.5) gm/dL Hct (39.0-53.0) % RDW (11.5-15.5) % Sodium (137-145) mmol/L Carbon Dioxide (22-30) mmol/L BUN (9-20) mg/dL Creatinine (0.66-1.25) mg/dL Glucose (74-99) mg/dL POC Glucose (mg/dL) 141 H 161 H 154 H (70-110) mg/dL Calcium (8.4-10.2) mg/dL 11/28/21 11/28/21 11/28/21 Range/Units 05:44 05:44 06:43 WBC 16.4 H (3.8-10.6) k/uL RBC 2.60 L (4.30-5.90) m/uL Hgb 7.9 L (13.0-17.5) gm/dL Hct 24.5 L (39.0-53.0) % RDW 15.6 H (11.5-15.5) % Sodium 132 L (137-145) mmol/L Carbon Dioxide 21 L (22-30) mmol/L BUN 42 H (9-20) mg/dL Creatinine 2.03 H (0.66-1.25) mg/dL Glucose 147 H (74-99) mg/dL POC Glucose (mg/dL) 169 H (70-110) mg/dL Calcium 7.9 L (8.4-10.2) mg/dL Microbiology - Last 24 Hours (Table) 11/26/21 10:29 Blood Culture - Preliminary Blood No Growth after 24 hours Assessment and Plan Assessment: Impression: Symptomatic bradycardia Severe cardiomyopathy/ischemic cardiomyopathy and LV dysfunction with ejection fraction of 25-30%. Recent non-ST elevation myocardial infarction Atrial fibrillation with nonsustained ventricular tachycardia, and associated with hyperkalemia. Recurrent unstable angina is strongly suspected. Severe ischemic cardiomyopathy Acute on chronic kidney disease History of CABG and previous PCI. History of underlying COPD, maintained on Symbicort and Spiriva on outpatient basis. History of nonspecific mediastinal adenopathy Moderate to severe mitral regurgitation Chronic systolic congestive heart failure Type 2 diabetes Dyslipidemia History of peripheral vessel occlusive disease and carotid stenting Recommendation: Continue to monitor in the ICU for the next 24 hours. Keep patient off dopamine for now per Continue cardiac meds. No plans for cardiac catheterization at this point Continue bronchodilators Will follow. Time with Patient: Less than 30
--- NOTE | 2021-11-28 11:19 | P.PN ---
Subjective HISTORY OF PRESENT ILLNESS: The patient is a 71-year-old male with a known history of CAD, status post CABG, history of hypertension, hyperlipidemia and diabetes mellitus as well as chronic tobacco use, status post stenting and carotid stenting who for the last week has not been feeling well, feeling dyspneic with episodes of irregular heartbeat as well as chest discomfort radiating to both arms. Yesterday he felt dizzy and short of breath with the discomfort EMS noted that he was tachycardic with what complex tachycardia, crit present ventricular tachycardia although atrial fibrillation with aberrancy cannot be excluded subsequently he converted back to sinus mechanism with left bundle branch block and bradycardia. He had episode of ventricle arrhythmia. He is in sinus mechanism with episode of sinus bradycardia since admission. He has dyspnea at this time that has been chronic but no symptoms of chest discomfort any further. He has chronic peripheral edema. No PND or orthopnea. He has known history of chronic kidney disease according to him but worse on presentation. He has no clear PND or orthopnea. He is limited in his physical activity because of the dyspnea on exertion. In December 2013 he underwent cardiac catheterization by Dr. Shane the [place] to LAD was patent, SVG to circumflex was patent, SVG to the RCA had critical stenosis proximal to the stented segment in 2010, his [place] [employer] [place] arteries he had total occl usion of his LAD and RCA and OM. He underwent stenting of the saphenous vein graft to the RCA using 30 by 26 resolute stent. His echocardiogram in 2018 showed an ejection fraction of 30-35%. He underwent placement of a dialysis catheter yesterday. On presentation yesterday his potassium was 7.4 BUN 64 creatinine 2.3, his troponin 0.227 and into proBNP of 2800. His hemoglobin was 10.7 and subsequent hemoglobin down to 6.3. His risk factors are positive for hypertension, hyperlipidemia, diabetes mellitus and chronic tobacco use Medications: Insulin, Lipitor 80 mg daily, Aldactone 25 mg daily, Glucophage 1 g twice a day, Zestril 20 mg daily, Coreg 12-1/2 mg twice a day, iron, Plavix 75 mg daily, aspirin once a day, Spiriva, Ventolin, pro-air 11/22 Pt seen and examined. Decreased hemoglobin noted to be lab error and repeats appears stable. He has been on heparin drip. His home lisinopril, Aldactone, carvedilol were discontinued and held secondary to hyperkalemia and bradycardia. No further significant bradycardia and we will restart carvedilol. Denies any further chest pressure or pain. Heart rates in the 90s to low 100 in sinus rhythm. He underwent dialysis yesterday with improvement in hyperkalemia. He is sitting upright in bed however denies any significant worsening dyspnea. No lower extremity edema. Remains on normal saline at 50 mL per hour. Echocardiogram performed yesterday shows ejection fraction 30% with moderate to severe mitral regurgitation. 11/23 Patient seen and examined. Patient states overall he is feeling fairly well however does have some nasal congestion. Denies any chun shortness breath. He admits he has not had much of an appetite over the last 1-2 weeks and still does not have much of an appetite. No chest pain or pressure. Still has Nitropatch on however no significant dyspnea. In stable at 1.46. Addendum entered and electronically signed by Harry Reeves DO 11/23/21 08:40: [facility] records from primary policeman Dr. Elder. Prior stress test from 10/25/2018 showed EF 39%, echocardiogram 07/19/2018 EF 30-35%, echo 10/25/2018 EF 20-25% however most recent echo 08/10/2021 mention EF 55-60%. There is drop in ejection fraction however main presentation appears related to decreased appetite, acute kidney injury and would treat cardiomyopathy, heart failure medically. Consider stress test/heart catheterization outpatient if kidney function improves. 11/24/2021 Patient examined this morning at the bedside. Patient denies chest pain or pressure. Denies SOB. He remains on IV heparin. Vital signs are stable. HD catheter was removed this morning by vascular surgery. 11/25/2021 Patient examined this morning. Patient is sitting up in the chair. Patient denies chest pain or pressure. He denies shortness of breath. The patient reports having some mild dizziness this morning while he was sitting in the chair which has since resolved. Patient's vital signs are stable. Blood pressure this morning 102/48. Repeat blood pressure 131/58. Telemetry reveals sinus mechanism. 11/26 Patient seen and examined. Patient's creatinine increased to 2.6 today. We had increased his carvedilol from 6.25-12.5 yesterday secondary to some chest pain and possible angina. Blood pressures somewhat borderline however no significant hypotensive episodes noted. Denies any further chest pain or pressure. 11/27 Patient seen and examined. Patient had episode of becoming bradycardiac, less responsive, hypotensive yesterday. Hemoglobin noted to be lower and received blood transfusion however appeared to be slow decrease in hemoglobin level and no source of bleed identified. He did undergo CTA to rule out dissection and retroperitoneal bleed. There does appear to be some correlation with after he got his morphine much of this occurred and may be somewhat of a vagal episode. On further questioning regarding possible heart catheterization and contrast use, he states he is artery made up his mind he would rather than be on dialysis. He was bradycardic with heart rates in the 40s yesterday and placed on dopamine drip at 5 and then decreased down to 2 and has been doing somewhat better. Today he feels better and denies any chest pain or pressure. He did have a Paula catheter placed and anxious to get Paula out. 11/28 Patient seen and examined. Patient states overall he is doing well today. Dopamine was discontinued yesterday and heart rates have remained stable. Carvedilol has been on hold. He does have lower extremity edema however holding Lasix And Contrast Given 2 Days Ago However Creatinine Stable and Improving. Continued Leukocytosis However No Fevers or Chills and Blood Culture Negative to Date. His Plavix was discontinued yesterday given remote stenting as well as anemia requiring blood transfusion 2 days ago. PHYSICAL EXAM: VITAL SIGNS: Reviewed. GENERAL: Well-developed in no acute distress. NECK: Supple. No JVD or thyromegaly LUNGS: Respirations even and unlabored. Lungs essentially clear to auscultation bilaterally. HEART: Regular rate and rhythm. S1 and S2 heard. + systolic murmur. EXTREMITIES: Normal range of motion. No clubbing or cyanosis. Peripheral pulses intact. 2+ lower extremity edema ASSESSMENT: 1. Atrial arrhythmia was possible runs of nonsustained VT and atrial fibrillation, probable worsening cause is the hyperkalemia 2. Symptoms of chest discomfort consistent with angina pectoris, resolved after controlling the heart rate 3. Non-STEMI secondary to ischemia, tachycardia and the worsening renal function, suspect type II mechanism 4. Acute renal injury with hyperkalemia 5. Prior history of severe ischemic cardiomyopathy 6. Status post CABG and prior PCI 7. History of peripheral vascular disease and carotid stenting 8. History of hypertension 9. History of diabetes 10. History of hyperlipidemia 11. Chronic systolic heart failure 12. Moderate to severe mitral regurgitation 13. Decreased appetite over the last 1-2 weeks unclear etiology 14. Leukocytosis rule out infection 15. Bradycardic episode with hypotension. Possible vagal reaction secondary to morphine PLAN: Patient initially had presented with chest discomfort however has not had any repeat chest pain and troponins have been stable. He had episode 11/26 with bradycardia, worsened ST depressions and hypotension however appears related to receiving morphine and may have been vagal component with additional severe anemia. He also had significant anemia requiring blood transfusion and continue to hold Plavix. Patient not a great interventional candidate given anemia and extreme risk of contrast-induced nephropathy with patient stating he would rather than be on dialysis. Hold carvedilol and monitor heart rates. Further recommendations to follow. Prognosis guarded. Rule out infectious component with leukocytosis. Patient will likely need diuretics however receives prior contrast and likely reinitiate diuretics tomorrow. Objective - Vital Signs Vital signs: Vital Signs Temp 97.6 F 11/28/21 08:00 Pulse 70 11/28/21 10:00 Resp 23 11/28/21 10:00 BP 131/53 11/28/21 10:00 Pulse Ox 98 11/28/21 10:00 FiO2 Intake & Output 11/27/21 11/28/21 11/28/21 18:59 06:59 18:59 Intake Total 1016.265 740 20 Output Total 570 1475 100 Balance 446.265 -735 -80 Intake: IV 450 240 20 0.9 Normal Saline @ KVO 100 240 20 Sodium Chloride 0.9% 1, 350 000 ml @ 50 mls/hr IV . Q20H FREDRICK Rx#:[id number] Intake, IV Titration 66.265 Amount DOPamine DRIP 800 mg In 66.265 Dextrose/Water 1 250ml. bag @ 5 MCG/KG/MIN 8.756 mls/hr IV .Q24H FREDRICK Rx#: [id number] Oral 500 500 Output: Urine 570 1475 100 Straight 700 Other: Voiding Method Indwelling Catheter Urinal - Labs CBC & Chem 7: 11/28/21 05:44 11/28/21 05:44 Labs: Abnormal Lab Results - Last 24 Hours (Table) 11/27/21 11/27/21 11/27/21 Range/Units 16:59 20:08 21:02 WBC (3.8-10.6) k/uL RBC (4.30-5.90) m/uL Hgb (13.0-17.5) gm/dL Hct (39.0-53.0) % RDW (11.5-15.5) % Sodium (137-145) mmol/L Carbon Dioxide (22-30) mmol/L BUN (9-20) mg/dL Creatinine (0.66-1.25) mg/dL Glucose (74-99) mg/dL POC Glucose (mg/dL) 141 H 161 H 154 H (70-110) mg/dL Calcium (8.4-10.2) mg/dL 11/28/21 11/28/21 11/28/21 Range/Units 05:44 05:44 06:43 WBC 16.4 H (3.8-10.6) k/uL RBC 2.60 L (4.30-5.90) m/uL Hgb 7.9 L (13.0-17.5) gm/dL Hct 24.5 L (39.0-53.0) % RDW 15.6 H (11.5-15.5) % Sodium 132 L (137-145) mmol/L Carbon Dioxide 21 L (22-30) mmol/L BUN 42 H (9-20) mg/dL Creatinine 2.03 H (0.66-1.25) mg/dL Glucose 147 H (74-99) mg/dL POC Glucose (mg/dL) 169 H (70-110) mg/dL Calcium 7.9 L (8.4-10.2) mg/dL Microbiology - Last 24 Hours (Table) 11/26/21 10:29 Blood Culture - Preliminary Blood No Growth after 24 hours
[2021-11-28 11:46] LABS: Glucose,Whole Blood 185 mg/dL (70-110)
[2021-11-28] MEDS: DOPamine DRIP 800 MG in DEXTROSE/WATER 1 250ML.BAG IV SCH (12:21)
[2021-11-28] MEDS: ACETAMINOPHEN TAB 325 MG TAB PO PRN ×2 (12:31→23:44)
[2021-11-28 16:40] LABS: Glucose,Whole Blood 324 mg/dL (70-110)
[2021-11-28 16:40] LABS: Glucose,Whole Blood 309 mg/dL (70-110)
[2021-11-28 20:03] LABS: Glucose,Whole Blood 279 mg/dL (70-110)
[2021-11-28] MEDS: ATORVASTATIN 80 MG TAB PO SCH (20:16)
[2021-11-29] MEDS: BACLOFEN 10 MG TAB PO PRN ×3 (04:08→23:31)
[2021-11-29 04:59] LABS: Glucose,Whole Blood 103 mg/dL (70-110)
[2021-11-29] MEDS: ACETAMINOPHEN TAB 325 MG TAB PO PRN ×3 (05:56→20:24)
[2021-11-29 06:05] LABS: Anisocytosis Slight; Basophils % (A) 0 %; Eosinophils # (A) 0.3 k/uL (0-0.7); Eosinophils % (A) 3 %; HCT 24.1 % (39.0-53.0); HGB 7.7 gm/dL (13.0-17.5); Hypochromasia Slight; Lymphocytes % (A) 9 %; MCH 30.4 pg (25.0-35.0); MCV 95.2 fL (80.0-100.0); Mean Platelet Volume 10.1; Monocytes # (A) 0.8 k/uL (0-1.0); Monocytes % (A) 7 %; Neutrophils % (A) 80 %; Platelet Count 160 k/uL (150-450); RBC 2.53 m/uL (4.30-5.90); RDW 16.1 % (11.5-15.5); WBC 11.3 k/uL (3.8-10.6)
[2021-11-29 06:31] LABS: Calcium 8.2 mg/dL (8.4-10.2); Potassium 4.3 mmol/L (3.5-5.1)
[2021-11-29 06:58] LABS: Glucose,Whole Blood 131 mg/dL (70-110)
[2021-11-29] MEDS: INSULIN ASPART (NovoLOG) 100 UNIT/ML VIAL SQ SCH ×6 (06:59→20:23)
--- NOTE | 2021-11-29 07:17 | P.PN ---
Subjective Progress Note Date: 11/29/21 Principal diagnosis: Chest discomfort This is a 71-year-old gentleman with multiple comorbid conditions including CAD and status post CABG and PCI as well as diabetes and hypertension and dyslipidemia and chronic systolic heart failure as well as valvular heart disease with mitral regurgitation who we consulted to see mainly because of atrial arrhythmia as well as ventricular arrhythmia in terms off atrial fibrillation as well as nonsustained ventricular tachycardia. Also involved in the care of the patient because of chest discomfort which is so far has been managed medically. The patient was seen this morning. He is overall stable hemodynamically and not on any vasopressors. Clinically he is stable as well and reports no symptoms of any chest pain or chest discomfort. The hemoglobin continues to be stable above 7. Kidney function also has been stable with the last creatinine from today of 1.80. We felt that the patient clinically is not a candidate to undergo an invasive strategy like a heart catheterization and percutaneous coronary intervention Objective - Vital Signs Vital signs: Vital Signs Temp 98.2 F 11/29/21 04:00 Pulse 75 11/29/21 06:00 Resp 22 11/29/21 06:00 BP 124/50 11/29/21 06:00 Pulse Ox 97 11/29/21 06:00 FiO2 Intake & Output 11/28/21 11/29/21 11/29/21 18:59 06:59 18:59 Intake Total 120 Output Total 925 1965 Balance -80 Intake: IV 120 0.9 Normal Saline @ KVO 20 Sodium Ferric Gluconat- 100 Sucrose 125 mg In Sodium Chloride 0.9% 100 ml @ 100 mls/hr IVPB ONCE ONE Rx#:[id number] Output: Urine 925 1965 Straight 600 1400 Other: Voiding Method Toilet Indwelling Catheter # Voids 1 - Constitutional General appearance: Present: no acute distress - Respiratory Respiratory: bilateral: CTA - Cardiovascular Rhythm: regular Heart sounds: normal: S1, S2 Abnormal Heart Sounds: Present: systolic murmur - Labs CBC & Chem 7: 11/29/21 05:41 11/29/21 05:41 Labs: Abnormal Lab Results - Last 24 Hours (Table) 11/28/21 11/28/21 11/28/21 Range/Units 11:45 16:36 16:38 WBC (3.8-10.6) k/uL RBC (4.30-5.90) m/uL Hgb (13.0-17.5) gm/dL Hct (39.0-53.0) % RDW (11.5-15.5) % Neutrophils # (1.3-7.7) k/uL Sodium (137-145) mmol/L Carbon Dioxide (22-30) mmol/L BUN (9-20) mg/dL Creatinine (0.66-1.25) mg/dL POC Glucose (mg/dL) 185 H 309 H 324 H (70-110) mg/dL Calcium (8.4-10.2) mg/dL 11/28/21 11/29/21 11/29/21 Range/Units 20:02 05:41 05:41 WBC 11.3 H (3.8-10.6) k/uL RBC 2.53 L (4.30-5.90) m/uL Hgb 7.7 L (13.0-17.5) gm/dL Hct 24.1 L (39.0-53.0) % RDW 16.1 H (11.5-15.5) % Neutrophils # 9.0 H (1.3-7.7) k/uL Sodium 135 L (137-145) mmol/L Carbon Dioxide 20 L (22-30) mmol/L BUN 40 H (9-20) mg/dL Creatinine 1.80 H (0.66-1.25) mg/dL POC Glucose (mg/dL) 279 H (70-110) mg/dL Calcium 8.2 L (8.4-10.2) mg/dL 11/29/21 Range/Units 06:47 WBC (3.8-10.6) k/uL RBC (4.30-5.90) m/uL Hgb (13.0-17.5) gm/dL Hct (39.0-53.0) % RDW (11.5-15.5) % Neutrophils # (1.3-7.7) k/uL Sodium (137-145) mmol/L Carbon Dioxide (22-30) mmol/L BUN (9-20) mg/dL Creatinine (0.66-1.25) mg/dL POC Glucose (mg/dL) 131 H (70-110) mg/dL Calcium (8.4-10.2) mg/dL Microbiology - Last 24 Hours (Table) 11/26/21 10:29 Blood Culture - Preliminary Blood No Growth after 48 hours Assessment and Plan Assessment: Assessment #1 atrial and ventricular arrhythmia #2 acute coronary syndrome, likely type II GA #3 CAD with prior revascularization #4 severe ischemic cardiomyopathy #5 severe mitral regurgitation #6 multiple comorbid conditions Plan Continues the current te The pt is stable in term of chest pain He is hemodynamically stable
[2021-11-29] MEDS: IPRATROPIUM 0.5 MG/2.5 ML NEBU INHALATION SCH ×4 (08:29→20:08)
[2021-11-29] MEDS: SYMBICORT 160-4.5 MCG INHALER INHALATION SCH ×2 (08:29→20:08)
[2021-11-29] MEDS: PANTOPRAZOLE 40 MG/10 ML VIAL IVP SCH ×2 (08:40→20:23)
[2021-11-29] MEDS: buPROPion SR 150 MG TABLET.ER PO SCH ×2 (08:40→20:23)
[2021-11-29] MEDS: TAMSULOSIN 0.4 MG CAP.ER.24H PO SCH (08:40)
[2021-11-29] MEDS: SODIUM BICARBONATE TAB 650 MG TAB PO SCH ×2 (08:40→20:23)
[2021-11-29] MEDS: ASPIRIN 81 MG PO SCH (08:40)
--- NOTE | 2021-11-29 09:31 | P.PN ---
Subjective Patient is seen for follow-up for acute kidney injury and hyperkalemia. Patient was admitted with bradycardia and a serum potassium of 7.4. He received one treatment of hemodialysis and has not required any further dialysis treatments. Patient has good urine output. Patient has had obstructive uropathy requiring Paula catheter placement. He is started on Flomax. Serum creatinine down to 1.8 from 2.6 on 11/26/2021. Patient had acute kidney injury on admission with creatinine at 2.3 and this had decreased to about 1.4 mg/dL prior to it rising again from obstructive uropathy Objective - Vital Signs Vital signs: Vital Signs Temp 97.0 F L 11/29/21 08:00 Pulse 68 11/29/21 09:00 Resp 16 11/29/21 09:00 BP 134/55 11/29/21 09:00 Pulse Ox 97 11/29/21 09:00 FiO2 Intake & Output 11/28/21 11/29/21 11/29/21 18:59 06:59 18:59 Intake Total 120 100 Output Total 925 1965 160 Balance -805 -1965 -60 Intake: IV 120 0.9 Normal Saline @ KVO 20 Sodium Ferric Gluconat- 100 Sucrose 125 mg In Sodium Chloride 0.9% 100 ml @ 100 mls/hr IVPB ONCE ONE Rx#:[id number] Oral 100 Output: Urine 925 1965 160 Straight 600 1400 Other: Voiding Method Toilet Indwelling Catheter # Voids 1 - Exam Awake, comfortable, not in any acute distress Examination of the heart S1 and S2 Examination lungs bilateral breath sounds are heard Abdomen is soft nontender Examination of the lower extremities shows edema 2+ bilaterally SLOT ROUTER exam grossly intact - Labs CBC & Chem 7: 11/29/21 05:41 11/29/21 05:41 Labs: Abnormal Lab Results - Last 24 Hours (Table) 11/28/21 11/28/21 11/28/21 Range/Units 11:45 16:36 16:38 WBC (3.8-10.6) k/uL RBC (4.30-5.90) m/uL Hgb (13.0-17.5) gm/dL Hct (39.0-53.0) % RDW (11.5-15.5) % Neutrophils # (1.3-7.7) k/uL Sodium (137-145) mmol/L Carbon Dioxide (22-30) mmol/L BUN (9-20) mg/dL Creatinine (0.66-1.25) mg/dL POC Glucose (mg/dL) 185 H 309 H 324 H (70-110) mg/dL Calcium (8.4-10.2) mg/dL 11/28/21 11/29/21 11/29/21 Range/Units 20:02 05:41 05:41 WBC 11.3 H (3.8-10.6) k/uL RBC 2.53 L (4.30-5.90) m/uL Hgb 7.7 L (13.0-17.5) gm/dL Hct 24.1 L (39.0-53.0) % RDW 16.1 H (11.5-15.5) % Neutrophils # 9.0 H (1.3-7.7) k/uL Sodium 135 L (137-145) mmol/L Carbon Dioxide 20 L (22-30) mmol/L BUN 40 H (9-20) mg/dL Creatinine 1.80 H (0.66-1.25) mg/dL POC Glucose (mg/dL) 279 H (70-110) mg/dL Calcium 8.2 L (8.4-10.2) mg/dL 11/29/21 Range/Units 06:47 WBC (3.8-10.6) k/uL RBC (4.30-5.90) m/uL Hgb (13.0-17.5) gm/dL Hct (39.0-53.0) % RDW (11.5-15.5) % Neutrophils # (1.3-7.7) k/uL Sodium (137-145) mmol/L Carbon Dioxide (22-30) mmol/L BUN (9-20) mg/dL Creatinine (0.66-1.25) mg/dL POC Glucose (mg/dL) 131 H (70-110) mg/dL Calcium (8.4-10.2) mg/dL Microbiology - Last 24 Hours (Table) 11/26/21 10:29 Blood Culture - Preliminary Blood No Growth after 48 hours Assessment and Plan Assessment: 1. Hyperkalemia associated with acute kidney injury Johnathon inhibitors and Aldactone along with potassium supplementation. Currently improved. Status post one treatment of hemodialysis. 2. Possible underlying CK D stage III B previous creatinine 1.1-1.3 mg/dL in 2019. Etiology likely nephrosclerosis. Check UA 3. Hypertension with CK D 4. Acute coronary syndrome with underlying CAD status post IV heparin on initial admission. No plans for cardiac catheterization at this time. 5. Metabolic acidosis associated with acute kidney injury 6. Volume overload 7. Cardiomyopathy with ejection fraction 25-30% with severe hypokinesis and severely dilated left atrium 8. Acute kidney injury on initial admission possibly prerenal in the setting of use of JOHNATHON inhibitor's. This had improved with creatinine down to 1.45 mg/dL. However serum creatinine increased again to about 2.6 mg/dL secondary to obstructive uropathy. Currently with indwelling Paula catheter with improving renal function 9. Obstructive uropathy and urine retention maintained on Flomax and with indwelling Paula catheter 10. Iron deficiency status post IV iron Plan: Continue with Paula catheter Continue sodium bicarb Resume Lasix Repeat IV iron today and in a.m.
[2021-11-29] MEDS: INSULIN DETEMIR (LEVEMIR) 100 UNIT/ML SYR SQ SCH ×2 (09:35→20:23)
[2021-11-29] MEDS: DOPamine DRIP 800 MG in DEXTROSE/WATER 1 250ML.BAG IV SCH (09:50)
[2021-11-29] MEDS: PHENAZOPYRIDINE 100 MG TAB PO SCH ×3 (10:01→21:55)
[2021-11-29] MEDS: FUROSEMIDE 10 MG/ML 4 ML VIAL IV SCH (10:01)
[2021-11-29] MEDS: SODIUM FERRIC GLUCONAT-SUCROSE 125 MG in SODIUM CHLORIDE 0.9% 100 ML IVPB SCH (10:01)
--- NOTE | 2021-11-29 10:15 | P.PN ---
Subjective Progress Note Date: 11/29/21 Patient is a 71-year-old male with known CAD status post CABG and multiple stents, ischemic cardiomyopathy, hypertension, hyperlipidemia, insulin-dependent diabetes mellitus, and COPD with continued nicotine dependence who presetned to the emergency department chest pain. Patient was found by EMS to be in A. fib with RVR and brought to the emergency department for evaluation. Upon arrival to the emergency department, patient underwent an extensive evaluation. EKG revealed sinus bradycardia at 55 bpm with peaked T waves and a repeat EKG revealed sinus bradycardia at 39 bpm. Chest x-ray negative for acute cardiopulmonary process. CBC revealed WBC count of 11.5, hemoglobin of 10.7, critical potassium of 7.4, BUN of 64, creatinine of 2.33 (baseline creatinine 1), carbon dioxide 15, and anion gap of 11. Troponin elevated at 0.258 and pro- BMP of 2800. Patient was for severe hyperkalemia and acute kidney injury with atrial arrhythmias. Pt had a temporary HD cath placed and underwent emergent HD per nephrology recs. Cardiology was consulted and echo revealed EF 25-30% with anteroapical and anteroseptal severe hypokinesis, moderate to severe mitral regurgitation, and mild tricuspid regurgitation. Bilateral lower extremity Dopplers completed negative for DVT. Patient was diuresis with Lasix, dialysis catheter removed 11/24/21, and patient started on sodium bicarb tablets 650 mg twice daily. His renal function improved. On 11/29 he delveloped some back pain, received a dose of morphine and had a episode of vomiting followed by sustained symptomatic bradycardia. Dose of atropine which improved his symptoms, he was transferred to the ICU and was started on a dopamine drip. His beta mable was discontinued. He was found to have a slow decline in hemoglobin. He underwent an off due to back pain associated with low hemoglobin which was negative for any signs of dissection, aneurysm, or retroperitoneal bleed. He underwent an ultrasound of his right groin due to his recent hemodialysis catheter which was negative for hematoma. He received 1 unit of packed red blood cells and his hemoglobin remained stable. He continued to do well. He struggled with urinary retention and required replacement of his Paula catheter. Patient seen and examined at bedside. He denies any chest pain, no shortness of breath, no nausea. He has been eating and drinking well. He is having significant pain secondary to his Paula catheter. General: nontoxic, no distress, appears at stated age Derm: warm, dry Head: atraumatic, normocephalic, symmetric Eyes: EOMI, no lid lag, anicteric sclera Mouth: no lip lesion, mucus membranes moist Cardiovascular: S1S2 reg, no murmur, positive posterior tibial pulse bilateral, Lungs: Decreased bs bilateral, no rhonchi, no rales , no accessory muscle use Abdominal: soft, nontender to palpation, no guarding, no appreciable organomegaly Ext: no gross muscle atrophy, 1+ edema l/e LE, no contractures Neuro: CN II-XI grossly intact, no focal neuro deficits Psych: Alert, oriented, appropriate affect Assessment and Plan: Acute exacerbation of Systolic CHF NSTEMI, likely demand ischemia resulting from type II [place] Symptomatic bradycardia, suspect possible vagal component Ischemic cardiomyopathy with EF of 25-30% History of CAD status post CABG and multiple stents Hypertension Hyperlipidemia - cardio recs, no plans for intervention at this time - ASA - Plavix on hold per cardio - Lipitor - Lasix - strict I and O - Daily weights - Off BB due to bradycardia - Off Lisinopril, aldactone, and potassium due to hyperkalemia Acute kidney injury with likely underlying CKD IIIB Obstructive uropathy - nephrology recs - avoid nephrotoxic agents - follow Cr - flomax - pyridium for discomfort - carlos Acute on chronic anemia, iron def - s/p 1 unit of pRBC - no signs of GI bleeding - D # 2/3 of IV iron - follow CBC - Per patients was having bleeding from HD cath prior to removal. Insulin-dependent diabetes mellitus with a hemoglobin A1c of 9.1% -Levemir - SSI COPD without exacerbation - PRN and scheduled Bronchodilators Severe hyperkalemia in setting of CRAIG inhibitor and Aldactone use, resolved Atrial arrhythmias likely secondary to hyperkalemia Metabolic acidosis, resolved DVT prophylaxis:SCDs Discussed with: Patient and RN Anticipated discharge date: in 2-[address]: Home A total of 37 minutes was spent on the care of this complex patient more than 50% of the time was spent in counseling and care coordination. Active Medications Generic Name Dose Route Start Last Admin Trade Name Freq PRN Reason Stop Dose Admin Acetaminophen 650 mg 11/26/21 14:56 11/29/21 05:56 Acetaminophen Tab 325 Mg Tab PO 650 mg Q6HR PRN Administration Fever and/ or Pain Albuterol Sulfate 2.5 mg 11/20/21 21:04 11/21/21 01:49 Albuterol Nebulized 2.5 Mg/3 Ml INHALATION 2.5 mg RT-Q6H PRN Administration Shortness Of Breath Aspirin 81 mg 11/22/21 09:00 11/29/21 08:40 Aspirin 81 Mg PO 81 mg DAILY FREDRICK Administration Atorvastatin Calcium 80 mg 11/20/21 21:00 11/28/21 20:16 Atorvastatin 80 Mg Tab PO 80 mg HS FREDRICK Administration Baclofen 10 mg 11/29/21 04:00 11/29/21 04:08 Baclofen 10 Mg Tab PO 10 mg BID PRN Administration Muscle Spasm Budesonide/Formoterol Fumarate 2 puff 11/21/21 08:00 11/29/21 08:29 Symbicort 160-4.5 Mcg Inhaler INHALATION 2 puff RT-BID FREDRICK Administration Bupropion HCl 150 mg 11/22/21 21:00 11/29/21 08:40 Bupropion Sr 150 Mg Tablet.Er PO 150 mg BID FREDRICK Administration Dextrose/Water 25 ml 11/20/21 20:46 11/27/21 10:28 Dextrose 50% Syringe 50 Ml IVP 25 ml PER PROTOCOL PRN Administration Hypoglycemia Protocol Dextrose/Water 50 ml 11/20/21 20:46 Dextrose 50% Syringe 50 Ml IVP PER PROTOCOL PRN Hypoglycemia Protocol Furosemide 40 mg 11/29/21 09:45 11/29/21 10:01 Furosemide 10 Mg/Ml 4 Ml Vial IV 40 mg DAILY FREDRICK Administration Dopamine HCl/Dextrose 800 mg/ 250 mls @ 8.756 mls/hr 11/26/21 13:00 11/29/21 09:50 IV Solution IV Not Given .Q24H FREDRICK Protocol 5 MCG/KG/MIN Ferric Sodium Gluconate 125 mg 110 mls @ 100 mls/hr 11/29/21 10:30 11/29/21 10:01 / Sodium Chloride IVPB 11/30/21 10:31 100 mls/hr DAILY FREDRICK Administration Insulin Aspart 0 unit 11/20/21 21:00 11/29/21 06:59 Insulin Aspart (Novolog) 100 Unit/Ml Vial SQ Not Given ACHS FREDRICK Protocol Insulin Detemir 50 unit 11/26/21 21:00 11/29/21 09:35 Insulin Detemir (Levemir) 100 Unit/Ml Syr SQ Not Given BID FREDRICK Ipratropium [place] 0.5 mg 11/21/21 08:00 11/29/21 08:29 Ipratropium 0.5 Mg/2.5 Ml Nebu INHALATION 0.5 mg RT-QID FREDRICK Administration Naloxone HCl 0.2 mg 11/26/21 14:51 Naloxone 0.4 Mg/Ml 1 Ml Vial IV Q2M PRN Opioid Reversal Nitroglycerin 0.4 mg 11/20/21 20:39 Nitroglycerin Sl Tabs 0.4 Mg Tab SUBLINGUAL Q5M PRN Chest Pain Pantoprazole Sodium 40 mg 11/26/21 10:00 11/29/21 08:40 Pantoprazole 40 Mg/10 Ml Vial IVP 40 mg BID FREDRICK Administration Phenazopyridine HCl 100 mg 11/29/21 10:15 11/29/21 10:01 Phenazopyridine 100 Mg Tab PO 100 mg TID FREDRICK Administration Sodium Bicarbonate 650 mg 11/21/21 21:00 11/29/21 08:40 Sodium Bicarbonate Tab 650 Mg Tab PO 650 mg BID FREDRICK Administration Tamsulosin HCl 0.4 mg 11/29/21 08:30 11/29/21 08:40 Tamsulosin 0.4 Mg Cap.Er.24h PO 0.4 mg [id number] FREDRICK Administration Objective - Vital Signs Vital signs: Vital Signs Temp 97.0 F L 11/29/21 08:00 Pulse 68 11/29/21 09:00 Resp 16 11/29/21 09:00 BP 134/55 11/29/21 09:00 Pulse Ox 97 11/29/21 09:00 FiO2 Intake & Output 11/28/21 11/29/21 11/29/21 18:59 06:59 18:59 Intake Total 120 100 Output Total 925 1965 160 Balance -805 -1965 -60 Intake: IV 120 0.9 Normal Saline @ KVO 20 Sodium Ferric Gluconat- 100 Sucrose 125 mg In Sodium Chloride 0.9% 100 ml @ 100 mls/hr IVPB ONCE ONE Rx#:[id number] Oral 100 Output: Urine 925 1965 160 Straight 600 1400 Other: Voiding Method Toilet Indwelling Catheter # Voids 1 - Labs CBC & Chem 7: 11/29/21 05:41 11/29/21 05:41 Labs: Abnormal Lab Results - Last 24 Hours (Table) 11/28/21 11/28/21 11/28/21 Range/Units 11:45 16:36 16:38 WBC (3.8-10.6) k/uL RBC (4.30-5.90) m/uL Hgb (13.0-17.5) gm/dL Hct (39.0-53.0) % RDW (11.5-15.5) % Neutrophils # (1.3-7.7) k/uL Sodium (137-145) mmol/L Carbon Dioxide (22-30) mmol/L BUN (9-20) mg/dL Creatinine (0.66-1.25) mg/dL POC Glucose (mg/dL) 185 H 309 H 324 H (70-110) mg/dL Calcium (8.4-10.2) mg/dL 11/28/21 11/29/21 11/29/21 Range/Units 20:02 05:41 05:41 WBC 11.3 H (3.8-10.6) k/uL RBC 2.53 L (4.30-5.90) m/uL Hgb 7.7 L (13.0-17.5) gm/dL Hct 24.1 L (39.0-53.0) % RDW 16.1 H (11.5-15.5) % Neutrophils # 9.0 H (1.3-7.7) k/uL Sodium 135 L (137-145) mmol/L Carbon Dioxide 20 L (22-30) mmol/L BUN 40 H (9-20) mg/dL Creatinine 1.80 H (0.66-1.25) mg/dL POC Glucose (mg/dL) 279 H (70-110) mg/dL Calcium 8.2 L (8.4-10.2) mg/dL 11/29/21 Range/Units 06:47 WBC (3.8-10.6) k/uL RBC (4.30-5.90) m/uL Hgb (13.0-17.5) gm/dL Hct (39.0-53.0) % RDW (11.5-15.5) % Neutrophils # (1.3-7.7) k/uL Sodium (137-145) mmol/L Carbon Dioxide (22-30) mmol/L BUN (9-20) mg/dL Creatinine (0.66-1.25) mg/dL POC Glucose (mg/dL) 131 H (70-110) mg/dL Calcium (8.4-10.2) mg/dL Microbiology - Last 24 Hours (Table) 11/26/21 10:29 Blood Culture - Preliminary Blood No Growth after 48 hours
[2021-11-29 11:21] LABS: Glucose,Whole Blood 94 mg/dL (70-110)
[2021-11-29 16:21] LABS: Glucose,Whole Blood 247 mg/dL (70-110)
[2021-11-29 20:09] LABS: Glucose,Whole Blood 245 mg/dL (70-110)
[2021-11-29] MEDS: ATORVASTATIN 80 MG TAB PO SCH (20:23)
[2021-11-30] MEDS: ACETAMINOPHEN TAB 325 MG TAB PO PRN (02:34)
[2021-11-30 06:18] LABS: Glucose,Whole Blood 214 mg/dL (70-110)
[2021-11-30] MEDS: INSULIN ASPART (NovoLOG) 100 UNIT/ML VIAL SQ SCH ×7 (06:34→20:36)
[2021-11-30 06:51] LABS: Anisocytosis Slight; HCT 26.3 % (39.0-53.0); HGB 8.2 gm/dL (13.0-17.5); Hypochromasia Moderate; MCH 30.3 pg (25.0-35.0); MCHC 31.2 g/dL (31.0-37.0); MCV 96.9 fL (80.0-100.0); Macrocytosis Slight; Mean Platelet Volume 10.1; Platelet Count 182 k/uL (150-450); Poikilocytosis Slight; RBC 2.72 m/uL (4.30-5.90); RDW 16.2 % (11.5-15.5)
--- NOTE | 2021-11-30 06:54 | P.PN ---
Subjective Progress Note Date: 11/30/21 Principal diagnosis: Chest discomfort This is a 71-year-old gentleman with multiple comorbid conditions including CAD and status post CABG and PCI as well as diabetes and hypertension and dyslipidemia and chronic systolic heart failure as well as valvular heart disease with mitral regurgitation who we consulted to see mainly because of atrial arrhythmia as well as ventricular arrhythmia in terms off atrial fibrillation as well as nonsustained ventricular tachycardia. Also involved in the care of the patient because of chest discomfort which is so far has been managed medically. The patient was seen this morning. He was sleeping comfortably. No more episode of chest pain. He continues to be on Lasix IV and he continues to have fluid overload. Currently he is not on any medication for cardiomyopathy. We cannot start beta mable at this point in view of the marginally low blood pressure as well as evidence of heart failure. We can not start him on CRAIG inhibitor as well in the light of acute kidney failure. Also he cannot be started on Aldactone for the same reason. At this point I would continue the current medical regimen. Consider starting the patient on cardiomyopathy and ischemic medications in the next few days once his kidney function is better and he is not in failure anymore. Also I would consider repeating the echo at least limited echo to assess for any improvement in the ejection fraction Objective - Vital Signs Vital signs: Vital Signs Temp 98 F 11/30/21 04:00 Pulse 85 11/30/21 04:00 Resp 19 11/30/21 04:00 BP 125/56 11/30/21 04:00 Pulse Ox 98 11/30/21 04:00 FiO2 Intake & Output 11/29/21 11/29/21 11/30/21 06:59 18:59 06:59 Intake Total 500 600 Output Total 1964 1060 975 Balance -1964 -560 -375 Intake: Oral 500 600 Output: Urine 1964 1060 975 Straight 1400 Other: Voiding Method Indwelling Catheter Indwelling Catheter Indwelling Catheter # Voids 1 - Constitutional General appearance: Present: no acute distress - Labs CBC & Chem 7: 11/30/21 05:50 11/29/21 05:41 Labs: Abnormal Lab Results - Last 24 Hours (Table) 11/29/21 11/29/21 11/29/21 Range/Units 06:47 16:19 19:57 WBC (3.8-10.6) k/uL RBC (4.30-5.90) m/uL Hgb (13.0-17.5) gm/dL Hct (39.0-53.0) % RDW (11.5-15.5) % POC Glucose (mg/dL) 131 H 247 H 245 H (70-110) mg/dL 11/30/21 11/30/21 Range/Units 05:50 06:16 WBC 15.0 H (3.8-10.6) k/uL RBC 2.72 L (4.30-5.90) m/uL Hgb 8.2 L (13.0-17.5) gm/dL Hct 26.3 L (39.0-53.0) % RDW 16.2 H (11.5-15.5) % POC Glucose (mg/dL) 214 H (70-110) mg/dL Microbiology - Last 24 Hours (Table) 11/26/21 10:29 Blood Culture - Preliminary Blood No Growth after 72 hours Assessment and Plan Assessment: Assessment #1 atrial and ventricular arrhythmia #2 acute coronary syndrome, likely type II [place] #3 CAD with prior revascularization #4 severe ischemic cardiomyopathy #5 severe mitral regurgitation #6 heart failure with reduced ejection fraction exacerbation #7 acute on chronic renal failure #8 electrolytes imbalance Plan #1 continue IV diuretics. Nephrology service is on the case #2 consider starting the patient on beta mable once he is not in heart failure anymore and wants the pressure is better #3 consider starting the patient on CRAIG inhibitor as well as Aldactone once his kidney function improved #4 continue monitor the kidney function and electrolytes #5 follow-up with the patient
[2021-11-30 07:06] LABS: Calcium 8.3 mg/dL (8.4-10.2); Magnesium 2.4 mg/dL (1.6-2.3); Potassium 4.6 mmol/L (3.5-5.1)
[2021-11-30] MEDS: SYMBICORT 160-4.5 MCG INHALER INHALATION SCH ×2 (08:04→19:43)
[2021-11-30] MEDS: IPRATROPIUM 0.5 MG/2.5 ML NEBU INHALATION SCH ×4 (08:04→19:41)
[2021-11-30] MEDS: PANTOPRAZOLE 40 MG/10 ML VIAL IVP SCH ×2 (08:35→20:36)
[2021-11-30] MEDS: buPROPion SR 150 MG TABLET.ER PO SCH ×2 (08:35→20:37)
[2021-11-30] MEDS: PHENAZOPYRIDINE 100 MG TAB PO SCH ×3 (08:35→21:00)
[2021-11-30] MEDS: TAMSULOSIN 0.4 MG CAP.ER.24H PO SCH (08:35)
[2021-11-30] MEDS: INSULIN DETEMIR (LEVEMIR) 100 UNIT/ML SYR SQ SCH ×2 (08:36→20:36)
[2021-11-30] MEDS: SODIUM FERRIC GLUCONAT-SUCROSE 125 MG in SODIUM CHLORIDE 0.9% 100 ML IVPB SCH (08:36)
[2021-11-30] MEDS: FUROSEMIDE 10 MG/ML 4 ML VIAL IV SCH (08:36)
[2021-11-30] MEDS: SODIUM BICARBONATE TAB 650 MG TAB PO SCH ×2 (08:36→20:36)
[2021-11-30] MEDS: ASPIRIN 81 MG PO SCH (08:39)
--- NOTE | 2021-11-30 09:40 | P.PN ---
Subjective Patient is seen for follow-up for acute kidney injury and hyperkalemia. Patient was admitted with bradycardia and a serum potassium of 7.4. He received one treatment of hemodialysis and has not required any further dialysis treatments. Patient has good urine output. Patient has had obstructive uropathy requiring Paula catheter placement. He is started on Flomax. Serum creatinine down to 1.8 from 2.6 on 11/26/2021. Patient had acute kidney injury on admission with creatinine at 2.3 and this had decreased to about 1.4 mg/dL prior to it rising again from obstructive uropathy Patient is sitting up in a bedside chair. 24 hour urine output at 2 L with indwelling Paula catheter No significant complaints today Objective - Vital Signs Vital signs: Vital Signs Temp 97.6 F 11/30/21 08:00 Pulse 91 11/30/21 08:13 Resp 16 11/30/21 08:00 BP 128/63 11/30/21 08:00 Pulse Ox 96 11/30/21 08:04 FiO2 Intake & Output 11/29/21 11/30/21 11/30/21 18:59 06:59 18:59 Intake Total 500 600 Output Total 1060 975 250 Balance -560 -375 -250 Intake: Oral 500 600 Output: Urine 1060 975 250 Other: Voiding Method Indwelling Catheter Indwelling Catheter Indwelling Catheter - Exam Awake, comfortable, not in any acute distress Examination of the heart S1 and S2 Examination lungs bilateral breath sounds are heard Abdomen is soft nontender Examination of the lower extremities shows edema 2+ bilaterally HOT P[employer] GAUGER exam grossly intact - Labs CBC & Chem 7: 11/30/21 05:50 11/30/21 05:50 Labs: Abnormal Lab Results - Last 24 Hours (Table) 11/29/21 11/29/21 11/30/21 Range/Units 16:19 19:57 05:50 WBC 15.0 H (3.8-10.6) k/uL RBC 2.72 L (4.30-5.90) m/uL Hgb 8.2 L (13.0-17.5) gm/dL Hct 26.3 L (39.0-53.0) % RDW 16.2 H (11.5-15.5) % Sodium (137-145) mmol/L BUN (9-20) mg/dL Creatinine (0.66-1.25) mg/dL Glucose (74-99) mg/dL POC Glucose (mg/dL) 247 H 245 H (70-110) mg/dL Calcium (8.4-10.2) mg/dL Magnesium (1.6-2.3) mg/dL 11/30/21 11/30/21 Range/Units 05:50 06:16 WBC (3.8-10.6) k/uL RBC (4.30-5.90) m/uL Hgb (13.0-17.5) gm/dL Hct (39.0-53.0) % RDW (11.5-15.5) % Sodium 135 L (137-145) mmol/L BUN 34 H (9-20) mg/dL Creatinine 1.68 H (0.66-1.25) mg/dL Glucose 178 H (74-99) mg/dL POC Glucose (mg/dL) 214 H (70-110) mg/dL Calcium 8.3 L (8.4-10.2) mg/dL Magnesium 2.4 H (1.6-2.3) mg/dL Microbiology - Last 24 Hours (Table) 11/26/21 10:29 Blood Culture - Preliminary Blood No Growth after 72 hours Assessment and Plan Assessment: 1. Hyperkalemia associated with acute kidney injury Johnathon inhibitors and Aldactone along with potassium supplementation. Currently improved. Status post one treatment of hemodialysis. 2. Possible underlying CK D stage III B previous creatinine 1.1-1.3 mg/dL in 2019. Etiology likely nephrosclerosis. UA is benign 3. Hypertension with CK D 4. Acute coronary syndrome with underlying CAD status post IV heparin on initial admission. No plans for cardiac catheterization at this time. 5. Metabolic acidosis associated with acute kidney injury 6. Volume overload 7. Cardiomyopathy with ejection fraction 25-30% with severe hypokinesis and se verely dilated left atrium 8. Acute kidney injury on initial admission possibly prerenal in the setting of use of JOHNATHON inhibitor's. This had improved with creatinine down to 1.45 mg/dL. However serum creatinine increased again to about 2.6 mg/dL secondary to obstructive uropathy. Currently with indwelling Paula catheter with improving renal function 9. Obstructive uropathy and urine retention maintained on Flomax and with indwelling Paula catheter 10. Iron deficiency status post IV iron Plan: Continue with Paula catheter Continue sodium bicarb Resume Lasix Repeat IV iron today and in a.m.
[2021-11-30 11:29] LABS: Glucose,Whole Blood 177 mg/dL (70-110)
[2021-11-30 16:38] LABS: Glucose,Whole Blood 193 mg/dL (70-110)
--- NOTE | 2021-11-30 17:42 | P.PN ---
Subjective Progress Note Date: 11/30/21 (delayed charting seen at 1235) Patient is a 71-year-old male with known CAD status post CABG and multiple stents, ischemic cardiomyopathy, hypertension, hyperlipidemia, insulin-dependent diabetes mellitus, and COPD with continued nicotine dependence who presetned to the emergency department chest pain. Patient was found by EMS to be in A. fib with RVR and brought to the emergency department for evaluation. Upon arrival to the emergency department, patient underwent an extensive evaluation. EKG revealed sinus bradycardia at 55 bpm with peaked T waves and a repeat EKG revealed sinus bradycardia at 39 bpm. Chest x-ray negative for acute cardiopulmonary process. CBC revealed WBC count of 11.5, hemoglobin of 10.7, critical potassium of 7.4, BUN of 64, creatinine of 2.33 (baseline creatinine 1), carbon dioxide 15, and anion gap of 11. Troponin elevated at 0.258 and pro- BMP of 2800. Patient was for severe hyperkalemia and acute kidney injury with atrial arrhythmias. Pt had a temporary HD cath placed and underwent emergent HD per nephrology recs. Cardiology was consulted and echo revealed EF 25-30% with anteroapical and anteroseptal severe hypokinesis, moderate to severe mitral regurgitation, and mild tricuspid regurgitation. Bilateral lower extremity Dopplers completed negative for DVT. Patient was diuresis with Lasix, dialysis catheter removed 11/24/21, and patient started on sodium bicarb tablets 650 mg twice daily. His renal function improved. On 11/29 he delveloped some back pain, received a dose of morphine and had a episode of vomiting followed by sustained symptomatic bradycardia. Dose of atropine which improved his symptoms, he was transferred to the ICU and was started on a dopamine drip. His beta mable was discontinued. He was found to have a slow decline in hemoglobin. He underwent an off due to back pain associated with low hemoglobin which was negative for any signs of dissection, aneurysm, or retroperitoneal bleed. He underwent an ultrasound of his right groin due to his recent hemodialysis catheter which was negative for hematoma. He received 1 unit of packed red blood cells and his hemoglobin remained stable. He continued to do well. He struggled with urinary retention and required replacement of his Paula catheter. Patient seen and examined at bedside. Denies any chest pain, no shortness of breath, still having lower extremity edema. present at bedside and all questions answered. General: nontoxic, no distress, appears at stated age Derm: warm, dry Head: atraumatic, normocephalic, symmetric Eyes: EOMI, no lid lag, anicteric sclera Mouth: no lip lesion, mucus membranes moist Cardiovascular: S1S2 reg, no murmur, positive posterior tibial pulse bilateral, Lungs: Rhonchi bilateral bases , no accessory muscle use Abdominal: soft, nontender to palpation, no guarding, no appreciable organomegaly Ext: no gross muscle atrophy, 2+ edema l/e LE, no contractures Neuro: CN II-XI grossly intact, no focal neuro deficits Psych: Alert, oriented, appropriate affect Assessment and Plan: Acute exacerbation of Systolic CHF NSTEMI, likely demand ischemia resulting from type II [place] Symptomatic bradycardia, suspect possible vagal component Ischemic cardiomyopathy with EF of 25-30% History of CAD status post CABG and multiple stents Hypertension Hyperlipidemia - cardio recs, no plans for intervention at this time - ASA - Plavix on hold per cardio - Lipitor - Lasix - strict I and O - Daily weights - Off BB due to bradycardia requiring dopamine drip - Off Lisinopril, aldactone, and potassium due to hyperkalemia Acute kidney injury with likely underlying CKD IIIB Obstructive uropathy - nephrology recs - avoid nephrotoxic agents - follow Cr - flomax - pyridium for discomfort - carlos Acute on chronic anemia, iron def - s/p 1 unit of pRBC - no signs of GI bleeding - D # 3/3 of IV iron - follow CBC - Per patients was having bleeding from HD cath prior to removal. Leukocytosis -Suspect reactive -Check CBC in a.m. -Follow fever profile Insulin-dependent diabetes mellitus with a hemoglobin A1c of 9.1% -Levemir - SSI -At 6 doses insulin -Follow blood glucose COPD without exacerbation - PRN and scheduled Bronchodilators Severe hyperkalemia in setting of CRAIG inhibitor and Aldactone use, resolved Atrial arrhythmias likely secondary to hyperkalemia Metabolic acidosis, resolved DVT prophylaxis:SCDs Discussed with: Patient and RN Anticipated discharge date: in 2-[address]: Home A total of 37 minutes was spent on the care of this complex patient more than 50% of the time was spent in counseling and care coordination. Active Medications Generic Name Dose Route Start Last Admin Trade Name Freq PRN Reason Stop Dose Admin Acetaminophen 650 mg 11/26/21 14:56 11/30/21 02:34 Acetaminophen Tab 325 Mg Tab PO 650 mg Q6HR PRN Administration Fever and/ or Pain Albuterol Sulfate 2.5 mg 11/20/21 21:04 11/21/21 01:49 Albuterol Nebulized 2.5 Mg/3 Ml INHALATION 2.5 mg RT-Q6H PRN Administration Shortness Of Breath Aspirin 81 mg 11/22/21 09:00 11/30/21 08:39 Aspirin 81 Mg PO 81 mg DAILY FREDRICK Administration Atorvastatin Calcium 80 mg 11/20/21 21:00 11/29/21 20:23 Atorvastatin 80 Mg Tab PO 80 mg HS FREDRICK Administration Baclofen 10 mg 11/29/21 04:00 11/29/21 23:31 Baclofen 10 Mg Tab PO 10 mg BID PRN Administration Muscle Spasm Budesonide/Formoterol Fumarate 2 puff 11/21/21 08:00 11/30/21 08:04 Symbicort 160-4.5 Mcg Inhaler INHALATION 2 puff RT-BID FREDRICK Administration Bupropion HCl 150 mg 11/22/21 21:00 11/30/21 08:35 Bupropion Sr 150 Mg Tablet.Er PO 150 mg BID FREDRICK Administration Dextrose/Water 25 ml 11/20/21 20:46 11/27/21 10:28 Dextrose 50% Syringe 50 Ml IVP 25 ml PER PROTOCOL PRN Administration Hypoglycemia Protocol Dextrose/Water 50 ml 11/20/21 20:46 Dextrose 50% Syringe 50 Ml IVP PER PROTOCOL PRN Hypoglycemia Protocol Furosemide 40 mg 11/29/21 09:45 11/30/21 08:36 Furosemide 10 Mg/Ml 4 Ml Vial IV 40 mg DAILY FREDRICK Administration Insulin Aspart 0 unit 11/20/21 21:00 11/30/21 17:14 Insulin Aspart (Novolog) 100 Unit/Ml Vial SQ 3 unit ACHS FREDRICK Administration Protocol Insulin Aspart 3 unit 12/01/21 07:30 Insulin Aspart (Novolog) 100 Unit/Ml Vial SQ AC-TID [facility] Insulin Detemir 45 unit 11/29/21 21:00 11/30/21 08:36 Insulin Detemir (Levemir) 100 Unit/Ml Syr SQ 45 unit BID FREDRICK Administration Ipratropium [place] 0.5 mg 11/21/21 08:00 11/30/21 15:24 Ipratropium 0.5 Mg/2.5 Ml Nebu INHALATION 0.5 mg RT-QID FREDRICK Administration Naloxone HCl 0.2 mg 11/26/21 14:51 Naloxone 0.4 Mg/Ml 1 Ml Vial IV Q2M PRN Opioid Reversal Nitroglycerin 0.4 mg 11/20/21 20:39 Nitroglycerin Sl Tabs 0.4 Mg Tab SUBLINGUAL Q5M PRN Chest Pain Pantoprazole Sodium 40 mg 11/26/21 10:00 11/30/21 08:35 Pantoprazole 40 Mg/10 Ml Vial IVP 40 mg BID FREDRICK Administration Phenazopyridine HCl 100 mg 11/29/21 10:15 11/30/21 17:14 Phenazopyridine 100 Mg Tab PO 100 mg TID FREDRICK Administration Sodium Bicarbonate 650 mg 11/21/21 21:00 11/30/21 08:36 Sodium Bicarbonate Tab 650 Mg Tab PO 650 mg BID FREDRICK Administration Tamsulosin HCl 0.4 mg 11/29/21 08:30 11/30/21 08:35 Tamsulosin 0.4 Mg Cap.Er.24h PO 0.4 mg PC-BRKFST FREDRICK Administration Objective - Vital Signs Vital signs: Vital Signs Temp 98.0 F 11/30/21 16:06 Pulse 95 11/30/21 16:06 Resp 23 11/30/21 16:06 BP 124/55 11/30/21 16:06 Pulse Ox 99 11/30/21 16:06 FiO2 Intake & Output 11/29/21 11/30/21 11/30/21 18:59 06:59 18:59 Intake Total 500 600 100 Output Total 2838 896 7590 Balance -560 -922 -1250 Intake: IV 100 Sodium Ferric Gluconat- 100 Sucrose 125 mg In Sodium Chloride 0.9% 100 ml @ 100 mls/hr IVPB DAILY [facility] Rx#:[id number] Oral 500 600 Output: Urine 2504 [id number] [id number] Other: Voiding Method Indwelling Catheter Indwelling Catheter Indwelling Catheter - Labs CBC & Chem 7: 11/30/21 05:50 11/30/21 05:50 Labs: Abnormal Lab Results - Last 24 Hours (Table) 11/29/21 11/30/21 11/30/21 Range/Units 19:57 05:50 05:50 WBC 15.0 H (3.8-10.6) k/uL RBC 2.72 L (4.30-5.90) m/uL Hgb 8.2 L (13.0-17.5) gm/dL Hct 26.3 L (39.0-53.0) % RDW 16.2 H (11.5-15.5) % Sodium 135 L (137-145) mmol/L BUN 34 H (9-20) mg/dL Creatinine 1.68 H (0.66-1.25) mg/dL Glucose 178 H (74-99) mg/dL POC Glucose (mg/dL) 245 H (70-110) mg/dL Calcium 8.3 L (8.4-10.2) mg/dL Magnesium 2.4 H (1.6-2.3) mg/dL 11/30/21 11/30/21 11/30/21 Range/Units 06:16 11:28 16:37 WBC (3.8-10.6) k/uL RBC (4.30-5.90) m/uL Hgb (13.0-17.5) gm/dL Hct (39.0-53.0) % RDW (11.5-15.5) % Sodium (137-145) mmol/L BUN (9-20) mg/dL Creatinine (0.66-1.25) mg/dL Glucose (74-99) mg/dL POC Glucose (mg/dL) 214 H 177 H 193 H (70-110) mg/dL Calcium (8.4-10.2) mg/dL Magnesium (1.6-2.3) mg/dL Microbiology - Last 24 Hours (Table) 11/26/21 10:29 Blood Culture - Preliminary Blood No Growth after 96 hours
[2021-11-30 20:26] LABS: Glucose,Whole Blood 206 mg/dL (70-110)
[2021-11-30] MEDS: ATORVASTATIN 80 MG TAB PO SCH (20:38)
--- NOTE | 2021-12-01 06:39 | XR ---
EXAMINATION TYPE: XR chest 1V portable DATE OF EXAM: 12/01/2021 CLINICAL HISTORY: Difficulty breathing and pneumonia progress study. TECHNIQUE: Single AP portable upright view of the chest is obtained. COMPARISON: Chest x-ray from 5 days earlier and older studies. CTA aorta 5 days ago. FINDINGS: Overlying sternal wires and mediastinal clips are redemonstrated. Cardiomegaly is again se en. Background chronic emphysematous change with new small bilateral pleural effusions and associated bibasilar opacities favoring atelectasis. New mild interstitial edema with Jesus B lines in the per iphery. Osseous structures remain intact. IMPRESSION: Chronic emphysematous change and Cardiomegaly with new small bilateral pleural effusions and mild interstitial edema. Correlate for fluid overload state.
[2021-12-01 06:41] LABS: Glucose,Whole Blood 78 mg/dL (70-110)
[2021-12-01] MEDS: INSULIN ASPART (NovoLOG) 100 UNIT/ML VIAL SQ SCH ×5 (07:02→20:14)
[2021-12-01 07:06] LABS: HCT 25.6 % (39.0-53.0); HGB 7.9 gm/dL (13.0-17.5); Hypochromasia Moderate; MCH 29.4 pg (25.0-35.0); MCV 94.9 fL (80.0-100.0); Mean Platelet Volume 9.4; Platelet Count 177 k/uL (150-450); RDW 15.6 % (11.5-15.5); WBC 13.9 k/uL (3.8-10.6)
[2021-12-01] MEDS ORDERED: INSULIN ASPART (NovoLOG) 100 UNIT/ML VIAL SQ SCH (07:30)
[2021-12-01] MEDS: IPRATROPIUM 0.5 MG/2.5 ML NEBU INHALATION SCH ×4 (07:45→19:52)
[2021-12-01] MEDS: SYMBICORT 160-4.5 MCG INHALER INHALATION SCH ×2 (07:45→19:52)
[2021-12-01 07:55] LABS: Calcium 8.1 mg/dL (8.4-10.2); Magnesium 2.4 mg/dL (1.6-2.3); Potassium 4.4 mmol/L (3.5-5.1)
[2021-12-01] MEDS: FUROSEMIDE 10 MG/ML 4 ML VIAL IV SCH (08:26)
[2021-12-01] MEDS: TAMSULOSIN 0.4 MG CAP.ER.24H PO SCH (08:27)
[2021-12-01] MEDS: PANTOPRAZOLE 40 MG/10 ML VIAL IVP SCH ×2 (08:27→21:16)
[2021-12-01] MEDS: SODIUM BICARBONATE TAB 650 MG TAB PO SCH (08:27)
[2021-12-01] MEDS: INSULIN DETEMIR (LEVEMIR) 100 UNIT/ML SYR SQ SCH (08:27)
[2021-12-01] MEDS: ASPIRIN 81 MG PO SCH (08:29)
[2021-12-01] MEDS: buPROPion SR 150 MG TABLET.ER PO SCH ×2 (08:29→21:17)
[2021-12-01 11:17] LABS: Glucose,Whole Blood 175 mg/dL (70-110)
[2021-12-01] MEDS ORDERED: METOPROLOL TARTRATE 25 MG TAB PO SCH (14:22)
--- NOTE | 2021-12-01 14:53 | P.PN ---
Subjective Progress Note Date: 12/01/21 (delayed charting seen at 0745) Patient is a 71-year-old male with known CAD status post CABG and multiple stents, ischemic cardiomyopathy, hypertension, hyperlipidemia, insulin-dependent diabetes mellitus, and COPD with continued nicotine dependence who presetned to the emergency department chest pain. Patient was found by EMS to be in A. fib with RVR and brought to the emergency department for evaluation. Upon arrival to the emergency department, patient underwent an extensive evaluation. EKG revealed sinus bradycardia at 55 bpm with peaked T waves and a repeat EKG revealed sinus bradycardia at 39 bpm. Chest x-ray negative for acute cardiopulmonary process. CBC revealed WBC count of 11.5, hemoglobin of 10.7, critical potassium of 7.4, BUN of 64, creatinine of 2.33 (baseline creatinine 1), carbon dioxide 15, and anion gap of 11. Troponin elevated at 0.258 and pro- BMP of 2800. Patient was for severe hyperkalemia and acute kidney injury with atrial arrhythmias. Pt had a temporary HD cath placed and underwent emergent HD per nephrology recs. Cardiology was consulted and echo revealed EF 25-30% with anteroapical and anteroseptal severe hypokinesis, moderate to severe mitral regurgitation, and mild tricuspid regurgitation. Bilateral lower extremity Dopplers completed negative for DVT. Patient was diuresis with Lasix, dialysis catheter removed 11/24/21, and patient started on sodium bicarb tablets 650 mg twice daily. His renal function improved. On 11/29 he delveloped some back pain, received a dose of morphine and had a episode of vomiting followed by sustained symptomatic bradycardia. Dose of atropine which improved his symptoms, he was transferred to the ICU and was started on a dopamine drip. His beta mable was discontinued. He was found to have a slow decline in hemoglobin. He underwent an off due to back pain associated with low hemoglobin which was negative for any signs of dissection, aneurysm, or retroperitoneal bleed. He underwent an ultrasound of his right groin due to his recent hemodialysis catheter which was negative for hematoma. He received 1 unit of packed red blood cells and his hemoglobin remained stable. He continued to do well. He struggled with urinary retention and required replacement of his Gonzalez catheter. His BP and HR remained stable. Patient seen and examined at bedside. Denies any SOB at rest, he is still havin g LE edema, no chest pain, no nausea. General: nontoxic, no distress, appears at stated age Derm: warm, dry Head: atraumatic, normocephalic, symmetric Eyes: EOMI, no lid lag, anicteric sclera Mouth: no lip lesion, mucus membranes moist Cardiovascular: S1S2 reg, no murmur, positive posterior tibial pulse bilateral, Lungs: Rhonchi bilateral bases , no accessory muscle use Abdominal: soft, nontender to palpation, no guarding, no appreciable organomegaly Ext: no gross muscle atrophy, 2+ edema l/e LE, no contractures Neuro: CN II-XI grossly intact, no focal neuro deficits Psych: Alert, oriented, appropriate affect Assessment and Plan: Acute exacerbation of Systolic CHF NSTEMI, likely demand ischemia resulting from type II [place] Symptomatic bradycardia, suspect possible vagal component Ischemic cardiomyopathy with EF of 25-30% History of CAD status post CABG and multiple stents Hypertension Hyperlipidemia - cardio recs, no plans for intervention at this time - ASA - restart plavix - Lipitor - Lasix - strict I and O - Daily weights - d/w cardio will resume BB this time metoprolol at 12.5 mg BID - Off Lisinopril, aldactone, and potassium due to hyperkalemia Acute kidney injury with likely underlying CKD IIIB Obstructive uropathy - nephrology recs - avoid nephrotoxic agents - follow Cr - flomax - gonzalez Acute on chronic anemia, iron def - s/p 1 unit of pRBC - no signs of GI bleeding - s/pIV iron - follow CBC - Per patients was having bleeding from HD cath prior to removal. Leukocytosis, improving -Suspect reactive -Check CBC in a.m. -Follow fever profile Insulin-dependent diabetes mellitus with a hemoglobin A1c of 9.1% -Levemir - SSI -fixed dose insulin -Follow blood glucose COPD without exacerbation - PRN and scheduled Bronchodilators Severe hyperkalemia in setting of CRAIG inhibitor and Aldactone use, resolved Atrial arrhythmias likely secondary to hyperkalemia Metabolic acidosis, resolved DVT prophylaxis:SCDs Discussed with: Patient and RN, Dr. Shane Anticipated discharge date: in 2-[address]: Home A total of 37 minutes was spent on the care of this complex patient more than 50% of the time was spent in counseling and care coordination. Active Medications Acetaminophen (Acetaminophen Tab 325 Mg Tab) 650 mg PO Q6HR PRN PRN Reason: Fever and/ or Pain Last Admin: 11/30/21 02:34 Dose: 650 mg Albuterol Sulfate (Albuterol Nebulized 2.5 Mg/3 Ml) 2.5 mg INHALATION RT-Q6H PRN PRN Reason: Shortness Of Breath Last Admin: 11/21/21 01:49 Dose: 2.5 mg Aspirin (Aspirin 81 Mg) 81 mg PO DAILY [facility] Last Admin: 12/01/21 08:29 Dose: 81 mg Atorvastatin Calcium (Atorvastatin 80 Mg Tab) 80 mg PO HS [facility] Last Admin: 11/30/21 20:38 Dose: 80 mg Baclofen (Baclofen 10 Mg Tab) 10 mg PO BID PRN PRN Reason: Muscle Spasm Last Admin: 11/29/21 23:31 Dose: 10 mg Budesonide/Formoterol Fumarate (Symbicort 160-4.5 Mcg Inhaler) 2 puff INHALATION RT-BID [facility] Last Admin: 12/01/21 07:45 Dose: 2 puff Bupropion HCl (Bupropion Sr 150 Mg Tablet.Er) 150 mg PO BID [facility] Last Admin: 12/01/21 08:29 Dose: 150 mg Dextrose/Water (Dextrose 50% Syringe 50 Ml) 25 ml IVP PER PROTOCOL PRN; Protocol PRN Reason: Hypoglycemia Last Admin: 11/27/21 10:28 Dose: 25 ml Dextrose/Water (Dextrose 50% Syringe 50 Ml) 50 ml IVP PER PROTOCOL PRN; Protocol PRN Reason: Hypoglycemia Furosemide (Furosemide 10 Mg/Ml 4 Ml Vial) 40 mg IV DAILY [facility] Last Admin: 12/01/21 08:26 Dose: 40 mg Insulin Aspart (Insulin Aspart (Novolog) 100 Unit/Ml Vial) 0 unit SQ ACHS [facility]; Protocol Last Admin: 12/01/21 12:42 Dose: 3 unit Insulin Aspart (Insulin Aspart (Novolog) 100 Unit/Ml Vial) 3 unit SQ AC-BID [facility] Last Admin: 12/01/21 12:42 Dose: 3 unit Insulin Detemir (Insulin Detemir (Levemir) 100 Unit/Ml Syr) 45 unit SQ BID [facility] Last Admin: 12/01/21 08:27 Dose: 45 unit Ipratropium [place] (Ipratropium 0.5 Mg/2.5 Ml Nebu) 0.5 mg INHALATION RT-QID [facility] Last Admin: 12/01/21 11:08 Dose: 0.5 mg Metoprolol Tartrate (Metoprolol Tartrate 12.5 Mg Tab) 12.5 mg PO BID [facility] Naloxone HCl (Naloxone 0.4 Mg/Ml 1 Ml Vial) 0.2 mg IV Q2M PRN PRN Reason: Opioid Reversal Nitroglycerin (Nitroglycerin Sl Tabs 0.4 Mg Tab) 0.4 mg SUBLINGUAL Q5M PRN PRN Reason: Chest Pain Pantoprazole Sodium (Pantoprazole 40 Mg/10 Ml Vial) 40 mg IVP BID [facility] Last Admin: 12/01/21 08:27 Dose: 40 mg Sodium Bicarbonate (Sodium Bicarbonate Tab 650 Mg Tab) 650 mg PO BID [facility] Last Admin: 12/01/21 08:27 Dose: 650 mg Tamsulosin HCl (Tamsulosin 0.4 Mg Cap.Er.24h) 0.4 mg PO PC-BRKFST [facility] Last Admin: 12/01/21 08:27 Dose: 0.4 mg Objective - Vital Signs Vital signs: Vital Signs Temp 98.1 F 12/01/21 12:00 Pulse 85 12/01/21 12:00 Resp 16 12/01/21 12:00 BP 131/55 12/01/21 12:00 Pulse Ox 98 12/01/21 12:00 FiO2 Intake & Output 11/30/21 12/01/21 12/01/21 18:59 06:59 18:59 Intake Total 100 150 150 Output Total 1350 435 Balance -1250 -285 150 Intake: IV 100 Sodium Ferric Gluconat- 100 Sucrose 125 mg In Sodium Chloride 0.9% 100 ml @ 100 mls/hr IVPB DAILY [facility] Rx#:[id number] Oral 150 150 Output: Urine 1350 435 Other: Voiding Method Indwelling Catheter Indwelling Catheter Indwelling Catheter - Labs CBC & Chem 7: 12/01/21 06:45 12/01/21 06:45 Labs: Abnormal Lab Results - Last 24 Hours (Table) 11/30/21 11/30/21 12/01/21 Range/Units 16:37 20:24 06:45 WBC 13.9 H (3.8-10.6) k/uL RBC 2.70 L (4.30-5.90) m/uL Hgb 7.9 L (13.0-17.5) gm/dL Hct 25.6 L (39.0-53.0) % RDW 15.6 H (11.5-15.5) % Sodium (137-145) mmol/L BUN (9-20) mg/dL Creatinine (0.66-1.25) mg/dL Glucose (74-99) mg/dL POC Glucose (mg/dL) 193 H 206 H (70-110) mg/dL Calcium (8.4-10.2) mg/dL Magnesium (1.6-2.3) mg/dL 12/01/21 12/01/21 Range/Units 06:45 11:15 WBC (3.8-10.6) k/uL RBC (4.30-5.90) m/uL Hgb (13.0-17.5) gm/dL Hct (39.0-53.0) % RDW (11.5-15.5) % Sodium 136 L (137-145) mmol/L BUN 33 H (9-20) mg/dL Creatinine 1.80 H (0.66-1.25) mg/dL Glucose 65 L (74-99) mg/dL POC Glucose (mg/dL) 175 H (70-110) mg/dL Calcium 8.1 L (8.4-10.2) mg/dL Magnesium 2.4 H (1.6-2.3) mg/dL Microbiology - Last 24 Hours (Table) 11/26/21 10:29 Blood Culture - Preliminary Blood No Growth after 120 hours
[2021-12-01 16:14] LABS: Glucose,Whole Blood 126 mg/dL (70-110)
[2021-12-01] MEDS: METOPROLOL TARTRATE 12.5 MG TAB PO SCH (21:16)
[2021-12-01 21:17] LABS: Glucose,Whole Blood 75 mg/dL (70-110)
[2021-12-01] MEDS: ATORVASTATIN 80 MG TAB PO SCH (21:17)
[2021-12-01] MEDS: BACLOFEN 10 MG TAB PO PRN (21:24)
[2021-12-01] MEDS: ACETAMINOPHEN TAB 325 MG TAB PO PRN (21:33)
[2021-12-02] MEDS ORDERED: ALPRAZolam 0.5 MG TAB PO PRN (00:32)
[2021-12-02] MEDS: INSULIN ASPART (NovoLOG) 100 UNIT/ML VIAL SQ SCH ×6 (01:39→20:37)
[2021-12-02] MEDS: INSULIN DETEMIR (LEVEMIR) 100 UNIT/ML SYR SQ SCH (01:39)
[2021-12-02 04:22] LABS: Glucose,Whole Blood 44 mg/dL (70-110)
[2021-12-02 04:22] LABS: Glucose,Whole Blood 100 mg/dL (70-110)
[2021-12-02] MEDS: DOBUTamine DRIP 500 MG in DEXTROSE/WATER 1 250ML.BAG IV SCH (04:29)
[2021-12-02 04:57] LABS: Glucose,Whole Blood 33 mg/dL (70-110)
[2021-12-02 05:11] LABS: HCT 26.9 % (39.0-53.0); HGB 8.2 gm/dL (13.0-17.5); Hypochromasia Marked; MCH 29.7 pg (25.0-35.0); MCHC 30.4 g/dL (31.0-37.0); MCV 97.9 fL (80.0-100.0); Macrocytosis Slight; Mean Platelet Volume 9.9; Platelet Count 195 k/uL (150-450); RBC 2.74 m/uL (4.30-5.90); RDW 15.6 % (11.5-15.5); WBC 15.5 k/uL (3.8-10.6)
[2021-12-02 05:15] LABS: Glucose,Whole Blood 97 mg/dL (70-110)
[2021-12-02 05:18] LABS: ABG Base Excess -6.6 mmol/L; ABG HCO3 20 mmol/L (21-25); ABG Oxygen Saturation 27.7 % (94-97); ABG PCO2 42 mmHg (35-45); ABG PH 7.29 (7.35-7.45); ABG TCO2 21 mmol/L (19-24); Allen Test Performed? Yes
[2021-12-02 05:20] LABS: Calcium 7.9 mg/dL (8.4-10.2)
[2021-12-02 05:25] LABS: Potassium 6.2 mmol/L (3.5-5.1)
[2021-12-02 05:33] LABS: Glucose,Whole Blood 30 mg/dL (70-110)
[2021-12-02 05:34] LABS: Glucose,Whole Blood 81 mg/dL (70-110)
[2021-12-02] MEDS ORDERED: DEXTROSE 50% SYRINGE 50 ML IVP STA ×2 (05:37→08:46)
[2021-12-02] MEDS ORDERED: INSULIN REGULAR 100 UNIT/ML VIAL (IV) IV ONE ×2 (05:37→09:00)
[2021-12-02] MEDS ORDERED: DEXTROSE 10 % IN WATER 250 ML IV ONE (05:52)
[2021-12-02 06:00] LABS: Glucose,Whole Blood 114 mg/dL (70-110)
[2021-12-02] MEDS ORDERED: SODIUM BICARB 8.4% 50 ML SYR (1 MEQ/ML) ONE (06:01)
[2021-12-02] MEDS ORDERED: CALCIUM CHLORIDE 100 MG/ML 10 ML SYRINGE ONE (06:01)
[2021-12-02] MEDS ORDERED: EPINEPHrine 10 ML SYRINGE (0.1 MG/ML) ONE (06:01)
[2021-12-02] MEDS ORDERED: ETOMIDATE 2 MG/ML 10 ML VIAL ONE (06:07)
[2021-12-02] MEDS ORDERED: propofoL 100 ML IV ONE (06:09)
[2021-12-02] MEDS ORDERED: NOREPINEPHRIN 4 MG-0.9% NS PMX 4 MG/250 ML ML IV ONE (06:09)
[2021-12-02 06:26] LABS: ABG PO2 22 mmHg (83-108)
--- NOTE | 2021-12-02 06:45 | P.EN ---
called by RN to evaluate patient found that patient was resisting care and becoming confused. then shortly after became slowly bradycardic with agonal breathing Code blue was activated. CPR following ACLS protocol . patient given epi per ACLS, and given calcium gluconate for elevated K. ROSC achieved after one cycle of CPR . patient intubated and started on vent support. CXR ordred RN to notify family patient continues on dobutamin per cardiology recommendations. otherwise vital signs were stable post ROSC
--- NOTE | 2021-12-02 06:55 | XR ---
EXAMINATION TYPE: XR chest 1V portable DATE OF EXAM: 12/02/2021 6:22 AM COMPARISON: Chest radiographs from 12/01/2021. TECHNIQUE: XR chest 1V portable Frontal view of the chest. CLINICAL INDICATION:Male, 71 years old with history of ET tube placement; FINDINGS: Lungs/Pleura: There is no evidence of pleural effusion, focal consolidation, or pneumothorax. Backgr ound chronic emphysematous changes. Pulmonary vascularity: Unremarkable. Heart/mediastinum: Cardiomediastinal silhouette is enlarged and stable. Postoperative changes are pr esent in the mediastinum. Atherosclerotic calcification of the aorta. Musculoskeletal: Multiple level degenerative disc disease changes seen throughout the spine. Midline sternotomy wires are noted and stable. Other findings: None Lines/Tubes: Endotracheal tube with distal tip 4.4 cm above the johnathan 1. IMPRESSION: 2. Interval placement of endotracheal tube with tip terminating 4.4 cm above the johnathan. 3. Cardiomegaly with post CABG changes.
[2021-12-02 07:04] LABS: ABG Base Excess -11.3 mmol/L; ABG HCO3 16 mmol/L (21-25); ABG PCO2 36 mmHg (35-45); ABG PH 7.26 (7.35-7.45); ABG PO2 >400 mmHg (83-108); ABG TCO2 17 mmol/L (19-24); Allen Test Performed? Yes
[2021-12-02] MEDS: DEXTROSE 10% IN WATER 500 ML in EMPTY BAG 1 BAG IV SCH (07:12)
[2021-12-02] MEDS: NOREPINEPHRINE 4 MG in SODIUM CHLORIDE 0.9% 250 ML IV SCH (07:30)
--- NOTE | 2021-12-02 08:03 | PN ---
PROGRESS NOTE Mr. Vaibhav Yu is in sinus rhythm. He has CAD, previous bypass surgery, diffuse coronary disease, previous PCI. I am recommending that we add metoprolol tartrate 25 mg b.i.d. to his regimen and he gradually increase the dose to 50 mg if he tolerates it. Otherwise, continue other medications, increase activity and patient can be moved out to telemetry. CHINYERE / CLAUDIA: [id number] /
[2021-12-02 08:24] LABS: Glucose,Whole Blood 153 mg/dL (70-110)
[2021-12-02] MEDS ORDERED: SODIUM BICARB 8.4% 50 ML SYR (1 MEQ/ML) IV STA (08:46)
--- NOTE | 2021-12-02 08:54 | PN ---
PROGRESS NOTE The patient is seen for followup for acute kidney injury. Renal function has improved from an initial admission. However, serum creatinine started to increase again and the patient was noted to have some degree of obstructive uropathy. He currently has an indwelling Paula catheter. This morning, the patient is sitting up and he denies any significant complaints. Serum creatinine is slightly higher at 1.8 today from 1.68 yesterday. Blood pressure has not been low. Urine output documented for 24 hours is 1700 mL. PHYSICAL EXAMINATION: VITAL SIGNS: On examination today, blood pressure 131/71, heart rate 61 per minute, he is afebrile. HEART: Examination of the heart S1, S2. LUNGS: Examination of the lungs, bilateral breath sounds are heard. ABDOMEN: Soft, nontender. EXTREMITIES: Examination of lower extremities shows 1+ edema. LEGAL EDITOR: Exam grossly intact. LAB: Show sodium 136, potassium 4.4, BUN 33, serum creatinine 1.8, hemoglobin 7.9 g/dL. ASSESSMENT: Acute kidney injury, acute tubular necrosis, currently nonoliguric, as well as obstructive uropathy, currently with indwelling Paula catheter. The patient is currently being diuresed. He had a chest x-ray today, which confirms mild interstitial edema and small bilateral pleural effusions. I will continue with IV Lasix for now and repeat labs in a.m. Continue to avoid nephrotoxic agents. I will also discontinue the sodium bicarb. [id number] / TAMARAN: [id number] /
[2021-12-02] MEDS ORDERED: CALCIUM GLUCONATE IN NACL 1 GM in SALINE 1 100ML.BAG IVPB ONE (09:15)
[2021-12-02] MEDS: SYMBICORT 160-4.5 MCG INHALER INHALATION SCH (09:28)
[2021-12-02] MEDS: IPRATROPIUM 0.5 MG/2.5 ML NEBU INHALATION SCH ×2 (09:28→11:51)
--- NOTE | 2021-12-02 10:07 | P.PN ---
Subjective Progress Note Date: 12/02/21 71-year-old male patient, known history of COPD maintained on a combination of Symbicort and Spiriva, history of nonspecific mediastinal lymphadenopathy being followed up through our office, coronary artery disease, previous bypass surgery, previous history of multiple coronary stents and a carotid artery stent in addition to chronic stage II kidney disease, diabetes mellitus, and hypertension, CHF with chronic systolic heart failure and ejection fraction of 30-35%. The patient has been having episodes of chest pain for the past few weeks. These are intermittent chest pains, not exacerbated with any activity and the patient has been having radiation to his arms, typically the pain would last for 5 minutes. Yesterday, he was having more pain and he end up coming into the hospital and the intensity of the pain was worse. He was also having some shortness of breath and nausea. EKG showed a wide-complex tachycardia and subsequently went into an A. fib rhythm. He was noted to be in acute kidney injury and the patient was also found to be hypokalemic and potassium level was elevated. Based on that, the patient was given calcium, he was given bicarb pushes, Kayexalate 15 g and ultimately a dialysis catheter was to proceed and the patient was given association of hemodialysis with subsequent improvement in his potassium level. The CRAIG inhibitor was also discontinued. The troponins w ere mildly elevated and the levels were 0.25 and 0.6 respectively. The rest of the blood work essentially within normal limits. The serum bicarb is up to 21. Creatinine this morning is down to 1.6 with a BUN of 45. The patient is awake and oriented. He is on IV heparin. History of any chest pain. The current cardiac rhythm is bradycardic, still wide-complex with first-degree AV block. The rhythm is sinus for now. The patient has been taken Coreg on outpatient basis. No syncope. No loss of consciousness. Reevaluated today on 11/22/21, patient remains in the ICU, remains on heparin, he is asymptomatic, no further episodes of angina or chest pain. Patient received hemodialysis on 11/20 and hemodialysis on 11/21, his potassium level came down from 7.4 to normal level today. Patient remains on heparin, his echocardiogram showed ejection fraction of 25-50%. Obviously the patient presented with hyperkalemia, atrial fibrillation, nonsustained ventricular tachycardia, acute kidney injury, and has made a significant amount in the last 24 hours. Clinically the patient is feeling much better today, breathing quite easily, not in any distress. His arrhythmia was felt to be related to his hyperkalemia. Patient is known to have history of severe ischemic cardiomyopathy and LV dys function. He also has history of moderate to severe mitral regurgitation. WBC count today is 11.6 hemoglobin is 9.3. Electrolytes are normal potassium 4.3 BUN is 39 and creatinine 1.45. Chest x-ray today showed borderline cardiomegaly, mild interstitial changes, mild pulmonary vascular congestion Reevaluated today on 11/23/2021, patient is doing well, he is now on overflow in the ICU from [facility]. Patient is relatively asymptomatic, on room air, he feels fine except for some minimal nasal congestion. He also has a poor appetite. Denies any shortness of breath or cough or wheezing denies any chest pain. CBC is relatively normal hemoglobin is 8.6 PTT is 55.9 electrolytes are normal BUN is 36 creatinine 1.40 Patient was reevaluated today on 11/26/2021, patient had to be transferred back to the ICU this morning. Earlier today, the patient has been complaining of chest pain, lightheadedness, dizziness, and he felt like he was going to pass out. Patient also complained of numbness and tingling down his legs, and difficulty moving his legs. Obviously the patient wasn't doing well, and he was noted to have low hemoglobin he was also noted to have profound bradycardia and junctional rhythm. Arrangements were made for the patient to have thoracic aortic angiogram, it was basically unremarkable, no evidence of thoracic aortic aneurysm dissection and there was no evidence of intrathoracic or intra- abdominal process appreciated. Chest x-ray showed cardiomegaly without any s ignificant suspicious pulmonary process. Hemoglobin this morning is 6.7 with a WBC count of 19.0. Hemoglobin was 9.3 and 8.62 days ago. Patient will be receiving a unit of packed RBCs, he was seen by cardiology and he was placed on dopamine for bradycardia and hypotension, and cardiology may consider taking the patient down for cardiac catheterization later today. Considering his worsening clinical picture, patient was transferred to the ICU, and I was asked to see him again Reevaluated today on , patient remains in the ICU, feeling much better today compared to yesterday. He is on 2 L nasal cannula remains on dopamine at 2 mcg/kg/m she is also on IV fluid at 50 mL per hour. Remains in a junctional rhythm with rate in the low 60s. His chest pain has resolved. Patient is rela tively asymptomatic and feels much better today compared to yesterday. His hemoglobin today is 8.3 WBC count is 19.8 electrolytes are normal renal profile showed a BUN of 51 creatinine 2.50, slightly improved compared to yesterday. The patient is seen today 12/02/2021 in the intensive care unit. Early this morning he developed a cardiac arrest and was found to be in PEA and had 1 round of CPR and received epinephrine, calcium gluconate and bicarbonate and was subsequently intubated and is currently on the mechanical ventilator. Current settings are assist-control mode at a rate of 16, tidal volume 500, FiO2 50% and a PEEP of 5. Morning blood gases revealed a PaO2 greater than 400, pCO2 36, pH 7.26 this was on 100% FiO2. He currently has norepinephrine at 5 mcg/m, dobutamine at 2.5 mcg/kg/m, propofol at 40 mcg/kg/m. D10 at 20 ML's per hour due to issues with hypoglycemia. Chest x-ray reveals cardiomegaly but no evidence of pleural effusion, consolidation or pneumothorax. White count 15.5. Hemoglobin 8.2. Platelets 195. Sodium 131. Potassium 5.3. Chloride 96. Bicarb 21. BUN 42. Creatinine 2.91. Glucose 153. Lactic acid 10.2. He is status post 1 unit of packed red blood cells this admission. The cultures reveal no growth. Objective - Vital Signs Vital signs: Vital Signs Temp 96.7 F L 12/02/21 08:00 Pulse 42 L 12/02/21 08:00 Resp 19 12/02/21 08:00 BP 87/36 12/02/21 08:00 Pulse Ox 100 12/02/21 08:00 FiO2 50 12/02/21 08:00 Intake & Output 12/01/21 12/02/21 12/02/21 18:59 06:59 18:59 Intake Total 150 400 80 Output Total 1700 80 50 Balance -1550 320 30 Weight 87.3 kg Intake: Intake, IV Titration 80 Amount Dextrose 10% in Water 500 40 ml In Empty Bag 1 bag @ 20 mls/hr IV .Q24H [facility] Rx #:[id number] propofoL 100 ml @ 0 mls/ 40 hr IV .STK-[facility] Rx#: [id number] Oral 150 400 Output: Urine 1700 80 50 Other: Voiding Method Indwelling Catheter Indwelling Catheter - Exam GENERAL EXAM: Intubated, sedated 71-year-old male patient, comfortable in no apparent distress. HEAD: Normocephalic. EYES: Normal reaction of pupils, equal size. NOSE: Clear with pink turbinates. THROAT: Oral endotracheal tube in place. No erythema or exudates. NECK: No masses, no JVD. CHEST: No chest wall deformity. LUNGS: Equal air entry with no crackles, wheeze, rhonchi or dullness. CVS: S1 and S2 normal with no audible murmur, regular rhythm. ABDOMEN: No hepatosplenomegaly, normal bowel sounds, no guarding or rigidity. SPINE: No scoliosis or deformity SKIN: No rashes CENTRAL NERVOUS SYSTEM: Sedated, tone is normal in all 4 extremities. EXTREMITIES: There is 1+ peripheral edema. No clubbing, no cyanosis. Peripheral pulses are intact. - Labs CBC & Chem 7: 12/02/21 04:50 12/02/21 09:19 Labs: Abnormal Lab Results - Last 24 Hours (Table) 12/01/21 12/01/21 12/02/21 Range/Units 11:15 16:13 04:17 WBC (3.8-10.6) k/uL RBC (4.30-5.90) m/uL Hgb (13.0-17.5) gm/dL Hct (39.0-53.0) % MCHC (31.0-37.0) g/dL RDW (11.5-15.5) % ABG pH (7.35-7.45) ABG pO2 (83-108) mmHg ABG HCO3 (21-25) mmol/L ABG Total CO2 (19-24) mmol/L ABG O2 Saturation (94-97) % Sodium (137-145) mmol/L Potassium (3.5-5.1) mmol/L Chloride (98-107) mmol/L Carbon Dioxide (22-30) mmol/L BUN (9-20) mg/dL Creatinine (0.66-1.25) mg/dL POC Glucose (mg/dL) 175 H 126 H 44 L (70-110) mg/dL Plasma Lactic Acid Teddy (0.7-2.0) mmol/L Calcium (8.4-10.2) mg/dL 12/02/21 12/02/21 12/02/21 Range/Units 04:50 04:50 04:53 WBC 15.5 H (3.8-10.6) k/uL RBC 2.74 L (4.30-5.90) m/uL Hgb 8.2 L (13.0-17.5) gm/dL Hct 26.9 L (39.0-53.0) % MCHC 30.4 L (31.0-37.0) g/dL RDW 15.6 H (11.5-15.5) % ABG pH (7.35-7.45) ABG pO2 (83-108) mmHg ABG HCO3 (21-25) mmol/L ABG Total CO2 (19-24) mmol/L ABG O2 Saturation (94-97) % Sodium 131 L (137-145) mmol/L Potassium 6.2 H* (3.5-5.1) mmol/L Chloride 96 L (98-107) mmol/L Carbon Dioxide 21 L (22-30) mmol/L BUN 42 H (9-20) mg/dL Creatinine 2.91 H (0.66-1.25) mg/dL POC Glucose (mg/dL) 33 L (70-110) mg/dL Plasma Lactic Acid Teddy (0.7-2.0) mmol/L Calcium 7.9 L (8.4-10.2) mg/dL 12/02/21 12/02/21 12/02/21 Range/Units 05:16 05:31 05:59 WBC (3.8-10.6) k/uL RBC (4.30-5.90) m/uL Hgb (13.0-17.5) gm/dL Hct (39.0-53.0) % MCHC (31.0-37.0) g/dL RDW (11.5-15.5) % ABG pH 7.29 L (7.35-7.45) ABG pO2 22 L* (83-108) mmHg ABG HCO3 20 L (21-25) mmol/L ABG Total CO2 (19-24) mmol/L ABG O2 Saturation 27.7 L (94-97) % Sodium (137-145) mmol/L Potassium (3.5-5.1) mmol/L Chloride (98-107) mmol/L Carbon Dioxide (22-30) mmol/L BUN (9-20) mg/dL Creatinine (0.66-1.25) mg/dL POC Glucose (mg/dL) 30 L 114 H (70-110) mg/dL Plasma Lactic Acid Teddy (0.7-2.0) mmol/L Calcium (8.4-10.2) mg/dL 12/02/21 12/02/21 12/02/21 Range/Units 06:37 07:03 08:12 WBC (3.8-10.6) k/uL RBC (4.30-5.90) m/uL Hgb (13.0-17.5) gm/dL Hct (39.0-53.0) % MCHC (31.0-37.0) g/dL RDW (11.5-15.5) % ABG pH 7.26 L (7.35-7.45) ABG pO2 >400 H (83-108) mmHg ABG HCO3 16 L (21-25) mmol/L ABG Total CO2 17 L (19-24) mmol/L ABG O2 Saturation 100.0 H (94-97) % Sodium (137-145) mmol/L Potassium (3.5-5.1) mmol/L Chloride (98-107) mmol/L Carbon Dioxide (22-30) mmol/L BUN (9-20) mg/dL Creatinine (0.66-1.25) mg/dL POC Glucose (mg/dL) 153 H (70-110) mg/dL Plasma Lactic Acid Teddy 10.2 H* (0.7-2.0) mmol/L Calcium (8.4-10.2) mg/dL 12/02/21 Range/Units 09:19 WBC (3.8-10.6) k/uL RBC (4.30-5.90) m/uL Hgb (13.0-17.5) gm/dL Hct (39.0-53.0) % MCHC (31.0-37.0) g/dL RDW (11.5-15.5) % ABG pH (7.35-7.45) ABG pO2 (83-108) mmHg ABG HCO3 (21-25) mmol/L ABG Total CO2 (19-24) mmol/L ABG O2 Saturation (94-97) % Sodium (137-145) mmol/L Potassium 5.3 H (3.5-5.1) mmol/L Chloride (98-107) mmol/L Carbon Dioxide (22-30) mmol/L BUN (9-20) mg/dL Creatinine (0.66-1.25) mg/dL POC Glucose (mg/dL) (70-110) mg/dL Plasma Lactic Acid Teddy (0.7-2.0) mmol/L Calcium (8.4-10.2) mg/dL Microbiology - Last 24 Hours (Table) 11/26/21 10:29 Blood Culture - Preliminary Blood No Growth after 120 hours Assessment and Plan Assessment: PEA occurred early on 12/02/2021 requiring 1 round of CPR, epinephrine, calcium gluconate and bicarb with return of spontaneous circulation. Intubated and placed on mechanical ventilator. Severe cardiomyopathy/ischemic cardiomyopathy and LV dysfunction with ejection fraction of 25-30%. Recent non-ST elevation myocardial infarction Atrial fibrillation with nonsustained ventricular tachycardia, and associated with hyperkalemia. Recurrent unstable angina is strongly suspected. Severe ischemic cardiomyopathy Acute on chronic kidney disease History of CABG and previous PCI. History of underlying COPD, maintained on Symbicort and Spiriva on outpatient ba sis. History of nonspecific mediastinal adenopathy Moderate to severe mitral regurgitation Chronic systolic congestive heart failure Type 2 diabetes Dyslipidemia History of peripheral vessel occlusive disease and carotid stenting Plan: The patient was seen and evaluated Chest x-ray, labs and medications reviewed Continue the current vent settings Continue propofol, norepinephrine and dobutamine Continue D10 for now Continue to monitor lab work closely Awaiting the arrival of the patient's We will plan further interventions and treatment based on her wishes We will continue to follow and make further recommendations based on his clinical status I have personally seen and examined the patient, performed the documentation and the assessment and plan as written. Number of minutes spent on the visit: 15.
--- NOTE | 2021-12-02 10:18 | P.PN ---
Subjective Patient is seen for follow-up for acute kidney injury and hyperkalemia. Patient was admitted with bradycardia and a serum potassium of 7.4. He received one treatment of hemodialysis and has not required any further dialysis treatments. Patient has good urine output. Patient has had obstructive uropathy requiring Paula catheter placement. He is started on Flomax. Serum creatinine had improved to about 1.6-1.8 mg/dL. Early this morning patient's urine output had dropped. He became hypotensive and eventually had a cardiac arrest. It was mostly PEA. Patient's potassium was noted to be 6.2. He was treated for hyperkalemia. Patient was intubated and he is currently on the vent. Levo fed is at about 6 mics No significant urine output No significant bleeding noted Serum creatinine has increased to 2.9 today. Family is present at bedside and patient's states that patient did not want any kind of renal replacement therapy. Objective - Vital Signs Vital signs: Vital Signs Temp 96.7 F L 12/02/21 08:00 Pulse 42 L 12/02/21 08:00 Resp 19 12/02/21 08:00 BP 87/36 12/02/21 08:00 Pulse Ox 100 12/02/21 08:00 FiO2 50 12/02/21 08:00 Intake & Output 12/01/21 12/02/21 12/02/21 18:59 06:59 18:59 Intake Total 150 400 80 Output Total 1700 80 50 Balance -1550 320 30 Weight 87.3 kg Intake: Intake, IV Titration 80 Amount Dextrose 10% in Water 500 40 ml In Empty Bag 1 bag @ 20 mls/hr IV .Q24H [facility] Rx #:[id number] propofoL 100 ml @ 0 mls/ 40 hr IV .[facility]K-[facility] Rx#: [id number] Oral 150 400 Output: Urine 1700 80 50 Other: Voiding Method Indwelling Catheter Indwelling Catheter - Exam Patient is sedated and on the vent Examination of the heart S1 and S2 Examination lungs bilateral breath sounds are heard Abdomen is soft nontender Examination of the lower extremities shows edema 2+ bilaterally [employer] exam cannot be performed - Labs CBC & Chem 7: 12/02/21 04:50 12/02/21 09:19 Labs: Abnormal Lab Results - Last 24 Hours (Table) 12/01/21 12/01/21 12/02/21 Range/Units 11:15 16:13 04:17 WBC (3.8-10.6) k/uL RBC (4.30-5.90) m/uL Hgb (13.0-17.5) gm/dL Hct (39.0-53.0) % MCHC (31.0-37.0) g/dL RDW (11.5-15.5) % ABG pH (7.35-7.45) ABG pO2 (83-108) mmHg ABG HCO3 (21-25) mmol/L ABG Total CO2 (19-24) mmol/L ABG O2 Saturation (94-97) % Sodium (137-145) mmol/L Potassium (3.5-5.1) mmol/L Chloride (98-107) mmol/L Carbon Dioxide (22-30) mmol/L BUN (9-20) mg/dL Creatinine (0.66-1.25) mg/dL POC Glucose (mg/dL) 175 H 126 H 44 L (70-110) mg/dL Plasma Lactic Acid Teddy (0.7-2.0) mmol/L Calcium (8.4-10.2) mg/dL 12/02/21 12/02/21 12/02/21 Range/Units 04:50 04:50 04:53 WBC 15.5 H (3.8-10.6) k/uL RBC 2.74 L (4.30-5.90) m/uL Hgb 8.2 L (13.0-17.5) gm/dL Hct 26.9 L (39.0-53.0) % MCHC 30.4 L (31.0-37.0) g/dL RDW 15.6 H (11.5-15.5) % ABG pH (7.35-7.45) ABG pO2 (83-108) mmHg ABG HCO3 (21-25) mmol/L ABG Total CO2 (19-24) mmol/L ABG O2 Saturation (94-97) % Sodium 131 L (137-145) mmol/L Potassium 6.2 H* (3.5-5.1) mmol/L Chloride 96 L (98-107) mmol/L Carbon Dioxide 21 L (22-30) mmol/L BUN 42 H (9-20) mg/dL Creatinine 2.91 H (0.66-1.25) mg/dL POC Glucose (mg/dL) 33 L (70-110) mg/dL Plasma Lactic Acid Teddy (0.7-2.0) mmol/L Calcium 7.9 L (8.4-10.2) mg/dL 12/02/21 12/02/21 12/02/21 Range/Units 05:16 05:31 05:59 WBC (3.8-10.6) k/uL RBC (4.30-5.90) m/uL Hgb (13.0-17.5) gm/dL Hct (39.0-53.0) % MCHC (31.0-37.0) g/dL RDW (11.5-15.5) % ABG pH 7.29 L (7.35-7.45) ABG pO2 22 L* (83-108) mmHg ABG HCO3 20 L (21-25) mmol/L ABG Total CO2 (19-24) mmol/L ABG O2 Saturation 27.7 L (94-97) % Sodium (137-145) mmol/L Potassium (3.5-5.1) mmol/L Chloride (98-107) mmol/L Carbon Dioxide (22-30) mmol/L BUN (9-20) mg/dL Creatinine (0.66-1.25) mg/dL POC Glucose (mg/dL) 30 L 114 H (70-110) mg/dL Plasma Lactic Acid Teddy (0.7-2.0) mmol/L Calcium (8.4-10.2) mg/dL 12/02/21 12/02/21 12/02/21 Range/Units 06:37 07:03 08:12 WBC (3.8-10.6) k/uL RBC (4.30-5.90) m/uL Hgb (13.0-17.5) gm/dL Hct (39.0-53.0) % MCHC (31.0-37.0) g/dL RDW (11.5-15.5) % ABG pH 7.26 L (7.35-7.45) ABG pO2 >400 H (83-108) mmHg ABG HCO3 16 L (21-25) mmol/L ABG Total CO2 17 L (19-24) mmol/L ABG O2 Saturation 100.0 H (94-97) % Sodium (137-145) mmol/L Potassium (3.5-5.1) mmol/L Chloride (98-107) mmol/L Carbon Dioxide (22-30) mmol/L BUN (9-20) mg/dL Creatinine (0.66-1.25) mg/dL POC Glucose (mg/dL) 153 H (70-110) mg/dL Plasma Lactic Acid Teddy 10.2 H* (0.7-2.0) mmol/L Calcium (8.4-10.2) mg/dL 12/02/21 Range/Units 09:19 WBC (3.8-10.6) k/uL RBC (4.30-5.90) m/uL Hgb (13.0-17.5) gm/dL Hct (39.0-53.0) % MCHC (31.0-37.0) g/dL RDW (11.5-15.5) % ABG pH (7.35-7.45) ABG pO2 (83-108) mmHg ABG HCO3 (21-25) mmol/L ABG Total CO2 (19-24) mmol/L ABG O2 Saturation (94-97) % Sodium (137-145) mmol/L Potassium 5.3 H (3.5-5.1) mmol/L Chloride (98-107) mmol/L Carbon Dioxide (22-30) mmol/L BUN (9-20) mg/dL Creatinine (0.66-1.25) mg/dL POC Glucose (mg/dL) (70-110) mg/dL Plasma Lactic Acid Teddy (0.7-2.0) mmol/L Calcium (8.4-10.2) mg/dL Microbiology - Last 24 Hours (Table) 11/26/21 10:29 Blood Culture - Preliminary Blood No Growth after 120 hours Assessment and Plan Assessment: 1. Hyperkalemia associated with acute kidney injury Johnathon inhibitors and Aldactone along with potassium supplementation. Currently improved. Status post one treatment of hemodialysis on initial admission. Potassium has remained within normal range with serum potassium at 4.4 yesterday. This morning it was elevated at 6.2. This is mostly associated with worsening acute kidney injury hypotension. No evidence of active GI bleed noted. Patient remains on IV Lasix 2. Possible underlying CK D stage III B previous creatinine 1.1-1.3 mg/dL in 2019. Etiology likely nephrosclerosis. UA is benign 3. Hypertension with CK D 4. Acute coronary syndrome with underlying CAD status post IV heparin on initial admission. No plans for cardiac catheterization at this time. 5. Metabolic acidosis associated with acute kidney injury 6. Volume overload 7. Cardiomyopathy with ejection fraction 25-30% with severe hypokinesis and severely dilated left atrium 8. Acute kidney injury on initial admission possibly prerenal in the setting of use of JOHNATHON inhibitor's. This had improved with creatinine down to 1.45 mg/dL. However serum creatinine increased again to about 2.6 mg/dL secondary to obstructive uropathy. Currently with indwelling Paula catheter with improvement in renal function. Serum creatinine is further elevated this time secondary to hypotension and hypoperfusion with cardiac arrest. 9. Obstructive uropathy and urine retention maintained on Flomax and with indwelling Paula catheter 10. Iron deficiency status post IV iron Plan: Continue to treat hyperkalemia with medical treatment. No plans for renal replacement therapy Continue dobutamine Repeat potassium later on today if no plans for comfort care measures
[2021-12-02] MEDS: PANTOPRAZOLE 40 MG/10 ML VIAL IVP SCH ×2 (10:38→20:42)
[2021-12-02] MEDS: FUROSEMIDE 10 MG/ML 4 ML VIAL IV SCH (10:38)
[2021-12-02] MEDS: METOPROLOL TARTRATE 12.5 MG TAB PO SCH (10:51)
[2021-12-02 11:15] LABS: Glucose,Whole Blood 234 mg/dL (70-110)
--- NOTE | 2021-12-02 11:31 | P.PN ---
Subjective Progress Note Date: 12/02/21 Patient is a 71-year-old male with known CAD status post CABG and multiple stents, ischemic cardiomyopathy, hypertension, hyperlipidemia, insulin-dependent diabetes mellitus, and COPD with continued nicotine dependence who presetned to the emergency department chest pain. Patient was found by EMS to be in A. fib with RVR and brought to the emergency department for evaluation. Upon arrival to the emergency department, patient underwent an extensive evaluation. EKG revealed sinus bradycardia at 55 bpm with peaked T waves and a repeat EKG revealed sinus bradycardia at 39 bpm. Chest x-ray negative for acute cardiopulmonary process. CBC revealed WBC count of 11.5, hemoglobin of 10.7, critical potassium of 7.4, BUN of 64, creatinine of 2.33 (baseline creatinine 1), carbon dioxide 15, and anion gap of 11. Troponin elevated at 0.258 and pro- BMP of 2800. Patient was for severe hyperkalemia and acute kidney injury with atrial arrhythmias. Pt had a temporary HD cath placed and underwent emergent HD per nephrology recs. Cardiology was consulted and echo revealed EF 25-30% with anteroapical and anteroseptal severe hypokinesis, moderate to severe mitral regurgitation, and mild tricuspid regurgitation. Bilateral lower extremity Dopplers completed negative for DVT. Patient was diuresis with Lasix, dialysis catheter removed 11/24/21, and patient started on sodium bicarb tablets 650 mg twice daily. His renal function improved. On 11/29 he delveloped some back pain, received a dose of morphine and had a episode of vomiting followed by sustained symptomatic bradycardia. Dose of atropine which improved his symptoms, he was transferred to the ICU and was started on a dopamine drip. His beta mable was discontinued. He was found to have a slow decline in hemoglobin. He underwent a CT aorta with run off due to back pain associated with low hemoglobin which was negative for any signs of dissection, aneurysm, or retroperitoneal bleed. He underwent an ultrasound of his right groin due to his recent hemodialysis catheter which was negative for hematoma. He received 1 unit of packed red blood cells and his hemoglobin remained stable. He continued to do well. He struggled with urinary retention and required replacement of his Gonzalez catheter. His BP and HR remained stable. He was diuresing well. He was re-initated on BB on 12/01 at night. He developed bradycardia with low urine output. He required a dobutamine gtt. On the moring of 12/02 he had a PEA arrest and ROSC was achieved. He continued to require dobutamine and norepi. He was noted to have hyperkalemia which was treated. He was also started on dextrose infusion for prolonged hypoglycemia. Patient seen and examined at bedside. He is sedated on vent General: ill appeaing, appears at stated age Derm: warm, dry Head: atraumatic, normocephalic, symmetric Eyes: EOMI, no lid lag, anicteric sclera Mouth: no lip lesion, mucus membranes moist Cardiovascular: S1S2 reg, no murmur, positive posterior tibial pulse bilateral, Lungs: Clear to auscultation bilateral, no accessory muscle use, on vent Abdominal: soft, nontender to palpation, no guarding, no appreciable organomegaly Ext: no gross muscle atrophy, 2+ edema l/e LE, no contractures Neuro: Breathing over vent, no tremors, Psych: sedated on vetn Assessment and Plan: PEA Arrest - on dobutaime and norepi - cardio and pulmonary following. Acute exacerbation of Systolic CHF NSTEMI, likely demand ischemia resulting from type II MD Symptomatic bradycardia, suspect possible vagal component Ischemic cardiomyopathy with EF of 25-30% History of CAD status post CABG and multiple stents Hypertension Hyperlipidemia - cardio recs, no plans for intervention at this time - ASA - Plavix - Lipitor - strict I and O - Daily weights - Off Lisinopril, aldactone, and potassium due to hyperkalemia Acute kidney injury with likely underlying CKD IIIB Obstructive uropathy Hyperkaleima - was given temporizing measures, - follow K+ - nephrology recs - avoid nephrotoxic agents - follow Cr - flomax - gonzalez Acute on chronic anemia, iron def - s/p 1 unit of pRBC - no signs of GI bleeding - s/p IV iron - follow CBC - Per patients was having bleeding from HD cath prior to removal. Leukocytosis, improving -Suspect reactive -Check CBC in a.m. -Follow fever profile Insulin-dependent diabetes mellitus with a hemoglobin A1c of 9.1% -all scheduled insulin discontinued and started on dextrose gtt - SSI -Follow blood glucose COPD without exacerbation - PRN and scheduled Bronchodilators Severe hyperkalemia in setting of CRAIG inhibitor and Aldactone use, resolved Atrial arrhythmias likely secondary to hyperkalemia Metabolic acidosis, resolved DVT prophylaxis:SCDs Discussed with: RN Anticipated discharge date: pending clinical course Anticipated discharge place: pending clinical course A total of 37 minutes was spent on the care of this complex patient more than 50% of the time was spent in counseling and care coordination. Active Medications Generic Name Dose Route Start Last Admin Trade Name Freq PRN Reason Stop Dose Admin Acetaminophen 650 mg 11/26/21 14:56 12/01/21 21:33 Acetaminophen Tab 325 Mg Tab PO 650 mg Q6HR PRN Administration Fever and/ or Pain Albuterol/Ipratropium 3 ml 12/02/21 12:00 Ipratropium-Albuterol 3 Ml Neb INHALATION RT-Q4H FREDRICK Alprazolam 0.5 mg 12/02/21 00:32 12/02/21 01:14 Alprazolam 0.5 Mg Tab PO 0.5 mg TID PRN Administration Anxiety Aspirin 81 mg 11/22/21 09:00 12/01/21 08:29 Aspirin 81 Mg PO 81 mg DAILY FREDRICK Administration Atorvastatin Calcium 80 mg 11/20/21 21:00 12/01/21 21:17 Atorvastatin 80 Mg Tab PO 80 mg HS FREDRICK Administration Baclofen 10 mg 11/29/21 04:00 12/01/21 21:24 Baclofen 10 Mg Tab PO 10 mg BID PRN Administration Muscle Spasm Bupropion HCl 150 mg 11/22/21 21:00 12/01/21 21:17 Bupropion Sr 150 Mg Tablet.Er PO 150 mg BID FREDRICK Administration Clopidogrel Bisulfate 75 mg 12/02/21 09:00 Clopidogrel 75 Mg Tab PO DAILY FREDRICK Dextrose/Water 25 ml 11/20/21 20:46 11/27/21 10:28 Dextrose 50% Syringe 50 Ml IVP 25 ml PER PROTOCOL PRN Administration Hypoglycemia Protocol Dextrose/Water 50 ml 11/20/21 20:46 12/02/21 04:28 Dextrose 50% Syringe 50 Ml IVP 50 ml PER PROTOCOL PRN Administration Hypoglycemia Protocol Furosemide 40 mg 11/29/21 09:45 12/02/21 10:38 Furosemide 10 Mg/Ml 4 Ml Vial IV 40 mg DAILY FREDRICK Administration Dobutamine HCl/Dextrose 500 mg 250 mls @ 6.675 mls/hr 12/02/21 04:15 12/02/21 04:29 / IV Solution IV 2.5 mcg/kg/min .Q24H FREDRICK 6.675 mls/hr Administration 2.5 MCG/KG/MIN Dextrose/Water 500 ml/ IV 500 mls @ 20 mls/hr 12/02/21 06:45 12/02/21 07:12 Solution IV 20 mls/hr .Q24H FREDRICK Administration Norepinephrine Bitartrate 4 mg 254 mls @ 16.631 mls/hr 12/02/21 08:00 12/02/21 11:11 / Sodium Chloride IV 0.03 mcg/kg/min .[id number] FREDRICK 9.978 mls/hr Titration Protocol 0.05 MCG/KG/MIN Propofol 1,000 mg/ IV Solution 100 mls @ 2.619 mls/hr 12/02/21 09:30 12/02/21 09:46 IV 40 mcg/kg/min .Q24H FREDRICK 20.952 mls/hr Administration Protocol 5 MCG/KG/MIN Insulin Aspart 0 unit 11/20/21 21:00 12/02/21 07:00 Insulin Aspart (Novolog) 100 Unit/Ml Vial SQ Not Given ACHS [facility] Protocol Insulin Aspart 3 unit 12/01/21 12:00 12/02/21 07:00 Insulin Aspart (Novolog) 100 Unit/Ml Vial SQ Not Given AC-BID [facility] Insulin Detemir 45 unit 11/29/21 21:00 12/02/21 01:39 Insulin Detemir (Levemir) 100 Unit/Ml Syr SQ Not Given BID [facility] Ipratropium Hale 0.5 mg 11/21/21 08:00 12/02/21 09:28 Ipratropium 0.5 Mg/2.5 Ml Nebu INHALATION Not Given RT-QID [facility] Metoprolol Tartrate 12.5 mg 12/01/21 21:00 12/02/21 10:51 Metoprolol Tartrate 12.5 Mg Tab PO Not Given BID FREDRICK Naloxone HCl 0.2 mg 11/26/21 14:51 Naloxone 0.4 Mg/Ml 1 Ml Vial IV Q2M PRN Opioid Reversal Nitroglycerin 0.4 mg 11/20/21 20:39 Nitroglycerin Sl Tabs 0.4 Mg Tab SUBLINGUAL Q5M PRN Chest Pain Pantoprazole Sodium 40 mg 11/26/21 10:00 12/02/21 10:38 Pantoprazole 40 Mg/10 Ml Vial IVP 40 mg BID FREDRICK Administration Tamsulosin HCl 0.4 mg 11/29/21 08:30 12/01/21 08:27 Tamsulosin 0.4 Mg Cap.Er.24h PO 0.4 mg [id number] FREDRICK Administration Objective - Vital Signs Vital signs: Vital Signs Temp 96.7 F L 12/02/21 08:00 Pulse 41 L 12/02/21 10:00 Resp 18 12/02/21 10:00 BP 99/43 12/02/21 10:00 Pulse Ox 98 12/02/21 10:00 FiO2 50 12/02/21 08:00 Intake & Output 12/01/21 12/02/21 12/02/21 18:59 06:59 18:59 Intake Total 150 400 314.018 Output Total 1700 80 60 Balance -1550 320 254.018 Weight 87.3 kg Intake: Intake, IV Titration 314.018 Amount Calcium Gluconate in NaCl 100 1 gm In Saline 1 100ml. bag @ 100 mls/hr IVPB ONCE ONE Rx#:[id number] Dextrose 10% in Water 500 80 ml In Empty Bag 1 bag @ 20 mls/hr IV .Q24H FREDRICK Rx #:[id number] Norepinephrine 4 mg In 94.018 Sodium Chloride 0.9% 250 ml @ 0.05 MCG/KG/MIN 16. 631 mls/hr IV .[id number] FREDRICK Rx#:[id number] propofoL 100 ml @ 0 mls/ 40 hr IV .STK-MED ONE Rx#: [id number] Oral 150 400 Output: Urine 1700 80 60 Other: Voiding Method Indwelling Catheter Indwelling Catheter - Labs CBC & Chem 7: 12/02/21 04:50 12/02/21 09:19 Labs: Abnormal Lab Results - Last 24 Hours (Table) 12/01/21 12/01/21 12/02/21 Range/Units 11:15 16:13 04:17 WBC (3.8-10.6) k/uL RBC (4.30-5.90) m/uL Hgb (13.0-17.5) gm/dL Hct (39.0-53.0) % MCHC (31.0-37.0) g/dL RDW (11.5-15.5) % ABG pH (7.35-7.45) ABG pO2 (83-108) mmHg ABG HCO3 (21-25) mmol/L ABG Total CO2 (19-24) mmol/L ABG O2 Saturation (94-97) % Sodium (137-145) mmol/L Potassium (3.5-5.1) mmol/L Chloride (98-107) mmol/L Carbon Dioxide (22-30) mmol/L BUN (9-20) mg/dL Creatinine (0.66-1.25) mg/dL POC Glucose (mg/dL) 175 H 126 H 44 L (70-110) mg/dL Plasma Lactic Acid Teddy (0.7-2.0) mmol/L Calcium (8.4-10.2) mg/dL 12/02/21 12/02/21 12/02/21 Range/Units 04:50 04:50 04:53 WBC 15.5 H (3.8-10.6) k/uL RBC 2.74 L (4.30-5.90) m/uL Hgb 8.2 L (13.0-17.5) gm/dL Hct 26.9 L (39.0-53.0) % MCHC 30.4 L (31.0-37.0) g/dL RDW 15.6 H (11.5-15.5) % ABG pH (7.35-7.45) ABG pO2 (83-108) mmHg ABG HCO3 (21-25) mmol/L ABG Total CO2 (19-24) mmol/L ABG O2 Saturation (94-97) % Sodium 131 L (137-145) mmol/L Potassium 6.2 H* (3.5-5.1) mmol/L Chloride 96 L (98-107) mmol/L Carbon Dioxide 21 L (22-30) mmol/L BUN 42 H (9-20) mg/dL Creatinine 2.91 H (0.66-1.25) mg/dL POC Glucose (mg/dL) 33 L (70-110) mg/dL Plasma Lactic Acid Teddy (0.7-2.0) mmol/L Calcium 7.9 L (8.4-10.2) mg/dL 12/02/21 12/02/21 12/02/21 Range/Units 05:16 05:31 05:59 WBC (3.8-10.6) k/uL RBC (4.30-5.90) m/uL Hgb (13.0-17.5) gm/dL Hct (39.0-53.0) % MCHC (31.0-37.0) g/dL RDW (11.5-15.5) % ABG pH 7.29 L (7.35-7.45) ABG pO2 22 L* (83-108) mmHg ABG HCO3 20 L (21-25) mmol/L ABG Total CO2 (19-24) mmol/L ABG O2 Saturation 27.7 L (94-97) % Sodium (137-145) mmol/L Potassium (3.5-5.1) mmol/L Chloride (98-107) mmol/L Carbon Dioxide (22-30) mmol/L BUN (9-20) mg/dL Creatinine (0.66-1.25) mg/dL POC Glucose (mg/dL) 30 L 114 H (70-110) mg/dL Plasma Lactic Acid Teddy (0.7-2.0) mmol/L Calcium (8.4-10.2) mg/dL 12/02/21 12/02/21 12/02/21 Range/Units 06:37 07:03 08:12 WBC (3.8-10.6) k/uL RBC (4.30-5.90) m/uL Hgb (13.0-17.5) gm/dL Hct (39.0-53.0) % MCHC (31.0-37.0) g/dL RDW (11.5-15.5) % ABG pH 7.26 L (7.35-7.45) ABG pO2 >400 H (83-108) mmHg ABG HCO3 16 L (21-25) mmol/L ABG Total CO2 17 L (19-24) mmol/L ABG O2 Saturation 100.0 H (94-97) % Sodium (137-145) mmol/L Potassium (3.5-5.1) mmol/L Chloride (98-107) mmol/L Carbon Dioxide (22-30) mmol/L BUN (9-20) mg/dL Creatinine (0.66-1.25) mg/dL POC Glucose (mg/dL) 153 H (70-110) mg/dL Plasma Lactic Acid Teddy 10.2 H* (0.7-2.0) mmol/L Calcium (8.4-10.2) mg/dL 12/02/21 12/02/21 Range/Units 09:19 10:25 WBC (3.8-10.6) k/uL RBC (4.30-5.90) m/uL Hgb (13.0-17.5) gm/dL Hct (39.0-53.0) % MCHC (31.0-37.0) g/dL RDW (11.5-15.5) % ABG pH (7.35-7.45) ABG pO2 (83-108) mmHg ABG HCO3 (21-25) mmol/L ABG Total CO2 (19-24) mmol/L ABG O2 Saturation (94-97) % Sodium (137-145) mmol/L Potassium 5.3 H (3.5-5.1) mmol/L Chloride (98-107) mmol/L Carbon Dioxide (22-30) mmol/L BUN (9-20) mg/dL Creatinine (0.66-1.25) mg/dL POC Glucose (mg/dL) (70-110) mg/dL Plasma Lactic Acid Teddy 3.8 H* (0.7-2.0) mmol/L Calcium (8.4-10.2) mg/dL Microbiology - Last 24 Hours (Table) 11/26/21 10:29 Blood Culture - Preliminary Blood No Growth after 120 hours
[2021-12-02] MEDS: IPRATROPIUM-ALBUTEROL 3 ML NEB INHALATION SCH ×4 (11:40→23:08)
[2021-12-02 12:03] LABS: Glucose,Whole Blood 205 mg/dL (70-110)
[2021-12-02 13:46] LABS: Glucose,Whole Blood 233 mg/dL (70-110)
--- NOTE | 2021-12-02 14:20 | XR ---
EXAMINATION TYPE: XR chest 1V portable DATE OF EXAM: 12/02/2021 2:12 PM COMPARISON: Chest radiographs from 12/02/2021. TECHNIQUE: XR chest 1V portable Frontal view of the chest. CLINICAL INDICATION:Male, 71 years old with history of OGT placement; FINDINGS: Lungs/Pleura: No pneumothorax or pleural effusion. Left basilar atelectasis. Background chronic emphy sematous changes. Pulmonary vascularity: Unremarkable. Heart/mediastinum: Cardiomediastinal silhouette is enlarged and stable. Postoperative changes are pr esent in the mediastinum. Musculoskeletal: No acute osseous pathology. Midline sternotomy wires are noted and stable. Other findings: None Lines/Tubes: Endotracheal tube with distal tip 4.3 cm above the johnathan Nasogastric tube now demonstrated as above the diaphragm with sidehole in the left upper quadrant and distal tip not included on the film. IMPRESSION: 1. Interval placement of NG tube coursing below the diaphragm with sidehole in region of the proxima l stomach. 2. Stable endotracheal tube. 3. Left basilar atelectasis.
[2021-12-02] MEDS: buPROPion SR 150 MG TABLET.ER PO SCH ×2 (15:22→20:41)
[2021-12-02] MEDS: ASPIRIN 81 MG PO SCH (15:27)
[2021-12-02] MEDS: CLOPIDOGREL 75 MG TAB PO SCH (15:28)
[2021-12-02] MEDS: TAMSULOSIN 0.4 MG CAP.ER.24H PO SCH (15:28)
[2021-12-02 17:55] LABS: Glucose,Whole Blood 196 mg/dL (70-110)
[2021-12-02 20:38] LABS: Glucose,Whole Blood 136 mg/dL (70-110)
[2021-12-02] MEDS: ATORVASTATIN 80 MG TAB PO SCH (20:41)
[2021-12-02] MEDS: CHLORHEXIDINE GLUCONATE 15 ML CUP MUCOUS MEM SCH (20:42)
[2021-12-03] MEDS: NOREPINEPHRINE 4 MG in SODIUM CHLORIDE 0.9% 250 ML IV SCH ×2 (00:19→15:40)
[2021-12-03 00:39] LABS: Glucose,Whole Blood 108 mg/dL (70-110)
[2021-12-03] MEDS: IPRATROPIUM-ALBUTEROL 3 ML NEB INHALATION SCH ×7 (04:01→23:32)
[2021-12-03 04:10] LABS: Glucose,Whole Blood 105 mg/dL (70-110)
[2021-12-03] MEDS: DOBUTamine DRIP 500 MG in DEXTROSE/WATER 1 250ML.BAG IV SCH ×2 (04:30→16:57)
[2021-12-03 06:05] LABS: Allen Test Performed? Yes
[2021-12-03 06:10] LABS: ABG Base Excess 1.7 mmol/L; ABG HCO3 26 mmol/L (21-25); ABG Oxygen Saturation 99.6 % (94-97); ABG PCO2 39 mmHg (35-45); ABG PH 7.44 (7.35-7.45); ABG PO2 128 mmHg (83-108); ABG TCO2 27 mmol/L (19-24)
[2021-12-03] MEDS: INSULIN ASPART (NovoLOG) 100 UNIT/ML VIAL SQ SCH ×4 (06:59→20:33)
[2021-12-03 07:00] LABS: Glucose,Whole Blood 124 mg/dL (70-110)
--- NOTE | 2021-12-03 07:22 | XR ---
EXAMINATION TYPE: XR chest 1V portable DATE OF EXAM: 12/03/2021 COMPARISON: 12/02/2021 INDICATION: Assess lungs, previous abnormal TECHNIQUE: Single frontal view of the chest is obtained. FINDINGS: The heart size is mildly prominent. The pulmonary vasculature is prominent. Mild diffuse increased markings are present. Correlate for early pulmonary edema. Endotracheal tube tip is above the johnathan. Nasogastric tube transverses the thorax. IMPRESSION: 1. Clinical consideration for developing congestive heart failure. 2. Lines and catheters discussed above.
[2021-12-03 07:26] LABS: HCT 22.9 % (39.0-53.0); HGB 7.3 gm/dL (13.0-17.5); Hypochromasia Moderate; MCH 30.4 pg (25.0-35.0); MCHC 31.7 g/dL (31.0-37.0); MCV 95.9 fL (80.0-100.0); Platelet Count 190 k/uL (150-450); RBC 2.39 m/uL (4.30-5.90); RDW 15.7 % (11.5-15.5); WBC 13.4 k/uL (3.8-10.6)
[2021-12-03 07:42] LABS: Albumin 2.7 g/dL (3.5-5.0); Calcium 7.8 mg/dL (8.4-10.2); Magnesium 2.3 mg/dL (1.6-2.3); Phosphorus 4.8 mg/dL (2.5-4.5); Potassium 4.6 mmol/L (3.5-5.1); Total Bilirubin 2.1 mg/dL (0.2-1.3)
[2021-12-03] MEDS: CHLORHEXIDINE GLUCONATE 15 ML CUP MUCOUS MEM SCH ×2 (08:11→20:32)
[2021-12-03] MEDS: TAMSULOSIN 0.4 MG CAP.ER.24H PO SCH (08:11)
[2021-12-03] MEDS: CLOPIDOGREL 75 MG TAB PO SCH (08:11)
[2021-12-03] MEDS: PANTOPRAZOLE 40 MG/10 ML VIAL IVP SCH ×2 (08:11→20:32)
[2021-12-03] MEDS: buPROPion SR 150 MG TABLET.ER PO SCH ×2 (08:11→22:38)
[2021-12-03 08:12] LABS: Glucose,Whole Blood 116 mg/dL (70-110)
[2021-12-03] MEDS: FUROSEMIDE 10 MG/ML 4 ML VIAL IV SCH (08:12)
[2021-12-03] MEDS: ASPIRIN 81 MG PO SCH (08:16)
--- NOTE | 2021-12-03 10:00 | P.PN ---
Subjective Progress Note Date: 12/03/21 71-year-old male patient, known history of COPD maintained on a combination of Symbicort and Spiriva, history of nonspecific mediastinal lymphadenopathy being followed up through our office, coronary artery disease, previous bypass surgery, previous history of multiple coronary stents and a carotid artery stent in addition to chronic stage II kidney disease, diabetes mellitus, and hypertension, CHF with chronic systolic heart failure and ejection fraction of 30-35%. The patient has been having episodes of chest pain for the past few weeks. These are intermittent chest pains, not exacerbated with any activity and the patient has been having radiation to his arms, typically the pain would last for 5 minutes. Yesterday, he was having more pain and he end up coming into the hospital and the intensity of the pain was worse. He was also having some shortness of breath and nausea. EKG showed a wide-complex tachycardia and subsequently went into an A. fib rhythm. He was noted to be in acute kidney injury and the patient was also found to be hypokalemic and potassium level was elevated. Based on that, the patient was given calcium, he was given bicarb pushes, Kayexalate 15 g and ultimately a dialysis catheter was to proceed and the patient was given association of hemodialysis with subsequent improvement in his potassium level. The CRAIG inhibitor was also discontinued. The troponins w ere mildly elevated and the levels were 0.25 and 0.6 respectively. The rest of the blood work essentially within normal limits. The serum bicarb is up to 21. Creatinine this morning is down to 1.6 with a BUN of 45. The patient is awake and oriented. He is on IV heparin. History of any chest pain. The current cardiac rhythm is bradycardic, still wide-complex with first-degree AV block. The rhythm is sinus for now. The patient has been taken Coreg on outpatient basis. No syncope. No loss of consciousness. Reevaluated today on 11/22/21, patient remains in the ICU, remains on heparin, he is asymptomatic, no further episodes of angina or chest pain. Patient received hemodialysis on 11/20 and hemodialysis on 11/21, his potassium level came down from 7.4 to normal level today. Patient remains on heparin, his echocardiogram showed ejection fraction of 25-50%. Obviously the patient presented with hyperkalemia, atrial fibrillation, nonsustained ventricular tachycardia, acute kidney injury, and has made a significant amount in the last 24 hours. Clinically the patient is feeling much better today, breathing quite easily, not in any distress. His arrhythmia was felt to be related to his hyperkalemia. Patient is known to have history of severe ischemic cardiomyopathy and LV dys function. He also has history of moderate to severe mitral regurgitation. WBC count today is 11.6 hemoglobin is 9.3. Electrolytes are normal potassium 4.3 BUN is 39 and creatinine 1.45. Chest x-ray today showed borderline cardiomegaly, mild interstitial changes, mild pulmonary vascular congestion Reevaluated today on 11/23/2021, patient is doing well, [facility] Patient is relatively asymptomatic, on room air, he feels fine except for some minimal nasal congestion. He also has a poor appetite. Denies any shortness of breath or cough or wheezing denies any chest pain. CBC is relatively normal hemoglobin is 8.6 PTT is 55.9 electrolytes are normal BUN is 36 creatinine 1.40 Patient was reevaluated today on 11/26/2021, patient had to be transferred back to the ICU this morning. Earlier today, the patient has been complaining of chest pain, lightheadedness, dizziness, and he felt like he was going to pass out. Patient also complained of numbness and tingling down his legs, and difficulty moving his legs. Obviously the patient wasn't doing well, and he was noted to have low hemoglobin he was also noted to have profound bradycardia and junctional rhythm. Arrangements were made for the patient to have thoracic aortic angiogram, it was basically unremarkable, no evidence of thoracic aortic aneurysm dissection and there was no evidence of intrathoracic or intra- abdominal process appreciated. Chest x-ray showed cardiomegaly without any s ignificant suspicious pulmonary process. Hemoglobin this morning is 6.7 with a WBC count of 19.0. Hemoglobin was 9.3 and 8.62 days ago. Patient will be receiving a unit of packed RBCs, he was seen by cardiology and he was placed on dopamine for bradycardia and hypotension, and cardiology may consider taking the patient down for cardiac catheterization later today. Considering his worsening clinical picture, patient was transferred to the ICU, and I was asked to see him again Reevaluated today on , patient remains in the ICU, feeling much better today compared to yesterday. He is on 2 L nasal cannula remains on dopamine at 2 mcg/kg/m she is also on IV fluid at 50 mL per hour. Remains in a junctional rhythm with rate in the low 60s. His chest pain has resolved. Patient is rela tively asymptomatic and feels much better today compared to yesterday. His hemoglobin today is 8.3 WBC count is 19.8 electrolytes are normal renal profile showed a BUN of 51 creatinine 2.50, slightly improved compared to yesterday. The patient is seen today 12/02/2021 in the intensive care unit. Early this morning he developed a cardiac arrest and was found to be in PEA and had 1 round of CPR and received epinephrine, calcium gluconate and bicarbonate and was subsequently intubated and is currently on the mechanical ventilator. Current settings are assist-control mode at a rate of 16, tidal volume 500, FiO2 50% and a PEEP of 5. Morning blood gases revealed a PaO2 greater than 400, pCO2 36, pH 7.26 this was on 100% FiO2. He currently has norepinephrine at 5 mcg/m, dobutamine at 2.5 mcg/kg/m, propofol at 40 mcg/kg/m. D10 at 20 ML's per hour due to issues with hypoglycemia. Chest x-ray reveals cardiomegaly but no evidence of pleural effusion, consolidation or pneumothorax. White count 15.5. Hemoglobin 8.2. Platelets 195. Sodium 131. Potassium 5.3. Chloride 96. Bicarb 21. BUN 42. Creatinine 2.91. Glucose 153. Lactic acid 10.2. He is status post 1 unit of packed red blood cells this admission. The cultures reveal no growth. The patient is seen today 12/03/2021 in follow-up in the intensive care unit. He remains intubated on mechanical ventilator settings of assist control mode with a rate of 16, tidal volume 500, FiO2 40% and a PEEP of 5. Morning blood ga ses revealed a PaO2 of 118, pCO2 39, pH 7.44 on 50% FiO2. He remains on propofol at 40 mcg/kg/m. Dobutamine at 2.5 mcg/kg/m. The family is still deciding regarding the plan of care. They have declined central and arterial lines insertions. They have declined hemodialysis. Chest x-ray reveals p rominent pulmonary vasculature with mild diffuse increased markings. Early pulmonary edema. He is status post 1 unit of packed red blood cells this admission. Current hemoglobin 7.3. Blood cultures revealed no growth. White count 13.4. Sodium 131. Potassium 4.6. Chloride 96. Bicarb 24. BUN 53. Creatinine 2.84. Glucose 104. AST 2465. ALT 1871. He is continued on IV diuretics, remains in a negative balance. Objective - Vital Signs Vital signs: Vital Signs Temp 98.4 F 12/03/21 08:00 Pulse 62 12/03/21 09:02 Resp 16 12/03/21 09:00 BP 115/44 12/03/21 09:00 Pulse Ox 99 12/03/21 09:00 FiO2 40 12/03/21 09:00 Intake & Output 12/02/21 12/03/21 12/03/21 18:59 06:59 18:59 Intake Total 567.211 178.919 79.618 Output Total 495 710 390 Balance 72.211 -531.081 -310.382 Weight 89.7 kg Intake: Intake, IV Titration 567.211 178.919 79.618 Amount Calcium Gluconate in NaCl 100 1 gm In Saline 1 100ml. bag @ 100 mls/hr IVPB ONCE ONE Rx#:[id number] Dextrose 10% in Water 500 140 ml In Empty Bag 1 bag @ 20 mls/hr IV .Q24H [facility] Rx #:[id number] Norepinephrine 4 mg In 109.817 Sodium Chloride 0.9% 250 ml @ 0.05 MCG/KG/MIN 16. 631 mls/hr IV .[id number] [facility] Rx#:[id number] propofoL 1,000 mg In 177.394 178.919 79.618 Empty Bag 1 bag @ 5 MCG/ KG/MIN 2.619 mls/hr IV . Q24H [facility] Rx#:[id number] propofoL 100 ml @ 0 mls/ 40 hr IV .[facility] Rx#: [id number] Output: Gastric Drainage 200 50 Urine 495 510 340 Other: Voiding Method Indwelling Catheter Indwelling Catheter - Exam GENERAL EXAM: Intubated, sedated 71-year-old male patient, comfortable in no apparent distress. HEAD: Normocephalic. EYES: Normal reaction of pupils, equal size. NOSE: Clear with pink turbinates. THROAT: Oral endotracheal tube in place. No erythema or exudates. NECK: No masses, no JVD. CHEST: No chest wall deformity. LUNGS: Equal air entry with few scattered crackles. CVS: S1 and S2 normal with no audible murmur, regular rhythm. ABDOMEN: No hepatosplenomegaly, normal bowel sounds, no guarding or rigidity. SPINE: No scoliosis or deformity SKIN: No rashes CENTRAL NERVOUS SYSTEM: Sedated, tone is normal in all 4 extremities. EXTREMITIES: There is 1+ peripheral edema. No clubbing, no cyanosis. Peripheral pulses are intact. - Labs CBC & Chem 7: 12/03/21 07:01 12/03/21 07:01 Labs: Abnormal Lab Results - Last 24 Hours (Table) 12/02/21 12/02/21 12/02/21 Range/Units 10:25 11:14 11:51 WBC (3.8-10.6) k/uL RBC (4.30-5.90) m/uL Hgb (13.0-17.5) gm/dL Hct (39.0-53.0) % RDW (11.5-15.5) % ABG pO2 (83-108) mmHg ABG HCO3 (21-25) mmol/L ABG Total CO2 (19-24) mmol/L ABG O2 Saturation (94-97) % Sodium (137-145) mmol/L Chloride (98-107) mmol/L BUN (9-20) mg/dL Creatinine (0.66-1.25) mg/dL Glucose (74-99) mg/dL POC Glucose (mg/dL) 234 H 205 H (70-110) mg/dL Plasma Lactic Acid Teddy 3.8 H* (0.7-2.0) mmol/L Calcium (8.4-10.2) mg/dL Phosphorus (2.5-4.5) mg/dL Total Bilirubin (0.2-1.3) mg/dL AST (17-59) U/L ALT (4-49) U/L Alkaline Phosphatase (38-126) U/L Total Protein (6.3-8.2) g/dL Albumin (3.5-5.0) g/dL 12/02/21 12/02/21 12/02/21 Range/Units 13:44 17:42 20:36 WBC (3.8-10.6) k/uL RBC (4.30-5.90) m/uL Hgb (13.0-17.5) gm/dL Hct (39.0-53.0) % RDW (11.5-15.5) % ABG pO2 (83-108) mmHg ABG HCO3 (21-25) mmol/L ABG Total CO2 (19-24) mmol/L ABG O2 Saturation (94-97) % Sodium (137-145) mmol/L Chloride (98-107) mmol/L BUN (9-20) mg/dL Creatinine (0.66-1.25) mg/dL Glucose (74-99) mg/dL POC Glucose (mg/dL) 233 H 196 H 136 H (70-110) mg/dL Plasma Lactic Acid Teddy (0.7-2.0) mmol/L Calcium (8.4-10.2) mg/dL Phosphorus (2.5-4.5) mg/dL Total Bilirubin (0.2-1.3) mg/dL AST (17-59) U/L ALT (4-49) U/L Alkaline Phosphatase (38-126) U/L Total Protein (6.3-8.2) g/dL Albumin (3.5-5.0) g/dL 12/03/21 12/03/21 12/03/21 Range/Units 06:04 06:58 07:01 WBC 13.4 H (3.8-10.6) k/uL RBC 2.39 L (4.30-5.90) m/uL Hgb 7.3 L (13.0-17.5) gm/dL Hct 22.9 L (39.0-53.0) % RDW 15.7 H (11.5-15.5) % ABG pO2 128 H (83-108) mmHg ABG HCO3 26 H (21-25) mmol/L ABG Total CO2 27 H (19-24) mmol/L ABG O2 Saturation 99.6 H (94-97) % Sodium (137-145) mmol/L Chloride (98-107) mmol/L BUN (9-20) mg/dL Creatinine (0.66-1.25) mg/dL Glucose (74-99) mg/dL POC Glucose (mg/dL) 124 H (70-110) mg/dL Plasma Lactic Acid Teddy (0.7-2.0) mmol/L Calcium (8.4-10.2) mg/dL Phosphorus (2.5-4.5) mg/dL Total Bilirubin (0.2-1.3) mg/dL AST (17-59) U/L ALT (4-49) U/L Alkaline Phosphatase (38-126) U/L Total Protein (6.3-8.2) g/dL Albumin (3.5-5.0) g/dL 12/03/21 12/03/21 Range/Units 07:01 08:10 WBC (3.8-10.6) k/uL RBC (4.30-5.90) m/uL Hgb (13.0-17.5) gm/dL Hct (39.0-53.0) % RDW (11.5-15.5) % ABG pO2 (83-108) mmHg ABG HCO3 (21-25) mmol/L ABG Total CO2 (19-24) mmol/L ABG O2 Saturation (94-97) % Sodium 131 L (137-145) mmol/L Chloride 96 L (98-107) mmol/L BUN 53 H (9-20) mg/dL Creatinine 2.84 H (0.66-1.25) mg/dL Glucose 104 H (74-99) mg/dL POC Glucose (mg/dL) 116 H (70-110) mg/dL Plasma Lactic Acid Teddy (0.7-2.0) mmol/L Calcium 7.8 L (8.4-10.2) mg/dL Phosphorus 4.8 H (2.5-4.5) mg/dL Total Bilirubin 2.1 H (0.2-1.3) mg/dL AST 2465 H (17-59) U/L ALT 1871 H (4-49) U/L Alkaline Phosphatase 135 H (38-126) U/L Total Protein 5.0 L (6.3-8.2) g/dL Albumin 2.7 L (3.5-5.0) g/dL Microbiology - Last 24 Hours (Table) 11/26/21 10:29 Blood Culture - Final Blood No Growth after 144 hours Assessment and Plan Assessment: PEA occurred early on 12/02/2021 requiring 1 round of CPR, epinephrine, calcium gluconate and bicarb with return of spontaneous circulation. Intubated and placed on mechanical ventilator. Severe cardiomyopathy/ischemic cardiomyopathy and LV dysfunction with ejection fraction of 25-30%. Recent non-ST elevation myocardial infarction Atrial fibrillation with nonsustained ventricular tachycardia, and associated with hyperkalemia. Recurrent unstable angina is strongly suspected. Severe ischemic cardiomyopathy Acute on chronic kidney disease History of CABG and previous PCI. History of underlying COPD, maintained on Symbicort and Spiriva on outpatient basis. History of nonspecific mediastinal adenopathy Moderate to severe mitral regurgitation Chronic systolic congestive heart failure Type 2 diabetes Dyslipidemia History of peripheral vessel occlusive disease and carotid stenting Plan: The patient was seen and evaluated Chest x-ray, labs and medications reviewed FiO2 titrated down to 40% Continue propofol, dobutamine Dr. Uriostegui spoke with the patient's and family at length yesterday We will plan further interventions and treatment based on their wishes We will continue to follow and make further recommendations based on his clinical status I have personally seen and examined the patient, performed the documentation and the assessment and plan as written. Number of minutes spent on the visit: 15.
--- NOTE | 2021-12-03 10:46 | P.PN ---
Subjective Patient is seen for follow-up for acute kidney injury and hyperkalemia. Patient was admitted with bradycardia and a serum potassium of 7.4. He received one treatment of hemodialysis and has not required any further dialysis treatments. Patient has good urine output. Patient has had obstructive uropathy requiring Paula catheter placement. He is started on Flomax. Serum creatinine had improved to about 1.6-1.8 mg/dL. E patient had a cardiac arrest yesterday. He was significantly hyperkalemic and received IV treatment. He was also hypotensive requiring levo fed which is now discontinued. Urine output was low but has picked up now. Serum potassium is down to 4.6 today. Creatinine is at 2.8 mg/dL. Urine output currently at 40-50 mL an hour. Patient remains on the vent. Family has expressed that patient did not want any kind of renal replacement therapy. Objective - Vital Signs Vital signs: Vital Signs Temp 98.4 F 12/03/21 08:00 Pulse 62 12/03/21 09:02 Resp 16 12/03/21 09:00 BP 115/44 12/03/21 09:00 Pulse Ox 99 12/03/21 09:00 FiO2 40 12/03/21 10:31 Intake & Output 12/02/21 12/03/21 12/03/21 18:59 06:59 18:59 Intake Total 567.211 178.919 79.618 Output Total 495 710 515 Balance 72.211 -531.081 -435.382 Weight 89.7 kg Intake: Intake, IV Titration 567.211 178.919 79.618 Amount Calcium Gluconate in NaCl 100 1 gm In Saline 1 100ml. bag @ 100 mls/hr IVPB ONCE [facility] Rx#:[id number] Dextrose 10% in Water 500 140 ml In Empty Bag 1 bag @ 20 mls/hr IV .Q24H [facility] Rx #:[id number] Norepinephrine 4 mg In 109.817 Sodium Chloride 0.9% 250 ml @ 0.05 MCG/KG/MIN 16. 631 mls/hr IV .[id number] [facility] Rx#:[id number] propofoL 1,000 mg In 177.394 178.919 79.618 Empty Bag 1 bag @ 5 MCG/ KG/MIN 2.619 mls/hr IV . Q24H [facility] Rx#:[id number] propofoL 100 ml @ 0 mls/ 40 hr IV [facility] Rx#: [id number] Output: Gastric Drainage 200 50 Urine 495 510 465 Other: Voiding Method Indwelling Catheter Indwelling Catheter - Exam Patient is sedated and on the vent Examination of the heart S1 and S2 Examination lungs bilateral breath sounds are heard Abdomen is soft nontender Examination of the lower extremities shows edema 2+ bilaterally [employer] exam cannot be performed - Labs CBC & Chem 7: 12/03/21 07:01 12/03/21 07:01 Labs: Abnormal Lab Results - Last 24 Hours (Table) 12/02/21 12/02/21 12/02/21 Range/Units 10:25 11:14 11:51 WBC (3.8-10.6) k/uL RBC (4.30-5.90) m/uL Hgb (13.0-17.5) gm/dL Hct (39.0-53.0) % RDW (11.5-15.5) % ABG pO2 (83-108) mmHg ABG HCO3 (21-25) mmol/L ABG Total CO2 (19-24) mmol/L ABG O2 Saturation (94-97) % Sodium (137-145) mmol/L Chloride (98-107) mmol/L BUN (9-20) mg/dL Creatinine (0.66-1.25) mg/dL Glucose (74-99) mg/dL POC Glucose (mg/dL) 234 H 205 H (70-110) mg/dL Plasma Lactic Acid Teddy 3.8 H* (0.7-2.0) mmol/L Calcium (8.4-10.2) mg/dL Phosphorus (2.5-4.5) mg/dL Total Bilirubin (0.2-1.3) mg/dL AST (17-59) U/L ALT (4-49) U/L Alkaline Phosphatase (38-126) U/L Total Protein (6.3-8.2) g/dL Albumin (3.5-5.0) g/dL 12/02/21 12/02/21 12/02/21 Range/Units 13:44 17:42 20:36 WBC (3.8-10.6) k/uL RBC (4.30-5.90) m/uL Hgb (13.0-17.5) gm/dL Hct (39.0-53.0) % RDW (11.5-15.5) % ABG pO2 (83-108) mmHg ABG HCO3 (21-25) mmol/L ABG Total CO2 (19-24) mmol/L ABG O2 Saturation (94-97) % Sodium (137-145) mmol/L Chloride (98-107) mmol/L BUN (9-20) mg/dL Creatinine (0.66-1.25) mg/dL Glucose (74-99) mg/dL POC Glucose (mg/dL) 233 H 196 H 136 H (70-110) mg/dL Plasma Lactic Acid Teddy (0.7-2.0) mmol/L Calcium (8.4-10.2) mg/dL Phosphorus (2.5-4.5) mg/dL Total Bilirubin (0.2-1.3) mg/dL AST (17-59) U/L ALT (4-49) U/L Alkaline Phosphatase (38-126) U/L Total Protein (6.3-8.2) g/dL Albumin (3.5-5.0) g/dL 12/03/21 12/03/21 12/03/21 Range/Units 06:04 06:58 07:01 WBC 13.4 H (3.8-10.6) k/uL RBC 2.39 L (4.30-5.90) m/uL Hgb 7.3 L (13.0-17.5) gm/dL Hct 22.9 L (39.0-53.0) % RDW 15.7 H (11.5-15.5) % ABG pO2 128 H (83-108) mmHg ABG HCO3 26 H (21-25) mmol/L ABG Total CO2 27 H (19-24) mmol/L ABG O2 Saturation 99.6 H (94-97) % Sodium (137-145) mmol/L Chloride (98-107) mmol/L BUN (9-20) mg/dL Creatinine (0.66-1.25) mg/dL Glucose (74-99) mg/dL POC Glucose (mg/dL) 124 H (70-110) mg/dL Plasma Lactic Acid Etddy (0.7-2.0) mmol/L Calcium (8.4-10.2) mg/dL Phosphorus (2.5-4.5) mg/dL Total Bilirubin (0.2-1.3) mg/dL AST (17-59) U/L ALT (4-49) U/L Alkaline Phosphatase (38-126) U/L Total Protein (6.3-8.2) g/dL Albumin (3.5-5.0) g/dL 12/03/21 12/03/21 Range/Units 07:01 08:10 WBC (3.8-10.6) k/uL RBC (4.30-5.90) m/uL Hgb (13.0-17.5) gm/dL Hct (39.0-53.0) % RDW (11.5-15.5) % ABG pO2 (83-108) mmHg ABG HCO3 (21-25) mmol/L ABG Total CO2 (19-24) mmol/L ABG O2 Saturation (94-97) % Sodium 131 L (137-145) mmol/L Chloride 96 L (98-107) mmol/L BUN 53 H (9-20) mg/dL Creatinine 2.84 H (0.66-1.25) mg/dL Glucose 104 H (74-99) mg/dL POC Glucose (mg/dL) 116 H (70-110) mg/dL Plasma Lactic Acid Teddy (0.7-2.0) mmol/L Calcium 7.8 L (8.4-10.2) mg/dL Phosphorus 4.8 H (2.5-4.5) mg/dL Total Bilirubin 2.1 H (0.2-1.3) mg/dL AST 2465 H (17-59) U/L ALT 1871 H (4-49) U/L Alkaline Phosphatase 135 H (38-126) U/L Total Protein 5.0 L (6.3-8.2) g/dL Albumin 2.7 L (3.5-5.0) g/dL Microbiology - Last 24 Hours (Table) 11/26/21 10:29 Blood Culture - Final Blood No Growth after 144 hours Assessment and Plan Assessment: 1. Hyperkalemia associated with acute kidney injury Johnathon inhibitors and Aldactone along with potassium supplementation. Currently improved. Status post one treatment of hemodialysis on initial admission. Potassium has remained within normal range with serum potassium at 4.4 . Yesterday it was elevated at 6.2. This is mostly associated with worsening acute kidney injury hypotension. No evidence of active GI bleed noted. Patient remains on IV Lasix. Potassium is down to 4.6 today with improved urine output 2. Possible underlying CK D stage III B previous creatinine 1.1-1.3 mg/dL in 2 019. Etiology likely nephrosclerosis. UA is benign 3. Hypertension with CK D 4. Acute coronary syndrome with underlying CAD status post IV heparin on initial admission. No plans for cardiac catheterization at this time. 5. Metabolic acidosis associated with acute kidney injury 6. Volume overload 7. Cardiomyopathy with ejection fraction 25-30% with severe hypokinesis and severely dilated left atrium 8. Acute kidney injury on initial admission possibly prerenal in the setting of use of JOHNATHON inhibitor's. This had improved with creatinine down to 1.45 mg/dL. However serum creatinine increased again to about 2.6 mg/dL secondary to obstructive uropathy. Currently with indwelling Paula catheter with improvement in renal function. Serum creatinine is further elevated this time secondary to hypotension and hypoperfusion with cardiac arrest. 9. Obstructive uropathy and urine retention maintained on Flomax and with indwelling Paula catheter 10. Iron deficiency status post IV iron Plan: Continue with IV Lasix on a daily basis No plans for renal replacement therapy as renal function has stabilized with improvement in urine output and serum potassium.
--- NOTE | 2021-12-03 11:59 | P.PN ---
Subjective Progress Note Date: 12/03/21 Patient was seen and examined. No acute events overnight. Currently intubated, rate 16, tidal volume 500, FiO2 40%, PEEP of 5. Currently on propofol and dobutamine. Chest X ray shows diffuse increased markings. CBC shows hemoglobin of 7.3. ABG shows pH 7.44 and pCO2 39. BMP showing sodium of 131, chloride of 96, BUN 53, creatinine of 2.84, calcium of 7.8, total bilirubin of 2.1, AST 2465, ALT 1871. General: ill appeaing, appears at stated age Derm: warm, dry Head: atraumatic, normocephalic, symmetric Eyes: EOMI, no lid lag, anicteric sclera Mouth: no lip lesion, mucus membranes moist Cardiovascular: S1S2 reg, no murmur, positive DP pulse bilateral, Lungs: Clear to auscultation bilateral, no accessory muscle use, on vent Abdominal: soft, no appreciable organomegaly Ext: no gross muscle atrophy, 2+ edema BL LE, no contractures Neuro: Breathing over vent, no tremors Psych: sedated on vent Assessment and Plan: PEA Arrest - on dobutaime - levophed weaned off - cardio and pulmonary following. Acute exacerbation of Systolic CHF NSTEMI, likely demand ischemia resulting from type II MS Symptomatic bradycardia, suspect possible vagal component Ischemic cardiomyopathy with EF of 25-30% History of CAD status post CABG and multiple stents Hypertension Hyperlipidemia - cardio recs, no plans for intervention at this time - ASA - Plavix - Lipitor - strict I and O - Daily weights - Off Lisinopril, aldactone, and potassium due to hyperkalemia Acute kidney injury with likely underlying CKD IIIB Obstructive uropathy Hyperkaleima - was given temporizing measures - follow potassium, Cr - family declines dialysis - nephrology recs - avoid nephrotoxic agents - flomax - carlos Acute on chronic anemia, iron def - s/p 1 unit of PRBC - no signs of GI bleeding - s/p IV iron - follow CBC - per patients , patient was having bleeding from HD cath prior to removal Leukocytosis, improving - suspect reactive - no signs of active infection - daily CBC Insulin-dependent diabetes mellitus with a hemoglobin A1c of 9.1% - all scheduled insulin discontinued and started on dextrose gtt - sliding scale - accuchecks with hypoglycemic precautions COPD without exacerbation - PRN and scheduled bronchodilators Severe hyperkalemia in setting of CRAIG inhibitor and Aldactone use, resolved Atrial arrhythmias likely secondary to hyperkalemia Metabolic acidosis, resolved Objective - Vital Signs Vital signs: Vital Signs Temp 98.4 F 12/03/21 08:00 Pulse 64 12/03/21 11:00 Resp 19 12/03/21 11:00 BP 117/45 12/03/21 11:00 Pulse Ox 99 12/03/21 11:00 FiO2 40 12/03/21 11:00 Intake & Output 12/02/21 12/03/21 12/03/21 18:59 06:59 18:59 Intake Total 567.211 178.919 165.172 Output Total 495 710 665 Balance 72.211 -531.081 -499.828 Weight 89.7 kg Intake: Intake, IV Titration 567.211 178.919 165.172 Amount Calcium Gluconate in NaCl 100 1 gm In Saline 1 100ml. bag @ 100 mls/hr IVPB ONCE ONE Rx#:[id number] Dextrose 10% in Water 500 140 ml In Empty Bag 1 bag @ 20 mls/hr IV .Q24H [facility] Rx #:[id number] Norepinephrine 4 mg In 109.817 Sodium Chloride 0.9% 250 ml @ 0.05 MCG/KG/MIN 16. 631 mls/hr IV .[id number] [facility] Rx#:[id number] propofoL 1,000 mg In 177.394 178.919 165.172 Empty Bag 1 bag @ 5 MCG/ KG/MIN 2.619 mls/hr IV . Q24H [facility] Rx#:[id number] propofoL 100 ml @ 0 mls/ 40 hr IV .STK-MED ONE Rx#: [id number] Output: Gastric Drainage 200 50 Urine 495 510 615 Other: Voiding Method Indwelling Catheter Indwelling Catheter - Labs CBC & Chem 7: 12/03/21 07:01 12/03/21 07:01 Labs: Abnormal Lab Results - Last 24 Hours (Table) 12/02/21 12/02/21 12/02/21 Range/Units 11:51 13:44 17:42 WBC (3.8-10.6) k/uL RBC (4.30-5.90) m/uL Hgb (13.0-17.5) gm/dL Hct (39.0-53.0) % RDW (11.5-15.5) % ABG pO2 (83-108) mmHg ABG HCO3 (21-25) mmol/L ABG Total CO2 (19-24) mmol/L ABG O2 Saturation (94-97) % Sodium (137-145) mmol/L Chloride (98-107) mmol/L BUN (9-20) mg/dL Creatinine (0.66-1.25) mg/dL Glucose (74-99) mg/dL POC Glucose (mg/dL) 205 H 233 H 196 H (70-110) mg/dL Calcium (8.4-10.2) mg/dL Phosphorus (2.5-4.5) mg/dL Total Bilirubin (0.2-1.3) mg/dL AST (17-59) U/L ALT (4-49) U/L Alkaline Phosphatase (38-126) U/L Total Protein (6.3-8.2) g/dL Albumin (3.5-5.0) g/dL 12/02/21 12/03/21 12/03/21 Range/Units 20:36 06:04 06:58 WBC (3.8-10.6) k/uL RBC (4.30-5.90) m/uL Hgb (13.0-17.5) gm/dL Hct (39.0-53.0) % RDW (11.5-15.5) % ABG pO2 128 H (83-108) mmHg ABG HCO3 26 H (21-25) mmol/L ABG Total CO2 27 H (19-24) mmol/L ABG O2 Saturation 99.6 H (94-97) % Sodium (137-145) mmol/L Chloride (98-107) mmol/L BUN (9-20) mg/dL Creatinine (0.66-1.25) mg/dL Glucose (74-99) mg/dL POC Glucose (mg/dL) 136 H 124 H (70-110) mg/dL Calcium (8.4-10.2) mg/dL Phosphorus (2.5-4.5) mg/dL Total Bilirubin (0.2-1.3) mg/dL AST (17-59) U/L ALT (4-49) U/L Alkaline Phosphatase (38-126) U/L Total Protein (6.3-8.2) g/dL Albumin (3.5-5.0) g/dL 12/03/21 12/03/21 12/03/21 Range/Units 07:01 07:01 08:10 WBC 13.4 H (3.8-10.6) k/uL RBC 2.39 L (4.30-5.90) m/uL Hgb 7.3 L (13.0-17.5) gm/dL Hct 22.9 L (39.0-53.0) % RDW 15.7 H (11.5-15.5) % ABG pO2 (83-108) mmHg ABG HCO3 (21-25) mmol/L ABG Total CO2 (19-24) mmol/L ABG O2 Saturation (94-97) % Sodium 131 L (137-145) mmol/L Chloride 96 L (98-107) mmol/L BUN 53 H (9-20) mg/dL Creatinine 2.84 H (0.66-1.25) mg/dL Glucose 104 H (74-99) mg/dL POC Glucose (mg/dL) 116 H (70-110) mg/dL Calcium 7.8 L (8.4-10.2) mg/dL Phosphorus 4.8 H (2.5-4.5) mg/dL Total Bilirubin 2.1 H (0.2-1.3) mg/dL AST 2465 H (17-59) U/L ALT 1871 H (4-49) U/L Alkaline Phosphatase 135 H (38-126) U/L Total Protein 5.0 L (6.3-8.2) g/dL Albumin 2.7 L (3.5-5.0) g/dL Microbiology - Last 24 Hours (Table) 11/26/21 10:29 Blood Culture - Final Blood No Growth after 144 hours
[2021-12-03] MEDS: DEXTROSE 10% IN WATER 500 ML in EMPTY BAG 1 BAG IV SCH (12:30)
[2021-12-03 12:42] LABS: Glucose,Whole Blood 180 mg/dL (70-110)
[2021-12-03 17:08] LABS: Glucose,Whole Blood 187 mg/dL (70-110)
[2021-12-03 20:22] LABS: Glucose,Whole Blood 193 mg/dL (70-110)
[2021-12-03] MEDS: ATORVASTATIN 80 MG TAB PO SCH (20:32)
[2021-12-04 00:29] LABS: Glucose,Whole Blood 164 mg/dL (70-110)
[2021-12-04] MEDS: INSULIN ASPART (NovoLOG) 100 UNIT/ML VIAL SQ SCH ×3 (00:36→07:50)
[2021-12-04] MEDS: IPRATROPIUM-ALBUTEROL 3 ML NEB INHALATION SCH ×2 (03:32→07:22)
[2021-12-04 04:08] LABS: Glucose,Whole Blood 166 mg/dL (70-110)
[2021-12-04] MEDS: NOREPINEPHRINE 4 MG in SODIUM CHLORIDE 0.9% 250 ML IV SCH (06:53)
[2021-12-04] MEDS: DEXTROSE 10% IN WATER 500 ML in EMPTY BAG 1 BAG IV SCH (06:53)
[2021-12-04 07:48] LABS: Glucose,Whole Blood 187 mg/dL (70-110)
[2021-12-04] MEDS: CHLORHEXIDINE GLUCONATE 15 ML CUP MUCOUS MEM SCH ×2 (07:50→23:01)
[2021-12-04] MEDS: CLOPIDOGREL 75 MG TAB PO SCH (07:50)
[2021-12-04] MEDS: TAMSULOSIN 0.4 MG CAP.ER.24H PO SCH (07:50)
[2021-12-04] MEDS: ASPIRIN 81 MG PO SCH (07:51)
[2021-12-04] MEDS: buPROPion SR 150 MG TABLET.ER PO SCH (07:51)
[2021-12-04] MEDS: PANTOPRAZOLE 40 MG/10 ML VIAL IVP SCH (07:51)
[2021-12-04] MEDS: FUROSEMIDE 10 MG/ML 4 ML VIAL IV SCH (07:51)
--- NOTE | 2021-12-04 09:14 | P.PN ---
Subjective Progress Note Date: 12/04/21 PROGRESS NOTE The patient is a 71-year-old male with known history of severe coronary artery disease, PAD, cardiomyopathy, chronic kidney disease, atrial arrhythmia and COPD who presented with symptoms of progressive dyspnea, worsening renal functions. He was doing better but then became more dyspneic, hypotensive, requiring mechanical ventilation. He is intubated and sedated at this time. He is on d obutamine. His blood pressure is stable. He appears to be in junctional rhythm. There is no recurrent episodes of ventricle tachycardia. His urinary output is low. The family is considering comfort care. According to the nursing staff the plan is not to proceed with dialysis. His echocardiogram on presentation showed an ejection fraction of 25-30% with moderate to severe mitral regurgitation. Medications: Aspirin, Plavix 75 mg daily, IV dobutamine, Lasix 40 mg daily he is off his beta mable because of the bradycardia PHYSICAL EXAMINATION: Blood pressure 112/40 heart rate 60, temperature 100.9, intubated LUNGS: Clear to auscultation HEART: Regular rate and rhythm, S1, S2. No S3. systolic murmur at the apex ABDOMEN: Soft, no organomegaly EXTREMETIES: +1 edema LAB: Yesterday creatinine 2.84, hemoglobin 7.3 yesterday IMPRESSION: 1. Severe cardiomyopathy with mitral regurgitation 2. Respiratory failure 3. Status post CABG 4. Severe PVD 5. Renal failure, acute on chronic 6. Anemia 7. Atrial and ventricular arrhythmia PLAN: 1. Patient prognosis is very poor, in view of his multiorgan failure the likelihood of recovery is very low 2. Continue supportive care 3. Continue IV dobutamine for now 4. Await the input of the family regarding further care and CODE STATUS Objective - Vital Signs Vital signs: Vital Signs Temp 100.9 F H 12/04/21 07:00 Pulse 62 12/04/21 07:47 Resp 22 12/04/21 07:00 BP 112/43 12/04/21 07:00 Pulse Ox 94 L 12/04/21 07:22 FiO2 40 12/04/21 08:00 Intake & Output 12/03/21 12/04/21 12/04/21 18:59 06:59 18:59 Intake Total 508.587 414.542 Output Total 1440 865 245 Balance -931.413 -450.458 -245 Weight 88.4 kg Intake: Intake, IV Titration 508.587 314.542 Amount DOBUTamine DRIP 500 mg In 243.415 Dextrose/Water 1 250ml. bag @ 2.5 MCG/KG/MIN 6. 675 mls/hr IV .Q24H [facility] Rx#:[id number] propofoL 1,000 mg In 265.172 314.542 Empty Bag 1 bag @ 5 MCG/ KG/MIN 2.619 mls/hr IV . Q24H [facility] Rx#:[id number] Other 100 Output: Gastric Drainage 50 150 200 Urine 1390 715 45 Other: Voiding Method Indwelling Catheter Indwelling Catheter - Labs CBC & Chem 7: 12/03/21 07:01 12/03/21 07:01 Labs: Abnormal Lab Results - Last 24 Hours (Table) 12/03/21 12/03/21 12/03/21 Range/Units 12:40 17:06 20:20 POC Glucose (mg/dL) 180 H 187 H 193 H (70-110) mg/dL 12/04/21 12/04/21 12/04/21 Range/Units 00:26 04:05 07:46 POC Glucose (mg/dL) 164 H 166 H 187 H (70-110) mg/dL
--- NOTE | 2021-12-04 09:21 | P.PN ---
Subjective Patient is seen in follow-up for acute kidney injury on chronic kidney disease. Morning labs pending. Maintain on dobutamine drip and IV Lasix. Nonoliguric. Intubated. On 40% FiO2. Blood pressure stable. Vital signs are stable. HEENT: Intubated. LUNGS: Breath sounds decreased. HEART: Rate and Rhythm are regular. ABDOMEN: Soft, no distention. EXTREMITITES: 1+ edema. Objective - Vital Signs Vital signs: Vital Signs Temp 100.9 F H 12/04/21 07:00 Pulse 62 12/04/21 07:47 Resp 22 12/04/21 07:00 BP 112/43 12/04/21 07:00 Pulse Ox 94 L 12/04/21 07:22 FiO2 40 12/04/21 08:00 Intake & Output 12/03/21 12/04/21 12/04/21 18:59 06:59 18:59 Intake Total 508.587 414.542 Output Total 1440 865 245 Balance -931.413 -450.458 -245 Weight 88.4 kg Intake: Intake, IV Titration 508.587 314.542 Amount DOBUTamine DRIP 500 mg In 243.415 Dextrose/Water 1 250ml. bag @ 2.5 MCG/KG/MIN 6. 675 mls/hr IV .Q24H [facility] Rx#:[id number] propofoL 1,000 mg In 265.172 314.542 Empty Bag 1 bag @ 5 MCG/ KG/MIN 2.619 mls/hr IV . Q24H [facility] Rx#:[id number] Other 100 Output: Gastric Drainage 50 150 200 Urine 1390 715 45 Other: Voiding Method Indwelling Catheter Indwelling Catheter - Labs CBC & Chem 7: 12/03/21 07:01 12/03/21 07:01 Labs: Abnormal Lab Results - Last 24 Hours (Table) 12/03/21 12/03/21 12/03/21 Range/Units 12:40 17:06 20:20 POC Glucose (mg/dL) 180 H 187 H 193 H (70-110) mg/dL 12/04/21 12/04/21 12/04/21 Range/Units 00:26 04:05 07:46 POC Glucose (mg/dL) 164 H 166 H 187 H (70-110) mg/dL Assessment and Plan Plan: Assessment: 1. Acute kidney injury secondary to ATN secondary to cardiorenal syndrome and urinary retention. Also had cardiac arrest this admission. Creatinine 2.84 yesterday. Nonoliguric. UA benign. No hydronephrosis noted on CAT scan. 2. Chronic kidney disease stage IIIa with baseline creatinine in the range of 1.1-1.3 in 2019 secondary to nephrosclerosis. 3. Hyperkalemia secondary to acute kidney injury and use of CRAIG inhibitor, potassium supplementation and spironolactone. Improved. He did require one treatment of hemodialysis on admission. 4. Urinary retention maintained on Flomax. Has a Paula catheter. 5. Volume overload. 6. Ischemic cardiomyopathy with ejection fraction of 25-30% with moderate to severe mitral regurgitation. 7. Hyponatremia secondary to acute kidney injury. Hypervolemic. 8. Status post PEA arrest this admission. 9. Anemia of chronic kidney disease. Did get blood transfusion this admission. Also received IV iron. Plan: Maintain dobutamine drip and IV Lasix. Add Aranesp. Follow-up morning labs. Avoid nephrotoxins. Continue to monitor renal function and urine output. Family has expressed the patient would not want renal replacement therapy.
--- NOTE | 2021-12-04 10:15 | P.PN ---
Subjective Progress Note Date: 12/04/21 Patient is a 71-year-old male with known CAD status post CABG and multiple stents, ischemic cardiomyopathy, hypertension, hyperlipidemia, insulin-dependent diabetes mellitus, and COPD with continued nicotine dependence who presented to the emergency department chest pain. Patient was found by EMS to be in A. fib with RVR and brought to the emergency department for evaluation. Upon arrival to the emergency department, patient underwent an extensive evaluation. EKG revealed sinus bradycardia at 55 bpm with peaked T waves and a repeat EKG revealed sinus bradycardia at 39 bpm. Chest x-ray negative for acute cardiopulmonary process. CBC revealed WBC count of 11.5, hemoglobin of 10.7, critical potassium of 7.4, BUN of 64, creatinine of 2.33 (baseline creatinine 1), carbon dioxide 15, and anion gap of 11. Troponin elevated at 0.258 and pro- BMP of 2800. Patient was for severe hyperkalemia and acute kidney injury with atrial arrhythmias. Pt had a temporary HD cath placed and underwent emergent HD per nephrology recs. Cardiology was consulted and echo revealed EF 25-30% with anteroapical and anteroseptal severe hypokinesis, moderate to severe mitral regurgitation, and mild tricuspid regurgitation. Bilateral lower extremity Dopplers completed negative for DVT. Patient was diuresis with Lasix, dialysis catheter removed 11/24/21, and patient started on sodium bicarb tablets 650 mg twice daily. His renal function improved. On 11/29 he developed some back pain, received a dose of morphine and had a episode of vomiting followed by sustained symptomatic bradycardia. Dose of atropine which improved his symptoms, he was transferred to the ICU and was started on a dopamine drip. His beta mable was discontinued. He was found to have a slow decline in hemoglobin. He underwent a CT aorta with run off due to back pain associated with low hemoglobin which was negative for any signs of dissection, aneurysm, or retroperitoneal bleed. He underwent an ultrasound of his right groin due to his recent hemodialysis catheter which was negative for hematoma. He received 1 unit of packed red blood cells and his hemoglobin remained stable. He continued to do well. He struggled with urinary retention and required replacement of his Gonzalez catheter. His BP and HR remained stable. He was diuresing well. He was re-initated on BB on 12/01 at night. He developed bradycardia with low urine output. He required a dobutamine gtt. On the morning of 12/02 he had a PEA arrest and ROSC was achieve d. He continued to require dobutamine and norepi. He was noted to have hyperkalemia which was treated. He was also started on dextrose infusion for prolonged hypoglycemia. Norepinephrine was weaned off on 12/03, patient remained on Dobutamine infusion. Patient was seen and examined. No acute events overnight. Currently intubated, rate 16, tidal volume 500, FiO2 40%, PEEP of 5. Currently on propofol and dobutamine. CBC, BMP and Magnesium level pending this morning. General: ill appearing, appears at stated age Derm: warm, dry Head: atraumatic, normocephalic, symmetric Eyes: EOMI, no lid lag, anicteric sclera Mouth: no lip lesion, mucus membranes moist Cardiovascular: S1S2 reg, no murmur, positive DP pulse bilateral, Lungs: Clear to auscultation bilateral, no accessory muscle use, on vent Abdominal: soft, no appreciable organomegaly Ext: no gross muscle atrophy, 2+ edema BL LE, no contractures Neuro: Breathing over vent, no tremors Psych: sedated on vent Assessment and Plan: PEA Arrest - on dobutaime - levophed weaned off - cardio and pulmonary following Acute exacerbation of Systolic CHF NSTEMI, likely demand ischemia resulting from type II PR Symptomatic bradycardia, suspect possible vagal component Ischemic cardiomyopathy with EF of 25-30% History of CAD status post CABG and multiple stents Hypertension Hyperlipidemia - cardio recs, no plans for intervention at this time - ASA - Plavix - Lipitor - strict I and O - Daily weights - Off Lisinopril, aldactone, and potassium due to hyperkalemia Acute kidney injury with likely underlying CKD IIIB Obstructive uropathy Hyponatremia Hyperkaleima - was given temporizing measures - follow potassium, Cr - family declines dialysis - nephrology recs - avoid nephrotoxic agents - flomax - gonzalez Acute on chronic anemia, iron def - s/p 1 unit of PRBC - no signs of GI bleeding - s/p IV iron - follow CBC - per patients , patient was having bleeding from HD cath prior to removal Transaminitis - likely ischemic from cardiac arrest - continue to monitor - avoid hepatotoxic medications Leukocytosis, improving - suspect reactive - no signs of active infection - daily CBC Insulin-dependent diabetes mellitus with a hemoglobin A1c of 9.1% - all scheduled insulin discontinued and started on dextrose gtt - sliding scale - accuchecks with hypoglycemic precautions COPD without exacerbation - PRN and scheduled bronchodilators Severe hyperkalemia in setting of CRAIG inhibitor and Aldactone use, resolved Atrial arrhythmias likely secondary to hyperkalemia Metabolic acidosis, resolved Objective - Vital Signs Vital signs: Vital Signs Temp 100.9 F H 12/04/21 07:00 Pulse 62 12/04/21 07:47 Resp 22 12/04/21 07:00 BP 112/43 12/04/21 07:00 Pulse Ox 94 L 12/04/21 07:22 FiO2 40 12/04/21 08:00 Intake & Output 12/03/21 12/04/21 12/04/21 18:59 06:59 18:59 Intake Total 508.587 414.542 Output Total 1440 865 245 Balance -931.413 -450.458 -245 Weight 88.4 kg Intake: Intake, IV Titration 508.587 314.542 Amount DOBUTamine DRIP 500 mg In 243.415 Dextrose/Water 1 250ml. bag @ 2.5 MCG/KG/MIN 6. 675 mls/hr IV .Q24H [facility] Rx#:[id number] propofoL 1,000 mg In 265.172 314.542 Empty Bag 1 bag @ 5 MCG/ KG/MIN 2.619 mls/hr IV . Q24H [facility] Rx#:[id number] Other 100 Output: Gastric Drainage 50 150 200 Urine 1390 715 45 Other: Voiding Method Indwelling Catheter Indwelling Catheter - Labs CBC & Chem 7: 12/03/21 07:01 12/03/21 07:01 Labs: Abnormal Lab Results - Last 24 Hours (Table) 12/03/21 12/03/21 12/03/21 Range/Units 12:40 17:06 20:20 POC Glucose (mg/dL) 180 H 187 H 193 H (70-110) mg/dL 12/04/21 12/04/21 12/04/21 Range/Units 00:26 04:05 07:46 POC Glucose (mg/dL) 164 H 166 H 187 H (70-110) mg/dL
--- NOTE | 2021-12-04 10:43 | P.PN ---
Subjective Progress Note Date: 12/04/21 71-year-old male patient, known history of COPD maintained on a combination of Symbicort and Spiriva, history of nonspecific mediastinal lymphadenopathy being followed up through our office, coronary artery disease, previous bypass surgery, previous history of multiple coronary stents and a carotid artery stent in addition to chronic stage II kidney disease, diabetes mellitus, and hypertension, CHF with chronic systolic heart failure and ejection fraction of 30-35%. The patient has been having episodes of chest pain for the past few weeks. These are intermittent chest pains, not exacerbated with any activity and the patient has been having radiation to his arms, typically the pain would last for 5 minutes. Yesterday, he was having more pain and he end up coming into the hospital and the intensity of the pain was worse. He was also having some shortness of breath and nausea. EKG showed a wide-complex tachycardia and subsequently went into an A. fib rhythm. He was noted to be in acute kidney injury and the patient was also found to be hypokalemic and potassium level was elevated. Based on that, the patient was given calcium, he was given bicarb pushes, Kayexalate 15 g and ultimately a dialysis catheter was to proceed and the patient was given association of hemodialysis with subsequent improvement in his potassium level. The CRAIG inhibitor was also discontinued. The troponins w ere mildly elevated and the levels were 0.25 and 0.6 respectively. The rest of the blood work essentially within normal limits. The serum bicarb is up to 21. Creatinine this morning is down to 1.6 with a BUN of 45. The patient is awake and oriented. He is on IV heparin. History of any chest pain. The current cardiac rhythm is bradycardic, still wide-complex with first-degree AV block. The rhythm is sinus for now. The patient has been taken Coreg on outpatient basis. No syncope. No loss of consciousness. Reevaluated today on 11/22/21, patient remains in the ICU, remains on heparin, he is asymptomatic, no further episodes of angina or chest pain. Patient received hemodialysis on 11/20 and hemodialysis on 11/21, his potassium level came down from 7.4 to normal level today. Patient remains on heparin, his echocardiogram showed ejection fraction of 25-50%. Obviously the patient presented with hyperkalemia, atrial fibrillation, nonsustained ventricular tachycardia, acute kidney injury, and has made a significant amount in the last 24 hours. Clinically the patient is feeling much better today, breathing quite easily, not in any distress. His arrhythmia was felt to be related to his hyperkalemia. Patient is known to have history of severe ischemic cardiomyopathy and LV dys function. He also has history of moderate to severe mitral regurgitation. WBC count today is 11.6 hemoglobin is 9.3. Electrolytes are normal potassium 4.3 BUN is 39 and creatinine 1.45. Chest x-ray today showed borderline cardiomegaly, mild interstitial changes, mild pulmonary vascular congestion Reevaluated today on 11/23/2021, patient is doing well, he is now on overflow in the ICU from [facility]. Patient is relatively asymptomatic, on room air, he feels fine except for some minimal nasal congestion. He also has a poor appetite. Denies any shortness of breath or cough or wheezing denies any chest pain. CBC is relatively normal hemoglobin is 8.6 PTT is 55.9 electrolytes are normal BUN is 36 creatinine 1.40 Patient was reevaluated today on 11/26/2021, patient had to be transferred back to the ICU this morning. Earlier today, the patient has been complaining of chest pain, lightheadedness, dizziness, and he felt like he was going to pass out. Patient also complained of numbness and tingling down his legs, and difficulty moving his legs. Obviously the patient wasn't doing well, and he was noted to have low hemoglobin he was also noted to have profound bradycardia and junctional rhythm. Arrangements were made for the patient to have thoracic aortic angiogram, it was basically unremarkable, no evidence of thoracic aortic aneurysm dissection and there was no evidence of intrathoracic or intra- abdominal process appreciated. Chest x-ray showed cardiomegaly without any s ignificant suspicious pulmonary process. Hemoglobin this morning is 6.7 with a WBC count of 19.0. Hemoglobin was 9.3 and 8.62 days ago. Patient will be receiving a unit of packed RBCs, he was seen by cardiology and he was placed on dopamine for bradycardia and hypotension, and cardiology may consider taking the patient down for cardiac catheterization later today. Considering his worsening clinical picture, patient was transferred to the ICU, and I was asked to see him again Reevaluated today on , patient remains in the ICU, feeling much better today compared to yesterday. He is on 2 L nasal cannula remains on dopamine at 2 mcg/kg/m she is also on IV fluid at 50 mL per hour. Remains in a junctional rhythm with rate in the low 60s. His chest pain has resolved. Patient is rela tively asymptomatic and feels much better today compared to yesterday. His hemoglobin today is 8.3 WBC count is 19.8 electrolytes are normal renal profile showed a BUN of 51 creatinine 2.50, slightly improved compared to yesterday. The patient is seen today 12/02/2021 in the intensive care unit. Early this morning he developed a cardiac arrest and was found to be in PEA and had 1 round of CPR and received epinephrine, calcium gluconate and bicarbonate and was subsequently intubated and is currently on the mechanical ventilator. Current settings are assist-control mode at a rate of 16, tidal volume 500, FiO2 50% and a PEEP of 5. Morning blood gases revealed a PaO2 greater than 400, pCO2 36, pH 7.26 this was on 100% FiO2. He currently has norepinephrine at 5 mcg/m, dobutamine at 2.5 mcg/kg/m, propofol at 40 mcg/kg/m. D10 at 20 ML's per hour due to issues with hypoglycemia. Chest x-ray reveals cardiomegaly but no evidence of pleural effusion, consolidation or pneumothorax. White count 15.5. Hemoglobin 8.2. Platelets 195. Sodium 131. Potassium 5.3. Chloride 96. Bicarb 21. BUN 42. Creatinine 2.91. Glucose 153. Lactic acid 10.2. He is status post 1 unit of packed red blood cells this admission. The cultures reveal no growth. The patient is seen today 12/03/2021 in follow-up in the intensive care unit. He remains intubated on mechanical ventilator settings of assist control mode with a rate of 16, tidal volume 500, FiO2 40% and a PEEP of 5. Morning blood ga ses revealed a PaO2 of 118, pCO2 39, pH 7.44 on 50% FiO2. He remains on propofol at 40 mcg/kg/m. Dobutamine at 2.5 mcg/kg/m. The family is still deciding regarding the plan of care. They have declined central and arterial lines insertions. They have declined hemodialysis. Chest x-ray reveals p rominent pulmonary vasculature with mild diffuse increased markings. Early pulmonary edema. He is status post 1 unit of packed red blood cells this admission. Current hemoglobin 7.3. Blood cultures revealed no growth. White count 13.4. Sodium 131. Potassium 4.6. Chloride 96. Bicarb 24. BUN 53. Creatinine 2.84. Glucose 104. AST 2465. ALT 1871. He is continued on IV diuretics, remains in a negative balance. The patient is seen today 12/04/2021 in follow-up in the intensive care unit. He remains intubated on mechanical ventilator in assist control mode with a rate of 16, tidal volume 500, FiO2 40% and a PEEP of 5. No morning blood gases were drawn. No labs or chest x-ray. The family is considering possible comfort care tomorrow once other family members arrive from out of state. He remains sedated on propofol at 45 mcg/kg/m. He is on dobutamine at 2.5 mcg/kg/m. He remains on IV diuretics. Currently in a negative balance. Objective - Vital Signs Vital signs: Vital Signs Temp 100.9 F H 12/04/21 07:00 Pulse 57 L 12/04/21 10:00 Resp 23 12/04/21 10:00 BP 103/40 12/04/21 10:00 Pulse Ox 96 12/04/21 10:00 FiO2 40 12/04/21 10:00 Intake & Output 12/03/21 12/04/21 12/04/21 18:59 06:59 18:59 Intake Total 508.587 414.542 90.355 Output Total 1440 865 295 Balance -931.413 -450.458 -204.645 Weight 88.4 kg Intake: Intake, IV Titration 508.587 314.542 90.355 Amount DOBUTamine DRIP 500 mg In 243.415 Dextrose/Water 1 250ml. bag @ 2.5 MCG/KG/MIN 6. 675 mls/hr IV .Q24H [facility] Rx#:[id number] propofoL 1,000 mg In 265.172 314.542 90.355 Empty Bag 1 bag @ 5 MCG/ KG/MIN 2.619 mls/hr IV . Q24H [facility] Rx#:[id number] Other 100 Output: Gastric Drainage 50 150 200 Urine 1390 715 95 Other: Voiding Method Indwelling Catheter Indwelling Catheter - Exam GENERAL EXAM: Intubated, sedated 71-year-old male patient, comfortable in no ap parent distress. HEAD: Normocephalic. EYES: Normal reaction of pupils, equal size. NOSE: Clear with pink turbinates. THROAT: Oral endotracheal tube in place. No erythema or exudates. NECK: No masses, no JVD. CHEST: No chest wall deformity. LUNGS: Equal air entry with few scattered crackles. CVS: S1 and S2 normal with no audible murmur, regular rhythm. ABDOMEN: No hepatosplenomegaly, normal bowel sounds, no guarding or rigidity. SPINE: No scoliosis or deformity SKIN: No rashes CENTRAL NERVOUS SYSTEM: Sedated, tone is normal in all 4 extremities. EXTREMITIES: There is 1+ peripheral edema. No clubbing, no cyanosis. Peripheral pulses are intact. - Labs CBC & Chem 7: 12/03/21 07:01 12/03/21 07:01 Labs: Abnormal Lab Results - Last 24 Hours (Table) 12/03/21 12/03/21 12/03/21 Range/Units 12:40 17:06 20:20 POC Glucose (mg/dL) 180 H 187 H 193 H (70-110) mg/dL 12/04/21 12/04/21 12/04/21 Range/Units 00:26 04:05 07:46 POC Glucose (mg/dL) 164 H 166 H 187 H (70-110) mg/dL Assessment and Plan Assessment: PEA occurred early on 12/02/2021 requiring 1 round of CPR, epinephrine, calcium gluconate and bicarb with return of spontaneous circulation. Intubated and placed on mechanical ventilator. Severe ischemic cardiomyopathy and LV dysfunction with ejection fraction of 25- 30%. Recent non-ST elevation myocardial infarction Atrial fibrillation with nonsustained ventricular tachycardia, and associated with hyperkalemia. Recurrent unstable angina is strongly suspected. Severe ischemic cardiomyopathy Acute on chronic kidney disease History of CABG and previous PCI. History of underlying COPD, maintained on Symbicort and Spiriva on outpatient basis. History of nonspecific mediastinal adenopathy Moderate to severe mitral regurgitation Chronic systolic congestive heart failure Type 2 diabetes Dyslipidemia History of peripheral vessel occlusive disease and carotid stenting Plan: The patient was seen and evaluated No new labs, ABGs her chest x-ray today Continue propofol, dobutamine The family plans to proceed with comfort care tomorrow once other family members from out of state arrive He is a DO NOT RESUSCITATE CODE STATUS now We will continue to follow and make further recommendations based on his clinical status I have personally seen and examined the patient, performed the documentation and the assessment and plan as written. Number of minutes spent on the visit: 15.
[2021-12-04] MEDS ORDERED: DARBEPOETIN ALFA 40 MCG/0.4 ML SYRINGE SQ SCH (11:00)
[2021-12-05 00:26] LABS: Glucose,Whole Blood 218 mg/dL (70-110)
[2021-12-05] MEDS: DOBUTamine DRIP 500 MG in DEXTROSE/WATER 1 250ML.BAG IV SCH (04:45)
[2021-12-05] MEDS: DEXTROSE 10% IN WATER 500 ML in EMPTY BAG 1 BAG IV SCH (06:58)
[2021-12-05 08:50] VITALS: TEMP 98.7
--- NOTE | 2021-12-05 09:31 | P.PN ---
Subjective Progress Note Date: 12/05/21 PROGRESS NOTE The patient is a 71-year-old male with known history of severe coronary artery disease, PAD, cardiomyopathy, chronic kidney disease, atrial arrhythmia and COPD who presented with symptoms of progressive dyspnea, worsening renal functions. He was doing better but then became more dyspneic, hypotensive, requiring mechanical ventilation. He is intubated and sedated at this time. He is on d obutamine. His blood pressure is stable. He appears to be in junctional rhythm. There is no recurrent episodes of ventricle tachycardia. His urinary output is low. The family is considering comfort care. According to the nursing staff the plan is not to proceed with dialysis. His echocardiogram on presentation showed an ejection fraction of 25-30% with moderate to severe mitral regurgitation. December 05: The patient remains intubated and sedated, on dobutamine. The plan from the family according to the nursing staff to proceed with comfort care only today. PHYSICAL EXAMINATION: Blood pressure 109/50 with a heart rate in the 50 temperature 100.9, intubated LUNGS: Clear to auscultation HEART: Regular rate and rhythm, S1, S2. No S3. systolic murmur at the apex ABDOMEN: Soft, no organomegaly EXTREMETIES: +1 edema IMPRESSION: 1. Severe cardiomyopathy with mitral regurgitation 2. Respiratory failure 3. Status post CABG 4. Severe PVD 5. Renal failure, acute on chronic 6. Anemia 7. Atrial and ventricular arrhythmia PLAN: 1. Patient prognosis is very poor, in view of his multiorgan failure the likelihood of recovery is very low 2. Comfort care per family plan Objective - Vital Signs Vital signs: Vital Signs Temp 98.7 F 12/05/21 08:00 Pulse 57 L 12/05/21 08:00 Resp 23 12/05/21 08:00 BP 109/51 12/05/21 08:00 Pulse Ox 91 L 12/05/21 08:00 FiO2 80 12/05/21 08:40 Intake & Output 12/04/21 12/05/21 12/05/21 18:59 06:59 18:59 Intake Total 190.355 498.462 Output Total 445 794 100 Balance -254.645 -295.538 -100 Weight 88.8 kg Intake: Intake, IV Titration 190.355 498.462 Amount DOBUTamine DRIP 500 mg In 238.965 Dextrose/Water 1 250ml. bag @ 2.5 MCG/KG/MIN 6. 675 mls/hr IV .Q24H [facility] Rx#:[id number] propofoL 1,000 mg In 190.355 259.497 Empty Bag 1 bag @ 5 MCG/ KG/MIN 2.619 mls/hr IV . Q24H [facility] Rx#:[id number] Output: Gastric Drainage 200 Urine 245 794 100 Other: Voiding Method Indwelling Catheter Indwelling Catheter Indwelling Catheter # Bowel Movements 1 - Labs CBC & Chem 7: 12/03/21 07:01 12/03/21 07:01 Labs: Abnormal Lab Results - Last 24 Hours (Table) 12/05/21 Range/Units 00:24 POC Glucose (mg/dL) 218 H (70-110) mg/dL
[2021-12-05] MEDS ORDERED: HYDROmorphone 1 MG/ML 1 ML SYRINGE IVP PRN (10:06)
[2021-12-05] MEDS ORDERED: ATROPINE OPHTH SOLN 1% 5ML BTL SUBLINGUAL PRN (10:06)
[2021-12-05] MEDS ORDERED: LORazepam 2 MG/ML INJ IV PRN (10:06)
--- NOTE | 2021-12-05 10:37 | P.PN ---
Subjective Progress Note Date: 12/05/21 71-year-old male patient, known history of COPD maintained on a combination of Symbicort and Spiriva, history of nonspecific mediastinal lymphadenopathy being followed up through our office, coronary artery disease, previous bypass surgery, previous history of multiple coronary stents and a carotid artery stent in addition to chronic stage II kidney disease, diabetes mellitus, and hypertension, CHF with chronic systolic heart failure and ejection fraction of 30-35%. The patient has been having episodes of chest pain for the past few weeks. These are intermittent chest pains, not exacerbated with any activity and the patient has been having radiation to his arms, typically the pain would last for 5 minutes. Yesterday, he was having more pain and he end up coming into the hospital and the intensity of the pain was worse. He was also having some shortness of breath and nausea. EKG showed a wide-complex tachycardia and subsequently went into an A. fib rhythm. He was noted to be in acute kidney injury and the patient was also found to be hypokalemic and potassium level was elevated. Based on that, the patient was given calcium, he was given bicarb pushes, Kayexalate 15 g and ultimately a dialysis catheter was to proceed and the patient was given association of hemodialysis with subsequent improvement in his potassium level. The CRAIG inhibitor was also discontinued. The troponins w ere mildly elevated and the levels were 0.25 and 0.6 respectively. The rest of the blood work essentially within normal limits. The serum bicarb is up to 21. Creatinine this morning is down to 1.6 with a BUN of 45. The patient is awake and oriented. He is on IV heparin. History of any chest pain. The current cardiac rhythm is bradycardic, still wide-complex with first-degree AV block. The rhythm is sinus for now. The patient has been taken Coreg on outpatient basis. No syncope. No loss of consciousness. Reevaluated today on 11/22/21, patient remains in the ICU, remains on heparin, he is asymptomatic, no further episodes of angina or chest pain. Patient received hemodialysis on 11/20 and hemodialysis on 11/21, his potassium level came down from 7.4 to normal level today. Patient remains on heparin, his echocardiogram showed ejection fraction of 25-50%. Obviously the patient presented with hyperkalemia, atrial fibrillation, nonsustained ventricular tachycardia, acute kidney injury, and has made a significant amount in the last 24 hours. Clinically the patient is feeling much better today, breathing quite easily, not in any distress. His arrhythmia was felt to be related to his hyperkalemia. Patient is known to have history of severe ischemic cardiomyopathy and LV dys function. He also has history of moderate to severe mitral regurgitation. WBC count today is 11.6 hemoglobin is 9.3. Electrolytes are normal potassium 4.3 BUN is 39 and creatinine 1.45. Chest x-ray today showed borderline cardiomegaly, mild interstitial changes, mild pulmonary vascular congestion Reevaluated today on 11/23/2021, patient is doing well, he is now on overflow in the ICU from [facility]. Patient is relatively asymptomatic, on room air, he feels fine except for some minimal nasal congestion. He also has a poor appetite. Denies any shortness of breath or cough or wheezing denies any chest pain. CBC is relatively normal hemoglobin is 8.6 PTT is 55.9 electrolytes are normal BUN is 36 creatinine 1.40 Patient was reevaluated today on 11/26/2021, patient had to be transferred back to the ICU this morning. Earlier today, the patient has been complaining of chest pain, lightheadedness, dizziness, and he felt like he was going to pass out. Patient also complained of numbness and tingling down his legs, and difficulty moving his legs. Obviously the patient wasn't doing well, and he was noted to have low hemoglobin he was also noted to have profound bradycardia and junctional rhythm. Arrangements were made for the patient to have thoracic aortic angiogram, it was basically unremarkable, no evidence of thoracic aortic aneurysm dissection and there was no evidence of intrathoracic or intra- abdominal process appreciated. Chest x-ray showed cardiomegaly without any s ignificant suspicious pulmonary process. Hemoglobin this morning is 6.7 with a WBC count of 19.0. Hemoglobin was 9.3 and 8.62 days ago. Patient will be receiving a unit of packed RBCs, he was seen by cardiology and he was placed on dopamine for bradycardia and hypotension, and cardiology may consider taking the patient down for cardiac catheterization later today. Considering his worsening clinical picture, patient was transferred to the ICU, and I was asked to see him again Reevaluated today on , patient remains in the ICU, feeling much better today compared to yesterday. He is on 2 L nasal cannula remains on dopamine at 2 mcg/kg/m she is also on IV fluid at 50 mL per hour. Remains in a junctional rhythm with rate in the low 60s. His chest pain has resolved. Patient is rela tively asymptomatic and feels much better today compared to yesterday. His hemoglobin today is 8.3 WBC count is 19.8 electrolytes are normal renal profile showed a BUN of 51 creatinine 2.50, slightly improved compared to yesterday. The patient is seen today 12/02/2021 in the intensive care unit. Early this morning he developed a cardiac arrest and was found to be in PEA and had 1 round of CPR and received epinephrine, calcium gluconate and bicarbonate and was subsequently intubated and is currently on the mechanical ventilator. Current settings are assist-control mode at a rate of 16, tidal volume 500, FiO2 50% and a PEEP of 5. Morning blood gases revealed a PaO2 greater than 400, pCO2 36, pH 7.26 this was on 100% FiO2. He currently has norepinephrine at 5 mcg/m, dobutamine at 2.5 mcg/kg/m, propofol at 40 mcg/kg/m. D10 at 20 ML's per hour due to issues with hypoglycemia. Chest x-ray reveals cardiomegaly but no evidence of pleural effusion, consolidation or pneumothorax. White count 15.5. Hemoglobin 8.2. Platelets 195. Sodium 131. Potassium 5.3. Chloride 96. Bicarb 21. BUN 42. Creatinine 2.91. Glucose 153. Lactic acid 10.2. He is status post 1 unit of packed red blood cells this admission. The cultures reveal no growth. The patient is seen today 12/03/2021 in follow-up in the intensive care unit. He remains intubated on mechanical ventilator settings of assist control mode with a rate of 16, tidal volume 500, FiO2 40% and a PEEP of 5. Morning blood ga ses revealed a PaO2 of 118, pCO2 39, pH 7.44 on 50% FiO2. He remains on propofol at 40 mcg/kg/m. Dobutamine at 2.5 mcg/kg/m. The family is still deciding regarding the plan of care. They have declined central and arterial lines insertions. They have declined hemodialysis. Chest x-ray reveals p rominent pulmonary vasculature with mild diffuse increased markings. Early pulmonary edema. He is status post 1 unit of packed red blood cells this admission. Current hemoglobin 7.3. Blood cultures revealed no growth. White count 13.4. Sodium 131. Potassium 4.6. Chloride 96. Bicarb 24. BUN 53. Creatinine 2.84. Glucose 104. AST 2465. ALT 1871. He is continued on IV diuretics, remains in a negative balance. The patient is seen today 12/04/2021 in follow-up in the intensive care unit. He remains intubated on mechanical ventilator in assist control mode with a rate of 16, tidal volume 500, FiO2 40% and a PEEP of 5. No morning blood gases were drawn. No labs or chest x-ray. The family is considering possible comfort care tomorrow once other family members arrive from out of state. He remains sedated on propofol at 45 mcg/kg/m. He is on dobutamine at 2.5 mcg/kg/m. He remains on IV diuretics. Currently in a negative balance. The patient is seen today 12/05/2021 in follow-up in the intensive care unit. He remains intubated on mechanical ventilator and assist control mode with a rate of 16, tidal out of 500, FiO2 40% and a PEEP of 5. No new ABGs her labs today. No chest x-rays today. He remains on propofol at 45 mcg/kg/m. Dobutamine at 2.5 mcg/m. No IV fluids. He did receive 1 unit of packed red blood cells this admission. Blood cultures reveal no growth. Blood glucose 218. The patient was having issues with bradycardia and hypoxemia. His FiO2 was increased to 80%. The plan is for possible comfort care at 1 PM today. Objective - Vital Signs Vital signs: Vital Signs Temp 98.7 F 12/05/21 08:00 Pulse 57 L 12/05/21 08:00 Resp 23 12/05/21 08:00 BP 109/51 12/05/21 08:00 Pulse Ox 91 L 12/05/21 08:00 FiO2 80 12/05/21 08:40 Intake & Output 12/04/21 12/05/21 12/05/21 18:59 06:59 18:59 Intake Total 190.355 498.462 100 Output Total 445 794 155 Balance -254.645 -295.538 -55 Weight 88.8 kg Intake: Intake, IV Titration 190.355 498.462 100 Amount DOBUTamine DRIP 500 mg In 238.965 Dextrose/Water 1 250ml. bag @ 2.5 MCG/KG/MIN 6. 675 mls/hr IV .Q24H [facility] Rx#:[id number] propofoL 1,000 mg In 190.355 259.497 100 Empty Bag 1 bag @ 5 MCG/ KG/MIN 2.619 mls/hr IV . Q24H [facility] Rx#:[id number] Output: Gastric Drainage 200 Urine 245 794 155 Other: Voiding Method Indwelling Catheter Indwelling Catheter Indwelling Catheter # Bowel Movements 1 - Exam GENERAL EXAM: Intubated, sedated 71-year-old male patient, comfortable in no apparent distress. HEAD: Normocephalic. EYES: Normal reaction of pupils, equal size. NOSE: Clear with pink turbinates. THROAT: Oral endotracheal tube in place. No erythema or exudates. NECK: No masses, no JVD. CHEST: No chest wall deformity. LUNGS: Equal air entry with few scattered crackles. CVS: S1 and S2 normal with no audible murmur, regular rhythm. ABDOMEN: No hepatosplenomegaly, normal bowel sounds, no guarding or rigidity. SPINE: No scoliosis or deformity SKIN: No rashes CENTRAL NERVOUS SYSTEM: Sedated, tone is normal in all 4 extremities. EXTREMITIES: There is 1+ peripheral edema. No clubbing, no cyanosis. Peripheral pulses are intact. - Labs CBC & Chem 7: 12/03/21 07:01 12/03/21 07:01 Labs: Abnormal Lab Results - Last 24 Hours (Table) 12/05/21 Range/Units 00:24 POC Glucose (mg/dL) 218 H (70-110) mg/dL Assessment and Plan Assessment: PEA occurred early on 12/02/2021 requiring 1 round of CPR, epinephrine, calcium gluconate and bicarb with return of spontaneous circulation. Intubated and placed on mechanical ventilator. Severe ischemic cardiomyopathy and LV dysfunction with ejection fraction of 25- 30%. Recent non-ST elevation myocardial infarction Atrial fibrillation with nonsustained ventricular tachycardia, and associated with hyperkalemia. Recurrent unstable angina is strongly suspected. Severe ischemic cardiomyopathy Acute on chronic kidney disease History of CABG and previous PCI. History of underlying COPD, maintained on Symbicort and Spiriva on outpatient basis. History of nonspecific mediastinal adenopathy Moderate to severe mitral regurgitation Chronic systolic congestive heart failure Type 2 diabetes Dyslipidemia History of peripheral vessel occlusive disease and carotid stenting Plan: The patient was seen and evaluated No new labs, ABGs or chest x-ray today Continue propofol, dobutamine The family plans to proceed with comfort care today once other family members arrive from out of state He is a DO NOT RESUSCITATE CODE STATUS I have personally seen and examined the patient, performed the documentation and the assessment and plan as written. Number of minutes spent on the visit: 15.
[2021-12-05] MEDS ORDERED: SCOPOLAMINE 1 MG/72 HR PATCH TRANSDERM SCH (11:00)
--- NOTE | 2021-12-05 11:03 | P.PN ---
Subjective Progress Note Date: 12/05/21 Principal diagnosis: PEA arrest Interval history: Patient is a 71-year-old male with known CAD status post CABG and multiple stents, ischemic cardiomyopathy, hypertension, hyperlipidemia, insulin-dependent diabetes mellitus, and COPD with continued nicotine dependence who presented to the emergency department chest pain. Patient was found by EMS to be in A. fib with RVR and brought to the emergency department for evaluation. Upon arrival to the emergency department, patient underwent an extensive evaluation. EKG revealed sinus bradycardia at 55 bpm with peaked T waves and a repeat EKG revealed sinus bradycardia at 39 bpm. Chest x-ray negative for acute cardiopulmonary process. CBC revealed WBC count of 11.5, hemoglobin of 10.7, critical potassium of 7.4, BUN of 64, creatinine of 2.33 (baseline creatinine 1), carbon dioxide 15, and anion gap of 11. Troponin elevated at 0.258 and pro- BMP of 2800. Patient was for severe hyperkalemia and acute kidney injury with atrial arrhythmias. Pt had a temporary HD cath placed and underwent emergent HD per nephrology recs. Cardiology was consulted and echo revealed EF 25-30% with anteroapical and anteroseptal severe hypokinesis, moderate to severe mitral regurgitation, and mild tricuspid regurgitation. Bilateral lower extremity Dopplers completed negative for DVT. Patient was diuresis with Lasix, dialysis catheter removed 11/24/21, and patient started on sodium bicarb tablets 650 mg twice daily. His renal function improved. On 11/29 he developed some back pain, received a dose of morphine and had a episode of vomiting followed by sustained symptomatic bradycardia. Dose of atropine which improved his symptoms, he was transferred to the ICU and was started on a dopamine drip. His beta mable was discontinued. He was found to have a slow decline in hemoglobin. He underwent a CT aorta with run off due to back pain associated with low hemoglobin which was negative for any signs of dissection, aneurysm, or retroperitoneal bleed. He underwent an ultrasound of his right groin due to his recent hemodialysis catheter which was negative for hematoma. He received 1 unit of packed red blood cells and his hemoglobin remained stable. He continued to do well. He struggled with urinary retention and required replacement of his Gonzalez catheter. His BP and HR remained stable. He was diuresing well. He was re-initated on BB on 12/01 at night. He developed bradycardia with low urine output. He required a dobutamine gtt. On the morning of 12/02 he had a PEA arrest and ROSC was achieved. He continued to require dobutamine and norepi. He was noted to have hyperkalemia which was treated. He was also started on dextrose infusion for prolonged hypoglycemia. Norepinephrine was weaned off on 12/03, patient remained on Dobutamine infusion. Patient currently remains ventilatory support. And is scheduled for comfort care 12/05/2021: Patient remains on dobutamine gtt. Remains on full ventilatory support. Patient and to use to have issues with worsening hypoxia with recent FiO2 increased on ventilator setting to 80%. Family has now decided on comfort measures which will take place later today Objective - Vital Signs Vital signs: Vital Signs Temp 98.7 F 12/05/21 08:00 Pulse 60 12/05/21 09:00 Resp 22 12/05/21 09:00 BP 114/50 12/05/21 09:00 Pulse Ox 96 12/05/21 09:00 FiO2 50 12/05/21 09:00 Intake & Output 12/04/21 12/05/21 12/05/21 18:59 06:59 18:59 Intake Total 190.355 498.462 100 Output Total 445 794 155 Balance -254.645 -295.538 -55 Weight 88.8 kg Intake: Intake, IV Titration 190.355 498.462 100 Amount DOBUTamine DRIP 500 mg In 238.965 Dextrose/Water 1 250ml. bag @ 2.5 MCG/KG/MIN 6. 675 mls/hr IV .Q24H [facility] Rx#:[id number] propofoL 1,000 mg In 190.355 259.497 100 Empty Bag 1 bag @ 5 MCG/ KG/MIN 2.619 mls/hr IV . Q24H [facility] Rx#:[id number] Output: Gastric Drainage 200 Urine 245 794 155 Other: Voiding Method Indwelling Catheter Indwelling Catheter Indwelling Catheter # Bowel Movements 1 - Exam General: ill appearing, appears at stated age Derm: warm, dry Head: atraumatic, normocephalic, symmetric Eyes: EOMI, no lid lag, anicteric sclera Mouth: no lip lesion, mucus membranes moist Cardiovascular: S1S2 reg, no murmur, positive DP pulse bilateral, Lungs: Clear to auscultation bilateral, no accessory muscle use, on vent Abdominal: soft, no appreciable organomegaly Ext: no gross muscle atrophy, 2+ edema BL LE, no contractures Neuro: Breathing over vent, no tremors Psych: sedated on vent - Labs CBC & Chem 7: 12/03/21 07:01 12/03/21 07:01 Labs: Abnormal Lab Results - Last 24 Hours (Table) 12/05/21 Range/Units 00:24 POC Glucose (mg/dL) 218 H (70-110) mg/dL Assessment and Plan (1) Chest pain Current Visit: Yes Status: Acute Code(s): R07.9 - CHEST PAIN, UNSPECIFIED SNOMED Code(s): 12035427 Plan: PEA Arrest - on dobutaime - levophed weaned off - cardio and pulmonary following Acute exacerbation of Systolic CHF NSTEMI, likely demand ischemia resulting from type II OR Symptomatic bradycardia, suspect possible vagal component Ischemic cardiomyopathy with EF of 25-30% History of CAD status post CABG and multiple stents Hypertension Hyperlipidemia - cardio recs, no plans for intervention at this time - ASA - Plavix - Lipitor - strict I and O - Daily weights - Off Lisinopril, aldactone, and potassium due to hyperkalemia Acute kidney injury with likely underlying CKD IIIB Obstructive uropathy Hyponatremia Hyperkaleima - was given temporizing measures - follow potassium, Cr - family declines dialysis - nephrology recs - avoid nephrotoxic agents - flomax - gonzalez Acute on chronic anemia, iron def - s/p 1 unit of PRBC - no signs of GI bleeding - s/p IV iron - follow CBC - per patients , patient was having bleeding from HD cath prior to removal Transaminitis - likely ischemic from cardiac arrest - continue to monitor - avoid hepatotoxic medications Leukocytosis, improving - suspect reactive - no signs of active infection - daily CBC Insulin-dependent diabetes mellitus with a hemoglobin A1c of 9.1% - all scheduled insulin discontinued and started on dextrose gtt - sliding scale - accuchecks with hypoglycemic precautions COPD without exacerbation - PRN and scheduled bronchodilators Severe hyperkalemia in setting of CRAIG inhibitor and Aldactone use, resolved Atrial arrhythmias likely secondary to hyperkalemia Metabolic acidosis, resolved Disposition: Per patient's family Patient is to have withdrawal of care from ventilator support and comfort measures initiated later today.
[2021-12-05] MEDS ORDERED: HYDROmorphone (PF) 50 MG in SODIUM CHLORIDE 0.9% 45 ML IV SCH (13:00)
[2021-12-05 13:26] VITALS: BP 101/33; PULSE 58; RESP 10
--- NOTE | 2021-12-07 10:14 | P.DS ---
Providers Date of admission: 11/20/21 20:39 Attending physician: Yumiko Cueva MD Consults: 11/20/21 20:39 Consult Physician Urgent Consulting Provider: Sherlyn Edwards Consult Reason/Comments: Chest pain, elevated troponin Do you want consulting provider notified?: Already Contacted Consult Physician Urgent Consulting Provider: Cheryl Swanson Consult Reason/Comments: Acute renal failure with hyperkalemia Do you want consulting provider notified?: Already Contacted 11/20/21 22:50 Consult Physician Urgent Consulting Provider: Ben Mccall Consult Reason/Comments: ICU management Do you want consulting provider notified?: Already Contacted 11/22/21 13:25 Consult Physician Routine Consulting Provider: Madan Moise Consult Reason/Comments: HD cath Do you want consulting provider notified?: Already Contacted 12/03/21 14:34 Consult Physician Urgent Consulting Provider: Lennox Aguirre Consult Reason/Comments: cardiac arrest Do you want consulting provider notified?: Yes Primary care physician: [facility] - Discharge Diagnosis(es) (1) Chest pain Status: Acute (2) NSTEMI (non-ST elevated myocardial infarction) Status: Acute Hospital Course: Interval history: Patient is a 71-year-old male with known CAD status post CABG and multiple stents, ischemic cardiomyopathy, hypertension, hyperlipidemia, insulin-dependent diabetes mellitus, and COPD with continued nicotine dependence who presented to the emergency department chest pain. Patient was found by EMS to be in A. fib with RVR and brought to the emergency department for evaluation. Upon arrival to the emergency department, patient underwent an extensive evaluation. EKG revealed sinus bradycardia at 55 bpm with peaked T waves and a repeat EKG revealed sinus bradycardia at 39 bpm. Chest x-ray negative for acute cardiopulmonary process. CBC revealed WBC count of 11.5, hemoglobin of 10.7, critical potassium of 7.4, BUN of 64, creatinine of 2.33 (baseline creatinine 1), carbon dioxide 15, and anion gap of 11. Troponin elevated at 0.258 and pro- BMP of 2800. Patient was for severe hyperkalemia and acute kidney injury with atrial arrhythmias. Pt had a temporary HD cath placed and underwent emergent HD per nephrology recs. Cardiology was consulted and echo revealed EF 25-30% with anteroapical and anteroseptal severe hypokinesis, moderate to severe mitral regurgitation, and mild tricuspid regurgitation. Bilateral lower extremity Dopplers completed negative for DVT. Patient was diuresis with Lasix, dialysis catheter removed 11/24/21, and patient started on sodium bicarb tablets 650 mg twice daily. His renal function improved. On 11/29 he developed some back pain, received a dose of morphine and had a episode of vomiting followed by sustained symptomatic bradycardia. Dose of atropine which improved his symptoms, he was transferred to the ICU and was started on a dopamine drip. His beta mable was discontinued. He was found to have a slow decline in hemoglobin. He underwent a CT aorta with run off due to back pain associated with low hemoglobin which was negative for any signs of dissection, aneurysm, or retroperitoneal bleed. He underwent an ultrasound of his right groin due to his recent hemodialysis catheter which was negative for hematoma. He received 1 unit of packed red bl ood cells and his hemoglobin remained stable. He continued to do well. He struggled with urinary retention and required replacement of his Paula catheter. His BP and HR remained stable. He was diuresing well. He was re-initated on BB on 12/01 at night. He developed bradycardia with low urine output. He required a dobutamine gtt. On the morning of 12/02 he had a PEA arrest and ROSC was achieved. He continued to require dobutamine and norepi. He was noted to have hyperkalemia which was treated. He was also started on dextrose infusion for prolonged hypoglycemia. Norepinephrine was weaned off on 12/03, patient remained on Dobutamine infusion. Patient was terminally weaned off the ventilator and under comfort measures Patient Condition at Discharge: Critical Plan - Discharge Summary New Discharge Prescriptions: Discontinued lisinopriL [Zestril] 20 mg PO DAILY Spironolactone [Aldactone] 25 mg PO DAILY #30 tab No Action Potassium Chloride ER [K-Dur 20] 20 meq PO DAILY Aspirin 325 mg PO DAILY #90 tab Atorvastatin [Lipitor] 80 mg PO HS #90 tab Nitroglycerin Sl Tabs [Nitrostat] 0.4 mg SUBLINGUAL Q5M PRN #25 tab PRN Reason: Chest Pain Clopidogrel [Plavix] 75 mg PO DAILY Albuterol Sulfate [Proair Hfa] 2 puff INHALATION RT-Q4H PRN PRN Reason: Shortness Of Breath metFORMIN HCL [Glucophage] 1,000 mg PO BID Insulin Glargine,Hum.rec.anlog [Lantus Solostar Pen] 100 unit SQ HS Tiotropium 18 Mcg/Puff [Spiriva] 1 cap INHALATION RT-DAILY Insulin Aspart [NovoLOG Flexpen] 30 units SQ BID Ferrous Sulfate [Feosol] 325 mg PO DAILY Furosemide [Lasix] 20 mg PO BID@0900,1600 #30 tab Albuterol Nebulized [Ventolin Nebulized] 2.5 mg INHALATION RT-TID carvediloL [Coreg] 12.5 mg PO BID-W/MEALS Fluticasone Propion/Salmeterol [Fluticasone-Salmeterol 250-50] 1 puff INHALATION RT-BID buPROPion HCL [buPROPion HCL SR] 150 mg PO BID Ascorbic Acid [Vitamin C] 500 mg PO DAILY Cholecalciferol [Vitamin D3 (25 Mcg = 1000 Iu)] 25 mcg PO DAILY Discharge Medication List Potassium Chloride ER [K-Dur 20] 20 meq PO DAILY 12/23/13 [History] Aspirin 325 mg PO DAILY #90 tab 12/24/13 [Rx] Atorvastatin [Lipitor] 80 mg PO HS #90 tab 12/24/13 [Rx] Nitroglycerin Sl Tabs [Nitrostat] 0.4 mg SUBLINGUAL Q5M PRN #25 tab 12/24/13 [Rx] Albuterol Sulfate [Proair Hfa] 2 puff INHALATION RT-Q4H PRN 07/24/15 [History] Clopidogrel [Plavix] 75 mg PO DAILY 07/24/15 [History] Ferrous Sulfate [Feosol] 325 mg PO DAILY 06/12/18 [History] Insulin Aspart [NovoLOG Flexpen] 30 units SQ BID 06/12/18 [History] Insulin Glargine,Hum.rec.anlog [Lantus Solostar Pen] 100 unit SQ HS 06/12/18 [History] Tiotropium 18 Mcg/Puff [Spiriva] 1 cap INHALATION RT-DAILY 06/12/18 [History] metFORMIN HCL [Glucophage] 1,000 mg PO BID 06/12/18 [History] Furosemide [Lasix] 20 mg PO BID@0900,1600 #30 tab 06/15/18 [Rx] Albuterol Nebulized [Ventolin Nebulized] 2.5 mg INHALATION RT-TID 11/20/21 [History] Ascorbic Acid [Vitamin C] 500 mg PO DAILY 11/20/21 [History] Cholecalciferol [Vitamin D3 (25 Mcg = 1000 Iu)] 25 mcg PO DAILY 11/20/21 [History] Fluticasone Propion/Salmeterol [Fluticasone-Salmeterol 250-50] 1 puff INHALATION RT-BID 11/20/21 [History] buPROPion HCL [buPROPion HCL SR] 150 mg PO BID 11/20/21 [History] carvediloL [Coreg] 12.5 mg PO BID-W/MEALS 11/20/21 [History] Follow up Appointment(s)/Referral(s): [facility],Clinic [Primary Care Provider] - (If you do not hear from homecare agency contact [facility]) Discharge Disposition: - Preliminary Cause of Preliminary Cause of : ischemic cardiomyopathy
--- NOTE | 2021-12-07 12:33 | CDI ---
Documentation Clarification Form Date: 12/07/2021 12:13:34 PM From: Mi Freeman Phone: Admit Date: 11/20/2021 08:39:00 PM Patient Name: Vaibhav Yu Visit Number: [id number] Discharge Date: 12/05/2021 04:00:00 PM ATTENTION: The Clinical Documentation Specialists (CDI) and [facility] Coding Staff appreciate your assistance in clarifying documentation. Please respond to the clarification below the line at the bottom and electronically sign. The CDI & [facility] Coding staff will review the response and follow-up if needed. Please note: Queries are made part of the Legal Health Record. If you have any questions, please contact the author of this message via ITS. Dr. Calderon Abid Your patient has Respiratory Failure per 12/04 Progress Note. Based on this information and the findings below, is there an additional diagnosis that is clinically appropriate for this patient? History/Risk Factors: 71yo M, CAD w angina sp CABG and multiple stents, COPD, DMII w CKDIIIb and hypogly, LBBB, AVB, Ischemic cardiomyopathy, VT, ATN, ACSHF w HTN, PEA w ET/Vent, BPH w LUTS Tobacco use: active smoker Clinical Indicators: Vital signs: 12/05/21 Temp 98.7 F, Pulse 60, Resp 22, BP 114/50, FiO2 50 Pulse oximetry: Pulse Ox 96 ABG/CBG: PaO2 greater than 400, pCO2 36, pH 7.26 this was on 100% FiO2. 12/04/21 12/03/21 BG shows pH 7.44 and pCO2 39 Treatment: PEA w ET/Vent; 12/05/2021: Patient remains on dobutamine gtt. Remains on full ventilator support. Patient and to use to have issues with worsening hypoxia with recent FiO2 increased on ventilator setting to 80%. Breathing tx: worsening hypoxia with recent FiO2 increased on ventilator setting to 80%. Is there an additional diagnosis that is clinically appropriate for this patient? [ ] Acute Hypoxic Respiratory Failure (pO2 <60 mm Hg or SpO2 <91% on room air) [ ] Acute on Chronic Hypoxic Respiratory Failure [ ] Other Diagnosis, please specify [ ] Unable to determine (Template Last Revised: June 2020) MTDD
== END 2021-12-05 16:00 | disposition expired ==
LOC: EC 19:07 → 3SCARD 20:39 → 2SICU 22:22 → 3SCARD 11-24 03:21 → 2SICU 11-26 13:18
PROVIDERS: ADMIT Internal Medicine; ATTEND Internal Medicine
PROC: 06HY33Z Insertion of Infusion Device into Lower Vein, Percutaneous Approach (ICD-10-PCS; principal; 2021-11-20)
PROC: 5A1D70Z Performance of Urinary Filtration, Intermittent, Less than 6 Hours Per Day (ICD-10-PCS; 2021-11-20)
PROC: 30233N1 Transfusion of Nonautologous Red Blood Cells into Peripheral Vein, Percutaneous Approach (ICD-10-PCS; 2021-11-20)
PROC: 5A12012 Performance of Cardiac Output, Single, Manual (ICD-10-PCS; 2021-12-02)
PROC: 0BH18EZ Insertion of Endotracheal Airway into Trachea, Via Natural or Artificial Opening Endoscopic (ICD-10-PCS; 2021-12-02)
PROC: 5A1945Z Respiratory Ventilation, 24-96 Consecutive Hours (ICD-10-PCS; 2021-12-02)
PROC: 3E033XZ Introduction of Vasopressor into Peripheral Vein, Percutaneous Approach (ICD-10-PCS; 2021-12-05)
DX: I48.91 Unspecified atrial fibrillation (principal); I21.A1 Myocardial infarction type 2; I50.23 Acute on chronic systolic (congestive) heart failure; N17.0 Acute kidney failure with tubular necrosis; J96.01 Acute respiratory failure with hypoxia; I25.110 Atherosclerotic heart disease of native coronary artery with unstable angina pectoris; I13.0 Hypertensive heart and chronic kidney disease with heart failure and stage 1 through stage 4 chronic kidney disease, or unspecified chronic kidney disease; I25.810 Atherosclerosis of coronary artery bypass graft(s) without angina pectoris; E87.2 Acidosis; E87.1 Hypo-osmolality and hyponatremia; D62 Acute posthemorrhagic anemia; I47.2 Ventricular tachycardia; I46.9 Cardiac arrest, cause unspecified; E11.649 Type 2 diabetes mellitus with hypoglycemia without coma; D63.1 Anemia in chronic kidney disease; J44.9 Chronic obstructive pulmonary disease, unspecified; E11.22 Type 2 diabetes mellitus with diabetic chronic kidney disease; E11.51 Type 2 diabetes mellitus with diabetic peripheral angiopathy without gangrene; D50.9 Iron deficiency anemia, unspecified; Z95.828 Presence of other vascular implants and grafts; N18.32 Chronic kidney disease, stage 3b; I08.1 Rheumatic disorders of both mitral and tricuspid valves; Z51.5 Encounter for palliative care; Z66 Do not resuscitate; I44.7 Left bundle-branch block, unspecified; I95.9 Hypotension, unspecified; Z95.1 Presence of aortocoronary bypass graft; E87.5 Hyperkalemia; I44.0 Atrioventricular block, first degree; R01.1 Cardiac murmur, unspecified; E78.5 Hyperlipidemia, unspecified; I25.5 Ischemic cardiomyopathy; F17.210 Nicotine dependence, cigarettes, uncomplicated; E83.42 Hypomagnesemia; T38.3X5A Adverse effect of insulin and oral hypoglycemic [antidiabetic] drugs, initial encounter; R59.0 Localized enlarged lymph nodes; E87.6 Hypokalemia; D72.829 Elevated white blood cell count, unspecified; R74.01 Elevation of levels of liver transaminase levels; N40.1 Benign prostatic hyperplasia with lower urinary tract symptoms; R33.8 Other retention of urine; R35.1 Nocturia; M54.50 Low back pain, unspecified; T40.2X5A Adverse effect of other opioids, initial encounter; T46.4X5A Adverse effect of angiotensin-converting-enzyme inhibitors, initial encounter; Z79.899 Other long term (current) drug therapy; Z79.02 Long term (current) use of antithrombotics/antiplatelets; Z79.51 Long term (current) use of inhaled steroids; Z79.84 Long term (current) use of oral hypoglycemic drugs; Z79.4 Long term (current) use of insulin; Z79.82 Long term (current) use of aspirin; I25.2 Old myocardial infarction; Z95.5 Presence of coronary angioplasty implant and graft; Z98.890 Other specified postprocedural states; Z81.2 Family history of tobacco abuse and dependence; Z87.828 Personal history of other (healed) physical injury and trauma; Z80.52 Family history of malignant neoplasm of bladder; Z80.1 Family history of malignant neoplasm of trachea, bronchus and lung; Z82.49 Family history of ischemic heart disease and other diseases of the circulatory system; Z82.5 Family history of asthma and other chronic lower respiratory diseases
CPT/HCPCS: 36415; 36600; 71045; 71046; 71275; 74174; 80048; 80053; 80061; 81003; 82247; 82533; 82728; 82805; 83036; 83540; 83550; 83605; 83615; 83690; 83735; 83880; 84100; 84132; 84443; 84484; 85025; 85027; 85045; 85379; 85610; 85730; 86850; 86900; 86901; 86920; 87040; 87340; 90935; 93005; 93306; 93970; 94002; 94003; 94640; 94644; 94760; 96365; 96366; 96375; 99291